=== PATIENT | female | born 1970 ===

== ENCOUNTER 2023-06-22 14:48 | Inpatient (IN) | payer MEDICAID, SELFPAY ==
[2023-06-22] VITALS (7 sets, daily range): BP systolic 143–178; BP diastolic 81–104; PULSE 77–110; RESP 12–25; TEMP 36.4–36.9; O2SAT 97–99; BMI 32.8; BMI 33.8
--- NOTE | ~2023-06-22 | FL_ITS ---
PROCEDURE: Retrograde Urography INDICATION: Stent placement FLUOROSCOPY: Fluoroscopy Time: 23 seconds Dose/air kerma: 2.81 mGy Images saved: 6 TECHNIQUE: Multiple intraoperative fluoroscopic images were submitted during reported left double-J nephroureteral stent placement. Correlation with operative report. Evaluation is limited secondary to fluoroscopic technique. FL/FL guidance in OR IMPRESSION: Fluoroscopy was provided by radiology for this procedure. Please refer to the operative report for further information.
--- NOTE | ~2023-06-22 | CT_ITS ---
EXAMINATION: CT ABDOMEN AND PELVIS WITHOUT CONTRAST CLINICAL INFORMATION: rectal bleeding. COMPARISON: No pertinent prior studies are available for comparison. TECHNIQUE: Multidetector volumetric imaging was performed from the superior aspect of the liver through the pubic symphysis without contrast per request. Sagittal and coronal reformatted images were obtained on the technologist workstation. This CT examination was performed using dose optimization techniques as appropriate, variously including the following: *Automated exposure control *Adjustment of mA and/or kV according to patient size (this includes techniques or standardized protocols for targeted exams where dose is matched to indication/reason for exam; i.e. extremities or head) *Use of iterative reconstruction technique DLP: 756 mGy-cm. FINDINGS: LUNG BASES: The visualized lung bases are unremarkable. LIVER, GALLBLADDER, BILIARY TREE: The non-contrast liver is normal in size, shape, and attenuation. No focal hepatic lesion or biliary ductal dilatation is present. The gallbladder is unremarkable with no evidence of radiopaque gallstones, gallbladder wall thickening, or obvious pericholecystic inflammatory changes. PANCREAS: Unremarkable. SPLEEN: Unremarkable. ADRENAL GLANDS: Unremarkable. KIDNEYS AND URETERS: There is left-sided hydronephrosis and hydroureter extending up to a soft tissue density within the mid right ureter difficult to define further on this noncontrast study. On these images the soft tissue density appears to be within the ureter although it could be secondary to mass effect from soft tissue attenuation from the adjacent retroperitoneal adenopathy mimicking this appearance. This difficult to define further on this noncontrast study. I do not appreciate any ureteric calculi. Tiny punctate intrarenal calculi in the posterior upper pole collecting system of the left kidney and posterior upper pole collecting system of the contralateral right kidney noted. BLADDER: Decompressed GASTROINTESTINAL TRACT: Prominent perirectal inflammatory change. Although decompressed the rectal wall is likely thickened. Underlying low rectal mass cannot be excluded from this noncontrast study. There is scattered diverticulosis. I do not appreciate any other pericolonic inflammatory change or obstruction. Normal-appearing appendix in the right lower quadrant. Visualized small bowel and stomach unremarkable ABDOMINAL WALL: No significant hernia is appreciated. LYMPHOVASCULAR STRUCTURES: There is perirectal inflammatory change seen with the prominent perirectal lymph nodes. Bilateral pelvic sidewall bilateral inguinal, and retroperitoneal adenopathy is noted. Etiology of this adenopathy is uncertain.. PELVIC VISCERA: Fullness in the left greater than right adnexal regions may be due to adenopathy. This difficult to define on this noncontrast study OSSEUS STRUCTURES: Degenerative changes in the spine more so at L4/L5. CT/CT abdomen pelvis wo IV con IMPRESSION: There is left-sided hydronephrosis and hydroureter extending up to a soft tissue density within the mid left ureter. This is difficult to define further on this noncontrast study. This abnormality may be intrinsic to the ureter however there is bulky adenopathy in this location which could also be causing this ureteric obstruction. There is additional bulky bilateral inguinal, pelvic sidewall, and retroperitoneal adenopathy present. Contrast enhanced study may be helpful for evaluating further. Malignancy would be favored over infectious etiology with this distribution There is perirectal inflammatory change with prominent perirectal lymph nodes. I cannot exclude a low rectal mass lesion on this noncontrast study either. Again clinical correlation, contrast-enhanced CT, or MRI may be helpful for evaluating this further. This critical result was discussed with Cortney Carter at 06/22/2023 8:14 PM and it was ascertained that the content and urgency of the report was understood at the time of direct communication.
--- NOTE | ~2023-06-22 | CT_ITS ---
EXAMINATION: CT CHEST, ABDOMEN, AND PELVIS WITH CONTRAST CLINICAL INFORMATION: Rectal carcinoma COMPARISON: 06/22/2023, CT scan of the abdomen TECHNIQUE: Multidetector volumetric CT imaging of the chest, abdomen, and pelvis was obtained after the administration of 85 mL of Omnipaque 350 intravenous contrast without immediate adverse reactions. Axial MIP volume rendering provided. Sagittal and coronal reformatted images were obtained. This CT examination was performed using dose optimization techniques as appropriate, variously including the following: *Automated exposure control *Adjustment of mA and/or kV according to patient size (this includes techniques or standardized protocols for targeted exams where dose is matched to indication/reason for exam; i.e. extremities or head) *Use of iterative reconstruction technique DLP: 795 mGy-cm FINDINGS: LUNGS: The lungs are clear with no evidence of inflammation or nodules. MEDIASTINUM: There is small nodule in the right thyroid lobe, measured 1.2 x 0.8 cm. CORONARY ARTERY CALCIFICATION: Not seen PLEURA: There is no pleural effusion. No pleural mass or thickening. AXILLA: No lymphadenopathy by size criteria. LIVER, GALLBLADDER, AND BILIARY TREE: The liver appears unremarkable in size, shape, and attenuation. No focal hepatic lesion or biliary ductal dilatation is appreciated. Unremarkable appearance of the gallbladder. PANCREAS: Unremarkable SPLEEN: Unremarkable ADRENAL GLANDS: Unremarkable KIDNEYS AND URETERS: There is left ureteral stent. Seen previously left hydroureteronephrosis has been resolved. There is delayed nephrogram on the left. BLADDER: Bladder is partially decompressed with air-fluid level and distal pigtail catheter in the urinary bladder. GASTROINTESTINAL TRACT: Patient is status post colostomy placement on the left there is sigmoid colon resection. ABDOMINAL WALL: There is left-sided stoma with parastomal fat herniation LYMPH NODES: Retroperitoneal lymphadenopathy present with the largest lymph nodes seen at the left renal artery , measured 2.2 cm, 1.3 cm VASCULAR: Unremarkable. PELVIC VISCERA: Unremarkable OSSEOUS STRUCTURES: Unremarkable. CT/CT abdomen pelvis w IV con IMPRESSION: 1. Status post colostomy placement with parastomal fat herniation. 2. Left ureteral stent with delayed nephrogram on the left. 3. Retroperitoneal lymphadenopathy. 4. Right thyroid lobe nodule.
--- NOTE | 2023-06-22 15:25 | PC.NURSE ---
Patient reports blood in stool x 1 month , collette has seen a MD this for this and they wanted to do an endoscopy that she has not had yet. Reports neck pain and abdominal pain reports has not had a BM in two weeks, only blood comes out
[2023-06-22 15:59] LABS: MANUAL DIFF FLAG NO
[2023-06-22 16:01] LABS: Eosinophils Percent Auto 0.4 % (0-4); Hematocrit 36.1 % (37.0-47.0); Hemoglobin 11.4 g/dl (12.0-16.0); Imm Gran Abs Auto 0.01 X10*3/uL (0.00-0.03); Imm Gran Pct Auto 0.2 % (0.0-0.4); Lymphocytes Absolute Auto 1.3 X10*3/uL (1.2-4.9); Lymphocytes Percent Auto 24.5 % (20-40); Mean Corpuscular HGB Conc 31.6 g/dl (31.0-35.0); Mean Corpuscular Hemoglobin 24.2 pg (27.0-33.0); Mean Corpuscular Volume 76.6 fL (80.0-98.0); Monocytes Absolute Auto 0.5 X10*3/uL (0.1-1.2); Monocytes Percent Auto 9.3 % (2-11); Neutrophils Absolute Auto 3.4 x10*3/uL (2.0-8.3); Neutrophils Percent Auto 65.6 % (45-73); Platelet Count 390 X10*3/uL (160-400); Red Blood Count 4.71 X10*6/uL (4.20-5.50); White Blood Count 5.2 X10*3/uL (4.8-10.8)
[2023-06-22 16:23] LABS: Alanine Aminotransferase 23 U/L (0-31); Albumin Level 3.9 g/dL (3.5-5.0); Alkaline Phosphatase 76 U/L (39-117); Anion Gap 11 (12-20); Aspartate Amino Transferase 29 U/L (5-31); Bilirubin Direct 0.1 mg/dL (0.0-0.5); Bilirubin Total 0.3 mg/dL (0.0-1.0); Blood Urea Nitrogen 12 mg/dL (9-16); Calcium 9.7 mg/dL (8.4-10.2); Carbon Dioxide 24 mmol/L (22-29); Chloride 103 mmol/L (96-108); Creatinine Clr Calc Pharmacy 70.2; Estimated Glomerular Filt Rate 57; Glucose Random 109 mg/dL (60-115); Lipase 9 U/L (8-78); Potassium 4.3 mmol/L (3.3-5.1); Sodium 134 mmol/L (135-145); Total Protein 8.9 g/dL (6.5-8.0)
--- NOTE | 2023-06-22 16:24 | ED_ITS ---
HPI - General Adult General Chief complaint: General Medical Stated complaint: ABD PAIN,BLOODY STOOLS, HIGH BP 186/104 PER EMS Time Seen by Provider: 06/22/23 15:58 Source: patient and RN notes reviewed Mode of arrival: ambulatory Limitations: no limitations History of Present Illness HPI narrative: This is a 53-year-old female with a history of pancreatitis and partially treated hepatitis-C, who presents emergency department complaints of generalized abdominal pain and rectal bleeding x 1 month. Patient endorsing subjective fevers and chill and chest pain. Denies any vomiting. She has been taking Tylenol for her symptoms which has provided her without any relief. Denies history of similar symptoms in the past. She states that her stool comes out clots and is bright red. Patient reports that over the last month she has had night sweats and decreased appetite. No known history of colon cancer or family history of colon cancer. She has not had a colonoscopy performed. She has not been seen by GI. She is alert and oriented x4 however does appear to be a poor historian regarding medical history. No other complaints or concerns at this time. MD complaint: Rectal Bleeding Onset (ago): week(s) Severity: moderate Quality: aching Relieving factors: none Exacerbating factors: none Associated symptoms: denies other symptoms Treatments prior to arrival: none Related Data Allergies Allergy/AdvReac Type Severity Reaction Status Date / Time No Known Allergies Allergy Verified 06/22/23 15:07 Review of Systems 2 Review of Systems: Yes all other systems are reviewed and are negative Constitutional: Constitutional: Reports as per [facility] Past Medical History Attestation statement: The following information was validated with the patient. Medical History (Updated 06/22/23 @ 23:33 by Dianne Seals) Shingles Migraines Hepatitis C Social History Social History Household Members: None Housing: Apartment Alcohol intake: never Patient Tobacco Use Status: Former Tobacco user Smoked in Last 30 Days: No Use of substances other than those prescribed or required for medical reasons: No Currently Displaying Signs/Symptoms of Drug Intoxication Withdrawal: No Have you been hit, kicked, punched, or otherwise hurt by someone within the past year? If so, by whom?: No Do you feel safe in your current relationship?: No Is there a partner from a previous relationship who is making you feel unsafe now?: No Are you made to feel afraid or neglected: No Advance Directives: No Advance Directives Information Provided: No Do you have thoughts of harming others: None Do you have a plan to hurt others: No Plan Recently lost weight without trying: No Eating poorly because of decreased appetite: No Nutrition Risks: No Nutritional Risk Patient : No : No Poor oral hygiene: No Physical Exam ED Vital Signs: Vital Signs - 24 hr 06/22/23 15:01 06/22/23 15:02 06/22/23 16:00 Temperature 98.2 F Pulse Rate 89 94 77 Respiratory Rate 18 25 H 18 Blood Pressure 147/85 H 147/85 H 143/85 H Pulse Oximetry 97 98 98 Oxygen Delivery Method Room Air Room Air Room Air 06/22/23 18:12 06/22/23 20:52 Temperature 98.1 F 98.5 F Pulse Rate 82 91 Respiratory Rate 17 12 Blood Pressure 163/89 H 171/90 H Pulse Oximetry 99 97 Oxygen Delivery Method Room Air Room Air BMI result Body Mass Index 32.8 Const General: cooperative, comfortable and no acute distress Orientation/consciousness: patient oriented x3 Limitations: no limitations HENMT Head: Yes normal to inspection, Yes normocephalic and Yes atraumatic Ears: hearing grossly normal bilaterally General nose exam: Normal external nose present Face and sinus: Yes normal facial exam Mouth: Normal oral and palatal mucosa present, oropharynx normal and moist mucous membranes Throat: Yes posterior oropharynx normal Eyes General: appearance normal, both eyes and all related structures Eyelids: Yes eyelids normal Conjunctivae: conjunctivae normal Sclerae: sclerae normal Pupils: Equal, round and reactive pupils present EOM: EOMs intact bilaterally Neck Neck: Yes normal visual inspection, Yes full ROM and Yes no lymphadenopathy Lymphatic: no lymphadenopathy noted Chest Chest palpation & inspection: normal inspection of the chest Resp Effort & Inspection: normal respiratory effort and able to speak in complete sentences Auscultation: clear to auscultation bilaterally, no crackles, no rales, no rhonchi and no wheezes Cardio Rate: regular rate Rhythm: regular rhythm Heart sounds: S1 normal heart sound present and S2 normal heart sound present GI Other: Rectal examination performed with MAGDY Reed present. Patient does have external hemorrhoids noted. Internal examination revealing multiple rectal masses versus internal hemorrhoids. Patient does have tenderness along these masses. Bright red blood per rectum noted. Abdomen is soft, nontender, nondistended, normoactive bowel sounds present 4 quadrants. Inspection: Yes normal to inspection Skin General skin exam: no rashes or lesions noted Trauma: no lacerations or abrasions Wounds: no wounds Neuro General: patient oriented x3 and moves all extremities Cranial nerves: Yes Equal, round and reactive pupils present Extrem General: Yes normal to inspection Right upper extremity: normal to inspection Left upper extremity: normal to inspection Right lower extremity: normal to inspection Left lower extremity: normal to inspection Course Reevaluation(s) Reevaluation #1: I received a phone call from [facility], spoke to radiologist. Report was read with left-sided hydronephrosis and hydroureter extending up to a soft tissue density within the mid left ureter. Abnormality may be intrinsic due to ureter however there is bulky adenopathy in this location which can be causing the ureteric obstruction. There is additional bulky bilateral inguinal, pelvic sidewall, and retroperitoneal adenopathy present. Malignancy is favored in this case. Was also perirectal inflammatory change with prominent perirectal lymph nodes, can not exclude a low rectal mass lesion on this noncontrast study, radiologist's requesting CT with IV contrast or MRI for further evaluation. I discussed with my attending physician, Dr. Solis, without given patient has poor management and follow-up and extensive masses she should be admitted for further management. I spoke to hospitalist, Dr. Weston, transfer of care initiated. Time: 21:01 Medications Administered Generic Name Dose Route Start Last Admin Trade Name Freq PRN Reason Stop Dose Admin Acetaminophen 650 mg 06/22/23 22:01 06/23/23 00:10 Acetaminophen 325 Mg Tablet PO 650 mg Q6H PRN Administration Pain, Mild (Pain Scale 1-3) Melatonin 6 mg 06/22/23 22:01 06/23/23 00:10 Melatonin 3 Mg Tablet PO 6 mg BEDTIME PRN Administration Insomnia Sodium Chloride 3 ml 06/23/23 00:00 06/23/23 00:12 0.9 % Sodium Chloride Flush 3 Ml Syringe IVFLUSH 3 ml QSHIFT BRETT Administration Medical Decision Making Medical Decision Making MDM Narrative: This is a 53-year-old female, with a history of hepatitis-C and pancreatitis, who presents emergency department with complaints of rectal bleeding for the last month. On arrival patient mildly hypertensive at 147/85, all other vital signs within normal limits. Abdomen is soft, nontender. Rectal exam with external and internal hemorrhoids noted. Bright red blood per rectum noted. Differential diagnoses include diverticulitis, diverticulosis, colitis, rectal mass, malignancy. CT abdomen and pelvis with IV contrast would be preferred however patient appears to be a poor historian, and states that she has an allergy to shellfish/IV contrast dye. Given this finding, will order dry CT for further analysis. Plan: Labs, UA, CT abdomen and pelvis Differential Diagnosis Differential Diagnoses: The differential diagnosis associated with the presentation includes See above Admission/Observation Consideration of admission/observation: Escalation of care including admission/observation considered Patient requiring hospitalization secondary to rectal mass and poor outpatient follow-up Lab Data MDM Lab Attestation statement: I reviewed the patient's lab results. No leukocytosis, H&H revealing normocytic anemia at 11.4/36. Chemistry nondiagnostic, urine does not appear to be infected. Patient tested positive for fentanyl. 06/22/23 15:54 06/22/23 15:54 Labs: Lab Results 06/22/23 06/22/23 06/22/23 Range/Units 15:54 16:47 17:46 WBC 5.2 (4.8-10.8) X10*3/uL RBC 4.71 (4.20-5.50) X10*6/uL Hgb 11.4 L (12.0-16.0) g/dl Hct 36.1 L (37.0-47.0) % MCV 76.6 L (80.0-98.0) fL MCH 24.2 L (27.0-33.0) pg MCHC 31.6 (31.0-35.0) g/dl RDW 16.0 (11.0-16.0) % Plt Count 390 (160-400) X10*3/uL MPV 9.0 L (9.4-12.3) fL Immature Gran % (Auto) 0.2 (0.0-0.4) % Neut % (Auto) 65.6 (45-73) % Lymph % (Auto) 24.5 (20-40) % [place] % (Auto) 9.3 (2-11) % Eos % (Auto) 0.4 (0-4) % Baso % (Auto) 0.0 (0-2) % Lymph # (Auto) 1.3 (1.2-4.9) X10*3/uL [place] # (Auto) 0.5 (0.1-1.2) X10*3/uL Eos # (Auto) 0.0 (0.0-0.4) X10*3/uL Baso # (Auto) 0.0 (0.0-0.2) X10*3/uL Abs Immat Gran (auto) 0.01 (0.00-0.03) X10*3/uL Absolute Neuts (auto) 3.4 (2.0-8.3) x10*3/uL Absolute Nucleated RBC 0.000 (0.0-0.012) X10*3/uL Nucleated RBC % (auto) 0.0 (0.0-0.2) /100WBC APTT 35.7 (26.0-36.8) SEC Sodium 134 L (135-145) mmol/L Potassium 4.3 (3.3-5.1) mmol/L Chloride 103 (96-108) mmol/L Carbon Dioxide 24 (22-29) mmol/L Anion Gap 11 L (12-20) BUN 12 (9-16) mg/dL Creatinine 1.01 (0.5-1.4) mg/dL Estim Creat Clear Calc 70.2 Estimated GFR 57 Random Glucose 109 (60-115) mg/dL Calcium 9.7 (8.4-10.2) mg/dL Total Bilirubin 0.3 (0.0-1.0) mg/dL Direct Bilirubin 0.1 (0.0-0.5) mg/dL AST 29 (5-31) U/L ALT 23 (0-31) U/L Alkaline Phosphatase 76 (39-117) U/L Ammonia 30 (13-55) umol/L Total Protein 8.9 H (6.5-8.0) g/dL Albumin 3.9 (3.5-5.0) g/dL Lipase 9 (8-78) U/L Urine Color Urine Appearance Urine pH (5.0-9.0) Ur Specific [place] (1.005-1.025) Urine Protein (Neg-Trace) mg/dL Urine Glucose (UA) (Negative) mg/dL Urine Ketones (Negative) mg/dL Urine Blood (Negative) Urine Nitrite (Negative) Ur Leukocyte Esterase (Negative) Stool Occult Blood POSITIVE (NEGATIVE) Urine Opiates Screen (Not Detect) Ur Buprenorphine Scrn (Not Detect) ng/mL Ur Oxycodone Screen (Not Detect) ng/mL Urine Methadone Screen (Not Detect) ng/mL Urine Fentanyl Screen (Not Detect) Ur Barbiturates Screen (Not Detect) Ur Phencyclidine Scrn (Not Detect) Ur Amphetamines Screen (Not Detect) U Benzodiazepines Scrn (Not Detect) Urine Cocaine Screen (Not Detect) U Marijuana (THC) Screen (Not Detect) Ethyl Alcohol < 10 mg/dL 06/22/23 06/22/23 Range/Units 18:21 18:26 WBC (4.8-10.8) X10*3/uL RBC (4.20-5.50) X10*6/uL Hgb (12.0-16.0) g/dl Hct (37.0-47.0) % MCV (80.0-98.0) fL MCH (27.0-33.0) pg MCHC (31.0-35.0) g/dl RDW (11.0-16.0) % Plt Count (160-400) X10*3/uL MPV (9.4-12.3) fL Immature Gran % (Auto) (0.0-0.4) % Neut % (Auto) (45-73) % Lymph % (Auto) (20-40) % [place] % (Auto) (2-11) % Eos % (Auto) (0-4) % Baso % (Auto) (0-2) % Lymph # (Auto) (1.2-4.9) X10*3/uL [place] # (Auto) (0.1-1.2) X10*3/uL Eos # (Auto) (0.0-0.4) X10*3/uL Baso # (Auto) (0.0-0.2) X10*3/uL Abs Immat Gran (auto) (0.00-0.03) X10*3/uL Absolute Neuts (auto) (2.0-8.3) x10*3/uL Absolute Nucleated RBC (0.0-0.012) X10*3/uL Nucleated RBC % (auto) (0.0-0.2) /100WBC APTT (26.0-36.8) SEC Sodium (135-145) mmol/L Potassium (3.3-5.1) mmol/L Chloride (96-108) mmol/L Carbon Dioxide (22-29) mmol/L Anion Gap (12-20) BUN (9-16) mg/dL Creatinine (0.5-1.4) mg/dL Estim Creat Clear Calc Estimated GFR Random Glucose (60-115) mg/dL Calcium (8.4-10.2) mg/dL Total Bilirubin (0.0-1.0) mg/dL Direct Bilirubin (0.0-0.5) mg/dL AST (5-31) U/L ALT (0-31) U/L Alkaline Phosphatase (39-117) U/L Ammonia (13-55) umol/L Total Protein (6.5-8.0) g/dL Albumin (3.5-5.0) g/dL Lipase (8-78) U/L Urine Color Yellow Urine Appearance Clear Urine pH 8.0 (5.0-9.0) Ur Specific [place] 1.020 (1.005-1.025) Urine Protein Trace (Neg-Trace) mg/dL Urine Glucose (UA) Negative (Negative) mg/dL Urine Ketones Negative (Negative) mg/dL Urine Blood Negative (Negative) Urine Nitrite Negative (Negative) Ur Leukocyte Esterase Negative (Negative) Stool Occult Blood (NEGATIVE) Urine Opiates Screen Not Detected (Not Detect) Ur Buprenorphine Scrn Not Detected (Not Detect) ng/mL Ur Oxycodone Screen Not Detected (Not Detect) ng/mL Urine Methadone Screen Not Detected (Not Detect) ng/mL Urine Fentanyl Screen POSITIVE H (Not Detect) Ur Barbiturates Screen Not Detected (Not Detect) Ur Phencyclidine Scrn Not Detected (Not Detect) Ur Amphetamines Screen Not Detected (Not Detect) U Benzodiazepines Scrn Not Detected (Not Detect) Urine Cocaine Screen Not Detected (Not Detect) U Marijuana (THC) Screen Not Detected (Not Detect) Ethyl Alcohol mg/dL Radiology Impression Discussion of test interpretation with radiology: I have reviewed the radiologist's reading. Radiologist Impression: FINDINGS: LUNG BASES: The visualized lung bases are unremarkable. LIVER, GALLBLADDER, BILIARY TREE: The non-contrast liver is normal in size, shape, and attenuation. No focal hepatic lesion or biliary ductal dilatation is present. The gallbladder is unremarkable with no evidence of radiopaque gallstones, gallbladder wall thickening, or obvious pericholecystic inflammatory changes. PANCREAS: Unremarkable. SPLEEN: Unremarkable. ADRENAL GLANDS: Unremarkable. KIDNEYS AND URETERS: There is left-sided hydronephrosis and hydroureter extending up to a soft tissue density within the mid right ureter difficult to define further on this noncontrast study. On these images the soft tissue density appears to be within the ureter although it could be secondary to mass effect from soft tissue attenuation from the adjacent retroperitoneal adenopathy mimicking this appearance. This difficult to define further on this noncontrast study. I do not appreciate any ureteric calculi. Tiny punctate intrarenal calculi in the posterior upper pole collecting system of the left kidney and posterior upper pole collecting system of the contralateral right kidney noted. BLADDER: Decompressed GASTROINTESTINAL TRACT: Prominent perirectal inflammatory change. Although decompressed the rectal wall is likely thickened. Underlying low rectal mass cannot be excluded from this noncontrast study. There is scattered diverticulosis. I do not appreciate any other pericolonic inflammatory change or obstruction. Normal-appearing appendix in the right lower quadrant. Visualized small bowel and stomach unremarkable ABDOMINAL WALL: No significant hernia is appreciated. LYMPHOVASCULAR STRUCTURES: There is perirectal inflammatory change seen with the prominent perirectal lymph nodes. Bilateral pelvic sidewall bilateral inguinal, and retroperitoneal adenopathy is noted. Etiology of this adenopathy is uncertain.. PELVIC VISCERA: Fullness in the left greater than right adnexal regions may be due to adenopathy. This difficult to define on this noncontrast study OSSEUS STRUCTURES: Degenerative changes in the spine more so at L4/L5. CT/CT abdomen pelvis wo IV con IMPRESSION: There is left-sided hydronephrosis and hydroureter extending up to a soft tissue density within the mid left ureter. This is difficult to define further on this noncontrast study. This abnormality may be intrinsic to the ureter however there is bulky adenopathy in this location which could also be causing this ureteric obstruction. There is additional bulky bilateral inguinal, pelvic sidewall, and retroperitoneal adenopathy present. Contrast enhanced study may be helpful for evaluating further. Malignancy would be favored over infectious etiology with this distribution There is perirectal inflammatory change with prominent perirectal lymph nodes. I cannot exclude a low rectal mass lesion on this noncontrast study either. Again clinical correlation, contrast-enhanced CT, or MRI may be helpful for evaluating this further. This critical result was discussed with Cortney Carter at 06/22/2023 8:14 PM and it was ascertained that the content and urgency of the report was understood at the time of direct communication. Dictated By: Keegan Dasilva MD External Record Review External record reviewed: Inpatient record, Office record, Outpatient record, Prior outpatient labs, Prior outpatient radiology, Primary care record and Outside ED record Critical Care Time Critical Care Time Critical Care Time: Yes Total Critical Care Time: 50 Attestation: I have personally provided critical care time exclusive of time spent on separately billable procedures. Time includes review of lab data, radiology results, discussion with consultants, and monitoring for potential decompensation. Intervention performed as documented. Discharge Plan Discharge Clinical Impression: Rectal Hemorrhage Patient Disposition: Admitted As Inpatient Interventions: Admission Worksheet (ED) Last Done: 06/22/23 22:51 Discharge Date/Time: 06/22/23 23:33
[2023-06-22 16:56] LABS: OBS Int Ctl Valid YES; OBS1 POSITIVE (NEGATIVE)
[2023-06-22 18:07] LABS: Partial Thromboplastin Time 35.7 SEC (26.0-36.8)
[2023-06-22 18:16] LABS: Ammonia 30 umol/L (13-55)
[2023-06-22 18:20] LABS: Ethanol < 10 mg/dL
[2023-06-22 18:27] LABS: Appearance Urine Clear; Color Urine Yellow; Glucose Urine UA Negative (Negative); Leukocyte Esterase Urine Negative (Negative); Nitrite Urine Negative (Negative); Urine Blood Negative (Negative); Urine Ketones Negative (Negative); Urine Protein Trace mg/dL (Neg-Trace)
[2023-06-22 18:42] LABS: Amphetamine Screen Urine Not Detected (Not Detect); Barbiturates, Urine Not Detected (Not Detect); Benzodiazepines Screen Urine Not Detected (Not Detect); Buprenorphine Scr Not Detected (Not Detect); Cannabinoid Screen Urine Not Detected (Not Detect); Cocaine Screen Urine Not Detected (Not Detect); Fentanyl, urine POSITIVE (Not Detect); Methadone Screen, Urine Not Detected (Not Detect); Opiate Screen Urine Not Detected (Not Detect); Oxycodone Screen Urine Not Detected (Not Detect); Phencyclidine Screen Urine Not Detected (Not Detect)
--- NOTE | 2023-06-22 18:46 | PC.NURSE ---
patient received dose of fentanyl from EMS
--- NOTE | 2023-06-22 21:00 | PM.IMHP ---
History of Present Illness Date of Service: 06/22/23 Attending physician on admission: Shanell Hinkle Chief Complaint: Bloody stool Pt is a 53-year-old Estonian-speaking female with a PMH significant for shingles, migraines, mood disorder, and hepatitis-C?at least partially treated in [place] in 1996 currently not on home meds who presents to the ED for evaluation of rectal bleeding and diffuse abdominal pain x1 month. Patient reports having bright red blood per rectum with bowel movements for the past month. Initially stool was thin and elongated but lately has been constipated and having to strain while defecating. Has only produced a small amount of stool the past two weeks. Reports intermittent epigastric and rectal pain during defecation. Also complains of diffuse pain in bones, joints, and neck x1 month. Has lost strength in left arm and not been able to fully close her left hand, which is new. Reports feeling weak and fatigued with 5 lb unintentional weight loss. Some nausea and vomiting, and subjective fever and chills. States it has been eating and drinking normally for most of this time. Denies dysuria, polyuria, or hematuria. Denies chest pain/pressure, palpitations. No shortness of breath. In the ED pt was tachypneic up to 20, hypertensive up to 171/90, and with elevated heart rate of 94. Labs were significant for stool being positive for occult blood, otherwise grossly unremarkable. No leukocytosis. Stable H&H of 11.4/36.1. Sodium 134, otherwise no electrolyte abnormalities. Renal and hepatic function WNL. CT of abdomen and pelvis found left sided hydronephrosis and hydroureter. Unclear if ureteric obstruction is intrinsic to the ureter itself or to bulky adenopathy. Also found bulky bilateral inguinal, pelvic sidewall, and retroperitoneal adenopathy, as well as perirectal inflammatory change with prominent perirectal lymph nodes. Low rectal mass lesion can not be excluded. Suspicion is for malignancy over infectious etiology. Of note, CT could not be ordered with contrast out of concern for allergy to IV contrast/shellfish. Pt will be admitted to the hospital patient will be admitted to the hospital for treatment further evaluation of rectal bleeding secondary to possible rectal mass and hydro nephrosis concerning ureteral obstruction. Review of Systems Review of Systems: Negative except for that stated in the [facility] Medical History (Updated 06/22/23 @ 22:49 by ERICK Hector) Shingles Migraines Hepatitis C Social History Alcohol intake: never Smoked in Last 30 Days: No Use of substances other than those prescribed or required for medical reasons: No Advance Directives: No Advance Directives Information Provided: No Meds Allergies Allergy/AdvReac Type Severity Reaction Status Date / Time No Known Allergies Allergy Verified 06/22/23 15:07 Physical Exam Vital Signs and Narrative: Vital Signs: Last Vital Signs Temp 98.5 F 06/22/23 20:52 Pulse 91 06/22/23 20:52 Resp 12 06/22/23 20:52 BP 171/90 H 06/22/23 20:52 Pulse Ox 97 06/22/23 20:52 O2 Del Method Room Air 06/22/23 20:52 BMI result Body Mass Index 32.8 Constitutional: Alert, in no acute distress. Mental Status: Oriented to person, place and time. Eyes: Pupils are equal, round, and reactive to light. Ear, Nose, and Throat: Oropharynx clear, mucous membranes moist. Ears and nose without deformities. Trachea midline. Respiratory: Clear to auscultation bilaterally. No wheezing, rales, or rhonchi. Cardiovascular: S1, S2 regular. No murmurs, rubs, or gallops. Gastrointestinal: Abdomen soft, non-distended, with suprapubic tenderness. Normal bowel sounds. Neurologic: Cranial nerves II-XII are grossly intact bilaterally. Moves all extremities spontaneously. Left upper extremity weakness with reduced ROM of hand and fingers. Skin: Warm, dry. Extremities: No edema. Psychiatric: Normal mood and affect. Results Labs 06/22/23 15:54 06/22/23 15:54 Labs: Laboratory Results - last 24 hr 06/22/23 06/22/23 06/22/23 15:54 16:47 17:46 MCV 76.6 L MCH 24.2 L MCHC 31.6 RDW 16.0 Plt Count 390 MPV 9.0 L Immature Gran % (Auto) 0.2 Neut % (Auto) 65.6 Lymph % (Auto) 24.5 Chambers % (Auto) 9.3 Eos % (Auto) 0.4 Baso % (Auto) 0.0 Lymph # (Auto) 1.3 Chambers # (Auto) 0.5 Eos # (Auto) 0.0 Baso # (Auto) 0.0 Abs Immat Gran (auto) 0.01 Absolute Neuts (auto) 3.4 Absolute Nucleated RBC 0.000 Nucleated RBC % (auto) 0.0 APTT 35.7 Anion Gap 11 L Estim Creat Clear Calc 70.2 Estimated GFR 57 Random Glucose 109 Calcium 9.7 Total Bilirubin 0.3 Direct Bilirubin 0.1 AST 29 ALT 23 Alkaline Phosphatase 76 Ammonia 30 Total Protein 8.9 H Albumin 3.9 Lipase 9 Urine Color Urine Appearance Urine pH Ur Specific Ferguson Urine Protein Urine Glucose (UA) Urine Ketones Urine Blood Urine Nitrite Ur Leukocyte Esterase Stool Occult Blood POSITIVE Urine Opiates Screen Ur Buprenorphine Scrn Ur Oxycodone Screen Urine Methadone Screen Urine Fentanyl Screen Ur Barbiturates Screen Ur Phencyclidine Scrn Ur Amphetamines Screen U Benzodiazepines Scrn Urine Cocaine Screen U Marijuana (THC) Screen Ethyl Alcohol < 10 06/22/23 06/22/23 18:21 18:26 MCV MCH MCHC RDW Plt Count MPV Immature Gran % (Auto) Neut % (Auto) Lymph % (Auto) Chambers % (Auto) Eos % (Auto) Baso % (Auto) Lymph # (Auto) Chambers # (Auto) Eos # (Auto) Baso # (Auto) Abs Immat Gran (auto) Absolute Neuts (auto) Absolute Nucleated RBC Nucleated RBC % (auto) APTT Anion Gap Estim Creat Clear Calc Estimated GFR Random Glucose Calcium Total Bilirubin Direct Bilirubin AST ALT Alkaline Phosphatase Ammonia Total Protein Albumin Lipase Urine Color Yellow Urine Appearance Clear Urine pH 8.0 Ur Specific Ferguson 1.020 Urine Protein Trace Urine Glucose (UA) Negative Urine Ketones Negative Urine Blood Negative Urine Nitrite Negative Ur Leukocyte Esterase Negative Stool Occult Blood Urine Opiates Screen Not Detected Ur Buprenorphine Scrn Not Detected Ur Oxycodone Screen Not Detected Urine Methadone Screen Not Detected Urine Fentanyl Screen POSITIVE H Ur Barbiturates Screen Not Detected Ur Phencyclidine Scrn Not Detected Ur Amphetamines Screen Not Detected U Benzodiazepines Scrn Not Detected Urine Cocaine Screen Not Detected U Marijuana (THC) Screen Not Detected Ethyl Alcohol Imaging Radiologist's Impressions: Impressions Abdomen/Pelvis CT 06/22/23 19:23 IMPRESSION: There is left-sided hydronephrosis and hydroureter extending up to a soft tissue density within the mid left ureter. This is difficult to define further on this noncontrast study. This abnormality may be intrinsic to the ureter however there is bulky adenopathy in this location which could also be causing this ureteric obstruction. There is additional bulky bilateral inguinal, pelvic sidewall, and retroperitoneal adenopathy present. Contrast enhanced study may be helpful for evaluating further. Malignancy would be favored over infectious etiology with this distribution There is perirectal inflammatory change with prominent perirectal lymph nodes. I cannot exclude a low rectal mass lesion on this noncontrast study either. Again clinical correlation, contrast-enhanced CT, or MRI may be helpful for evaluating this further. This critical result was discussed with Cortney Carter at 06/22/2023 8:14 PM and it was ascertained that the content and urgency of the report was understood at the time of direct communication. Assessment and Plan (1) Rectal bleeding: Status: Acute Plan Pt is a 53-year-old Estonian-speaking female with a PMH significant for shingles, migraines, mood disorder, and hepatitis-C?at least partially treated in [place] in 1996 currently not on home meds who presents to the ED for evaluation of rectal bleeding and diffuse abdominal pain x1 month. Pt will be admitted to the hospital patient will be admitted to the hospital for treatment further evaluation of rectal bleeding secondary to possible rectal mass and hydro nephrosis concerning ureteral obstruction. Hematochezia Patient with bright red blood per rectum, diffuse intermittent abdominal pain, F/C, N/V, fatigue, weight loss x1 month CT with perirectal inflammatory change with prominent perirectal lymph nodes, rectal mass can not be excluded Concerning for malignancy Consider MRI of abdomen and pelvis for better imaging evaluation Patient will be made NPO Analgesics for pain management GI consult Follow CBC Left hydronephrosis and hydroureter Concern for ureteric obstruction from bulky adenopathy Urology consult Left upper extremity weakness Patient reports not being able to fully close left hand x1 month Unclear etiology: ?possible metastasis Consider MRI of head/neck Hepatitis-C Patient underwent at least partial treatment while in [place] No indication for further treatment or workup at this time Mood disorder Patient not on any home meds/mood stabilizers Migraines Tylenol p.r.n. Full Code Attending:? DVT Prophylaxis: Lovenox Pt will require a hospitalization of at least two nights for treatment and further evaluation of left hydronephrosis concerning for ureteral obstruction and rectal bleeding in the setting of possible rectal mass concerning for malignancy. Patient will require hospitalization for close monitoring of labs and specialist consultation with Urology and Gastroenterology with likely additional imaging and workup. Quality Stroke Does the patient have a stroke diagnosis?: No VTE Prior VTE?: No VTE Risk Level:: Medical - moderate - high VTE Device Contraindication: N/A - Device Ordered VTE Drug Contraindication: Treatment Not Indicated
[2023-06-23] MEDS: Acetaminophen 325 MG TABLET 650 MG PO ×2 (00:10→23:55)
[2023-06-23] MEDS: Melatonin 3 MG TABLET 6 MG PO ×2 (00:10→23:54)
[2023-06-23] MEDS: 0.9 % Sodium Chloride Flush 3 ML SYRINGE IVFLUSH ×4 (00:12→23:58)
[2023-06-23 03:57] VITALS: BP 137/75; PULSE 94; RESP 18; TEMP 36.4; O2SAT 96
[2023-06-23 07:01] LABS: Hematocrit 33.5 % (37.0-47.0); Hemoglobin 10.5 g/dl (12.0-16.0); Mean Corpuscular HGB Conc 31.3 g/dl (31.0-35.0); Mean Corpuscular Hemoglobin 24.4 pg (27.0-33.0); Mean Corpuscular Volume 77.9 fL (80.0-98.0); Mean Platelet Volume 9.5 fL (9.4-12.3); Platelet Count 391 X10*3/uL (160-400); Red Cell Distribution Width 16.2 % (11.0-16.0); White Blood Count 4.8 X10*3/uL (4.8-10.8)
[2023-06-23 07:10] LABS: Anion Gap 14 (12-20); Blood Urea Nitrogen 13 mg/dL (9-16); Calcium 9.8 mg/dL (8.4-10.2); Carbon Dioxide 24 mmol/L (22-29); Chloride 100 mmol/L (96-108); Creatinine Clr Calc Pharmacy 70.6; Estimated Glomerular Filt Rate 56; Glucose Random 96 mg/dL (60-115); Sodium 134 mmol/L (135-145)
--- NOTE | 2023-06-23 07:27 | P.CNGI_ITS ---
History of Present Illness Data of Consult Service Date: 06/23/23 Requesting physician: Stephanie De La Cruz Primary Care Provider: Unknown Physician HPI 53 YF (Gibraltarian-speaking) with hx of shingles, migraines, mood disorder, and hepatitis-C?at least partially treated in [place] in 1996 currently not on home meds seen at [facility] ED on 06/22/23 1 month hx of rectal bleeding and diffuse abdominal pain. Patient reported having bright red blood per rectum with bowel movements for the past month. Initially stool was thin and elongated but lately has been constipated and having to strain while defecating. She reports only small BMs in the past two weeks with incomplete evacuation and intermittent epigastric and rectal pain during defecation. Pt notes diffuse pain in bones, joints, and neck x1 month with loss of strength in left arm and not been able to fully close her left hand, which is new. Reports feeling weak and fatigued with 5 lb unintentional weight loss. Some nausea and vomiting, and subjective fever and chills. States she has been eating and drinking normally for most of this time. Pt denied dysuria, polyuria, or hematuria, chest pain/pressure, palpitations or shortness of breath. In the ED pt was tachypneic up to 20, hypertensive up to 171/90, and with elevated heart rate of 94. Labs showed heme positive stool. Stable H&H of 11.4/36.1. Sodium 134, otherwise no electrolyte abnormalities. Renal and hepatic function WNL. 06/22/[address] SCAN SHOWED: There is left-sided hydronephrosis and hydroureter extending up to a soft tissue density within the mid left ureter. This is difficult to define further on this noncontrast study. This abnormality may be intrinsic to the ureter however there is bulky adenopathy in this location which could also be causing this ureteric obstruction. There is additional bulky bilateral inguinal, pelvic sidewall, and retroperitoneal adenopathy present. Contrast enhanced study may be helpful for evaluating further. Malignancy would be favored over infectious etiology with this distribution There is perirectal inflammatory change with prominent perirectal lymph nodes. I cannot exclude a low rectal mass lesion on this noncontrast study either. Again clinical correlation, contrast-enhanced CT, or MRI may be helpful for evaluating this further. CT could not be ordered with contrast out of concern for allergy to IV contrast/shellfish. Pt was admitted for further evaluation of rectal bleeding secondary to possible rectal mass and hydro nephrosis concerning ureteral obstruction. Review of Systems 2 Review of Systems: Negative except for that stated in the [facility] Past Medical History Medical History Shingles Migraines Hepatitis C Social History Social History Household Members: None Housing: Apartment Alcohol intake: never Patient Tobacco Use Status: Former Tobacco user Smoked in Last 30 Days: No Use of substances other than those prescribed or required for medical reasons: No Currently Displaying Signs/Symptoms of Drug Intoxication Withdrawal: No Have you been hit, kicked, punched, or otherwise hurt by someone within the past year? If so, by whom?: No Do you feel safe in your current relationship?: No Is there a partner from a previous relationship who is making you feel unsafe now?: No Are you made to feel afraid or neglected: No Are you DNR?: No Advance Directives: No Advance Directives Information Provided: No Do you have thoughts of harming others: None Do you have a plan to hurt others: No Plan Recently lost weight without trying: No Eating poorly because of decreased appetite: No Nutrition Risks: No Nutritional Risk Patient : No : No Poor oral hygiene: No service: No Meds Allergies Allergy/AdvReac Type Severity Reaction Status Date / Time No Known Allergies Allergy Verified 06/22/23 15:07 Active Medications: Current Medications Acetaminophen (Acetaminophen 325 Mg Tablet) 650 mg PO Q6H PRN PRN Reason: Pain, Mild (Pain Scale 1-3) Last Admin: 06/23/23 00:10 Dose: 650 mg Benzonatate (Benzonatate 100 Mg Capsule) 100 mg PO TID PRN PRN Reason: Cough Docusate Sodium (Docusate Sodium 100 Mg Capsule) 100 mg PO DAILY PRN PRN Reason: Constipation Melatonin (Melatonin 3 Mg Tablet) 6 mg PO BEDTIME PRN PRN Reason: Insomnia Last Admin: 06/23/23 00:10 Dose: 6 mg Morphine Sulfate (Morphine Sulfate 2 Mg/Ml Cartridge) 2 mg IVPUSH Q4H PRN; Protocol PRN Reason: Pain, Severe (Pain Scale 7-10) Ondansetron HCl (Ondansetron Hcl 4 Mg/2 Ml Vial) 4 mg IVPUSH Q8H PRN PRN Reason: Nausea and Vomiting Sodium Chloride (0.9 % Sodium Chloride Flush 3 Ml Syringe) 3 ml IVFLUSH QSHIFT BRETT Last Admin: 06/23/23 00:12 Dose: 3 ml Physical Exam 2 Vital Signs: Vital Signs: Last Vital Signs Temp 97.6 F 06/23/23 03:57 Pulse 94 06/23/23 03:57 Resp 18 06/23/23 03:57 BP 137/75 06/23/23 03:57 Pulse Ox 96 06/23/23 03:57 O2 Del Method Room Air 06/23/23 03:57 BMI result Body Mass Index 33.8 Const: General: no acute distress Nutritional Appearance: obese O rientation/consciousness: patient oriented x3 Limitations: language barrier HEENT: Head: Yes normal to inspection Ears: hearing grossly normal bilaterally Eyes: Sclerae: sclerae normal Pupils: Equal, round and reactive pupils present Neck: Neck: Yes normal visual inspection Chest: Chest palpation & inspection: normal inspection of the chest Resp: Effort & Inspection: normal respiratory effort Auscultation: clear to auscultation bilaterally Cardio: Palpation: normal PMI Rate: regular rate Rhythm: regular rhythm Heart sounds: S1 normal heart sound present, S2 normal heart sound present and no murmurs GI: Palpation (GI): Soft to palpation, nontender and No hepatosplenomegaly present Auscultation: normal bowel sounds Rectal Exam - Female: deferred Skin: General skin exam: no rashes or lesions noted Neuro: General: patient oriented x3, gait normal and moves all extremities Cranial nerves: Yes Equal, round and reactive pupils present Psych: Appearance: grossly normal Mental Status: mental status grossly normal Results Labs 06/24/23 05:46 06/23/23 05:34 Labs: Short CBC 06/22/23 06/23/23 Range/Units 15:54 05:34 WBC 5.2 4.8 (4.8-10.8) X10*3/uL Hgb 11.4 L 10.5 L (12.0-16.0) g/dl Hct 36.1 L 33.5 L (37.0-47.0) % Plt Count 390 391 (160-400) X10*3/uL BMP 06/22/23 06/23/23 15:54 05:34 Sodium 134 L 134 L Potassium 4.3 4.0 Chloride 103 100 Carbon Dioxide 24 24 BUN 12 13 Creatinine 1.01 1.02 Calcium 9.7 9.8 Liver Function 06/22/23 Range/Units 15:54 Total Bilirubin 0.3 (0.0-1.0) mg/dL Direct Bilirubin 0.1 (0.0-0.5) mg/dL AST 29 (5-31) U/L ALT 23 (0-31) U/L Alkaline Phosphatase 76 (39-117) U/L Albumin 3.9 (3.5-5.0) g/dL Urine 06/22/23 Range/Units 18:21 Urine Color Yellow Urine Appearance Clear Urine pH 8.0 (5.0-9.0) Ur Specific [place] 1.020 (1.005-1.025) Urine Protein Trace (Neg-Trace) mg/dL Urine Glucose (UA) Negative (Negative) mg/dL Assessment and Plan (1) Rectal bleeding: Status: Acute (2) Abnormal CT scan, gastrointestinal tract: Status: Acute Plan 53 YF (Gibraltarian-speaking) with hx of shingles, migraines, mood disorder, and hepatitis-C?at least partially treated in [place] in 1996 currently not on home meds admitted to [facility] with 1 month hx of rectal bleeding and diffuse abdominal pain. In the ED pt was tachypneic up to 20, hypertensive up to 171/90, and with elevated heart rate of 94. Labs showed heme positive stool. Stable H&H of 11.4/36.1. Sodium 134, otherwise no electrolyte abnormalities. Renal and hepatic function WNL. Abd CT scan showed left-sided hydronephrosis and hydroureter extending up to a soft tissue density within the mid left ureter. This abnormality may be intrinsic to the ureter however there is bulky adenopathy in this location which could also be causing this ureteric obstruction. There is additional bulky bilateral inguinal, pelvic sidewall, and retroperitoneal adenopathy present. There is perirectal inflammatory change with prominent perirectal lymph nodes. I cannot exclude a low rectal mass lesion on this non-contrast study either RECOMMENDATIONS: 1. Start on a clear liquid diet with G[place] prep today 2. Pt scheduled for a colonoscopy on 06/24/23 at 11 am. Procedures Date of Service Date of Service: 06/24/23
[2023-06-23 07:32] VITALS: BP 185/80; PULSE 82; RESP 16; TEMP 36.8; O2SAT 96
[2023-06-23] MEDS: Morphine Sulfate 2 MG/ML CARTRIDGE IVPUSH ×2 (07:54→12:26)
--- NOTE | 2023-06-23 10:19 | PHA.MEDREC ---
Pharmacy Consult ? Medication Reconciliation Pharmacy has completed the medication reconciliation, utilized transportation lead for [employer], patient stated she used to take psych meds in [place] but does not currently take anything now.
[2023-06-23 11:17] VITALS: BP 171/98; PULSE 103; RESP 18; TEMP 36.3; O2SAT 95
[2023-06-23] MEDS: Docusate Sodium 100 MG CAPSULE PO (11:17)
--- NOTE | 2023-06-23 12:49 | MHC.CM.PN ---
pcp list given to pt pt lives alone is independent may need assist with transport
--- NOTE | 2023-06-23 14:57 | P.CNUR_ITS ---
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 She has a history of pancreatitis and partially treated hepatitis-C, who presented to emergency department on 06/22/23 with complaints of generalized abdominal pain and rectal bleeding x 1 month. Patient endorsing subjective fevers and chill and chest pain. Denies any vomiting. The patient is being evaluated by GI and colonoscopy is planned. I have discussed with her the CT findings that note left hydronephrosis. I discussed that etiology is unclear. Consent obtained for cystoscopy left retrograde left ureteral stent. CTAP:06/22/23--KIDNEYS AND URETERS: There is left-sided hydronephrosis and hydroureter extending up to a soft tissue density within the mid right ureter difficult to define further on this noncontrast study. On these images the soft tissue density appears to be within the ureter although it could be secondary to mass effect from soft tissue attenuation from the adjacent retroperitoneal adenopathy mimicking this appearance. Tiny punctate intrarenal calculi in the posterior upper pole collecting system of the left kidney and posterior upper pole collecting system of the contralateral right kidney noted. Review of Systems 2 Review of Systems: Yes all other systems are reviewed and are negative Constitutional: Constitutional: Reports no additional constitutional complaints Eyes: Eyes: Reports no additional eye complaints ENT: Reports system reviewed and no additional complaints, except as documented Cardiovascular: Cardiovascular: Reports no additional cardiovascular complaints Respiratory: Respiratory: Reports no additional respiratory complaints Gastrointestinal: Gastrointestinal: Reports no additional gastrointestinal complaints Genitourinary: Genitourinary: Reports as per HPI Musculoskeletal: Musculoskeletal: Reports no additional musculoskeletal complaints Integumentary/Breasts: Skin/Breast: Reports system reviewed and no additional complaints, except as docu Neurologic: Reports system reviewed and no additional complaints, except as documented Psychiatric: Psychiatric: Reports no additional psychiatric complaints Endocrine: Endocrine: Reports no additional endocrine complaints Hematologic/Lymphatic: Hematologic/Lymphatic: Reports no additional hematologic/lymphatic complaints Allergic/Immunologic: Allergic/Immunologic: Reports no additional allergic/immunologic complaints PMFSH Past Medical History Medical History Shingles Migraines Hepatitis C Social History Social History Household Members: None Housing: Apartment Alcohol intake: never Patient Tobacco Use Status: Former Tobacco user Smoked in Last 30 Days: No Use of substances other than those prescribed or required for medical reasons: No Currently Displaying Signs/Symptoms of Drug Intoxication Withdrawal: No Have you been hit, kicked, punched, or otherwise hurt by someone within the past year? If so, by whom?: No Do you feel safe in your current relationship?: No Is there a partner from a previous relationship who is making you feel unsafe now?: No Are you made to feel afraid or neglected: No Advance Directives: No Advance Directives Information Provided: No Do you have thoughts of harming others: None Do you have a plan to hurt others: No Plan Recently lost weight without trying: No Eating poorly because of decreased appetite: No Nutrition Risks: No Nutritional Risk Patient : No : No Poor oral hygiene: No service: No Meds Allergies Allergy/AdvReac Type Severity Reaction Status Date / Time No Known Allergies Allergy Verified 06/22/23 15:07 Active Medications: Current Medications Acetaminophen (Acetaminophen 325 Mg Tablet) 650 mg PO Q6H PRN PRN Reason: Pain, Mild (Pain Scale 1-3) Last Admin: 06/23/23 00:10 Dose: 650 mg Benzonatate (Benzonatate 100 Mg Capsule) 100 mg PO TID PRN PRN Reason: Cough Bisacodyl (Bisacodyl 5 Mg Tablet.Dr) 10 mg PO ONCE ONE Stop: 06/24/23 13:01 Docusate Sodium (Docusate Sodium 100 Mg Capsule) 100 mg PO DAILY PRN PRN Reason: Constipation Last Admin: 06/23/23 11:17 Dose: 100 mg Melatonin (Melatonin 3 Mg Tablet) 6 mg PO BEDTIME PRN PRN Reason: Insomnia Last Admin: 06/23/23 00:10 Dose: 6 mg Morphine Sulfate (Morphine Sulfate 2 Mg/Ml Cartridge) 2 mg IVPUSH Q4H PRN; Protocol PRN Reason: Pain, Severe (Pain Scale 7-10) Last Admin: 06/23/23 12:26 Dose: 2 mg Ondansetron HCl (Ondansetron Hcl 4 Mg/2 Ml Vial) 4 mg IVPUSH Q8H PRN PRN Reason: Nausea and Vomiting Polyethylene Glycol/Electrolytes (Peg 3350/Na Sulf,Bicarb,Cl/Kcl 4,000 Ml Soln.Recon) 4,000 ml PO ONCE ONE Stop: 06/23/23 15:01 Sodium Chloride (0.9 % Sodium Chloride Flush 3 Ml Syringe) 3 ml IVFLUSH QSHIFT ON LICENSE OF [facility] Last Admin: 06/23/23 07:55 Dose: 3 ml Physical Exam 2 Vital Signs: Vital Signs: Last Vital Signs Temp 97.4 F 06/23/23 11:17 Pulse 103 H 06/23/23 11:17 Resp 18 06/23/23 11:17 BP 171/98 H 06/23/23 11:17 Pulse Ox 95 06/23/23 11:17 O2 Del Method Room Air 06/23/23 11:17 BMI result Body Mass Index 33.8 Results Labs 06/23/23 05:34 06/23/23 05:34 Labs: Abnormal lab results 06/22/23 06/22/23 06/23/23 Range/Units 15:54 18:26 05:34 Hgb 11.4 L 10.5 L (12.0-16.0) g/dl Hct 36.1 L 33.5 L (37.0-47.0) % MCV 76.6 L 77.9 L (80.0-98.0) fL MCH 24.2 L 24.4 L (27.0-33.0) pg RDW 16.2 H (11.0-16.0) % MPV 9.0 L (9.4-12.3) fL Sodium 134 L 134 L (135-145) mmol/L Anion Gap 11 L (12-20) Total Protein 8.9 H (6.5-8.0) g/dL Urine Fentanyl Screen POSITIVE H (Not Detect) Short CBC 06/22/23 06/23/23 Range/Units 15:54 05:34 WBC 5.2 4.8 (4.8-10.8) X10*3/uL Hgb 11.4 L 10.5 L (12.0-16.0) g/dl Hct 36.1 L 33.5 L (37.0-47.0) % Plt Count 390 391 (160-400) X10*3/uL BMP 06/22/23 06/23/23 15:54 05:34 Sodium 134 L 134 L Potassium 4.3 4.0 Chloride 103 100 Carbon Dioxide 24 24 BUN 12 13 Creatinine 1.01 1.02 Calcium 9.7 9.8 Liver Function 06/22/23 Range/Units 15:54 Total Bilirubin 0.3 (0.0-1.0) mg/dL Direct Bilirubin 0.1 (0.0-0.5) mg/dL AST 29 (5-31) U/L ALT 23 (0-31) U/L Alkaline Phosphatase 76 (39-117) U/L Albumin 3.9 (3.5-5.0) g/dL Urine 06/22/23 Range/Units 18:21 Urine Color Yellow Urine Appearance Clear Urine pH 8.0 (5.0-9.0) Ur Specific [place] 1.020 (1.005-1.025) Urine Protein Trace (Neg-Trace) mg/dL Urine Glucose (UA) Negative (Negative) mg/dL Imaging Abdomen CT scan report/results: report reviewed and image reviewed CT scan - pelvis: report reviewed and image reviewed Additional studies: Date of Service: 06/22/23 EXAMINATION: CT ABDOMEN AND PELVIS WITHOUT CONTRAST CLINICAL INFORMATION: rectal bleeding. COMPARISON: No pertinent prior studies are available for comparison. TECHNIQUE: Multidetector volumetric imaging was performed from the superior aspect of the liver through the pubic symphysis without contrast per request. Sagittal and coronal reformatted images were obtained on the technologist workstation. This CT examination was performed using dose optimization techniques as appropriate, variously including the following: *Automated exposure control *Adjustment of mA and/or kV according to patient size (this includes techniques or standardized protocols for targeted exams where dose is matched to indication/reason for exam; i.e. extremities or head) *Use of iterative reconstruction technique DLP: 756 mGy-cm. FINDINGS: LUNG BASES: The visualized lung bases are unremarkable. LIVER, GALLBLADDER, BILIARY TREE: The non-contrast liver is normal in size, shape, and attenuation. No focal hepatic lesion or biliary ductal dilatation is present. The gallbladder is unremarkable with no evidence of radiopaque gallstones, gallbladder wall thickening, or obvious pericholecystic inflammatory changes. PANCREAS: Unremarkable. SPLEEN: Unremarkable. ADRENAL GLANDS: Unremarkable. KIDNEYS AND URETERS: There is left-sided hydronephrosis and hydroureter extending up to a soft tissue density within the mid right ureter difficult to define further on this noncontrast study. On these images the soft tissue density appears to be within the ureter although it could be secondary to mass effect from soft tissue attenuation from the adjacent retroperitoneal adenopathy mimicking this appearance. This difficult to define further on this noncontrast study. I do not appreciate any ureteric calculi. Tiny punctate intrarenal calculi in the posterior upper pole collecting system of the left kidney and posterior upper pole collecting system of the contralateral right kidney noted. BLADDER: Decompressed GASTROINTESTINAL TRACT: Prominent perirectal inflammatory change. Although decompressed the rectal wall is likely thickened. Underlying low rectal mass cannot be excluded from this noncontrast study. There is scattered diverticulosis. I do not appreciate any other pericolonic inflammatory change or obstruction. Normal-appearing appendix in the right lower quadrant. Visualized small bowel and stomach unremarkable ABDOMINAL WALL: No significant hernia is appreciated. LYMPHOVASCULAR STRUCTURES: There is perirectal inflammatory change seen with the prominent perirectal lymph nodes. Bilateral pelvic sidewall bilateral inguinal, and retroperitoneal adenopathy is noted. Etiology of this adenopathy is uncertain.. PELVIC VISCERA: Fullness in the left greater than right adnexal regions may be due to adenopathy. This difficult to define on this noncontrast study OSSEUS STRUCTURES: Degenerative changes in the spine more so at L4/L5. IMPRESSION: There is left-sided hydronephrosis and hydroureter extending up to a soft tissue density within the mid left ureter. This is difficult to define further on this noncontrast study. This abnormality may be intrinsic to the ureter however there is bulky adenopathy in this location which could also be causing this ureteric obstruction. There is additional bulky bilateral inguinal, pelvic sidewall, and retroperitoneal adenopathy present. Contrast enhanced study may be helpful for evaluating further. Malignancy would be favored over infectious etiology with this distribution There is perirectal inflammatory change with prominent perirectal lymph nodes. I cannot exclude a low rectal mass lesion on this noncontrast study either. Again clinical correlation, contrast-enhanced CT, or MRI may be helpful for evaluating this further. Assessment and Plan (1) Abnormal CT scan, gastrointestinal tract: Status: Acute (2) Rectal bleeding: Status: Acute (3) Hydronephrosis, left: Status: Acute (4) Abdominal pain: Status: Acute Plan Cystoscopy left retrograde left ureteral stent. Consent obtained with insurance investigator. Procedures Date of Service Date of Service: 06/23/23
[2023-06-23 15:15] VITALS: BP 147/81; PULSE 87; RESP 18; TEMP 36.4; O2SAT 97
[2023-06-23] MEDS: PEG 3350/Na Sulf,Bicarb,Cl/KCL 4,000 ML SOLN.RECON 4000 ML PO (15:17)
--- NOTE | 2023-06-23 17:14 | HO.PM.IMPN ---
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 Review of Systems All other system reviewed and negative Physical Exam Vital Signs: Vital Signs: Last Vital Signs Temp 97.6 F 06/23/23 15:15 Pulse 87 06/23/23 15:15 Resp 18 06/23/23 15:15 BP 147/81 H 06/23/23 15:15 Pulse Ox 97 06/23/23 15:15 O2 Del Method Room Air 06/23/23 15:15 BMI result Body Mass Index 33.8 Const: Other: General awake alert x3, resting comfortably in no acute distress. Anicteric sclera Neck supple no JVD. CVS regular rate rhythm, Respiratory lungs clear to auscultation, no respiratory distress, no wheeze, no rhonchi. Gastrointestinal abdomen soft, non tender, bowel sounds audible, no guarding , no rigidity. Extremities no edema. Neuro moving all 4 extremity ,speech clear, bilateral equal strength upper and lower extremity/unable to make fist left hand/mild swelling dorsum of hands Skin no rash Psych appropriate affect Objective Data Active Medications Acetaminophen (Acetaminophen 325 Mg Tablet) 650 mg PO Q6H PRN PRN Reason: Pain, Mild (Pain Scale 1-3) Last Admin: 06/23/23 00:10 Dose: 650 mg Documented By: KORIN Benzonatate (Benzonatate 100 Mg Capsule) 100 mg PO TID PRN PRN Reason: Cough Bisacodyl (Bisacodyl 5 Mg Tablet.Dr) 10 mg PO ONCE ONE Stop: 06/24/23 13:01 Docusate Sodium (Docusate Sodium 100 Mg Capsule) 100 mg PO DAILY PRN PRN Reason: Constipation Last Admin: 06/23/23 11:17 Dose: 100 mg Documented By: PRICE Melatonin (Melatonin 3 Mg Tablet) 6 mg PO BEDTIME PRN PRN Reason: Insomnia Last Admin: 06/23/23 00:10 Dose: 6 mg Documented By: KORIN Morphine Sulfate (Morphine Sulfate 2 Mg/Ml Cartridge) 2 mg IVPUSH Q4H PRN; Protocol PRN Reason: Pain, Severe (Pain Scale 7-10) Last Admin: 06/23/23 12:26 Dose: 2 mg Documented By: PRICE Ondansetron HCl (Ondansetron Hcl 4 Mg/2 Ml Vial) 4 mg IVPUSH Q8H PRN PRN Reason: Nausea and Vomiting Sodium Chloride (0.9 % Sodium Chloride Flush 3 Ml Syringe) [facility] Last Admin: 06/23/23 15:18 Dose: 3 ml Documented By: NICK Labs 06/24/23 05:46 06/23/23 05:34 Labs: Laboratory Results - last 24 hr 06/22/23 06/22/23 06/22/23 17:46 18:21 18:26 MCV MCH MCHC RDW Plt Count MPV Absolute Nucleated RBC Nucleated RBC % (auto) APTT 35.7 Anion Gap Estim Creat Clear Calc Estimated GFR Random Glucose Calcium Ammonia 30 Carcinoembryonic Ag Urine Color Yellow Urine Appearance Clear Urine pH 8.0 Ur Specific [place] 1.020 Urine Protein Trace Urine Glucose (UA) Negative Urine Ketones Negative Urine Blood Negative Urine Nitrite Negative Ur Leukocyte Esterase Negative Urine Opiates Screen Not Detected Ur Buprenorphine Scrn Not Detected Ur Oxycodone Screen Not Detected Urine Methadone Screen Not Detected Urine Fentanyl Screen POSITIVE H Ur Barbiturates Screen Not Detected Ur Phencyclidine Scrn Not Detected Ur Amphetamines Screen Not Detected U Benzodiazepines Scrn Not Detected Urine Cocaine Screen Not Detected U Marijuana (THC) Screen Not Detected Ethyl Alcohol < 10 06/23/23 05:34 MCV 77.9 L MCH 24.4 L MCHC 31.3 RDW 16.2 H Plt Count 391 MPV 9.5 Absolute Nucleated RBC 0.000 Nucleated RBC % (auto) 0.0 APTT Anion Gap 14 Estim Creat Clear Calc 70.6 Estimated GFR 56 Random Glucose 96 Calcium 9.8 Ammonia Carcinoembryonic Ag 77.10 Urine Color Urine Appearance Urine pH Ur Specific [place] Urine Protein Urine Glucose (UA) Urine Ketones Urine Blood Urine Nitrite Ur Leukocyte Esterase Urine Opiates Screen Ur Buprenorphine Scrn Ur Oxycodone Screen Urine Methadone Screen Urine Fentanyl Screen Ur Barbiturates Screen Ur Phencyclidine Scrn Ur Amphetamines Screen U Benzodiazepines Scrn Urine Cocaine Screen U Marijuana (THC) Screen Ethyl Alcohol Assessment and Plan (1) Abdominal pain: Status: Acute (2) Hydronephrosis, left: Status: Acute (3) Abnormal CT scan, gastrointestinal tract: Status: Acute (4) Rectal bleeding: Status: Acute Plan 53-year-old [place]er-speaking female with a PMH significant for shingles, migraines, mood disorder, and hepatitis-C?at least partially treated in [place] in 1996 currently not on home meds who presents to the ED for evaluation of rectal bleeding and diffuse abdominal pain x1 month. Pt will be admitted to the hospital patient will be admitted to the hospital for treatment further evaluation of rectal bleeding secondary to possible rectal mass and hydro nephrosis concerning ureteral obstruction. Acute Abdominal pain/ Hematochezia Diffuse abdominal pain with defecation/ bright red blood per rectum, N/V, fatigue, generalized aches, weight loss x1 month CT with perirectal inflammatory change with prominent perirectal lymph nodes, rectal mass can not be excluded,Concerning for malignancy H&H is stable, heme-positive stools Continue clear liquid diet,, NPO after midnight. Analgesics for pain management/ Seen by Dr. Browning she recommend colonoscopy at a.m. Left hydronephrosis and hydroureter Concern for ureteric obstruction from bulky adenopathy Seen by Urology plan is for cystoscopy /left ureteral stent placement at a.m. Hepatitis-C Received partial treatment and [place], recommend outpatient GI follow-up Mood disorder not on any home meds/mood stabilizers Migraines Tylenol p.r.n. Full Code DVT Prophylaxis: Lovenox Pt will require continued inpatient hospitalization for left hydronephrosis requiring stent placement by Urology and also will undergo colonoscopy at a.m. for rectal mass. Quality Stroke Does the patient have a stroke diagnosis?: No VTE Prior VTE?: No VTE Risk Level:: Medical - moderate - high VTE Device Contraindication: N/A - Device Ordered VTE Drug Contraindication: Treatment Not Indicated
[2023-06-23 19:37] VITALS: BP 189/92; PULSE 97; RESP 16; TEMP 36.3; O2SAT 96
[2023-06-23 19:49] VITALS: BP 162/86
[2023-06-24] VITALS (14 sets, daily range): BP systolic 133–183; BP diastolic 70–102; PULSE 74–98; RESP 14–18; TEMP 36–36.6; O2SAT 94–99
[2023-06-24 06:09] LABS: Hematocrit 33.3 % (37.0-47.0); Hemoglobin 10.6 g/dl (12.0-16.0); Mean Corpuscular HGB Conc 31.8 g/dl (31.0-35.0); Mean Corpuscular Hemoglobin 24.4 pg (27.0-33.0); Mean Corpuscular Volume 76.7 fL (80.0-98.0); Mean Platelet Volume 9.5 fL (9.4-12.3); Platelet Count 396 X10*3/uL (160-400); Red Blood Count 4.34 X10*6/uL (4.20-5.50); White Blood Count 5.4 X10*3/uL (4.8-10.8)
[2023-06-24 06:32] LABS: Iron 29 mcg/dL (30-160); Percent Iron Saturation 10 % (15-50); Total Iron Binding Capacity 296 mcg/dL (228-428); Unsaturated Iron Binding 267 ug/dL
[2023-06-24 06:47] LABS: Ferritin 70 ng/mL (10-250)
[2023-06-24] MEDS: 0.9 % Sodium Chloride Flush 3 ML SYRINGE IVFLUSH ×2 (08:59→15:34)
--- NOTE | 2023-06-24 12:16 | MHC.SHP ---
Pre-Procedural Eval Section A - 24 Hr Update-Section A only Date of Service: 06/24/23 The patient is an INPATIENT: Yes The patient has been examined within 24 hours of the surgical procedure. The History & Physical has been completed within 30 days and I have reviewed it.: Yes Section B - Complete if H&P > 30 days Chief Complaint: Rectal bleeding, rectal mass, left hydronephrosis Allergies: Allergies Allergy/AdvReac Type Severity Reaction Status Date / Time No Known Allergies Allergy Verified 06/22/23 15:07 Plan Diagnosis/Plan: Unchanged I have reviewed the history and physical and performed a pertinent physical examination on my patient. No changes have occurred unless specified. Cystoscopy left retrograde left ureteral stent insertion. Time Spent With Patient Time: Total time managing care of this patient today ____ minutes.
--- NOTE | 2023-06-24 12:25 | MHC.SHP ---
Pre-Procedural Eval Section A - 24 Hr Update-Section A only Date of Service: 06/24/23 The patient is an INPATIENT: Yes Changes since office visit: Yes New Medical Problems, Yes Changes in Medication and Yes Patient answered all questions; No Cold of Flu in the past 2 weeks The patient has been examined within 24 hours of the surgical procedure. The History & Physical has been completed within 30 days and I have reviewed it.: Yes Section B - Complete if H&P > 30 days Chief Complaint: Rectal bleeding, rectal mass, left hydronephrosis Allergies: Allergies Allergy/AdvReac Type Severity Reaction Status Date / Time No Known Allergies Allergy Verified 06/22/23 15:07 Plan Diagnosis/Plan: Unchanged I have reviewed the history and physical and performed a pertinent physical examination on my patient. No changes have occurred unless specified. Time Spent With Patient Time: Total time managing care of this patient today ____ minutes.
--- NOTE | 2023-06-24 12:31 | HO.ANESPROP2 ---
HPI - Anesthesia Eval Consult details Narrative: for cysto and colon PMFSH Active Problems Active Problems: All Active Problems Abdominal pain (Acute) Hydronephrosis, left (Acute) Abnormal CT scan, gastrointestinal tract (Acute) Rectal bleeding (Acute) Past Medical History Medical History Shingles Migraines Hepatitis C Family History Family history of problems with anesthesia: No Surgical History History of Problems with Anesthesia: No Social History Social History Household Members: None Housing: Apartment Alcohol intake: never Patient Tobacco Use Status: Former Tobacco user Smoked in Last 30 Days: No Use of substances other than those prescribed or required for medical reasons: No Currently Displaying Signs/Symptoms of Drug Intoxication Withdrawal: No Have you been hit, kicked, punched, or otherwise hurt by someone within the past year? If so, by whom?: No Do you feel safe in your current relationship?: No Is there a partner from a previous relationship who is making you feel unsafe now?: No Are you made to feel afraid or neglected: No Are you DNR?: No Advance Directives: No Advance Directives Information Provided: No Do you have thoughts of harming others: None Do you have a plan to hurt others: No Plan Recently lost weight without trying: No Eating poorly because of decreased appetite: No Nutrition Risks: No Nutritional Risk Patient : No : No Poor oral hygiene: No service: No Meds Allergies Allergy/AdvReac Type Severity Reaction Status Date / Time No Known Allergies Allergy Verified 06/22/23 15:07 Active Medications: Current Medications Acetaminophen (Acetaminophen 325 Mg Tablet) 650 mg PO Q6H PRN PRN Reason: Pain, Mild (Pain Scale 1-3) Last Admin: 06/23/23 23:55 Dose: 650 mg Benzonatate (Benzonatate 100 Mg Capsule) 100 mg PO TID PRN PRN Reason: Cough Bisacodyl (Bisacodyl 5 Mg Tablet.Dr) 10 mg PO ONCE ONE Stop: 06/24/23 13:01 Last Admin: 06/24/23 11:28 Dose: Not Given Docusate Sodium (Docusate Sodium 100 Mg Capsule) 100 mg PO DAILY PRN PRN Reason: Constipation Last Admin: 06/23/23 11:17 Dose: 100 mg Cefazolin Sodium/Dextrose (Ancef) 2 gm in 50 mls @ 100 mls/hr IV PREOP ONE Stop: 06/24/23 12:53 Melatonin (Melatonin 3 Mg Tablet) 6 mg PO BEDTIME PRN PRN Reason: Insomnia Last Admin: 06/23/23 23:54 Dose: 6 mg Morphine Sulfate (Morphine Sulfate 2 Mg/Ml Cartridge) 2 mg IVPUSH Q4H PRN; Protocol PRN Reason: Pain, Severe (Pain Scale 7-10) Last Admin: 06/23/23 12:26 Dose: 2 mg Ondansetron HCl (Ondansetron Hcl 4 Mg/2 Ml Vial) 4 mg IVPUSH Q8H PRN PRN Reason: Nausea and Vomiting Sodium Chloride (0.9 % Sodium Chloride Flush 3 Ml Syringe) 3 ml IVFLUSH QSHIFT [facility] Last Admin: 06/24/23 08:59 Dose: 3 ml Exam Height,Weight and Vital Signs: Height 5 ft 5 in Weight 92.1 kg Last Vital Signs Temp 97.8 F 06/24/23 11:01 Pulse 82 06/24/23 11:01 Resp 16 06/24/23 11:01 BP 173/83 H 06/24/23 11:01 Pulse Ox 97 06/24/23 11:01 O2 Del Method Room Air 06/24/23 11:01 Pertinent Lab Results Pertinent Lab Results: Laboratory Tests 06/22/23 06/22/23 06/22/23 15:54 16:47 17:46 WBC 5.2 RBC 4.71 Hgb 11.4 L Hct 36.1 L MCV 76.6 L MCH 24.2 L MCHC 31.6 RDW 16.0 Plt Count 390 MPV 9.0 L Immature Gran % (Auto) 0.2 Neut % (Auto) 65.6 Lymph % (Auto) 24.5 [place] % (Auto) 9.3 Eos % (Auto) 0.4 Baso % (Auto) 0.0 Lymph # (Auto) 1.3 [place] # (Auto) 0.5 Eos # (Auto) 0.0 Baso # (Auto) 0.0 Abs Immat Gran (auto) 0.01 Absolute Neuts (auto) 3.4 Absolute Nucleated RBC 0.000 Nucleated RBC % (auto) 0.0 APTT 35.7 Sodium 134 L Potassium 4.3 Chloride 103 Carbon Dioxide 24 Anion Gap 11 L BUN 12 Creatinine 1.01 Estim Creat Clear Calc 70.2 Estimated GFR 57 Random Glucose 109 Calcium 9.7 Iron TIBC % Saturation Unsat Iron Binding Ferritin Total Bilirubin 0.3 Direct Bilirubin 0.1 AST 29 ALT 23 Alkaline Phosphatase 76 Ammonia 30 Total Protein 8.9 H Albumin 3.9 Lipase 9 Carcinoembryonic Ag Urine Color Urine Appearance Urine pH Ur Specific [place] Urine Protein Urine Glucose (UA) Urine Ketones Urine Blood Urine Nitrite Ur Leukocyte Esterase Stool Occult Blood POSITIVE Urine Opiates Screen Ur Buprenorphine Scrn Ur Oxycodone Screen Urine Methadone Screen Urine Fentanyl Screen Ur Barbiturates Screen Ur Phencyclidine Scrn Ur Amphetamines Screen U Benzodiazepines Scrn Urine Cocaine Screen U Marijuana (THC) Screen Ethyl Alcohol < 10 06/22/23 06/22/23 06/23/23 18:21 18:26 05:34 WBC 4.8 RBC 4.30 Hgb 10.5 L Hct 33.5 L MCV 77.9 L MCH 24.4 L MCHC 31.3 RDW 16.2 H Plt Count 391 MPV 9.5 Immature Gran % (Auto) Neut % (Auto) Lymph % (Auto) [place] % (Auto) Eos % (Auto) Baso % (Auto) Lymph # (Auto) [place] # (Auto) Eos # (Auto) Baso # (Auto) Abs Immat Gran (auto) Absolute Neuts (auto) Absolute Nucleated RBC 0.000 Nucleated RBC % (auto) 0.0 APTT Sodium 134 L Potassium 4.0 Chloride 100 Carbon Dioxide 24 Anion Gap 14 BUN 13 Creatinine 1.02 Estim Creat Clear Calc 70.6 Estimated GFR 56 Random Glucose 96 Calcium 9.8 Iron TIBC % Saturation Unsat Iron Binding Ferritin Total Bilirubin Direct Bilirubin AST ALT Alkaline Phosphatase Ammonia Total Protein Albumin Lipase Carcinoembryonic Ag 77.10 Urine Color Yellow Urine Appearance Clear Urine pH 8.0 Ur Specific [place] 1.020 Urine Protein Trace Urine Glucose (UA) Negative Urine Ketones Negative Urine Blood Negative Urine Nitrite Negative Ur Leukocyte Esterase Negative Stool Occult Blood Urine Opiates Screen Not Detected Ur Buprenorphine Scrn Not Detected Ur Oxycodone Screen Not Detected Urine Methadone Screen Not Detected Urine Fentanyl Screen POSITIVE H Ur Barbiturates Screen Not Detected Ur Phencyclidine Scrn Not Detected Ur Amphetamines Screen Not Detected U Benzodiazepines Scrn Not Detected Urine Cocaine Screen Not Detected U Marijuana (THC) Screen Not Detected Ethyl Alcohol 06/24/23 05:46 WBC 5.4 RBC 4.34 Hgb 10.6 L Hct 33.3 L MCV 76.7 L MCH 24.4 L MCHC 31.8 RDW 16.0 Plt Count 396 MPV 9.5 Immature Gran % (Auto) Neut % (Auto) Lymph % (Auto) [place] % (Auto) Eos % (Auto) Baso % (Auto) Lymph # (Auto) [place] # (Auto) Eos # (Auto) Baso # (Auto) Abs Immat Gran (auto) Absolute Neuts (auto) Absolute Nucleated RBC 0.000 Nucleated RBC % (auto) 0.0 APTT Sodium Potassium Chloride Carbon Dioxide Anion Gap BUN Creatinine Estim Creat Clear Calc Estimated GFR Random Glucose Calcium Iron 29 L TIBC 296 % Saturation 10 L Unsat Iron Binding 267 Ferritin 70 Total Bilirubin Direct Bilirubin AST ALT Alkaline Phosphatase Ammonia Total Protein Albumin Lipase Carcinoembryonic Ag Urine Color Urine Appearance Urine pH Ur Specific [place] Urine Protein Urine Glucose (UA) Urine Ketones Urine Blood Urine Nitrite Ur Leukocyte Esterase Stool Occult Blood Urine Opiates Screen Ur Buprenorphine Scrn Ur Oxycodone Screen Urine Methadone Screen Urine Fentanyl Screen Ur Barbiturates Screen Ur Phencyclidine Scrn Ur Amphetamines Screen U Benzodiazepines Scrn Urine Cocaine Screen U Marijuana (THC) Screen Ethyl Alcohol Airway Mallampati Class: II TM Dist: >3cm Neck ROM: Full Heart: rrr Lungs: cta Assessment and Plan Assessment Anesthesia Assessment: Anesthesia Plan Discussed and Chart Reviewed Final Anesthetic Review Family History of Problems with Anesthesia: No History of Problems with Anesthesia: No NPO: Yes ASA Class: II Final Preanesthetic Review: No Changes in Pt Med Stat, Meds/Allgs Chart Reviewed, Consent Obtained/Reviewed and Anes Risks/Benef Reviewed Patient Risk: Intermediate Procedure Risk: Intermediate Anesthetic Plan Anesthetic Plan: GA Disposition: Standard PACU
[2023-06-24 13:25] LABS: Urine Cytology See Pathology rpt
--- NOTE | 2023-06-24 13:30 | P.OP_ITS ---
Operative Note Operative Note Date of Service: 06/24/23 Narrative: PreOperative Diagnosis:?? Left hydronephrosis Post Operative Diagnosis:?? ?Left hydronephrosis Procedure: - cystoscopy, left retrograde stent insertion, size 7 by 26 Surgeon:?Dr Russell Burgess Anesthesia:? General Indications for procedure: Lori is a 53-year-old female presented with rectal bleeding and abdominal pain. CT imaging noted left hydronephrosis. Procedure: After informed consent was verified the patient was brought to the operating placed on the OR table in supine position.? General Anesthesia was administered per protocol.? The patient was placed in lithotomy position, prepped and draped in the usual sterile fashion.? Safety pause time-out and side of surgery confirmed.? Antibiotics confirmed. A 22 Bulgarian cystoscope was inserted transurethrally, The bladder was visualized.? Both ureteric orifices were in normal position. The? left ureteric orifice was cannulated? and a retrograde examination was performed, there was dilation of the proximal ureter. A hydrophilic guidewire was placed up to the level of the renal pelvis under fluoroscopy. A 7 fr by 26 cm ureteral stent was passed over the guide wire under fluoroscopic guidance. The guide wire was removed. The bladder was emptied.? The rigid cystoscope was removed. ? The patient tolerated the procedure well and was brought to the recovery room in stable condition. Complications: None Drains: Ureteral stent as dictated above
--- NOTE | 2023-06-24 13:54 | W.PM.OPN ---
Operative Note Operative Note Date of Service: 06/24/23 Narrative: FLEXIBLE SIGMOIDOCOPY TILL 50 CMS WITH BIOPSIES Pre-op diagnosis: Rectal and abdominal pain and rectal bleeding. Post-op diagnosis:? Rectal mass Endoscopist:? Emeli Browning MD Anesthesia:?MAC Consent: Indications for the procedure and potential complications of bleeding, perforation, reaction to medications and missed diagnosis were discussed with the patient and informed consent was obtained. Instrument: Olympus PCF H 190 L variable stiffness pediatric colonoscope Monitoring: Vital signs and clinical assessment, intermittent blood pressure monitoring, continuous EKG monitoring, Pulse oximetry and Carbon Dioxide monitoring were done throughout the procedure. Please see anesthesia flowsheet. Procedure: The patient was placed in the left lateral decubitis position and pre-procedure medications were administered. After a digital rectal examination of the ano-rectum, the video colonoscope was inserted into the rectum and advanced through the colon to the cecum. The colonoscope was slowly withdrawn in a retrograde panoramic fashion and the colon mucosa was carefully examined including a retroflexed view of the rectum. Findings and interventions are described below. Procedure Difficulty: without difficulty Findings: Sigmoid Colon: Partially evaluated due to solid stools scattered in the left colon Rectum: A 5 cms friable and ulcerated polypoidal mass at 10 cms - multiple biopsies were obtained. A friable and ulcerated mass with some bleeding extending from 0 to 5 cms from the anal verge into the distal rectum covering 60 to 70 % of the rectal circumference. Multiple biopsies were obtained Ano-rectum: Rectal exam revealed a hard mass in the posterior rectum Colon preparation: Fair to Poor due to solid stools scattered in the left colon therefore a flexible sigmoidoscopy was performed. Impression and Post Procedure Diagnosis: Flexible Sigmoidoscopy Findings: A 5 cms friable and ulcerated polypoidal mass at 10 cms - multiple biopsies were obtained. A friable and ulcerated mass with some bleeding extending 0 to 5 cms from the anal verge into the distal rectum covering 60 to 70 % of the rectal circumference - multiple biopsies were obtained Plan: Await pathology results. Oncology and surgery evaluation. Above findings were reviewed with the patient. BIOPSIES SHOWED: A. Rectal mass, biopsy: Detached fragments of poorly differentiated squamous cell carcinoma and fragments of benign colonic mucosa. B. Rectal mass, at 10 cm, biopsy: Invasive, poorly differentiated squamous cell carcinoma Pt underwent sigmoid loop ostomy due to obstructive symptoms
--- NOTE | 2023-06-24 14:45 | P.PNIM_ITS ---
Subjective Subjective Date of Service: 06/25/23 Interval History: History obtained via senior operations analyst Had multiple loose stool last night due to colon prep, denies abdominal pain no nausea, no vomiting, no fever, no chills No acute issues overnight. Review of Systems All other system reviewed and negative Physical Exam 2 Vital Signs: Vital Signs: Last Vital Signs Temp 98 F 06/24/23 14:06 Pulse 90 06/24/23 14:21 Resp 16 06/24/23 14:21 BP 168/93 H 06/24/23 14:21 Pulse Ox 98 06/24/23 14:21 O2 Del Method Room Air 06/24/23 14:21 O2 Flow Rate 6 06/24/23 14:21 BMI result Body Mass Index 33.8 Const: Other: General awake alert x3, resting comfortably in no acute distress. Anicteric sclera Neck supple no JVD. CVS regular rate rhythm, Respiratory lungs clear to auscultation, no respiratory distress, no wheeze, no rhonchi. Gastrointestinal abdomen soft, non tender, bowel sounds audible, no guarding , no rigidity. Extremities no edema. Neuro moving all 4 extremity ,speech clear, bilateral equal strength upper and lower extremity/unable to make fist left hand/swelling dorsum of hand resolved/no redness, no swelling Skin no rash Psych appropriate affect Objective Data Active Medications Acetaminophen (Acetaminophen 325 Mg Tablet) 650 mg PO Q6H PRN PRN Reason: Pain, Mild (Pain Scale 1-3) Last Admin: 06/23/23 23:55 Dose: 650 mg Documented By: HEIDI Benzonatate (Benzonatate 100 Mg Capsule) 100 mg PO TID PRN PRN Reason: Cough Docusate Sodium (Docusate Sodium 100 Mg Capsule) 100 mg PO DAILY PRN PRN Reason: Constipation Last Admin: 06/23/23 11:17 Dose: 100 mg Documented By: PRICE Fentanyl (Fentanyl Citrate/Pf 100 Mcg/2 Ml Vial) 25 mcg IVPUSH Q5M PRN; Protocol PRN Reason: Pain, Moderate(Pain Scale 4-6) Stop: 06/24/23 18:33 Melatonin (Melatonin 3 Mg Tablet) 6 mg PO BEDTIME PRN PRN Reason: Insomnia Last Admin: 06/23/23 23:54 Dose: 6 mg Documented By: HEIDI Morphine Sulfate (Morphine Sulfate 2 Mg/Ml Cartridge) 2 mg IVPUSH Q4H PRN; Protocol PRN Reason: Pain, Severe (Pain Scale 7-10) Last Admin: 06/23/23 12:26 Dose: 2 mg Documented By: PRICE Ondansetron HCl (Ondansetron Hcl 4 Mg/2 Ml Vial) 4 mg IVPUSH Q8H PRN PRN Reason: Nausea and Vomiting Ondansetron HCl (Ondansetron Hcl 4 Mg/2 Ml Vial) 4 mg IVPUSH ONCE PRN PRN Reason: Nausea and Vomiting Stop: 06/24/23 18:33 Sodium Chloride (0.9 % Sodium Chloride Flush 3 Ml Syringe) 3 ml IVFLUSH QSHIFT [facility] Last Admin: 06/24/23 08:59 Dose: 3 ml Documented By: VAISHALI Labs 06/24/23 05:46 06/23/23 05:34 Labs: Laboratory Results - last 24 hr 06/24/23 05:46 MCV 76.7 L MCH 24.4 L MCHC 31.8 RDW 16.0 Plt Count 396 MPV 9.5 Absolute Nucleated RBC 0.000 Nucleated RBC % (auto) 0.0 Iron 29 L TIBC 296 % Saturation 10 L Unsat Iron Binding 267 Ferritin 70 Assessment and Plan (1) Abdominal pain: Status: Acute (2) Hydronephrosis, left: Status: Acute (3) Abnormal CT scan, gastrointestinal tract: Status: Acute (4) Rectal bleeding: Status: Acute Plan 53-year-old Kinyarwanda-speaking female with a PMH significant for shingles, migraines, mood disorder, and hepatitis-C?at least partially treated in [place] in 1996 currently not on home meds who presents to the ED for evaluation of rectal bleeding and diffuse abdominal pain x1 month. Pt will be admitted to the hospital patient will be admitted to the hospital for treatment further evaluation of rectal bleeding secondary to possible rectal mass and hydro nephrosis concerning ureteral obstruction. Acute Abdominal pain/ Hematochezia Complaining of intermittent abdominal pain with bowel movement Admitted for Diffuse abdominal pain with defecation/ bright red blood per rectum, N/V, fatigue, generalized aches, weight loss x1 month CT with perirectal inflammatory change with prominent perirectal lymph nodes, rectal mass can not be excluded,Concerning for malignancy H&H is trending down, heme-positive stools, iron studies showed low iron saturation Underwent colonoscopy that showed 2 friable ulcerated masses in the rectum,, 1 mass with some bleeding and covering 60-70% of rectal circumference, biopsies taken GI recommend oncology and surgical consultation Left hydronephrosis and hydroureter Concern for ureteric obstruction from bulky adenopathy Seen by Urology underwent cystoscopy and left ureteral stent placement . Acute on chronic blood-loss anemia with iron deficiency Above transfusion threshold, follow CBC. Hepatitis-C Received partial treatment and [place], recommend outpatient GI follow-up Mood disorder not on any home meds/mood stabilizers Migraines Tylenol p.r.n. Full Code DVT Prophylaxis: Lovenox Pt will require continued inpatient hospitalization for rectal mass requiring expert consultation by General surgery and Oncology Quality Stroke Does the patient have a stroke diagnosis?: No VTE Prior VTE?: No VTE Risk Level:: Medical - moderate - high VTE Device Contraindication: N/A - Device Ordered VTE Drug Contraindication: Treatment Not Indicated
[2023-06-24] MEDS: amLODIPine Besylate 5 MG TABLET PO (15:33)
--- NOTE | 2023-06-24 19:53 | PC.NURSE ---
patient voided blood tinged urine without difficulty,not measured,bladder scanned for 360 ml,able to use hat in the bathroom shortly after voided additional 100 ml,denies any discomfort,will monitor
[2023-06-24] MEDS: Acetaminophen 325 MG TABLET 650 MG PO (23:27)
[2023-06-25] VITALS (7 sets, daily range): BP systolic 135–159; BP diastolic 67–94; PULSE 82–94; RESP 14–20; TEMP 35.9–36.6; O2SAT 94–98
[2023-06-25] MEDS: 0.9 % Sodium Chloride Flush 3 ML SYRINGE IVFLUSH ×4 (00:02→22:15)
[2023-06-25] MEDS: Melatonin 3 MG TABLET 6 MG PO (00:10)
--- NOTE | 2023-06-25 07:44 | P.CNHO_ITS ---
Subjective - Subjective Chief complaint: Rectal bleeding Patient: new to practice Consult date: 06/25/23 Primary Care Provider: Unknown Physician HPI - Consult Narrative Reason for consult: Probable rectal cancer Narrative: Lori Sparks is a 53 year old female a past medical history significant for hepatitis-C who presented to emergency department with complaints of rectal bleeding and abdominal pain for 1 month. She reports new onset constipation, change in stool caliber as well as bright red blood per rectum. She has never had a prior colonoscopy. She also reports diffuse body aches as well as pain in her left hand. She has lost about 5 lb, she was told of anemia. Workup in the emergency department with CT abdomen/pelvis revealed left hydroureteronephrosis, bulky bilateral inguinal and retroperitoneal adenopathy as well as rectal mass. She has just undergone colonoscopy, biopsy of rectal mass was performed, results awaited. She had a left ureteral stent placed for hydronephrosis. She reports some left flank pain and dark colored urine. She denies fever, chills, nausea or emesis. She moved from [place] last year to spend time with her mother. She currently lives alone. She has 2 grown-up Silvestre that live out of [facility]. She does not smoke or drink alcohol. Review of Systems - Neurologic Reports system reviewed and no additional complaints, except as documented PMFSH Medical History: Medical History (Last Reviewed 06/24/23 @ 12:31 by Vanesa Walton MD) Hepatitis C Migraines Shingles Social History: Social History (Last Reviewed 06/24/23 @ 12:31 by Vanesa Walton MD) Living Situation History: Household Members: None Housing: Apartment Alcohol History Details: 1. How often do you have a drink containing alcohol?: a. Never 3. How often do you have six or more drinks on one occasion?: a. Never AUDIT-C Alcohol total score: 0 Currently Displaying Signs/Symptoms of Alcohol Withdrawal: No Tobacco History: Patient Tobacco Use Status: Former Tobacco user Smoked in Last 30 Days: No Substance Use History: Use of substances other than those prescribed or required for medical reasons : No Currently Displaying Signs/Symptoms of Drug Intoxication Withdrawal: No Domestic Abuse History: Have you been hit, kicked, punched, or otherwise hurt by someone within the past year? If so, by whom?: No Do you feel safe in your current relationship?: No Is there a partner from a previous relationship who is making you feel unsafe now?: No Are you made to feel afraid or neglected: No Advance Directives: Advance Directives: No Advance Directives Information Provided: No Homicidal Assessment: Do you have thoughts of harming others: None Do you have a plan to hurt others: No Plan Nutrition Assessment: Recently lost weight without trying: No Eating poorly because of decreased appetite: No Nutrition Risks: No Nutritional Risk Patient : No : No Poor oral hygiene: No Occupation Assessmet: service: No Home Medications and Allergies Current Medications: Current Medications Acetaminophen (Acetaminophen 325 Mg Tablet) 650 mg PO Q6H PRN PRN Reason: Pain, Mild (Pain Scale 1-3) Last Admin: 06/24/23 23:27 Dose: 650 mg Amlodipine Besylate (Amlodipine Besylate 5 Mg Tablet) 5 mg PO DAILY [facility]; Protocol Last Admin: 06/24/23 15:33 Dose: 5 mg Benzonatate (Benzonatate 100 Mg Capsule) 100 mg PO TID PRN PRN Reason: Cough Docusate Sodium (Docusate Sodium 100 Mg Capsule) 100 mg PO DAILY PRN PRN Reason: Constipation Last Admin: 06/23/23 11:17 Dose: 100 mg Melatonin (Melatonin 3 Mg Tablet) 6 mg PO BEDTIME PRN PRN Reason: Insomnia Last Admin: 06/25/23 00:10 Dose: 6 mg Morphine Sulfate (Morphine Sulfate 2 Mg/Ml Cartridge) 2 mg IVPUSH Q4H PRN; Protocol PRN Reason: Pain, Severe (Pain Scale 7-10) Last Admin: 06/23/23 12:26 Dose: 2 mg Ondansetron HCl (Ondansetron Hcl 4 Mg/2 Ml Vial) 4 mg IVPUSH Q8H PRN PRN Reason: Nausea and Vomiting Sodium Chloride (0.9 % Sodium Chloride Flush 3 Ml Syringe) 3 ml IVFLUSH [facility] Last Admin: 06/25/23 00:02 Dose: 3 ml Allergies Allergy/AdvReac Type Severity Reaction Status Date / Time No Known Allergies Allergy Verified 06/22/23 15:07 Physical Exam Vital signs: Vital Signs Temp 96.8 F 06/25/23 07:32 Pulse 82 06/25/23 07:32 Resp 20 06/25/23 07:32 BP 151/74 H 06/25/23 07:32 Pulse Ox 97 06/25/23 07:32 O2 Del Method Room Air 06/25/23 07:32 O2 Flow Rate 6 06/24/23 14:06 Intake & Output 06/24/23 06/25/23 06/25/23 18:59 06:59 18:59 Intake Total 240 / 240 Output Total 100 / 700 600 / 700 400 / 400 Balance -100 / -460 -360 / -460 -400 / -400 Urine Output (Average ml/kg/hr) 0.09 0.54 0.36 Intake: Intake, Oral Amount 240 / 240 Output: Output, Urine Amount 100 / 700 600 / 700 400 / 400 Other: IV Intake, Intraoperative 700 Amount Meal Refused No NPO No Dinner % Eaten 100% Number of Unmeasured Voids 1 Number of Bowel Movements 2 Urine hat Bathroom Bathroom Urine Color Yellow Yellow Last Bowel Movement 06/24/23 Stool Bathroom Stool Amount Small Stool Color Blood Tinged Weight 92.1 kg - Constitutional Present: no acute distress, obese - Routine HEENT Exam Head: Present: normal inspection Eye: Present: EOMI, PERRL - Routine Neck Exam Present: supple. Absent: lymphadenopathy - Routine Cardiovascular Exam Cardiovascular: Present: S1, S2 - Routine Abdominal Exam Present: soft - Routine Skin Exam Present: intact - Routine Neurological Exam Present: alert, oriented X3 - Routine Psychiatric Exam Present: anxious Hem/Onc Consult Result - Labs CBC & Chem 7: 06/24/23 05:46 06/23/23 05:34 Assessment and Plan Patient Active problem list reviewed?: Yes (1) Rectal carcinoma Status: Acute Assessment and plan: This is a 53-year-old Kazakh-speaking woman with past medical history significant for hepatitis-C who has been diagnosed with rectal carcinoma. She underwent colonoscopy which revealed 5 cm friable ulcerated polypoid mass at 10 cm extending up to 5 cm from anal verge into distal rectum covering 60-70% of rectal circumference. Rectal exam as per GI report revealed a hard mass in the posterior rectum. Biopsy of this, preliminary report is-poorly differentiated carcinoma with squamous differentiation, immunostains and further studies are pending. CT abdomen/pelvis without contrast performed 06/22/23 revealed left-sided hydronephrosis and hydroureter extending up to soft tissue density within the mid left ureter, probably bulky adenopathy in this location. Additional bulky bilateral inguinal, pelvic sidewall and retroperitoneal adenopathy. There was perirectal inflammatory change with prominent perirectal lymph nodes. Could not exclude low rectal mass as it was noncontrast study. CEA is elevated at 77.1 NG/mL. She underwent cystoscopy with left ureteral stent placement to relieve left- sided hydronephrosis. She has locally advanced and possibly metastatic disease. She will need CT chest/PET-CT to complete staging workup. Agree with diverting loop sigmoid ostomy to alleviate rectal obstruction. She is a candidate for systemic therapy which can be planned once final pathology and molecular markers including PD-L1 becomes available. Submit hepatitis B/C profile and hepatitis-C viral load. 2. Iron deficiency anemia secondary to rectal bleeding. I recommend parenteral iron therapy to correct anemia. Thank you for the referral. - Time Spent With Patient Time Spent with Patient (in minutes): 30
[2023-06-25] MEDS: amLODIPine Besylate 5 MG TABLET PO (08:12)
[2023-06-25] MEDS: Morphine Sulfate 2 MG/ML CARTRIDGE IVPUSH ×3 (08:18→22:15)
--- NOTE | 2023-06-25 10:16 | MHC.CM.PN ---
Per MD rounds patient not medically cleared for dc at this time. CM will continue to follow.
--- NOTE | 2023-06-25 10:54 | P.CONGS_ITS ---
History of Present Illness Consult details Consult date: 06/25/23 Narrative: Patient is an unfortunate 53-year-old female who was recently diagnosed with partially obstructing rectal mass highly likely to be rectal carcinoma. She had endoscopy yesterday with biopsies pending. This demonstrated a proximally 70% obstruction of the rectal lumen. Patient had a CT scan which is very concerning for local regionally advanced disease with significant retroperitoneal adenopathy possible left ureteral obstruction from this. Chart was reviewed and patient evaluated. [facility] Past Medical History Medical History Shingles Migraines Hepatitis C Social History Social History Household Members: None Housing: Apartment Alcohol intake: never Patient Tobacco Use Status: Former Tobacco user Smoked in Last 30 Days: No Use of substances other than those prescribed or required for medical reasons: No Currently Displaying Signs/Symptoms of Drug Intoxication Withdrawal: No Have you been hit, kicked, punched, or otherwise hurt by someone within the past year? If so, by whom?: No Do you feel safe in your current relationship?: No Is there a partner from a previous relationship who is making you feel unsafe now?: No Are you made to feel afraid or neglected: No Are you DNR?: No Advance Directives: No Advance Directives Information Provided: No Do you have thoughts of harming others: None Do you have a plan to hurt others: No Plan Recently lost weight without trying: No Eating poorly because of decreased appetite: No Nutrition Risks: No Nutritional Risk Patient : No : No Poor oral hygiene: No service: No Meds Allergies Allergy/AdvReac Type Severity Reaction Status Date / Time No Known Allergies Allergy Verified 06/22/23 15:07 Active Medications: Current Medications Acetaminophen (Acetaminophen 325 Mg Tablet) 650 mg PO Q6H PRN PRN Reason: Pain, Mild (Pain Scale 1-3) Last Admin: 06/24/23 23:27 Dose: 650 mg Amlodipine Besylate (Amlodipine Besylate 5 Mg Tablet) 5 mg PO DAILY [facility]; Protocol Last Admin: 06/25/23 08:12 Dose: 5 mg Benzonatate (Benzonatate 100 Mg Capsule) 100 mg PO TID PRN PRN Reason: Cough Docusate Sodium (Docusate Sodium 100 Mg Capsule) 100 mg PO DAILY PRN PRN Reason: Constipation Last Admin: 06/23/23 11:17 Dose: 100 mg Melatonin (Melatonin 3 Mg Tablet) 6 mg PO BEDTIME PRN PRN Reason: Insomnia Last Admin: 06/25/23 00:10 Dose: 6 mg Morphine Sulfate (Morphine Sulfate 2 Mg/Ml Cartridge) 2 mg IVPUSH Q4H PRN; Protocol PRN Reason: Pain, Severe (Pain Scale 7-10) Last Admin: 06/25/23 08:18 Dose: 2 mg Ondansetron HCl (Ondansetron Hcl 4 Mg/2 Ml Vial) 4 mg IVPUSH Q8H PRN PRN Reason: Nausea and Vomiting Sodium Chloride (0.9 % Sodium Chloride Flush 3 Ml Syringe) 3 ml IVFLUSH QSHIFT [facility] Last Admin: 06/25/23 08:12 Dose: 3 ml Physical Exam 2 Vital Signs: Vital Signs: Last Vital Signs Temp 96.8 F 06/25/23 07:32 Pulse 82 06/25/23 07:32 Resp 20 06/25/23 07:32 BP 151/74 H 06/25/23 07:32 Pulse Ox 97 06/25/23 07:32 O2 Del Method Room Air 06/25/23 07:32 O2 Flow Rate 6 06/24/23 14:06 BMI result Body Mass Index 33.8 Chest: Other: Chest breath sounds bilaterally, HS 1 in 2 GI: Other: Corpulent abdomen, mildly distended, nontender Results Labs 06/24/23 05:46 06/23/23 05:34 Labs: Urine 06/22/23 Range/Units 18:21 Urine Color Yellow Urine Appearance Clear Urine pH 8.0 (5.0-9.0) Ur Specific Mead 1.020 (1.005-1.025) Urine Protein Trace (Neg-Trace) mg/dL Urine Glucose (UA) Negative (Negative) mg/dL All other labs normal. Assessment and Plan (1) Rectal mass: Status: Acute Plan Discussed with the patient that based on her current situation, she would benefit for from a loop sigmoid ostomy which would alleviate the rectal obstruction, partial obstruction symptoms and rectal bleeding issues. Patient is to be seen by Oncology but will most probably received chemotherapy and pelvic radiation as well and her symptoms from this therapy would also be minimized with the loop ostomy. Patient was in agreement for the procedure. Risks, benefits and alternatives reviewed which included but not limited to bleeding, infection, numbness, pain, scarring the patient wished to proceed. All questions answered. Arrangements were made for this for tomorrow. Procedures Date of Service Date of Service: 06/25/23
--- NOTE | 2023-06-25 12:09 | HO.POSTANES ---
Post Anesthesia Evaluation Post Anesthesia Evaluation Date of Service: 06/24/23 Vital Signs: Vital Signs Temp Pulse Resp BP Pulse Ox O2 Del Method 06/25/23 07:32 96.8 F 82 20 151/74 H 97 Room Air 06/25/23 03:38 96.7 F L 86 16 135/67 96 Room Air Anesthesia: General Mental Status: Awake Pain Control: Satisfactory Nausea/Vomiting: None Hydration: Adequate Anesthesia-Related Issues: No Anes. Related Issues
--- NOTE | 2023-06-25 13:43 | P.PNIM_ITS ---
Subjective Subjective Date of Service: 06/25/23 Interval History: Being followed for abdominal pain and rectal bleed,, complaining of left lower quadrant abdominal pain since after small blood-tinged bowel movement, denies fever, no chills, no nausea, no vomiting, tolerating diet, no acute events overnight. Review of Systems All other system reviewed and negative. Physical Exam 2 Vital Signs: Vital Signs: Last Vital Signs Temp 97.1 F 06/25/23 12:00 Pulse 90 06/25/23 12:00 Resp 18 06/25/23 12:00 BP 159/80 H 06/25/23 12:00 Pulse Ox 95 06/25/23 12:32 O2 Del Method Room Air 06/25/23 12:32 O2 Flow Rate 6 06/24/23 14:06 BMI result Body Mass Index 33.8 Const: Other: General awake alert x3, resting comfortably in no acute distress. Anicteric sclera Neck supple no JVD. CVS regular rate rhythm, Respiratory lungs clear to auscultation, no respiratory distress, no wheeze, no rhonchi. Gastrointestinal abdomen soft, bowel sounds audible, mild left lower quadrant tenderness to palpation, no guarding , no rigidity. Extremities no edema. Neuro moving all 4 extremity ,speech clear, bilateral equal strength upper and lower extremity/unable to make fist left hand/swelling dorsum of hand resolved/no redness, no swelling Skin no rash Psych appropriate affect Objective Data Active Medications Acetaminophen (Acetaminophen 325 Mg Tablet) 650 mg PO Q6H PRN PRN Reason: Pain, Mild (Pain Scale 1-3) Last Admin: 06/24/23 23:27 Dose: 650 mg Documented By: NILDA Amlodipine Besylate (Amlodipine Besylate 5 Mg Tablet) 5 mg PO DAILY [facility]; Protocol Last Admin: 06/25/23 08:12 Dose: 5 mg Documented By: PRICE Benzonatate (Benzonatate 100 Mg Capsule) 100 mg PO TID PRN PRN Reason: Cough Docusate Sodium (Docusate Sodium 100 Mg Capsule) 100 mg PO DAILY PRN PRN Reason: Constipation Last Admin: 06/23/23 11:17 Dose: 100 mg Documented By: PRICE Cefotetan Disodium 2 gm/ (Sodium Chloride) 50 mls @ 100 mls/hr IV PREOP ONE Stop: 06/26/23 12:54 Melatonin (Melatonin 3 Mg Tablet) 6 mg PO BEDTIME PRN PRN Reason: Insomnia Last Admin: 06/25/23 00:10 Dose: 6 mg Documented By: HENRY Morphine Sulfate (Morphine Sulfate 2 Mg/Ml Cartridge) 2 mg IVPUSH Q4H PRN; Protocol PRN Reason: Pain, Severe (Pain Scale 7-10) Last Admin: 06/25/23 08:18 Dose: 2 mg Documented By: PRICE Ondansetron HCl (Ondansetron Hcl 4 Mg/2 Ml Vial) 4 mg IVPUSH Q8H PRN PRN Reason: Nausea and Vomiting Sodium Chloride (0.9 % Sodium Chloride Flush 3 Ml Syringe) [facility] Last Admin: 06/25/23 08:12 Dose: 3 ml Documented By: PRICE Labs 06/24/23 05:46 06/23/23 05:34 Microbiology Microbiology Results: Microbiology 06/24/23 Unknown Urine Culture - Preliminary Urine Catheterized - Straight Catheter Strep agalactiae (Grp B) Assessment and Plan (1) Abdominal pain: Status: Acute (2) Hydronephrosis, left: Status: Acute (3) Abnormal CT scan, gastrointestinal tract: Status: Acute (4) Rectal bleeding: Status: Acute Plan 53-year-old Romansh-speaking female with a PMH significant for shingles, migraines, mood disorder, and hepatitis-C?at least partially treated in [place] in 1996 currently not on home meds who presents to the ED for evaluation of rectal bleeding and diffuse abdominal pain x1 month. Pt will be admitted to the hospital patient will be admitted to the hospital for treatment further evaluation of rectal bleeding secondary to possible rectal mass and hydro nephrosis concerning ureteral obstruction. Acute Abdominal pain/ Hematochezia Complaining of intermittent abdominal pain with bowel movement, continued to have bright blood per rectum Admitted for Diffuse abdominal pain with defecation/ bright red blood per rectum, N/V, fatigue, generalized aches, weight loss x1 month CT with perirectal inflammatory change with prominent perirectal lymph nodes, rectal mass can not be excluded,Concerning for malignancy H&H is trending down, heme-positive stools, iron studies showed low iron saturation Underwent colonoscopy that showed 2 friable ulcerated masses in the rectum,, 1 mass with some bleeding and covering 60-70% of rectal circumference, biopsies taken Seen by General surgery they recommend loop sigmoid ostomy to elevate the rectal obstruction, planned for tomorrow will keep her NPO Seen by Oncology she recommend further staging workup including PET-CT, she agreed with surgical intervention and feels patient has locally advanced and possibly metastatic disease patient is a candidate for systemic therapy that can be planned once final pathology and molecular markers are available, hepatitis-B C profile and viral load ordered Left hydronephrosis and hydroureter Concern for ureteric obstruction from bulky adenopathy Seen by Urology underwent cystoscopy and left ureteral stent placement . Acute on chronic blood-loss anemia with iron deficiency Will give IV iron infusion x 3 d, Above blood transfusion threshold, follow CBC. Hepatitis-C Received partial treatment and [place], recommend outpatient GI follow-up Mood disorder not on any home meds/mood stabilizers Migraines Tylenol p.r.n. Full Code DVT Prophylaxis: Compression boots Pt will require continued inpatient hospitalization for rectal mass requiring expert consultation by General surgery and Oncology Quality Stroke Does the patient have a stroke diagnosis?: No VTE Prior VTE?: No VTE Risk Level:: Medical - moderate - high VTE Device Contraindication: N/A - Device Ordered VTE Drug Contraindication: Treatment Not Indicated
[2023-06-25] MEDS: Sodium Ferric Gluconat/Sucrose 125 MG in 0.9 % Sodium Chloride 100 ML 100 MG IV (16:29)
[2023-06-26] VITALS (12 sets, daily range): BP systolic 125–175; BP diastolic 69–88; PULSE 71–86; RESP 16–18; TEMP 36–36.6; O2SAT 92–98
[2023-06-26] MEDS: Melatonin 3 MG TABLET 6 MG PO (02:23)
[2023-06-26] MEDS: Acetaminophen 325 MG TABLET 650 MG PO (02:23)
[2023-06-26 05:57] LABS: HBS Num1 6.29 mIU/mL (0-7.99); HBc Num1 0.28 S/CO (0.00-0.79); HBsAGNum1 0.88 S/CO (0.00-0.99); Hepatitis B Core Antibody Nonreactive (Nonreactive); Hepatitis B Surface Antigen Negative (Negative); ~Hepatitis B Surface Antibody NONREACTIVE (Nonreactive); ~Hepatitis C Antibody Reactive (Nonreactive)
[2023-06-26] MEDS: Morphine Sulfate 2 MG/ML CARTRIDGE IVPUSH (07:56)
[2023-06-26] MEDS: amLODIPine Besylate 5 MG TABLET PO (07:57)
[2023-06-26] MEDS: 0.9 % Sodium Chloride Flush 3 ML SYRINGE IVFLUSH ×3 (07:58→22:10)
--- NOTE | 2023-06-26 08:56 | P.CONAN_ITS ---
[facility] Active Problems Active Problems: All Active Problems Rectal carcinoma (Acute) Rectal mass (Acute) Abdominal pain (Acute) Hydronephrosis, left (Acute) Abnormal CT scan, gastrointestinal tract (Acute) Rectal bleeding (Acute) Past Medical History Medical History Shingles Migraines Hepatitis C Family History Family history of problems with anesthesia: No Surgical History History of Problems with Anesthesia: No Social History Social History Household Members: None Housing: Apartment Alcohol intake: never Patient Tobacco Use Status: Former Tobacco user Smoked in Last 30 Days: No Use of substances other than those prescribed or required for medical reasons: No Currently Displaying Signs/Symptoms of Drug Intoxication Withdrawal: No Have you been hit, kicked, punched, or otherwise hurt by someone within the past year? If so, by whom?: No Do you feel safe in your current relationship?: No Is there a partner from a previous relationship who is making you feel unsafe now?: No Are you made to feel afraid or neglected: No Are you DNR?: No Advance Directives: No Advance Directives Information Provided: No Do you have thoughts of harming others: None Do you have a plan to hurt others: No Plan Recently lost weight without trying: No Eating poorly because of decreased appetite: No Nutrition Risks: No Nutritional Risk Patient : No : No Poor oral hygiene: No service: No Meds Allergies Allergy/AdvReac Type Severity Reaction Status Date / Time No Known Allergies Allergy Verified 06/22/23 15:07 Active Medications: Current Medications Acetaminophen (Acetaminophen 325 Mg Tablet) 650 mg PO Q6H PRN PRN Reason: Pain, Mild (Pain Scale 1-3) Last Admin: 06/26/23 02:23 Dose: 650 mg Amlodipine Besylate (Amlodipine Besylate 5 Mg Tablet) 5 mg PO DAILY BRETT; Protocol Last Admin: 06/26/23 07:57 Dose: 5 mg Benzonatate (Benzonatate 100 Mg Capsule) 100 mg PO TID PRN PRN Reason: Cough Docusate Sodium (Docusate Sodium 100 Mg Capsule) 100 mg PO DAILY PRN PRN Reason: Constipation Last Admin: 06/23/23 11:17 Dose: 100 mg Cefotetan Disodium 2 gm/ (Sodium Chloride) 50 mls @ 100 mls/hr IV PREOP ONE Stop: 06/26/23 12:54 Ferric Sodium Gluconate Complex 125 mg/ Sodium Chloride 110 mls @ 100 mls/hr IV DAILY BRETT Stop: 06/27/23 10:05 Last Infusion: 06/25/23 17:40 Dose: Infused Melatonin (Melatonin 3 Mg Tablet) 6 mg PO BEDTIME PRN PRN Reason: Insomnia Last Admin: 06/26/23 02:23 Dose: 6 mg Morphine Sulfate (Morphine Sulfate 2 Mg/Ml Cartridge) 2 mg IVPUSH Q4H PRN; Protocol PRN Reason: Pain, Severe (Pain Scale 7-10) Last Admin: 06/26/23 07:56 Dose: 2 mg Ondansetron HCl (Ondansetron Hcl 4 Mg/2 Ml Vial) 4 mg IVPUSH Q8H PRN PRN Reason: Nausea and Vomiting Sodium Chloride (0.9 % Sodium Chloride Flush 3 Ml Syringe) 3 ml IVFLUSH QSHIFT [facility] Last Admin: 06/26/23 07:58 Dose: 3 ml Exam Height,Weight and Vital Signs: Height 5 ft 5 in Weight 92.1 kg Last Vital Signs Temp 97 F 06/26/23 08:47 Pulse 82 06/26/23 08:47 Resp 18 06/26/23 08:47 BP 175/84 H 06/26/23 08:47 Pulse Ox 96 06/26/23 08:47 O2 Del Method Room Air 06/26/23 08:47 O2 Flow Rate 6 06/24/23 14:06 Pertinent Lab Results Pertinent Lab Results: Laboratory Tests 06/22/23 06/22/23 06/22/23 15:54 16:47 17:46 WBC 5.2 RBC 4.71 Hgb 11.4 L Hct 36.1 L MCV 76.6 L MCH 24.2 L MCHC 31.6 RDW 16.0 Plt Count 390 MPV 9.0 L Immature Gran % (Auto) 0.2 Neut % (Auto) 65.6 Lymph % (Auto) 24.5 [place] % (Auto) 9.3 Eos % (Auto) 0.4 Baso % (Auto) 0.0 Lymph # (Auto) 1.3 [place] # (Auto) 0.5 Eos # (Auto) 0.0 Baso # (Auto) 0.0 Abs Immat Gran (auto) 0.01 Absolute Neuts (auto) 3.4 Absolute Nucleated RBC 0.000 Nucleated RBC % (auto) 0.0 APTT 35.7 Sodium 134 L Potassium 4.3 Chloride 103 Carbon Dioxide 24 Anion Gap 11 L BUN 12 Creatinine 1.01 Estim Creat Clear Calc 70.2 Estimated GFR 57 Random Glucose 109 Calcium 9.7 Iron TIBC % Saturation Unsat Iron Binding Ferritin Total Bilirubin 0.3 Direct Bilirubin 0.1 AST 29 ALT 23 Alkaline Phosphatase 76 Ammonia 30 Total Protein 8.9 H Albumin 3.9 Lipase 9 Carcinoembryonic Ag Urine Color Urine Appearance Urine pH Ur Specific Dorris Urine Protein Urine Glucose (UA) Urine Ketones Urine Blood Urine Nitrite Ur Leukocyte Esterase Stool Occult Blood POSITIVE Urine Opiates Screen Ur Buprenorphine Scrn Ur Oxycodone Screen Urine Methadone Screen Urine Fentanyl Screen Ur Barbiturates Screen Ur Phencyclidine Scrn Ur Amphetamines Screen U Benzodiazepines Scrn Urine Cocaine Screen U Marijuana (THC) Screen Ethyl Alcohol < 10 Hep Bs Antigen Hep Bs Antibody Hep B Core Total Ab Hepatitis C Ab (EIA) 06/22/23 06/22/23 06/23/23 18:21 18:26 05:34 WBC 4.8 RBC 4.30 Hgb 10.5 L Hct 33.5 L MCV 77.9 L MCH 24.4 L MCHC 31.3 RDW 16.2 H Plt Count 391 MPV 9.5 Immature Gran % (Auto) Neut % (Auto) Lymph % (Auto) [place] % (Auto) Eos % (Auto) Baso % (Auto) Lymph # (Auto) [place] # (Auto) Eos # (Auto) Baso # (Auto) Abs Immat Gran (auto) Absolute Neuts (auto) Absolute Nucleated RBC 0.000 Nucleated RBC % (auto) 0.0 APTT Sodium 134 L Potassium 4.0 Chloride 100 Carbon Dioxide 24 Anion Gap 14 BUN 13 Creatinine 1.02 Estim Creat Clear Calc 70.6 Estimated GFR 56 Random Glucose 96 Calcium 9.8 Iron TIBC % Saturation Unsat Iron Binding Ferritin Total Bilirubin Direct Bilirubin AST ALT Alkaline Phosphatase Ammonia Total Protein Albumin Lipase Carcinoembryonic Ag 77.10 Urine Color Yellow Urine Appearance Clear Urine pH 8.0 Ur Specific Dorris 1.020 Urine Protein Trace Urine Glucose (UA) Negative Urine Ketones Negative Urine Blood Negative Urine Nitrite Negative Ur Leukocyte Esterase Negative Stool Occult Blood Urine Opiates Screen Not Detected Ur Buprenorphine Scrn Not Detected Ur Oxycodone Screen Not Detected Urine Methadone Screen Not Detected Urine Fentanyl Screen POSITIVE H Ur Barbiturates Screen Not Detected Ur Phencyclidine Scrn Not Detected Ur Amphetamines Screen Not Detected U Benzodiazepines Scrn Not Detected Urine Cocaine Screen Not Detected U Marijuana (THC) Screen Not Detected Ethyl Alcohol Hep Bs Antigen Hep Bs Antibody Hep B Core Total Ab Hepatitis C Ab (EIA) 06/24/23 06/25/23 05:46 14:01 WBC 5.4 RBC 4.34 Hgb 10.6 L Hct 33.3 L MCV 76.7 L MCH 24.4 L MCHC 31.8 RDW 16.0 Plt Count 396 MPV 9.5 Immature Gran % (Auto) Neut % (Auto) Lymph % (Auto) [place] % (Auto) Eos % (Auto) Baso % (Auto) Lymph # (Auto) [place] # (Auto) Eos # (Auto) Baso # (Auto) Abs Immat Gran (auto) Absolute Neuts (auto) Absolute Nucleated RBC 0.000 Nucleated RBC % (auto) 0.0 APTT Sodium Potassium Chloride Carbon Dioxide Anion Gap BUN Creatinine Estim Creat Clear Calc Estimated GFR Random Glucose Calcium Iron 29 L TIBC 296 % Saturation 10 L Unsat Iron Binding 267 Ferritin 70 Total Bilirubin Direct Bilirubin AST ALT Alkaline Phosphatase Ammonia Total Protein Albumin Lipase Carcinoembryonic Ag Urine Color Urine Appearance Urine pH Ur Specific Dorris Urine Protein Urine Glucose (UA) Urine Ketones Urine Blood Urine Nitrite Ur Leukocyte Esterase Stool Occult Blood Urine Opiates Screen Ur Buprenorphine Scrn Ur Oxycodone Screen Urine Methadone Screen Urine Fentanyl Screen Ur Barbiturates Screen Ur Phencyclidine Scrn Ur Amphetamines Screen U Benzodiazepines Scrn Urine Cocaine Screen U Marijuana (THC) Screen Ethyl Alcohol Hep Bs Antigen Negative Hep Bs Antibody NONREACTIVE Hep B Core Total Ab Nonreactive Hepatitis C Ab (EIA) Reactive H Airway Mallampati Class: IV (limited mouth opening) TM Dist: <=3cm Neck ROM: Full Loose/Missing/Broken Teeth: No Heart: rrr Lungs: cta b/l Assessment and Plan Final Anesthetic Review Family History of Problems with Anesthesia: No History of Problems with Anesthesia: No NPO: Yes ASA Class: III Final Preanesthetic Review: No Changes in Pt Med Stat, Meds/Allgs Chart Reviewed, Consent Obtained/Reviewed and Anes Risks/Benef Reviewed Patient Risk: Intermediate Procedure Risk: Intermediate Anesthetic Plan Anesthetic Plan: GA Disposition: Standard PACU
--- NOTE | 2023-06-26 09:30 | P.PNIM_ITS ---
Subjective Subjective Date of Service: 06/26/23 Interval History: Being followed for rectal mass preliminary report showed poorly differentiated carcinoma with squamous features, patient complaining of left-sided abdominal pain, complaining of bilateral neck pain headache did not sleep well last night, is NPO fall loop sigmoid ostomy to alleviate rectal obstruction. No fevers no chills no shortness of breath no chest pain. Review of Systems All other system reviewed and negative Physical Exam 2 Vital Signs: Vital Signs: Last Vital Signs Temp 97 F 06/26/23 08:47 Pulse 82 06/26/23 08:47 Resp 18 06/26/23 08:47 BP 175/84 H 06/26/23 08:47 Pulse Ox 96 06/26/23 08:47 O2 Del Method Room Air 06/26/23 08:47 O2 Flow Rate 6 06/24/23 14:06 BMI result Body Mass Index 33.8 Const: Other: General awake alert x3, resting comfortably in no acute distress. Anicteric sclera Neck no spasm/supple CVS regular rate rhythm, Respiratory lungs clear to auscultation, no respiratory distress, no wheeze, no rhonchi. Gastrointestinal abdomen soft, bowel sounds audible, mild left lower quadrant tenderness to palpation, no guarding , no rigidity. Extremities no edema. Neuro moving all 4 extremity ,speech clear, bilateral equal strength upper and lower extremity/unable to make fist left hand/swelling dorsum of hand resolved/no redness, no swelling. Skin no rash Psych appropriate affect Objective Data Active Medications Acetaminophen (Acetaminophen 325 Mg Tablet) 650 mg PO Q6H PRN PRN Reason: Pain, Mild (Pain Scale 1-3) Last Admin: 06/26/23 02:23 Dose: 650 mg Documented By: DRE Amlodipine Besylate (Amlodipine Besylate 5 Mg Tablet) 5 mg PO DAILY [facility]; Protocol Last Admin: 06/26/23 07:57 Dose: 5 mg Documented By: SURJIT Benzonatate (Benzonatate 100 Mg Capsule) 100 mg PO TID PRN PRN Reason: Cough Docusate Sodium (Docusate Sodium 100 Mg Capsule) 100 mg PO DAILY PRN PRN Reason: Constipation Last Admin: 06/23/23 11:17 Dose: 100 mg Documented By: PRICE Cefotetan Disodium 2 gm/ (Sodium Chloride) 50 mls @ 100 mls/hr IV PREOP ONE Stop: 06/26/23 12:54 Ferric Sodium Gluconate Complex 125 mg/ Sodium Chloride 110 mls @ 100 mls/hr IV DAILY [facility] Stop: 06/27/23 10:05 Last Infusion: 06/25/23 17:40 Dose: Infused Documented By: PRICE Melatonin (Melatonin 3 Mg Tablet) 6 mg PO BEDTIME PRN PRN Reason: Insomnia Last Admin: 06/26/23 02:23 Dose: 6 mg Documented By: DRE Morphine Sulfate (Morphine Sulfate 2 Mg/Ml Cartridge) 2 mg IVPUSH Q4H PRN; Protocol PRN Reason: Pain, Severe (Pain Scale 7-10) Last Admin: 06/26/23 07:56 Dose: 2 mg Documented By: SURJIT Ondansetron HCl (Ondansetron Hcl 4 Mg/2 Ml Vial) 4 mg IVPUSH Q8H PRN PRN Reason: Nausea and Vomiting Sodium Chloride (0.9 % Sodium Chloride Flush 3 Ml Syringe) 3 ml IVFLUSH QSHIFT [facility] Last Admin: 06/26/23 07:58 Dose: 3 ml Documented By: SURJIT Labs 06/24/23 05:46 06/23/23 05:34 Labs: Laboratory Results - last 24 hr 06/25/23 14:01 Hep Bs Antigen Negative Hep Bs Antibody NONREACTIVE Hep B Core Total Ab Nonreactive Hepatitis C Ab (EIA) Reactive H Microbiology Microbiology Results: Microbiology 06/24/23 Unknown Urine Culture - Preliminary Urine Catheterized - Straight Catheter Strep agalactiae (Grp B) Assessment and Plan (1) Abdominal pain: Status: Acute (2) Hydronephrosis, left: Status: Acute (3) Abnormal CT scan, gastrointestinal tract: Status: Acute (4) Rectal bleeding: Status: Acute Plan 53-year-old Hong [place]er-speaking female with a PMH significant for shingles, migraines, mood disorder, and hepatitis-C?at least partially treated in [place] in 1996 currently not on home meds who presents to the ED for evaluation of rectal bleeding and diffuse abdominal pain x1 month. Pt will be admitted to the hospital patient will be admitted to the hospital for treatment further evaluation of rectal bleeding secondary to possible rectal mass and hydro nephrosis concerning ureteral obstruction. Acute Abdominal pain/ Hematochezia Complaining of intermittent abdominal pain with bowel movement,and bright blood per rectum Admitted for Diffuse abdominal pain with defecation/ bright red blood per rectum, N/V, fatigue, generalized aches, weight loss x1 month CT with perirectal inflammatory change with prominent perirectal lymph nodes, rectal mass can not be excluded,Concerning for malignancy H&H is trending down, heme-positive stools, iron studies showed low iron saturation Underwent colonoscopy that showed 2 friable ulcerated masses in the rectum,, 1 mass with some bleeding and covering 60-70% of rectal circumference, biopsies taken Seen by General surgery is scheduled for loop sigmoid ostomy to aleviate the rectal obstruction, today is npo Seen by Oncology she recommend further staging workup including PET-CT, she agreed with surgical intervention and feels patient has locally advanced and possibly metastatic disease patient is a candidate for systemic therapy that can be planned once final pathology and molecular markers are available, hepatitis-B C profile and viral load ordered Headache and neck pain likely musculoskeletal will use Tylenol and IV morphine Left hydronephrosis and hydroureter Concern for ureteric obstruction from bulky adenopathy Seen by Urology and underwent cystoscopy and left ureteral stent placement . Acute on chronic blood-loss anemia with iron deficiency on IV iron infusion D 2 /3 d, Above blood transfusion threshold, follow CBC. Hypertension noted to have started on Norvasc 5 mg daily follow BP closely Hepatitis-C Received partial treatment and [place], recommend outpatient GI follow-up Mood disorder not on any home meds/mood stabilizers Migraines Tylenol p.r.n. Full Code DVT Prophylaxis: Compression boots Pt will require continued inpatient hospitalization for rectal mass requiring surgery and close monitoring of CBC. Quality Stroke Does the patient have a stroke diagnosis?: No VTE Prior VTE?: No VTE Risk Level:: Medical - moderate - high VTE Device Contraindication: N/A - Device Ordered VTE Drug Contraindication: Treatment Not Indicated
--- NOTE | 2023-06-26 11:25 | P.OP_ITS ---
Operative Note Operative Note Date of Service: 06/26/23 Narrative: Preoperative diagnosis: [] Advanced/obstructing rectal cancer Postop diagnosis: [] The same Procedure [] sigmoid loop ostomy/mini exploratory laparotomy Surgeon: [] [employer] Model Maker: [] Alicia Type of Anesthesia: [] General Indication for surgery: [] Advanced/obstructing rectal cancer Findings: [] Patient brought to the operating room, placed on operative table in supine position, after an adequate level of general anesthesia was induced, the patient's abdomen ,which was moderately corpulent, was prepped and draped in usual sterile fashion. Using a transverse incision in left lower quadrant, this carried down through skin, subcutaneous tissue, Tommy's fascia. External oblique fibers were opened transversely and internal oblique and transverse abdominal muscles were split. Peritoneum opened and extended along the length of the incision. Sigmoid colon was identified and brought onto the field. Alexi drain was placed around the sigmoid colon. Fascia was partially closed with interrupted 0 Maxon on either side of the ostomy. Next a longitudinal colotomy was made in the anterior tineum and ostomy was circumferentially matured to the dermis using interrupted interrupted 3-0 Vicryl sutures after the ostomy bar was placed. At completion of the procedure, ostomy was pink and viable. Ostomy appliance placed. Wound was infiltrated 0.5% Marcaine at completion. Sponge, needle, and instrument counts reported correct. Patient tolerated the procedure well and emerged from anesthesia stable condition. EBL minimal
--- NOTE | 2023-06-26 12:49 | MHC.CM.PN ---
Addendum entered by Kendal Camarena RN 06/26/23 13:36: Patient POD 0 new ostomy. ? SNF placement, will need PT eval. Original Note: CM met with patient at bedside, monument letterer assisting. Patient completed HCP naming agents 1) brother Robbie Monet [phone], 2) sister in law Nandini Crouch [phone]. Patient requested assistance w/ new PCP appt. CM assistant manager airside operations attempted to schedule w/ [facility] adult med per patient request, not accepting new patients. Dr. Chowdhury's office can accept, but patient needs to change PCP with insurance first. Patient notified and given contact information for Dr. Chowdhury's office as well. Patient verbalized understanding. CM will continue to follow for dc needs.
[2023-06-26] MEDS: Acetaminophen 1,000 MG/100 ML PIGGYBACK 400 MG IV ×2 (13:37→17:27)
[2023-06-26] MEDS: Sodium Ferric Gluconat/Sucrose 125 MG in 0.9 % Sodium Chloride 100 ML 100 MG IV (14:16)
[2023-06-26] MEDS: Morphine Sulfate 4 MG/ML CARTRIDGE IVPUSH (22:09)
[2023-06-27] VITALS (9 sets, daily range): BP systolic 123–165; BP diastolic 69–80; PULSE 82–98; RESP 16–18; TEMP 36.1–36.6; O2SAT 94–97
[2023-06-27] MEDS: Acetaminophen 1,000 MG/100 ML PIGGYBACK 400 MG IV ×4 (00:18→20:36)
[2023-06-27] MEDS: Morphine Sulfate 4 MG/ML CARTRIDGE IVPUSH ×4 (03:23→22:53)
--- NOTE | 2023-06-27 06:07 | PC.NURSE ---
throughout the night pt have movement pain 6/10 at the ostomy site and headache, provided the meds by eMar. pt went to br a few times, still pink color urinated. s/p new ostomy bag bloody liquid emptied 80 mL. will cont monitor.
[2023-06-27 06:27] LABS: Hematocrit 31.4 % (37.0-47.0); Hemoglobin 9.7 g/dl (12.0-16.0); Mean Corpuscular HGB Conc 30.9 g/dl (31.0-35.0); Mean Corpuscular Hemoglobin 24.7 pg (27.0-33.0); Mean Corpuscular Volume 79.9 fL (80.0-98.0); Mean Platelet Volume 9.4 fL (9.4-12.3); Platelet Count 368 X10*3/uL (160-400); Red Blood Count 3.93 X10*6/uL (4.20-5.50); Red Cell Distribution Width 16.4 % (11.0-16.0); White Blood Count 4.9 X10*3/uL (4.8-10.8)
[2023-06-27 06:31] LABS: Anion Gap 12 (12-20); Blood Urea Nitrogen 13 mg/dL (9-16); Calcium 9.3 mg/dL (8.4-10.2); Carbon Dioxide 28 mmol/L (22-29); Chloride 103 mmol/L (96-108); Creatinine Clr Calc Pharmacy 94.9; Estimated Glomerular Filt Rate > 60; Glucose Random 91 mg/dL (60-115); Potassium 3.4 mmol/L (3.3-5.1); Sodium 140 mmol/L (135-145)
--- NOTE | 2023-06-27 07:37 | P.PNIM_ITS ---
Subjective Subjective Date of Service: 06/27/23 Interval History: Seen in follow up for rectal mass Interval history: Pt tired. Reports R sided headache radiating to r eye. No vision changes. Tolerating only small amounts of clears. Tea colored urine Review of Systems Review of Systems: Yes all other systems are reviewed and are negative Physical Exam 2 Vital Signs: Vital Signs: Last Vital Signs Temp 97.3 F 06/27/23 07:00 Pulse 87 06/27/23 07:00 Resp 16 06/27/23 07:00 BP 136/73 06/27/23 07:00 Pulse Ox 95 06/27/23 07:00 O2 Del Method Room Air 06/27/23 07:00 O2 Flow Rate 6 06/24/23 14:06 BMI result Body Mass Index 33.8 Constitutional - Awake and Alert, No apparent distress Eyes - PERRLA, EOMI Cardiovascular - S1S2, RRR, No edema Respiratory - Normal lung expansion, Normal respiratory effort, No respiratory distress, CTA bilaterally Gastrointestinal - mild diffuse ttp. ND; No rebound or guarding Extremities - no calf tenderness bilaterally, no swelling Skin - Warm/Dry Neurological - Alert & oriented x3, CN II-XII in tact Psychological - Appropriate affect Objective Data Active Medications Amlodipine Besylate (Amlodipine Besylate 5 Mg Tablet) 5 mg PO DAILY BRETT; Protocol Last Admin: 06/26/23 07:57 Dose: 5 mg Documented By: SURJIT Benzonatate (Benzonatate 100 Mg Capsule) 100 mg PO TID PRN PRN Reason: Cough Docusate Sodium (Docusate Sodium 100 Mg Capsule) 100 mg PO DAILY PRN PRN Reason: Constipation Last Admin: 06/23/23 11:17 Dose: 100 mg Documented By: PRICE Ferric Sodium Gluconate Complex 125 mg/ Sodium Chloride 110 mls @ 100 mls/hr IV DAILY BRETT Stop: 06/27/23 10:05 Last Infusion: 06/26/23 15:26 Dose: Infused Documented By: ZURI Acetaminophen (Ofirmev) 1,000 mg in 100 mls @ 400 mls/hr IV Q6H BRETT Last Infusion: 06/27/23 06:18 Dose: Infused Documented By: DRE Melatonin (Melatonin 3 Mg Tablet) 6 mg PO BEDTIME PRN PRN Reason: Insomnia Last Admin: 06/26/23 02:23 Dose: 6 mg Documented By: DRE Morphine Sulfate (Morphine Sulfate 4 Mg/Ml Cartridge) 4 mg IVPUSH Q4H PRN; Protocol PRN Reason: Pain, Severe (Pain Scale 7-10) Last Admin: 06/27/23 03:23 Dose: 4 mg Documented By: DRE Ondansetron HCl (Ondansetron Hcl 4 Mg/2 Ml Vial) 4 mg IVPUSH Q8H PRN PRN Reason: Nausea and Vomiting Oxycodone HCl (Oxycodone Hcl Immed Release 5 Mg Tablet) 5 mg PO Q4H PRN PRN Reason: Pain, Moderate(Pain Scale 4-6) Sodium Chloride (0.9 % Sodium Chloride Flush 3 Ml Syringe) 3 ml IVFLUSH QSHIFT [facility] Last Admin: 06/26/23 22:10 Dose: 3 ml Documented By: DRE Labs 06/27/23 05:35 06/27/23 05:35 Labs: Laboratory Results - last 24 hr 06/27/23 05:35 MCV 79.9 L MCH 24.7 L MCHC 30.9 L RDW 16.4 H Plt Count 368 MPV 9.4 Absolute Nucleated RBC 0.000 Nucleated RBC % (auto) 0.0 Anion Gap 12 Estim Creat Clear Calc 94.9 Estimated GFR > 60 Random Glucose 91 Calcium 9.3 Microbiology Microbiology Results: Microbiology 06/24/23 Unknown Urine Culture - Final Urine Catheterized - Straight Catheter Strep agalactiae (Grp B) Assessment and Plan (1) Hydronephrosis, left: Status: Acute (2) Rectal bleeding: Status: Acute (3) Rectal carcinoma: Status: Acute (4) Colostomy in place: Status: Acute Plan 53-year-old Kyrgyz-speaking female with a PMH significant for shingles, migraines, mood disorder, and hepatitis-C?at least partially treated in [place] in 1996 currently not on home meds who presents to the ED for evaluation of rectal bleeding and diffuse abdominal pain x1 month. Pt will be admitted to the hospital patient will be admitted to the hospital for treatment further evaluation of rectal bleeding secondary to possible rectal mass and hydro nephrosis concerning ureteral obstruction. Rectal carcinoma Admitted for Diffuse abdominal pain with defecation/ bright red blood per rectum, N/V, fatigue, generalized aches, weight loss x1 month CT with perirectal inflammatory change with prominent perirectal lymph nodes, rectal mass can not be excluded,Concerning for malignancy H&H is trending down, heme-positive stools, iron studies showed low iron saturation Underwent colonoscopy that showed 2 friable ulcerated masses in the rectum,, 1 mass with some bleeding and covering 60-70% of rectal circumference, biopsies taken Seen by General surgery- underwent loop sigmoid ostomy to aleviate the rectal obstruction. Diet advanced. Only tolerating small amounts clears. 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 Not improved with tylenol, trial imitrex Left hydronephrosis and hydroureter Concern for ureteric obstruction from bulky adenopathy Seen by Urology and underwent cystoscopy and left ureteral stent placement . Acute on chronic blood-loss anemia with iron deficiency on IV iron infusion D 2 /3 d, Above blood transfusion threshold, follow CBC. Hypertension noted to have started on Norvasc 5 mg daily follow BP closely. BP improved Hepatitis-C Received partial treatment and [place], recommend outpatient GI follow-up Mood disorder not on any home meds/mood stabilizers Migraines Tylenol p.r.n. Full Code DVT Prophylaxis: Compression boots Pt will require continued inpatient hospitalization for rectal mass requiring surgery and close monitoring of CBC and diet advancement post sigmoid ostomy Quality Stroke Does the patient have a stroke diagnosis?: No VTE Prior VTE?: No VTE Risk Level:: Medical - moderate - high VTE Device Contraindication: N/A - Device Ordered VTE Drug Contraindication: Treatment Not Indicated
[2023-06-27] MEDS: amLODIPine Besylate 5 MG TABLET PO (07:46)
[2023-06-27] MEDS: 0.9 % Sodium Chloride Flush 3 ML SYRINGE IVFLUSH ×3 (07:48→20:37)
--- NOTE | 2023-06-27 08:44 | PM.PNGS ---
Subjective Subjective Date of Service: 06/27/23 Interval history: Some pain at incision/ostomy site but comfortable. Has been getting OOB to bathroom and ambulated in room. Tolerating clear liquids. Physical Exam Vital Signs: Vital Signs: Last Vital Signs Temp 97.3 F 06/27/23 07:00 Pulse 87 06/27/23 07:00 Resp 16 06/27/23 07:00 BP 136/73 06/27/23 07:46 Pulse Ox 95 06/27/23 07:00 O2 Del Method Room Air 06/27/23 07:00 O2 Flow Rate 6 06/24/23 14:06 BMI result Body Mass Index 33.8 Const: General: comfortable, no acute distress and alert Orientation/consciousness: patient oriented x3 Resp: Effort & Inspection: normal respiratory effort GI: Other: ostomy edematous, beefy red, no output in appliance, bridge in place Inspection: No distended Palpation (GI): Soft to palpation, Tenderness to palpation present (GI) (mild ) and no guarding Skin: General skin exam: no rashes or lesions noted Neuro: General: patient oriented x3 and moves all extremities Objective Data Active Medications Amlodipine Besylate (Amlodipine Besylate 5 Mg Tablet) 5 mg PO DAILY [facility]; Protocol Last Admin: 06/27/23 07:46 Dose: 5 mg Documented By: ZURI Benzonatate (Benzonatate 100 Mg Capsule) 100 mg PO TID PRN PRN Reason: Cough Docusate Sodium (Docusate Sodium 100 Mg Capsule) 100 mg PO DAILY PRN PRN Reason: Constipation Last Admin: 06/23/23 11:17 Dose: 100 mg Documented By: PRICE Ferric Sodium Gluconate Complex 125 mg/ Sodium Chloride 110 mls @ 100 mls/hr IV DAILY [facility] Stop: 06/27/23 10:05 Last Infusion: 06/26/23 15:26 Dose: Infused Documented By: ZURI Acetaminophen (Ofirmev) 1,000 mg in 100 mls @ 400 mls/hr IV Q6H [facility] Last Infusion: 06/27/23 06:18 Dose: Infused Documented By: DRE Melatonin (Melatonin 3 Mg Tablet) 6 mg PO BEDTIME PRN PRN Reason: Insomnia Last Admin: 06/26/23 02:23 Dose: 6 mg Documented By: HO.CHOIP Morphine Sulfate (Morphine Sulfate 4 Mg/Ml Cartridge) 4 mg IVPUSH Q4H PRN; Protocol PRN Reason: Pain, Severe (Pain Scale 7-10) Last Admin: 06/27/23 07:46 Dose: 4 mg Documented By: ZURI Ondansetron HCl (Ondansetron Hcl 4 Mg/2 Ml Vial) 4 mg IVPUSH Q8H PRN PRN Reason: Nausea and Vomiting Oxycodone HCl (Oxycodone Hcl Immed Release 5 Mg Tablet) 5 mg PO Q4H PRN PRN Reason: Pain, Moderate(Pain Scale 4-6) Sodium Chloride (0.9 % Sodium Chloride Flush 3 Ml Syringe) 3 ml IVFLUSH QSHIFT [facility] Last Admin: 06/27/23 07:48 Dose: 3 ml Documented By: ZURI Labs 06/27/23 05:35 06/27/23 05:35 Labs: Laboratory Results - last 24 hr 06/27/23 05:35 MCV 79.9 L MCH 24.7 L MCHC 30.9 L RDW 16.4 H Plt Count 368 MPV 9.4 Absolute Nucleated RBC 0.000 Nucleated RBC % (auto) 0.0 Anion Gap 12 Estim Creat Clear Calc 94.9 Estimated GFR > 60 Random Glucose 91 Calcium 9.3 Microbiology Microbiology Results: Microbiology 06/24/23 Unknown Urine Culture - Final Urine Catheterized - Straight Catheter Strep agalactiae (Grp B) Procedures Date of Service Date of Service: 06/27/23 Progress Note: A&P Assessment and plan (1) Rectal carcinoma: Status: Acute (2) Colostomy in place: Status: Acute Plan POD #1 s/p sigmoid loop ostomy/mini exploratory laparotomy for nearly obstructing rectal mass. No output from ostomy yet. Abd benign with mild tenderness surrounding ostomy, ostomy edematous and beefy red. Continue clear liquids for now until some evidence of function. Encouraged OOB/ambulation. 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 Time Spent With Patient Time: Total time managing care of this patient today ____ minutes. Quality Stroke Does the patient have a stroke diagnosis?: No VTE Prior VTE?: No VTE Risk Level:: Medical - moderate - high VTE Device Contraindication: N/A - Device Ordered VTE Drug Contraindication: Treatment Not Indicated
[2023-06-27] MEDS: 0.9 % Sodium Chloride 500 ML IV (09:09)
[2023-06-27] MEDS: SUMAtriptan succinate 50 MG TABLET PO (09:24)
[2023-06-27] MEDS: Sodium Ferric Gluconat/Sucrose 125 MG in 0.9 % Sodium Chloride 100 ML 100 MG IV (09:41)
[2023-06-27 11:28] LABS: HCV Log PCR 7.33 Log IU/mL (NOT DETECTED); HepC Viral Load 21500000 IU/mL (NOT DETECTED)
[2023-06-27] MEDS: oxyCODONE HCl Immed Release 5 MG TABLET PO (12:20)
--- NOTE | 2023-06-27 12:27 | MHC.CM.PN ---
PER ROUNDS PT NOT READY FOR DC PLAN REMAINS HOME
--- NOTE | 2023-06-27 13:07 | HO.POSTANES ---
Post Anesthesia Evaluation Post Anesthesia Evaluation Date of Service: 06/26/23 Vital Signs: Vital Signs Temp Pulse Resp BP Pulse Ox O2 Del Method 06/27/23 12:00 97.8 F 90 16 143/75 H 96 Room Air 06/27/23 07:46 136/73 06/27/23 07:00 97.3 F 87 16 136/73 95 Room Air 06/27/23 03:23 18 06/27/23 03:17 97.9 F 95 18 165/80 H 97 Room Air Anesthesia: General Endotracheal-GETA Mental Status: Awake Pain Control: Satisfactory Hydration: Adequate Anesthesia-Related Issues: No Anes. Related Issues
--- NOTE | 2023-06-27 13:17 | HO.OSTOMY ---
Ostomy Consult : Initial 53yr old?Female admitted to [facility] on fpr rectal bleeding - See progress notes and H&P for detailed history.? Ostomy consult placed for Loop colostomy creation by Dr. Andrade on 06/26/23 POD 1.? 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 She was agreeable to my assessment of her stoma. The pouch was noted to be leaking. There was a small amount of gauze noted to the 9'oclock site absorbing drainage - direct care team notified to change immediately upon leaking. She was changed into a Coloplast [id number], 1 Piece cut to fit (oval, paste was used to create seal the stoma bridge in place was not allowing for a tight seal. MCJ intact, Stoma red / pink and miost, clear plastic bridge in place. ?She did not observed the pouch change. ?Will attempt teaching in the future with Joint Machine Operator present. Next teaching session goals: Watch [employer] Videos Demonstrate open and close Steps to a pouch change When to seek emergency treatment
[2023-06-27] MEDS: Melatonin 3 MG TABLET 6 MG PO (22:53)
[2023-06-28] MEDS: Acetaminophen 1,000 MG/100 ML PIGGYBACK 400 MG IV ×4 (03:18→21:00)
[2023-06-28 03:58] VITALS: BP 137/70; PULSE 95; RESP 20; TEMP 36.4; O2SAT 97
[2023-06-28 06:02] LABS: MANUAL DIFF FLAG NO
[2023-06-28 06:15] LABS: Anion Gap 11 (12-20); Blood Urea Nitrogen 7 mg/dL (9-16); Calcium 9.1 mg/dL (8.4-10.2); Carbon Dioxide 26 mmol/L (22-29); Chloride 103 mmol/L (96-108); Creatinine Clr Calc Pharmacy 98.8; Estimated Glomerular Filt Rate > 60; Glucose Random 93 mg/dL (60-115); Potassium 3.3 mmol/L (3.3-5.1); Sodium 137 mmol/L (135-145)
[2023-06-28 06:21] LABS: Basophils Percent Auto 0.2 % (0-2); Eosinophils Absolute Auto 0.1 X10*3/uL (0.0-0.4); Eosinophils Percent Auto 1.8 % (0-4); Hematocrit 29.2 % (37.0-47.0); Hemoglobin 9.3 g/dl (12.0-16.0); Imm Gran Abs Auto 0.02 X10*3/uL (0.00-0.03); Imm Gran Pct Auto 0.4 % (0.0-0.4); Lymphocytes Absolute Auto 1.3 X10*3/uL (1.2-4.9); Lymphocytes Percent Auto 28.2 % (20-40); Mean Corpuscular HGB Conc 31.8 g/dl (31.0-35.0); Mean Corpuscular Hemoglobin 24.8 pg (27.0-33.0); Mean Corpuscular Volume 77.9 fL (80.0-98.0); Monocytes Absolute Auto 0.4 X10*3/uL (0.1-1.2); Monocytes Percent Auto 9.6 % (2-11); Neutrophils Absolute Auto 2.7 x10*3/uL (2.0-8.3); Neutrophils Percent Auto 59.8 % (45-73); Platelet Count 330 X10*3/uL (160-400); Red Blood Count 3.75 X10*6/uL (4.20-5.50); Red Cell Distribution Width 16.5 % (11.0-16.0); White Blood Count 4.5 X10*3/uL (4.8-10.8)
[2023-06-28 06:47] VITALS: BP 138/75; PULSE 84; RESP 17; TEMP 36.1; O2SAT 95
[2023-06-28] MEDS: Morphine Sulfate 4 MG/ML CARTRIDGE IVPUSH ×2 (07:24→12:11)
[2023-06-28] MEDS: 0.9 % Sodium Chloride Flush 3 ML SYRINGE IVFLUSH ×3 (07:25→21:02)
[2023-06-28] MEDS: amLODIPine Besylate 5 MG TABLET PO (08:37)
--- NOTE | 2023-06-28 09:42 | P.PNGS_ITS ---
Subjective Subjective Date of Service: 06/28/23 Interval history: Overall patient feels improved; no stool noted from ostomy other than thin bloody fluid. Physical Exam 2 Vital Signs: Vital Signs: Last Vital Signs Temp 97 F 06/28/23 06:47 Pulse 84 06/28/23 06:47 Resp 17 06/28/23 06:47 BP 138/75 06/28/23 06:47 Pulse Ox 95 06/28/23 06:47 O2 Del Method Room Air 06/28/23 06:47 O2 Flow Rate 6 06/24/23 14:06 BMI result Body Mass Index 33.8 Const: General: no acute distress Nutritional Appearance: well nourished Orientation/consciousness: patient oriented x3 Resp: Effort & Inspection: normal respiratory effort, no audible wheezes, no cough and no respiratory distress GI: Other: Ostomy pink and patent, with thin bloody fluid. No stool or gas Palpation (GI): Soft to palpation, nontender, no guarding and not rigid Neuro: General: patient oriented x3 Objective Data Active Medications Amlodipine Besylate (Amlodipine Besylate 5 Mg Tablet) 5 mg PO DAILY [facility]; Protocol Last Admin: 06/28/23 08:37 Dose: 5 mg Documented By: PRICE Benzonatate (Benzonatate 100 Mg Capsule) 100 mg PO TID PRN PRN Reason: Cough Docusate Sodium (Docusate Sodium 100 Mg Capsule) 100 mg PO DAILY PRN PRN Reason: Constipation Last Admin: 06/23/23 11:17 Dose: 100 mg Documented By: PRICE Acetaminophen (Ofirmev) 1,000 mg in 100 mls @ 400 mls/hr IV Q6H [facility] Last Infusion: 06/28/23 08:56 Dose: Infused Documented By: PRICE Melatonin (Melatonin 3 Mg Tablet) 6 mg PO BEDTIME PRN PRN Reason: Insomnia Last Admin: 06/27/23 22:53 Dose: 6 mg Documented By: DRE Morphine Sulfate (Morphine Sulfate 4 Mg/Ml Cartridge) 4 mg IVPUSH Q4H PRN; Protocol PRN Reason: Pain, Severe (Pain Scale 7-10) Last Admin: 06/28/23 07:24 Dose: 4 mg Documented By: PRICE Ondansetron HCl (Ondansetron Hcl 4 Mg/2 Ml Vial) 4 mg IVPUSH Q8H PRN PRN Reason: Nausea and Vomiting Oxycodone HCl (Oxycodone Hcl Immed Release 5 Mg Tablet) 5 mg PO Q4H PRN PRN Reason: Pain, Moderate(Pain Scale 4-6) Last Admin: 06/27/23 12:20 Dose: 5 mg Documented By: ZURI Sodium Chloride (0.9 % Sodium Chloride Flush 3 Ml Syringe) 3 ml IVFLUSH QSHIFT [facility] Last Admin: 06/28/23 07:25 Dose: 3 ml Documented By: GRAZDEANN Sumatriptan Succinate (Sumatriptan Succinate 50 Mg Tablet) 50 mg PO DAILY MRX1 PRN PRN Reason: Headache Last Admin: 06/27/23 09:24 Dose: 50 mg Documented By: ZURI Labs 06/28/23 05:56 06/28/23 05:56 Labs: Laboratory Results - last 24 hr 06/25/23 06/28/23 14:01 05:56 MCV 77.9 L MCH 24.8 L MCHC 31.8 RDW 16.5 H Plt Count 330 MPV 9.0 L Immature Gran % (Auto) 0.4 Neut % (Auto) 59.8 Lymph % (Auto) 28.2 Summers % (Auto) 9.6 Eos % (Auto) 1.8 Baso % (Auto) 0.2 Lymph # (Auto) 1.3 Summers # (Auto) 0.4 Eos # (Auto) 0.1 Baso # (Auto) 0.0 Abs Immat Gran (auto) 0.02 Absolute Neuts (auto) 2.7 Absolute Nucleated RBC 0.000 Nucleated RBC % (auto) 0.0 Anion Gap 11 L Estim Creat Clear Calc 98.8 Estimated GFR > 60 Random Glucose 93 Calcium 9.1 Hep C Viral Load [id number] H Hep C Viral Load Log 7.33 H Procedures Date of Service Date of Service: 06/28/23 Progress Note: A&P Assessment and plan (1) Colostomy in place: Status: Acute (2) Rectal carcinoma: Status: Acute Plan Pod 2 following loop colostomy for obstructing rectal cancer. Further workup in progress. Ostomy is pink but with no stool as of yet. We will continue to monitor output. Patient comfortable with clear liquid diet. Time Spent With Patient Time: Total time managing care of this patient today ____ minutes. Quality Stroke Does the patient have a stroke diagnosis?: No VTE Prior VTE?: No VTE Risk Level:: Medical - moderate - high VTE Device Contraindication: N/A - Device Ordered VTE Drug Contraindication: Treatment Not Indicated
--- NOTE | 2023-06-28 11:28 | HO.PM.IMPN ---
Subjective Subjective Date of Service: 06/28/23 Interval History: seen and evaluated this morning pain under fair control no output from ostomy yet Review of Systems Review of Systems: Yes all other systems are reviewed and are negative Physical Exam Vital Signs: Vital Signs: Last Vital Signs Temp 97 F 06/28/23 06:47 Pulse 84 06/28/23 06:47 Resp 17 06/28/23 06:47 BP 138/75 06/28/23 06:47 Pulse Ox 95 06/28/23 06:47 O2 Del Method Room Air 06/28/23 06:47 O2 Flow Rate 6 06/24/23 14:06 BMI result Body Mass Index 33.8 Const: Other: Constitutional : Awake, interactive, not in distress Neck : Normal inspection, Supple Cardiovascular : RRR, no JVP, no lower extremity edema Respiratory : good bilateral air entry, no crackles, wheezes or rhonchi Gastrointestinal: soft, lax, Normal bowel sounds, mild generalized tenderness, ostomy in pink but no output yet Skin : Warm, Dry Neurological : Alert & oriented x3, No focal deficit Objective Data Active Medications Amlodipine Besylate (Amlodipine Besylate 5 Mg Tablet) 5 mg PO DAILY [facility]; Protocol Last Admin: 06/28/23 08:37 Dose: 5 mg Documented By: PRICE Benzonatate (Benzonatate 100 Mg Capsule) 100 mg PO TID PRN PRN Reason: Cough Docusate Sodium (Docusate Sodium 100 Mg Capsule) 100 mg PO DAILY PRN PRN Reason: Constipation Last Admin: 06/23/23 11:17 Dose: 100 mg Documented By: PRICE Acetaminophen (Ofirmev) 1,000 mg in 100 mls @ 400 mls/hr IV Q6H [facility] Last Infusion: 06/28/23 08:56 Dose: Infused Documented By: PRICE Melatonin (Melatonin 3 Mg Tablet) 6 mg PO BEDTIME PRN PRN Reason: Insomnia Last Admin: 06/27/23 22:53 Dose: 6 mg Documented By: DRE Morphine Sulfate (Morphine Sulfate 4 Mg/Ml Cartridge) 4 mg IVPUSH Q4H PRN; Protocol PRN Reason: Pain, Severe (Pain Scale 7-10) Last Admin: 06/28/23 07:24 Dose: 4 mg Documented By: PRICE Ondansetron HCl (Ondansetron Hcl 4 Mg/2 Ml Vial) 4 mg IVPUSH Q8H PRN PRN Reason: Nausea and Vomiting Oxycodone HCl (Oxycodone Hcl Immed Release 5 Mg Tablet) 5 mg PO Q4H PRN PRN Reason: Pain, Moderate(Pain Scale 4-6) Last Admin: 06/27/23 12:20 Dose: 5 mg Documented By: ZURI Sodium Chloride (0.9 % Sodium Chloride Flush 3 Ml Syringe) 3 ml IVFLUSH QSHIFT RBETT Last Admin: 06/28/23 07:25 Dose: 3 ml Documented By: GRAZDEANN Sumatriptan Succinate (Sumatriptan Succinate 50 Mg Tablet) 50 mg PO DAILY MRX1 PRN PRN Reason: Headache Last Admin: 06/27/23 09:24 Dose: 50 mg Documented By: ZURI Labs 06/28/23 05:56 06/28/23 05:56 Labs: Laboratory Results - last 24 hr 06/25/23 06/28/23 14:01 05:56 MCV 77.9 L MCH 24.8 L MCHC 31.8 RDW 16.5 H Plt Count 330 MPV 9.0 L Immature Gran % (Auto) 0.4 Neut % (Auto) 59.8 Lymph % (Auto) 28.2 Nolan % (Auto) 9.6 Eos % (Auto) 1.8 Baso % (Auto) 0.2 Lymph # (Auto) 1.3 Nolan # (Auto) 0.4 Eos # (Auto) 0.1 Baso # (Auto) 0.0 Abs Immat Gran (auto) 0.02 Absolute Neuts (auto) 2.7 Absolute Nucleated RBC 0.000 Nucleated RBC % (auto) 0.0 Anion Gap 11 L Estim Creat Clear Calc 98.8 Estimated GFR > 60 Random Glucose 93 Calcium 9.1 Hep C Viral Load [id number] H Hep C Viral Load Log 7.33 H Assessment and Plan (1) Colostomy in place: Status: Acute (2) Rectal carcinoma: Status: Acute (3) Hydronephrosis, left: Status: Acute Plan 53-year-old Kazakh-speaking female with a PMH significant for shingles, migraines, mood disorder, and hepatitis-C?at least partially treated in [place] in 1996 currently not on home meds who presents to the ED for evaluation of rectal bleeding and diffuse abdominal pain x1 month. Pt will be admitted to the hospital patient will be admitted to the hospital for treatment further evaluation of rectal bleeding secondary to possible rectal mass and hydro nephrosis concerning ureteral obstruction. BRBPR 2/[address] with perirectal inflammatory change with prominent perirectal lymph nodes, rectal mass Concerning for malignancy H&H is trending down, heme-positive stools, iron studies showed low iron saturation, Hb 9.3 today Colonoscopy that showed 2 friable ulcerated masses in the rectum,, 1 mass with some bleeding and covering 60-70% of rectal circumference, biopsies taken General surgery did loop sigmoid ostomy to aleviate the rectal obstruction. 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 Not improved with tylenol, trial imitrex Left hydronephrosis and hydroureter Concern for ureteric obstruction from bulky adenopathy Seen by Urology and underwent cystoscopy and left ureteral stent placement . Acute on chronic blood-loss anemia with iron deficiency on IV iron infusion D 3 /3 d, Above blood transfusion threshold, follow CBC. Hypertension noted to have started on Norvasc 5 mg daily follow BP closely. BP improved Hepatitis-C Received partial treatment and [place], recommend outpatient GI follow-up Mood disorder not on any home meds/mood stabilizers Migraines Tylenol p.r.n. Full Code DVT Prophylaxis: Compression boots Pt will require continued inpatient hospitalization for rectal mass requiring surgery and close monitoring of CBC and diet advancement post sigmoid ostomy Quality Stroke Does the patient have a stroke diagnosis?: No VTE Prior VTE?: No VTE Risk Level:: Medical - moderate - high VTE Device Contraindication: N/A - Device Ordered VTE Drug Contraindication: Treatment Not Indicated
[2023-06-28 12:00] VITALS: BP 132/70; PULSE 78; RESP 17; TEMP 36.6
[2023-06-28 15:18] VITALS: BP 130/66; PULSE 95; RESP 20; TEMP 36.4; O2SAT 97
[2023-06-28 19:11] VITALS: BP 145/66; PULSE 87; RESP 20; TEMP 36.7; O2SAT 96
[2023-06-28] MEDS: oxyCODONE HCl Immed Release 5 MG TABLET PO (19:57)
[2023-06-29] VITALS (7 sets, daily range): BP systolic 121–164; BP diastolic 60–77; PULSE 69–90; RESP 17–20; TEMP 36.1–36.7; O2SAT 96–98
[2023-06-29] MEDS: Acetaminophen 1,000 MG/100 ML PIGGYBACK 400 MG IV ×4 (02:54→20:52)
[2023-06-29 05:52] LABS: Hematocrit 30.6 % (37.0-47.0); Hemoglobin 9.5 g/dl (12.0-16.0); Mean Corpuscular Hemoglobin 24.7 pg (27.0-33.0); Mean Corpuscular Volume 79.5 fL (80.0-98.0); Mean Platelet Volume 9.4 fL (9.4-12.3); Platelet Count 346 X10*3/uL (160-400); Red Blood Count 3.85 X10*6/uL (4.20-5.50); Red Cell Distribution Width 16.2 % (11.0-16.0); White Blood Count 5.7 X10*3/uL (4.8-10.8)
[2023-06-29 06:17] LABS: Anion Gap 12 (12-20); Blood Urea Nitrogen 6 mg/dL (9-16); Calcium 9.1 mg/dL (8.4-10.2); Carbon Dioxide 25 mmol/L (22-29); Chloride 103 mmol/L (96-108); Creatinine Clr Calc Pharmacy 107.6; Estimated Glomerular Filt Rate > 60; Glucose Random 95 mg/dL (60-115); Potassium 3.1 mmol/L (3.3-5.1); Sodium 137 mmol/L (135-145)
[2023-06-29] MEDS: Morphine Sulfate 4 MG/ML CARTRIDGE IVPUSH ×2 (08:53→18:22)
[2023-06-29] MEDS: amLODIPine Besylate 5 MG TABLET PO (08:55)
[2023-06-29] MEDS: Potassium Chloride ER 20 MEQ TAB.ER.PRT 40 MEQ PO (08:55)
[2023-06-29] MEDS: 0.9 % Sodium Chloride Flush 3 ML SYRINGE IVFLUSH ×3 (08:56→20:53)
--- NOTE | 2023-06-29 10:03 | P.PNIM_ITS ---
Subjective Subjective Date of Service: 06/29/23 Interval History: seen and evaluated this morning pain under fair control reports being unable to sleep for few nights now having output from ostomy Review of Systems Review of Systems: Yes all other systems are reviewed and are negative Physical Exam 2 Vital Signs: Vital Signs: Last Vital Signs Temp 96.9 F 06/29/23 07:17 Pulse 90 06/29/23 07:17 Resp 17 06/29/23 07:17 BP 152/67 H 06/29/23 07:17 Pulse Ox 96 06/29/23 07:17 O2 Del Method Room Air 06/29/23 07:17 O2 Flow Rate 6 06/24/23 14:06 BMI result Body Mass Index 33.8 Const: Other: Constitutional : Awake, interactive, not in distress Neck : Normal inspection, Supple Cardiovascular : RRR, no JVP, no lower extremity edema Respiratory : good bilateral air entry, no crackles, wheezes or rhonchi Gastrointestinal: soft, lax, Normal bowel sounds, mild generalized tenderness, ostomy with liquid output Skin : Warm, Dry Neurological : Alert & oriented x3, No focal deficit Objective Data Active Medications Amlodipine Besylate (Amlodipine Besylate 5 Mg Tablet) 5 mg PO DAILY [facility]; Protocol Last Admin: 06/29/23 08:55 Dose: 5 mg Documented By: PRICE Benzonatate (Benzonatate 100 Mg Capsule) 100 mg PO TID PRN PRN Reason: Cough Clonazepam (Clonazepam 0.125 Mg Tab.Rapdis) 0.5 mg PO BID PRN PRN Reason: anxiety/restlessness Docusate Sodium (Docusate Sodium 100 Mg Capsule) 100 mg PO DAILY PRN PRN Reason: Constipation Last Admin: 06/23/23 11:17 Dose: 100 mg Documented By: PRICE Acetaminophen (Ofirmev) 1,000 mg in 100 mls @ 400 mls/hr IV Q6H [facility] Last Infusion: 06/29/23 09:11 Dose: Infused Documented By: PRICE Melatonin (Melatonin 3 Mg Tablet) 6 mg PO BEDTIME PRN PRN Reason: Insomnia Last Admin: 06/27/23 22:53 Dose: 6 mg Documented By: DRE Morphine Sulfate (Morphine Sulfate 4 Mg/Ml Cartridge) 4 mg IVPUSH Q4H PRN; Protocol PRN Reason: Pain, Severe (Pain Scale 7-10) Last Admin: 06/29/23 08:53 Dose: 4 mg Documented By: PRICE Ondansetron HCl (Ondansetron Hcl 4 Mg/2 Ml Vial) 4 mg IVPUSH Q8H PRN PRN Reason: Nausea and Vomiting Oxycodone HCl (Oxycodone Hcl Immed Release 5 Mg Tablet) 5 mg PO Q4H PRN PRN Reason: Pain, Moderate(Pain Scale 4-6) Last Admin: 06/28/23 19:57 Dose: 5 mg Documented By: DRE Sodium Chloride (0.9 % Sodium Chloride Flush 3 Ml Syringe) 3 ml IVFLUSH QSHIFT [facility] Last Admin: 06/29/23 08:56 Dose: 3 ml Documented By: PRICE Sumatriptan Succinate (Sumatriptan Succinate 50 Mg Tablet) 50 mg PO DAILY MRX1 PRN PRN Reason: Headache Last Admin: 06/27/23 09:24 Dose: 50 mg Documented By: ZURI Trazodone HCl (Trazodone Hcl 50 Mg Tablet) 50 mg PO BEDTIME [facility] Labs 06/29/23 05:08 06/29/23 05:08 Labs: Laboratory Results - last 24 hr 06/29/23 05:08 MCV 79.5 L MCH 24.7 L MCHC 31.0 RDW 16.2 H Plt Count 346 MPV 9.4 Absolute Nucleated RBC 0.000 Nucleated RBC % (auto) 0.0 Anion Gap 12 Estim Creat Clear Calc 107.6 Estimated GFR > 60 Random Glucose 95 Calcium 9.1 Assessment and Plan (1) Colostomy in place: Status: Acute (2) Rectal carcinoma: Status: Acute (3) Rectal mass: Status: Acute Plan 53-year-old Belarusian-speaking female with a PMH significant for shingles, migraines, mood disorder, and hepatitis-C?at least partially treated in [place] in 1996 currently not on home meds who presents to the ED for evaluation of rectal bleeding and diffuse abdominal pain x1 month. Pt will be admitted to the hospital patient will be admitted to the hospital for treatment further evaluation of rectal bleeding secondary to possible rectal mass and hydro nephrosis concerning ureteral obstruction. BRBPR 2/[address] with perirectal inflammatory change with prominent perirectal lymph nodes, rectal mass Concerning for malignancy H&H is trending down, heme-positive stools, iron studies showed low iron saturation, Hb 9.3 today Colonoscopy that showed 2 friable ulcerated masses in the rectum,, 1 mass with some bleeding and covering 60-70% of rectal circumference, biopsies taken General surgery did loop sigmoid ostomy to aleviate the rectal obstruction. 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 If not improved with tylenol, trial imitrex Sleeping problem reports being on sleep pills and Klonipin before moving to [place], has no access to these meds Start Trazodone bedtime PRN Klonopin Left hydronephrosis and hydroureter Concern for ureteric obstruction from bulky adenopathy Seen by Urology and underwent cystoscopy and left ureteral stent placement . Acute on chronic blood-loss anemia with iron deficiency on IV iron infusion D 3 /3 d, Above blood transfusion threshold, follow CBC. Hypertension noted to have started on Norvasc 5 mg daily follow BP closely. BP improved Hepatitis-C Received partial treatment and [place], recommend outpatient GI follow-up Mood disorder not on any home meds/mood stabilizers Migraines Tylenol p.r.n. Full Code DVT Prophylaxis: Compression boots Pt will require continued inpatient hospitalization for rectal mass requiring surgery and close monitoring of CBC and diet advancement post sigmoid ostomy Quality Stroke Does the patient have a stroke diagnosis?: No VTE Prior VTE?: No VTE Risk Level:: Medical - moderate - high VTE Device Contraindication: N/A - Device Ordered VTE Drug Contraindication: Treatment Not Indicated
[2023-06-29] MEDS: traZODone HCL 50 MG TABLET PO (20:53)
[2023-06-29] MEDS: Melatonin 3 MG TABLET 6 MG PO (23:38)
[2023-06-30] VITALS (8 sets, daily range): BP systolic 115–133; BP diastolic 59–79; PULSE 85–112; RESP 16–19; TEMP 36.1–37.3; O2SAT 95–100
[2023-06-30] MEDS: Acetaminophen 1,000 MG/100 ML PIGGYBACK 400 MG IV ×2 (03:11→08:09)
[2023-06-30 06:15] LABS: Hematocrit 30.9 % (37.0-47.0); Hemoglobin 9.8 g/dl (12.0-16.0); Mean Corpuscular HGB Conc 31.7 g/dl (31.0-35.0); Mean Corpuscular Hemoglobin 25.2 pg (27.0-33.0); Mean Corpuscular Volume 79.4 fL (80.0-98.0); Mean Platelet Volume 9.3 fL (9.4-12.3); Platelet Count 349 X10*3/uL (160-400); Red Blood Count 3.89 X10*6/uL (4.20-5.50); Red Cell Distribution Width 16.9 % (11.0-16.0)
[2023-06-30 06:23] LABS: Anion Gap 12 (12-20); Blood Urea Nitrogen 7 mg/dL (9-16); Calcium 9.5 mg/dL (8.4-10.2); Carbon Dioxide 26 mmol/L (22-29); Chloride 103 mmol/L (96-108); Creatinine Clr Calc Pharmacy 110.9; Estimated Glomerular Filt Rate > 60; Glucose Random 93 mg/dL (60-115); Potassium 3.6 mmol/L (3.3-5.1); Sodium 137 mmol/L (135-145)
[2023-06-30] MEDS: amLODIPine Besylate 5 MG TABLET PO (08:09)
[2023-06-30] MEDS: 0.9 % Sodium Chloride Flush 3 ML SYRINGE IVFLUSH ×2 (08:16→16:17)
[2023-06-30] MEDS: Morphine Sulfate 4 MG/ML CARTRIDGE IVPUSH (08:36)
--- NOTE | 2023-06-30 09:10 | PM.PNGS ---
Subjective Subjective Date of Service: 06/30/23 Interval history: Feels well. Minimal pain. Tolerating clears. Ostomy now with stool output. Physical Exam Vital Signs: Vital Signs: Last Vital Signs Temp 97.8 F 06/30/23 07:12 Pulse 93 06/30/23 07:12 Resp 16 06/30/23 07:12 BP 115/59 L 06/30/23 08:09 Pulse Ox 97 06/30/23 07:12 O2 Del Method Room Air 06/30/23 07:12 O2 Flow Rate 6 06/24/23 14:06 BMI result Body Mass Index 33.8 Const: General: comfortable, no acute distress and alert Orientation/consciousness: patient oriented x3 Resp: Effort & Inspection: normal respiratory effort GI: Other: ostomy viable appearing, stool in appliance Neuro: General: patient oriented x3 Objective Data Active Medications Amlodipine Besylate (Amlodipine Besylate 5 Mg Tablet) 5 mg PO DAILY PENDING SALE TO [facility]; Protocol Last Admin: 06/30/23 08:09 Dose: 5 mg Documented By: AMAYA Benzonatate (Benzonatate 100 Mg Capsule) 100 mg PO TID PRN PRN Reason: Cough Clonazepam (Clonazepam 0.125 Mg Tab.Rapdis) 0.5 mg PO BID PRN PRN Reason: anxiety/restlessness Last Admin: 06/29/23 23:38 Dose: 0.5 mg Documented By: PRICE Docusate Sodium (Docusate Sodium 100 Mg Capsule) 100 mg PO DAILY PRN PRN Reason: Constipation Last Admin: 06/23/23 11:17 Dose: 100 mg Documented By: PRICE Acetaminophen (irmev) 1,000 mg in 100 mls @ 400 mls/hr IV Q6H PENDING SALE TO [facility] Last Infusion: 06/30/23 08:25 Dose: Infused Documented By: AMAYA Melatonin (Melatonin 3 Mg Tablet) 6 mg PO BEDTIME PRN PRN Reason: Insomnia Last Admin: 06/29/23 23:38 Dose: 6 mg Documented By: PRICE Morphine Sulfate (Morphine Sulfate 4 Mg/Ml Cartridge) 4 mg IVPUSH Q4H PRN; Protocol PRN Reason: Pain, Severe (Pain Scale 7-10) Last Admin: 06/30/23 08:36 Dose: 4 mg Documented By: AMAYA Ondansetron HCl (Ondansetron Hcl 4 Mg/2 Ml Vial) 4 mg IVPUSH Q8H PRN PRN Reason: Nausea and Vomiting Oxycodone HCl (Oxycodone Hcl Immed Release 5 Mg Tablet) 5 mg PO Q4H PRN PRN Reason: Pain, Moderate(Pain Scale 4-6) Last Admin: 06/28/23 19:57 Dose: 5 mg Documented By: DRE Sodium Chloride (0.9 % Sodium Chloride Flush 3 Ml Syringe) 3 ml IVFLUSH QSHIFT PENDING SALE TO [facility] Last Admin: 06/30/23 08:16 Dose: 3 ml Documented By: AMAYA Sumatriptan Succinate (Sumatriptan Succinate 50 Mg Tablet) 50 mg PO DAILY MRX1 PRN PRN Reason: Headache Last Admin: 06/27/23 09:24 Dose: 50 mg Documented By: ZURI Trazodone HCl (Trazodone Hcl 50 Mg Tablet) 50 mg PO BEDTIME [facility] Last Admin: 06/29/23 20:53 Dose: 50 mg Documented By: SARAHIC Labs 06/30/23 05:41 06/30/23 05:41 Labs: Laboratory Results - last 24 hr 06/30/23 05:41 MCV 79.4 L MCH 25.2 L MCHC 31.7 RDW 16.9 H Plt Count 349 MPV 9.3 L Absolute Nucleated RBC 0.000 Nucleated RBC % (auto) 0.0 Anion Gap 12 Estim Creat Clear Calc 110.9 Estimated GFR > 60 Random Glucose 93 Calcium 9.5 Procedures Date of Service Date of Service: 06/30/23 Progress Note: A&P Assessment and plan (1) Colostomy in place: Status: Acute (2) Rectal carcinoma: Status: Acute Plan Doing well post op. Now with ostomy output. Will advance to solid diet. If tolerating, surgically stable for dc when medically cleared. Ostomy education and home with VNA services. Will remove bridge prior. Time Spent With Patient Time: Total time managing care of this patient today ____ minutes. Quality Stroke Does the patient have a stroke diagnosis?: No VTE Prior VTE?: No VTE Risk Level:: Medical - moderate - high VTE Device Contraindication: N/A - Device Ordered VTE Drug Contraindication: Treatment Not Indicated
[2023-06-30] MEDS: oxyCODONE HCl Immed Release 5 MG TABLET PO ×3 (12:21→22:14)
--- NOTE | 2023-06-30 13:05 | MHC.CM.PN ---
per rounds pt may need str physical therapy eval pending
--- NOTE | 2023-06-30 15:20 | PC.NURSE ---
Ostomy Consult : Follow up 53yr old?Female admitted to [facility] [place] on for rectal bleeding - See progress notes and H&P for detailed history.? Ostomy consult placed for Loop colostomy creation by Dr. Andrade on 06/26/23. ? Patient is [place] speaking ?- seat trimmer present throughout consultation.? Patient reports some participation over the weekend but reports she does not feel ready to d/c to independently care for her ostomy.? Of importance the patient has not yet had ostomy teaching and will benefit from today?s information.? We discussed her pain control being inadequate at the current moment and not ambulating in her room. We began by discussing general knowledge about the Colostomy and questions she had. ?We discussed opening and closing the ostomy pouch. She was able to independently provide a return demonstration on an empty pouch. ?She reports she has assisted with some emptying over the weekend. ?We discussed the importance of emptying pouch when 1/3 to 1/2 full, how to empty pouch, and lining water with toilet paper to prevent splash back. With an empty Coloplast pouch she performed a demonstration. ? She was also educated on when to contact oil agent/Dr Andrade's office/seek emergency medical treatment. Patient was given some ostomy pouches and paste for transition to home. Dr Andrade?s office will place order through [employer] for supplies. ?Reviewed written education with patient and left at bedside for further review. ? ? Permission was granted for pouch assessment and a leak was noted?at the 9 o'clock area - she observed this sign for future ?independent observation for s/s of leaking. ?She was agreeable to a pouch change. ? She was changed into a Coloplast [id number], 1 Piece cut to fit (oval, paste was used to create seal the stoma bridge in place was not allowing for a tight seal.? MCJ intact, Stoma red / pink and moist, clear plastic bridge not in place and was noted in the pouch. ?She observed but did not participate in the pouch change. ?TT to ERICK Eli with information of bridge no longer in place. She had some questions that led to further discussion but were often unrelated to what we were discussing.? She seemed to have flight of ideas. ?After the pouch was changed she was able to open close on the pouch attached to her abdomen without coaching. ?She reported having no questions at this time. ?Patient was made aware that I will return to bedside later in week for ongoing education - however to note patient seems to have some understanding of care and material at this time. ? All questions and concerns addressed at this time. Next teaching session goals: Demonstrate open and close independently Steps to a pouch change she is able to recall
--- NOTE | 2023-06-30 15:31 | P.PNIM_ITS ---
Subjective Subjective Date of Service: 06/30/23 Interval History: Being followed for rectal mass status post loop sigmoidostomy placement. Complaining of dizziness, lives alone at home, currently on clear liquid diet tolerating fine with no nausea, no vomiting, denies headache, no abdominal pain, no acute issues overnight. Review of Systems All other system reviewed and negative. Physical Exam 2 Vital Signs: Vital Signs: Last Vital Signs Temp 97.9 F 06/30/23 12:00 Pulse 100 06/30/23 13:40 Resp 17 06/30/23 12:00 BP 122/60 06/30/23 12:00 Pulse Ox 100 06/30/23 13:40 O2 Del Method Room Air 06/30/23 12:00 O2 Flow Rate 6 06/24/23 14:06 BMI result Body Mass Index 33.8 Const: Other: Constitutional : Awake alert x3, in no acute distress. Neck : Normal inspection, Supple Cardiovascular : RRR, Respiratory : Clear to auscultation bilaterally, no crackles, wheezes or rhonchi Gastrointestinal: soft, Normal bowel sounds, mild generalized tenderness, ostomy with brown pasty stools Skin : Warm, Dry Neurological : Alert & oriented x3, No focal deficit Objective Data Active Medications Amlodipine Besylate (Amlodipine Besylate 5 Mg Tablet) 5 mg PO DAILY [facility]; Protocol Last Admin: 06/30/23 08:09 Dose: 5 mg Documented By: AMAYA Benzonatate (Benzonatate 100 Mg Capsule) 100 mg PO TID PRN PRN Reason: Cough Clonazepam (Clonazepam 0.125 Mg Tab.Rapdis) 0.5 mg PO BID PRN PRN Reason: anxiety/restlessness Last Admin: 06/29/23 23:38 Dose: 0.5 mg Documented By: PRICE Docusate Sodium (Docusate Sodium 100 Mg Capsule) 100 mg PO DAILY PRN PRN Reason: Constipation Last Admin: 06/23/23 11:17 Dose: 100 mg Documented By: PRICE Melatonin (Melatonin 3 Mg Tablet) 6 mg PO BEDTIME PRN PRN Reason: Insomnia Last Admin: 06/29/23 23:38 Dose: 6 mg Documented By: PRICE Morphine Sulfate (Morphine Sulfate 4 Mg/Ml Cartridge) 4 mg IVPUSH Q4H PRN; Protocol PRN Reason: Pain, Severe (Pain Scale 7-10) Last Admin: 06/30/23 08:36 Dose: 4 mg Documented By: AMAYA Ondansetron HCl (Ondansetron Hcl 4 Mg/2 Ml Vial) 4 mg IVPUSH Q8H PRN PRN Reason: Nausea and Vomiting Oxycodone HCl (Oxycodone Hcl Immed Release 5 Mg Tablet) 5 mg PO Q4H PRN PRN Reason: Pain, Moderate(Pain Scale 4-6) Last Admin: 06/30/23 12:21 Dose: 5 mg Documented By: AMAYA Sodium Chloride (0.9 % Sodium Chloride Flush 3 Ml Syringe) 3 ml IVFLUSH QSHIFT [facility] Last Admin: 06/30/23 08:16 Dose: 3 ml Documented By: AMAYA Sumatriptan Succinate (Sumatriptan Succinate 50 Mg Tablet) 50 mg PO DAILY MRX1 PRN PRN Reason: Headache Last Admin: 06/27/23 09:24 Dose: 50 mg Documented By: ZURI Trazodone HCl (Trazodone Hcl 50 Mg Tablet) 50 mg PO BEDTIME [facility] Last Admin: 06/29/23 20:53 Dose: 50 mg Documented By: PRICE Labs 06/30/23 05:41 06/30/23 05:41 Labs: Laboratory Results - last 24 hr 06/30/23 05:41 MCV 79.4 L MCH 25.2 L MCHC 31.7 RDW 16.9 H Plt Count 349 MPV 9.3 L Absolute Nucleated RBC 0.000 Nucleated RBC % (auto) 0.0 Anion Gap 12 Estim Creat Clear Calc 110.9 Estimated GFR > 60 Random Glucose 93 Calcium 9.5 Assessment and Plan (1) Colostomy in place: Status: Acute (2) Rectal carcinoma: Status: Acute (3) Rectal mass: Status: Acute Plan 53-year-old Malay-speaking female with a PMH significant for shingles, migraines, mood disorder, and hepatitis-C?at least partially treated in [place] in 1996 currently not on home meds who presents to the ED for evaluation of rectal bleeding and diffuse abdominal pain x1 month. Pt will be admitted to the hospital patient will be admitted to the hospital for treatment further evaluation of rectal bleeding secondary to possible rectal mass and hydro nephrosis concerning ureteral obstruction. BRBPR 2/2 Rectal SC carcinoma: Tolerating clears minimal abdominal pain CT with perirectal inflammatory change with prominent perirectal lymph nodes, rectal mass Concerning for malignancy H&H is trending down, heme-positive stools, iron studies showed low iron saturation, Hb 9.3 today Colonoscopy that showed 2 friable ulcerated masses in the rectum,, 1 mass with some bleeding and covering 60-70% of rectal circumference, biopsies taken General surgery did loop sigmoid ostomy to aleviate the rectal obstruction. Diet advanced to solids as per surgery /now with ostomy output Seen by Oncology she recommend further staging workup including PET-CT, she agreed with surgical intervention and feels patient has locally advanced and possibly metastatic disease patient is a candidate for systemic therapy that can be planned once final pathology and molecular markers are available. 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 Ostomy teaching started patient is not yet ready for discharge due to concern for ability to stay focused to lisinopril understand Dizziness likely due to trazodone/Klonopin, will decrease dose of trazodone to 25 mg, Headache and neck pain resolved. Insomnia reports being on sleep pills and Klonipin before moving to , has no access to these meds Continue Trazodone reduce dose to 25 mg at bedtime due to dizziness PRN Klonopin Left hydronephrosis and hydroureter Concern for ureteric obstruction from bulky adenopathy Seen by Urology and underwent cystoscopy and left ureteral stent placement . Acute on chronic blood-loss anemia with iron deficiency s/p IV iron infusion x/3 d, Above blood transfusion threshold, follow CBC. Hypertension started on Norvasc 5 mg daily follow BP closely. BP improved Hepatitis-C Received partial treatment and [place], recommend outpatient GI follow-up Mood disorder not on any home meds/mood stabilizers, started on Klonopin as needed Migraines Tylenol p.r.n. Full Code DVT Prophylaxis: Compression boots Disposition seen by Physical therapy they recommend short-term rehab Pt will require continued inpatient hospitalization for monitoring of dizziness/teachings of colostomy and safe disposition to rehab . Quality Stroke Does the patient have a stroke diagnosis?: No VTE Prior VTE?: No VTE Risk Level:: Medical - moderate - high VTE Device Contraindication: N/A - Device Ordered VTE Drug Contraindication: Treatment Not Indicated
[2023-06-30] MEDS: traZODone HCL 25 MG HALFTAB PO (20:51)
[2023-06-30] MEDS: Melatonin 3 MG TABLET 6 MG PO (22:13)
[2023-07-01] MEDS: 0.9 % Sodium Chloride Flush 3 ML SYRINGE IVFLUSH ×3 (00:43→16:03)
[2023-07-01 03:18] VITALS: BP 127/72; PULSE 104; RESP 16; TEMP 36.7; O2SAT 95
[2023-07-01] MEDS: oxyCODONE HCl Immed Release 5 MG TABLET PO ×3 (04:23→22:51)
[2023-07-01 05:23] VITALS: RESP 18
[2023-07-01 07:35] VITALS: BP 110/69; PULSE 105; RESP 18; TEMP 36.9; O2SAT 95
--- NOTE | 2023-07-01 09:39 | P.PNGS_ITS ---
Subjective Subjective Date of Service: 07/01/23 Interval history: C/o pelvic pain and burning on urination. Tolerating solid diet. No significant ostomy output since yesterday. Physical Exam 2 Vital Signs: Vital Signs: Last Vital Signs Temp 98.5 F 07/01/23 07:35 Pulse 105 H 07/01/23 07:35 Resp 18 07/01/23 07:35 BP 110/69 07/01/23 07:35 Pulse Ox 95 07/01/23 07:35 O2 Del Method Room Air 07/01/23 07:35 O2 Flow Rate 6 06/24/23 14:06 BMI result Body Mass Index 33.8 Const: General: comfortable, no acute distress and alert Resp: Effort & Inspection: normal respiratory effort GI: Other: ostomy pink, slightly retracted, no gas or stool in appliance, bridge out very mild pelvic tenderness Inspection: No distended Palpation (GI): Soft to palpation, no guarding and not rigid Skin: General skin exam: no rashes or lesions noted Objective Data Active Medications Benzonatate (Benzonatate 100 Mg Capsule) 100 mg PO TID PRN PRN Reason: Cough Clonazepam (Clonazepam 0.125 Mg Tab.Rapdis) 0.5 mg PO DAILY PRN PRN Reason: anxiety/restlessness Docusate Sodium (Docusate Sodium 100 Mg Capsule) 100 mg PO DAILY PRN PRN Reason: Constipation Last Admin: 06/23/23 11:17 Dose: 100 mg Documented By: PRICE Melatonin (Melatonin 3 Mg Tablet) 6 mg PO BEDTIME PRN PRN Reason: Insomnia Last Admin: 06/30/23 22:13 Dose: 6 mg Documented By: NILDA Comments: patient requested melatonin for insomnia Ondansetron HCl (Ondansetron Hcl 4 Mg/2 Ml Vial) 4 mg IVPUSH Q8H PRN PRN Reason: Nausea and Vomiting Oxycodone HCl (Oxycodone Hcl Immed Release 5 Mg Tablet) 5 mg PO Q4H PRN PRN Reason: Pain, Moderate(Pain Scale 4-6) Last Admin: 07/01/23 04:23 Dose: 5 mg Documented By: CASEY Sodium Chloride (0.9 % Sodium Chloride Flush 3 Ml Syringe) 3 ml IVFLUSH [facility] Last Admin: 07/01/23 00:43 Dose: 3 ml Documented By: CASEY Sumatriptan Succinate (Sumatriptan Succinate 50 Mg Tablet) 50 mg PO DAILY MRX1 PRN PRN Reason: Headache Last Admin: 06/27/23 09:24 Dose: 50 mg Documented By: ZURI Trazodone HCl (Trazodone Hcl 25 Mg Halftab) 25 mg PO BEDTIME [facility] Last Admin: 06/30/23 20:51 Dose: 25 mg Documented By: BEIT Labs 06/30/23 05:41 06/30/23 05:41 Procedures Date of Service Date of Service: 07/01/23 Progress Note: A&P Assessment and plan (1) Colostomy in place: Status: Acute (2) Rectal carcinoma: Status: Acute Plan Tolerating solid diet. Abd benign, ostomy viable appearing, slightly retracted. Will add on bowel regimen given no signficant output. Continue ostomy education. Consider urinalysis for UTI given symptoms, recent procedure. Time Spent With Patient Time: Total time managing care of this patient today ____ minutes. Quality Stroke Does the patient have a stroke diagnosis?: No VTE Prior VTE?: No VTE Risk Level:: Medical - moderate - high VTE Device Contraindication: N/A - Device Ordered VTE Drug Contraindication: Treatment Not Indicated
--- NOTE | 2023-07-01 10:30 | P.PNHO-ONC_ITS ---
Medical Summary - Medical Summary Date of Service: 07/01/23 Chief complaint: Follow-up Primary Care Provider: Unknown Physician Interval History Interval history: Lori Sparks is a 53 year old female a past medical history significant for hepatitis-C who presented to emergency department with complaints of rectal bleeding and abdominal pain for 1 month. She reports new onset constipation, change in stool caliber as well as bright red blood per rectum. She has never had a prior colonoscopy. She also reports diffuse body aches as well as pain in her left hand. She has lost about 5 lb, she was told of anemia. Workup in the emergency department with CT abdomen/pelvis revealed left hydroureteronephrosis, bulky bilateral inguinal and retroperitoneal adenopathy as well as rectal mass. She has just undergone colonoscopy, biopsy of rectal mass was performed, results awaited. She had a left ureteral stent placed for hydronephrosis. She reports some left flank pain and dark colored urine. She denies fever, chills, nausea or emesis. She moved from [place] last year to spend time with her mother. She currently lives alone. She has 2 grown-up Silvestre that live out of state. She does not smoke or drink alcohol. She had diverting colostomy. She is being evaluated for rehabilitation Review of Systems - Neurologic Reports no additional neurologic complaints PMFSH Medical History: Medical History (Last Reviewed 06/30/23 @ 13:43 by Marline Espino PT) Hepatitis C Migraines Shingles Social History: Social History (Last Reviewed 06/24/23 @ 12:31 by Vanesa Walton MD) Living Situation History: Household Members: None Housing: Apartment Alcohol History Details: 1. How often do you have a drink containing alcohol?: a. Never 3. How often do you have six or more drinks on one occasion?: a. Never AUDIT-C Alcohol total score: 0 Currently Displaying Signs/Symptoms of Alcohol Withdrawal: No Tobacco History: Patient Tobacco Use Status: Former Tobacco user Smoked in Last 30 Days: No Substance Use History: Use of substances other than those prescribed or required for medical reasons : No Currently Displaying Signs/Symptoms of Drug Intoxication Withdrawal: No Domestic Abuse History: Have you been hit, kicked, punched, or otherwise hurt by someone within the past year? If so, by whom?: No Do you feel safe in your current relationship?: No Is there a partner from a previous relationship who is making you feel unsafe now?: No Are you made to feel afraid or neglected: No Advance Directives: Advance Directives: No Advance Directives Information Provided: No Homicidal Assessment: Do you have thoughts of harming others: None Do you have a plan to hurt others: No Plan Nutrition Assessment: Recently lost weight without trying: No Eating poorly because of decreased appetite: No Nutrition Risks: No Nutritional Risk Patient : No : No Poor oral hygiene: No Occupation Assessmet: service: No Home Medications and Allergies Current Medications: Current Medications Benzonatate (Benzonatate 100 Mg Capsule) 100 mg PO TID PRN PRN Reason: Cough Clonazepam (Clonazepam 0.125 Mg Tab.Rapdis) 0.5 mg PO DAILY PRN PRN Reason: anxiety/restlessness Docusate Sodium (Docusate Sodium 100 Mg Capsule) 100 mg PO BID BRETT Melatonin (Melatonin 3 Mg Tablet) 6 mg PO BEDTIME PRN PRN Reason: Insomnia Last Admin: 06/30/23 22:13 Dose: 6 mg Ondansetron HCl (Ondansetron Hcl 4 Mg/2 Ml Vial) 4 mg IVPUSH Q8H PRN PRN Reason: Nausea and Vomiting Oxycodone HCl (Oxycodone Hcl Immed Release 5 Mg Tablet) 5 mg PO Q4H PRN PRN Reason: Pain, Moderate(Pain Scale 4-6) Last Admin: 07/01/23 04:23 Dose: 5 mg Polyethylene Glycol (Polyethylene Glycol 3350 17 Gm Powd.Pack) 17 gm PO DAILY [facility] Sodium Chloride (0.9 % Sodium Chloride Flush 3 Ml Syringe) 3 ml IVFLUSH QSHIFT [facility] Last Admin: 07/01/23 00:43 Dose: 3 ml Sumatriptan Succinate (Sumatriptan Succinate 50 Mg Tablet) 50 mg PO DAILY MRX1 PRN PRN Reason: Headache Last Admin: 06/27/23 09:24 Dose: 50 mg Trazodone HCl (Trazodone Hcl 25 Mg Halftab) 25 mg PO BEDTIME [facility] Last Admin: 06/30/23 20:51 Dose: 25 mg Allergies Allergy/AdvReac Type Severity Reaction Status Date / Time No Known Allergies Allergy Verified 06/22/23 15:07 Exam Vital signs: Vital Signs Temp 98.5 F 07/01/23 07:35 Pulse 105 H 07/01/23 07:35 Resp 18 07/01/23 07:35 BP 110/69 07/01/23 07:35 Pulse Ox 95 07/01/23 07:35 O2 Del Method Room Air 07/01/23 07:35 O2 Flow Rate 6 06/24/23 14:06 Intake & Output 06/30/23 07/01/23 07/01/23 18:59 06:59 18:59 Intake Total 800 / 1040 240 / 1040 Balance 800 / 1040 240 / 1040 Intake: Intake, Oral Amount 700 / 940 240 / 940 Intake, IV Amount 100 / 100 Acetaminophen 1,000 mg In 100 100 / 100 ml @ 400 mls/hr IV Q6H [facility] Rx#: [id number] Other: Breakfast % Eaten 75% Lunch % Eaten 75% Dinner % Eaten 75% Number of Unmeasured Voids 1 3 Urine Bathroom Urine Color Yellow Last Bowel Movement 06/30/23 07/01/23 Stool Ostomy Stool Amount Scant Stool Color Brown Stool Consistency Liquid Weight 92.1 kg BMI result Body Mass Index 33.8 - Constitutional Present: no acute distress, obese - Routine HEENT Exam Head: Present: normal inspection - Routine Cardiovascular Exam Cardiovascular: Present: S1, S2 - Routine Abdominal Exam Present: soft - Routine Skin Exam Present: intact - Routine Neurological Exam Present: alert, oriented X3 Data - Labs CBC & Chem 7: 06/30/23 05:41 06/30/23 05:41 Labs: Laboratory Last Values WBC 5.0 X10*3/uL (4.8-10.8) 06/30/23 05:41 RBC 3.89 X10*6/uL (4.20-5.50) L 06/30/23 05:41 Hgb 9.8 g/dl (12.0-16.0) L 06/30/23 05:41 Hct 30.9 % (37.0-47.0) L 06/30/23 05:41 MCV 79.4 fL (80.0-98.0) L 06/30/23 05:41 MCH 25.2 pg (27.0-33.0) L 06/30/23 05:41 MCHC 31.7 g/dl (31.0-35.0) 06/30/23 05:41 RDW 16.9 % (11.0-16.0) H 06/30/23 05:41 Plt Count 349 X10*3/uL (160-400) 06/30/23 05:41 MPV 9.3 fL (9.4-12.3) L 06/30/23 05:41 Immature Gran % (Auto) 0.4 % (0.0-0.4) 06/28/23 05:56 Neut % (Auto) 59.8 % (45-73) 06/28/23 05:56 Lymph % (Auto) 28.2 % (20-40) 06/28/23 05:56 [place] % (Auto) 9.6 % (2-11) 06/28/23 05:56 Eos % (Auto) 1.8 % (0-4) 06/28/23 05:56 Baso % (Auto) 0.2 % (0-2) 06/28/23 05:56 Lymph # (Auto) 1.3 X10*3/uL (1.2-4.9) 06/28/23 05:56 [place] # (Auto) 0.4 X10*3/uL (0.1-1.2) 06/28/23 05:56 Eos # (Auto) 0.1 X10*3/uL (0.0-0.4) 06/28/23 05:56 Baso # (Auto) 0.0 X10*3/uL (0.0-0.2) 06/28/23 05:56 Abs Immat Gran (auto) 0.02 X10*3/uL (0.00-0.03) 06/28/23 05:56 Absolute Neuts (auto) 2.7 x10*3/uL (2.0-8.3) 06/28/23 05:56 Absolute Nucleated RBC 0.000 X10*3/uL (0.0-0.012) 06/30/23 05:41 Nucleated RBC % (auto) 0.0 /100WBC (0.0-0.2) 06/30/23 05:41 APTT 35.7 SEC (26.0-36.8) 06/22/23 17:46 Sodium 137 mmol/L (135-145) 06/30/23 05:41 Potassium 3.6 mmol/L (3.3-5.1) 06/30/23 05:41 Chloride 103 mmol/L (96-108) 06/30/23 05:41 Carbon Dioxide 26 mmol/L (22-29) 06/30/23 05:41 Anion Gap 12 (12-20) 06/30/23 05:41 BUN 7 mg/dL (9-16) L 06/30/23 05:41 Creatinine 0.65 mg/dL (0.5-1.4) 06/30/23 05:41 Estim Creat Clear Calc 110.9 06/30/23 05:41 Estimated GFR > 60 06/30/23 05:41 Random Glucose 93 mg/dL (60-115) 06/30/23 05:41 Calcium 9.5 mg/dL (8.4-10.2) 06/30/23 05:41 Iron 29 mcg/dL (30-160) L 06/24/23 05:46 TIBC 296 mcg/dL (228-428) 06/24/23 05:46 % Saturation 10 % (15-50) L 06/24/23 05:46 Unsat Iron Binding 267 ug/dL 06/24/23 05:46 Ferritin 70 ng/mL (10-250) 06/24/23 05:46 Total Bilirubin 0.3 mg/dL (0.0-1.0) 06/22/23 15:54 Direct Bilirubin 0.1 mg/dL (0.0-0.5) 06/22/23 15:54 AST 29 U/L (5-31) 06/22/23 15:54 ALT 23 U/L (0-31) 06/22/23 15:54 Alkaline Phosphatase 76 U/L (39-117) 06/22/23 15:54 Ammonia 30 umol/L (13-55) 06/22/23 17:46 Total Protein 8.9 g/dL (6.5-8.0) H 06/22/23 15:54 Albumin 3.9 g/dL (3.5-5.0) 06/22/23 15:54 Lipase 9 U/L (8-78) 06/22/23 15:54 Carcinoembryonic Ag 77.10 ng/mL 06/23/23 05:34 Urine Color Yellow 06/22/23 18:21 Urine Appearance Clear 06/22/23 18:21 Urine pH 8.0 (5.0-9.0) 06/22/23 18:21 Ur Specific [place] 1.020 (1.005-1.025) 06/22/23 18:21 Urine Protein Trace mg/dL (Neg-Trace) 06/22/23 18:21 Urine Glucose (UA) Negative mg/dL (Negative) 06/22/23 18:21 Urine Ketones Negative mg/dL (Negative) 06/22/23 18:21 Urine Blood Negative (Negative) 06/22/23 18:21 Urine Nitrite Negative (Negative) 06/22/23 18:21 Ur Leukocyte Esterase Negative (Negative) 06/22/23 18:21 Stool Occult Blood POSITIVE (NEGATIVE) 06/22/23 16:47 Urine Opiates Screen Not Detected (Not Detect) 06/22/23 18:26 Ur Buprenorphine Scrn Not Detected ng/mL (Not Detect) 06/22/23 18:26 Ur Oxycodone Screen Not Detected ng/mL (Not Detect) 06/22/23 18:26 Urine Methadone Screen Not Detected ng/mL (Not Detect) 06/22/23 18:26 Urine Fentanyl Screen POSITIVE (Not Detect) H 06/22/23 18:26 Ur Barbiturates Screen Not Detected (Not Detect) 06/22/23 18:26 Ur Phencyclidine Scrn Not Detected (Not Detect) 06/22/23 18:26 Ur Amphetamines Screen Not Detected (Not Detect) 06/22/23 18:26 U Benzodiazepines Scrn Not Detected (Not Detect) 06/22/23 18:26 Urine Cocaine Screen Not Detected (Not Detect) 06/22/23 18:26 U Marijuana (THC) Screen Not Detected (Not Detect) 06/22/23 18:26 Ethyl Alcohol < 10 mg/dL 06/22/23 17:46 Hep Bs Antigen Negative (Negative) 06/25/23 14:01 Hep Bs Antibody NONREACTIVE (Nonreactive) 06/25/23 14:01 Hep B Core Total Ab Nonreactive (Nonreactive) 06/25/23 14:01 Hepatitis C Ab (EIA) Reactive (Nonreactive) H 06/25/23 14:01 Hep C Viral Load [id number] IU/mL (NOT DETECTED) H 04/24/24 14:01 Hep C Viral Load Log 7.33 Log IU/mL (NOT DETECTED) H 06/25/23 14:01 - Imaging Radiologist's impression: ITS Impressions Abdomen/Pelvis CT 06/22/23 19:23 IMPRESSION: There is left-sided hydronephrosis and hydroureter extending up to a soft tissue density within the mid left ureter. This is difficult to define further on this noncontrast study. This abnormality may be intrinsic to the ureter however there is bulky adenopathy in this location which could also be causing this ureteric obstruction. There is additional bulky bilateral inguinal, pelvic sidewall, and retroperitoneal adenopathy present. Contrast enhanced study may be helpful for evaluating further. Malignancy would be favored over infectious etiology with this distribution There is perirectal inflammatory change with prominent perirectal lymph nodes. I cannot exclude a low rectal mass lesion on this noncontrast study either. Again clinical correlation, contrast-enhanced CT, or MRI may be helpful for evaluating this further. This critical result was discussed with Cortney Carter at 06/22/2023 8:14 PM and it was ascertained that the content and urgency of the report was understood at the time of direct communication. Guidance Fluoroscopy 06/24/23 13:34 IMPRESSION: Fluoroscopy was provided by radiology for this procedure. Please refer to the operative report for further information. Assessment and Plan Patient Active problem list reviewed?: Yes (1) Rectal carcinoma Status: Acute Assessment and plan: This is a 53-year-old Citizen Of [place]-speaking woman with past medical history significant for hepatitis-C who has been diagnosed with Anorectal carcinoma. She underwent colonoscopy which revealed 5 cm friable ulcerated polypoid mass at 10 cm extending up to 5 cm from anal verge into distal rectum covering 60-70% of rectal circumference. Rectal exam as per GI report revealed a hard mass in the posterior rectum. 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 Immunostains show strong positivity for P 40 and P 16, negative for GATA3. CT abdomen/pelvis without contrast performed 06/22/23 revealed left-sided hydronephrosis and hydroureter extending up to soft tissue density within the mid left ureter, probably bulky adenopathy in this location. Additional bulky bilateral inguinal, pelvic sidewall and retroperitoneal adenopathy. There was perirectal inflammatory change with prominent perirectal lymph nodes. Could not exclude low rectal mass as it was noncontrast study. CEA is elevated at 77.1 NG/mL. She underwent cystoscopy with left ureteral stent placement to relieve left- sided hydronephrosis. She has locally advanced and possibly metastatic disease. She will need CT chest/PET-CT to complete staging workup. She underwent diverting loop sigmoid ostomy to alleviate rectal obstruction on 06/26/23. Hep C viral load is quite high. HIV test to be submitted. Referral to GI for treatment of hepatitis-C. If she does not have metastatic disease, she will be referred to Radiation Oncology as well for their recommendations. All of the above was discussed with the patient in the presence of educational interpreter. I have her permission to speak to her brother Robbie who will be her main caregiver. Please make appointment with Oncology in the next 2 weeks. - Time Spent With Patient Time Spent with Patient (in minutes): 20
[2023-07-01] MEDS: polyethylene glycoL 3350 17 GM POWD.PACK PO (11:08)
--- NOTE | 2023-07-01 11:21 | HO.OSTOMY ---
Ostomy Consult : Follow up 53yr old?[place] [facility] [place] - See progress notes and H&P for detailed history.? Ostomy consult follow up for Loop colostomy creation by Dr. Andrade on 06/26/23. ? Patient is Syrian speaking ?- sample finisher present throughout consultation.? Patient reports the pouch as not needed to be emptied since yesterdays visit. Pouch assessed and bowel sweat noted - no observable stool note today. Patient reports she is eating and drinking denies nausea. She reports she is walking with some assist. She reports rectal pain well controlled with oral medication. She reports understanding she will be discharged to rehab and reports she is happy with this. She denies questions today - given limited time of field merchandiser we will defer continued teaching to tomorrow as if discharge approached SNF / Rehab will continue ostomy teaching there. Today she continued to present with flight of ideas she was able to recall my role in her care but she was not able to stay on task to what we were discussing - often interjecting with thoughts of other areas of care. She reports undertanding that teaching will continue tomorrow and she denies questions at this time. ?Patient was made aware that I will return to bedside later in week for ongoing education. ? All questions and concerns addressed at this time. Next teaching session goals: Demonstrate open and close independently Steps to a pouch change she is able to recall
[2023-07-01 11:52] VITALS: BP 113/73; PULSE 99; RESP 17; TEMP 36.6; O2SAT 97
[2023-07-01 12:22] LABS: HIV AB/AG Nonreactive (Nonreactive); HIV Num 1 0.08 S/CO (0.00-0.99)
--- NOTE | 2023-07-01 13:08 | P.PNIM_ITS ---
Subjective Subjective Date of Service: 07/01/23 Interval History: Being followed for rectal mass status post surgery. Patient is a vague historian , denies dizziness, no acute issues overnight, no fevers, no chills tolerating diet, complaining of urinary burning, abdominal pain is improving, history obtained via mop machine operator. Review of Systems All other system reviewed and negative. Physical Exam 2 Vital Signs: Vital Signs: Last Vital Signs Temp 97.9 F 07/01/23 11:52 Pulse 99 07/01/23 11:52 Resp 17 07/01/23 11:52 BP 113/73 07/01/23 11:52 Pulse Ox 97 07/01/23 11:52 O2 Del Method Room Air 07/01/23 11:52 O2 Flow Rate 6 06/24/23 14:06 BMI result Body Mass Index 33.8 Const: Other: Constitutional : Awake alert x3, in no acute distress. Neck : Normal inspection, Supple Cardiovascular : RRR, Respiratory : Clear to auscultation bilaterally, no crackles, wheezes or rhonchi Gastrointestinal: soft, Normal bowel sounds, mild generalized tenderness, ostomy with no stool or gas. Skin : Warm, Dry Neurological : Alert & oriented x3, No focal deficit Objective Data Active Medications Benzonatate (Benzonatate 100 Mg Capsule) 100 mg PO TID PRN PRN Reason: Cough Clonazepam (Clonazepam 0.125 Mg Tab.Rapdis) 0.5 mg PO DAILY PRN PRN Reason: anxiety/restlessness Docusate Sodium (Docusate Sodium 100 Mg Capsule) 100 mg PO BID BRETT Melatonin (Melatonin 3 Mg Tablet) 6 mg PO BEDTIME PRN PRN Reason: Insomnia Last Admin: 06/30/23 22:13 Dose: 6 mg Documented By: NILDA Comments: patient requested melatonin for insomnia Ondansetron HCl (Ondansetron Hcl 4 Mg/2 Ml Vial) 4 mg IVPUSH Q8H PRN PRN Reason: Nausea and Vomiting Oxycodone HCl (Oxycodone Hcl Immed Release 5 Mg Tablet) 5 mg PO Q4H PRN PRN Reason: Pain, Moderate(Pain Scale 4-6) Last Admin: 07/01/23 04:23 Dose: 5 mg Documented By: CASEY Polyethylene Glycol (Polyethylene Glycol 3350 17 Gm Powd.Pack) 17 gm PO DAILY [facility] Last Admin: 07/01/23 11:08 Dose: 17 gm Documented By: AMAYA Sodium Chloride (0.9 % Sodium Chloride Flush 3 Ml Syringe) 3 ml IVFLUSH QSHIFT [facility] Last Admin: 07/01/23 11:08 Dose: 3 ml Documented By: AMAYA Sumatriptan Succinate (Sumatriptan Succinate 50 Mg Tablet) 50 mg PO DAILY MRX1 PRN PRN Reason: Headache Last Admin: 06/27/23 09:24 Dose: 50 mg Documented By: ZURI Trazodone HCl (Trazodone Hcl 25 Mg Halftab) 25 mg PO BEDTIME [facility] Last Admin: 06/30/23 20:51 Dose: 25 mg Documented By: SHANITAIT Labs 06/30/23 05:41 06/30/23 05:41 Assessment and Plan (1) Colostomy in place: Status: Acute (2) Rectal carcinoma: Status: Acute (3) Rectal mass: Status: Acute Plan 53-year-old Malay-speaking female with a PMH significant for shingles, migraines, mood disorder, and hepatitis-C?at least partially treated in [place] in 1996 currently not on home meds who presents to the ED for evaluation of rectal bleeding and diffuse abdominal pain x1 month. Pt will be admitted to the hospital patient will be admitted to the hospital for treatment further evaluation of rectal bleeding secondary to possible rectal mass and hydro nephrosis concerning ureteral obstruction. BRBPR 2/2 Rectal SC carcinoma: Tolerating regular diet no nausea no vomiting, abdominal pain is improving, no ostomy output noted today CT with perirectal inflammatory change with prominent perirectal lymph nodes, rectal mass Concerning for malignancy H&H is stable, heme-positive stools, iron studies showed low iron saturation, Colonoscopy that showed 2 friable ulcerated masses in the rectum,, 1 mass with some bleeding and covering 60-70% of rectal circumference, biopsies taken General surgery did loop sigmoid ostomy to aleviate the rectal obstruction. Diet advanced to solids as per surgery Seen by Oncology she recommend further staging workup including PET-CT, she agreed with surgical intervention and feels patient has locally advanced and possibly metastatic disease patient is a candidate for systemic therapy that can be planned once final pathology and molecular markers are available. 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 Hepatitis-C positive, will need outpatient follow-up with GI, will check HIV Receiving Ostomy teaching that can be continued at rehab Dizziness resolved Insomnia reports being on sleep pills and Klonipin before moving to [place], has no access to these meds Continue Trazodone 25 mg at bedtime PRN Klonopin Left hydronephrosis and hydroureter Concern for ureteric obstruction from bulky adenopathy Seen by Urology and underwent cystoscopy and left ureteral stent placement . Acute on chronic blood-loss anemia with iron deficiency s/p IV iron infusion x/3 d, Above blood transfusion threshold, follow CBC. Hypertension was started on Norvasc but now noted to have soft blood pressures will DC Norvasc and follow BP Hepatitis-C Received partial treatment and [place], recommend outpatient GI follow-up Mood disorder not on any home meds/mood stabilizers, started on Klonopin as needed Migraines no headache reported, Tylenol p.r.n. Full Code DVT Prophylaxis: Compression boots Disposition seen by Physical therapy they recommend short-term rehab, leather case finisher arranging for safe disposition Pt will require continued inpatient hospitalization for monitoring of dizziness/teachings of colostomy and safe disposition to rehab . Quality Stroke Does the patient have a stroke diagnosis?: No VTE Prior VTE?: No VTE Risk Level:: Medical - moderate - high VTE Device Contraindication: N/A - Device Ordered VTE Drug Contraindication: Treatment Not Indicated
[2023-07-01 14:34] LABS: Appearance Urine Clear; Color Urine Yellow; Glucose Urine UA Negative (Negative); Leukocyte Esterase Urine Small (1+) (Negative); Nitrite Urine Negative (Negative); Specific Gravity - Urine 1.015 (1.005-1.025); UMIC TRIGGER UACC YES; Urine Blood Small (1+) (Negative); Urine Ketones Negative (Negative); Urine Protein 30 (1+) mg/dL (Neg-Trace)
[2023-07-01 14:36] LABS: Bacteria Urine None Seen (None Seen); Hyaline Casts Urine 0-2 /LPF (0-2); Squamous Epithelial Cell Urine 0-2 /HPF (0-2); UACC Culture Trigger YES
--- NOTE | 2023-07-01 14:49 | MHC.CM.PN ---
[facility] IS UNABLE TO OFFER A BED TO PT, [facility] IS CONTRACTED WITH PT INSURANCE AND IS WILLING TO OFFER A BED PENDING AUTH. AUTH PROCESS BEGUN AND CM WILL AWAIT INSURANCE APPROVAL FOR TRANSFER TO [facility] [[email or web address] CM AND WIRE BOUND BOX MACHINE OPERATOR MET WITH PT WHO IS AGREEABLE TO PLAN.
[2023-07-01 15:17] VITALS: BP 120/63; PULSE 104; RESP 18; TEMP 36.6; O2SAT 97
[2023-07-01 19:22] VITALS: BP 117/69; PULSE 106; RESP 18; TEMP 36.8; O2SAT 95
[2023-07-01] MEDS: traZODone HCL 25 MG HALFTAB PO (19:35)
[2023-07-01] MEDS: Docusate Sodium 100 MG CAPSULE PO (19:35)
[2023-07-01] MEDS: Melatonin 3 MG TABLET 6 MG PO (22:42)
[2023-07-02] VITALS (8 sets, daily range): BP systolic 104–125; BP diastolic 56–71; PULSE 100–110; RESP 16–18; TEMP 36.3–36.9; O2SAT 97–100
[2023-07-02] MEDS: 0.9 % Sodium Chloride Flush 3 ML SYRINGE IVFLUSH ×3 (00:05→15:42)
[2023-07-02] MEDS: oxyCODONE HCl Immed Release 5 MG TABLET PO ×5 (04:30→21:52)
[2023-07-02] MEDS: Docusate Sodium 100 MG CAPSULE PO ×2 (07:38→20:47)
[2023-07-02] MEDS: polyethylene glycoL 3350 17 GM POWD.PACK PO (07:38)
[2023-07-02] MEDS: SUMAtriptan succinate 50 MG TABLET PO (13:47)
--- NOTE | 2023-07-02 15:45 | HO.OSTOMY ---
Ostomy Consult : Follow up 53yr old?[place] [facility] [place] - See progress notes and H&P for detailed history.? Ostomy consult follow up for Loop colostomy creation by Dr. Andrade on 06/26/23. ? Patient is Algerian speaking ?- roasterman present throughout consultation.? Arrival to bedside patient appears unwell - her coloring is pale with red cheeks. She reports nausea, headache and feelings of fullness. Her abdomen was observed to be largely distended but is not firm at this time. She reports she is eating her regular diet. Patient reports the pouch as not needed to be emptied since yesterdays visit. Pouch assessed and bowel sweat noted with some feculent material noted - no observable stool note today. +gas in pouch and heard during consultation. She reports less walking today due to feeling ill. She reports rectal pain well controlled with oral medication. We agree to postpone teaching until future date and time when she is feeling better. The pouch was assessed for leaking observed at the 12 o'clock location this was explained to her and she was able to observe for future understanding. The pouch was changed into the Coloplast 79781 cut to fit oval - paste used under the pouch. The stoma is nearly fluch and will likely benefit from a convex pouch however at this time will continue with flat pouch due to lack of convex pouch availability. ?Patient was made aware that I will return to bedside later in week for ongoing education. ? All questions and concerns addressed at this time. Next teaching session goals: Demonstrate open and close independently - of note she was able to provide a return demonstration of open and close on an empty pouch. Steps to a pouch change she is able to recall
--- NOTE | 2023-07-02 15:51 | MHC.CM.PN ---
pt accepted at [facility] await auth
--- NOTE | 2023-07-02 16:03 | P.PNIM_ITS ---
Subjective Subjective Date of Service: 07/03/23 Interval History: Complaining of rectal pain , no rectal bleeding, abdominal pain has improved, no significant output in ostomy, denies fever, no chills, no other acute issues overnight tolerating diet. Review of Systems All other system reviewed and negative. Physical Exam 2 Vital Signs: Vital Signs: Last Vital Signs Temp 98.5 F 07/02/23 15:22 Pulse 101 H 07/02/23 15:22 Resp 18 07/02/23 15:22 BP 119/68 07/02/23 15:22 Pulse Ox 98 07/02/23 15:22 O2 Del Method Room Air 07/02/23 15:22 O2 Flow Rate 6 06/24/23 14:06 BMI result Body Mass Index 33.8 Const: Other: Constitutional : Awake alert x3, in no acute distress. Neck : Normal inspection, Supple Cardiovascular : RRR, Respiratory : Clear to auscultation bilaterally, no crackles, wheezes or rhonchi Gastrointestinal: soft, Normal bowel sounds, mild tenderness at site of ostomy, ostomy with no stool or gas. Skin : Warm, Dry Neurological : Alert & oriented x3, No focal deficit Objective Data Active Medications Benzonatate (Benzonatate 100 Mg Capsule) 100 mg PO TID PRN PRN Reason: Cough Clonazepam (Clonazepam 0.125 Mg Tab.Rapdis) 0.5 mg PO DAILY PRN PRN Reason: anxiety/restlessness Last Admin: 07/01/23 22:46 Dose: 0.5 mg Documented By: NILDA Comments: patient requested Klonopin for anxiety Docusate Sodium (Docusate Sodium 100 Mg Capsule) 100 mg PO BID [facility] Last Admin: 07/02/23 07:38 Dose: 100 mg Documented By: NICK Melatonin (Melatonin 3 Mg Tablet) 6 mg PO BEDTIME PRN PRN Reason: Insomnia Last Admin: 07/01/23 22:42 Dose: 6 mg Documented By: NILDA Comments: patient requested melatonin for insomnia Ondansetron HCl (Ondansetron Hcl 4 Mg/2 Ml Vial) 4 mg IVPUSH Q8H PRN PRN Reason: Nausea and Vomiting Oxycodone HCl (Oxycodone Hcl Immed Release 5 Mg Tablet) 5 mg PO Q4H PRN PRN Reason: Pain, Moderate(Pain Scale 4-6) Last Admin: 07/02/23 12:03 Dose: 5 mg Documented By: NICK Polyethylene Glycol (Polyethylene Glycol 3350 17 Gm Powd.Pack) 17 gm PO DAILY [facility] Last Admin: 07/02/23 07:38 Dose: 17 gm Documented By: NICK Sodium Chloride (0.9 % Sodium Chloride Flush 3 Ml Syringe) 3 ml IVFLUSH QSHIFT [facility] Last Admin: 07/02/23 15:42 Dose: 3 ml Documented By: NILDA Sumatriptan Succinate (Sumatriptan Succinate 50 Mg Tablet) 50 mg PO DAILY MRX1 PRN PRN Reason: Headache Last Admin: 07/02/23 13:47 Dose: 50 mg Documented By: NICK Trazodone HCl (Trazodone Hcl 25 Mg Halftab) 25 mg PO BEDTIME [facility] Last Admin: 07/01/23 19:35 Dose: 25 mg Documented By: NILDA Labs 06/30/23 05:41 06/30/23 05:41 Microbiology Microbiology Results: Microbiology 07/01/23 14:24 Urine Culture - Preliminary Urine clean catch - Urine ozuna top No growth to date. Assessment and Plan (1) Colostomy in place: Status: Acute (2) Rectal carcinoma: Status: Acute (3) Rectal mass: Status: Acute Plan 53-year-old [place]ese-speaking female with a PMH significant for shingles, migraines, mood disorder, and hepatitis-C?at least partially treated in [place] in 1996 currently not on home meds who presents to the ED for evaluation of rectal bleeding and diffuse abdominal pain x1 month. Pt will be admitted to the hospital patient will be admitted to the hospital for treatment further evaluation of rectal bleeding secondary to possible rectal mass and hydro nephrosis concerning ureteral obstruction. BRBPR 2/2 poorly differentiated squamous cell rectal carcinoma Tolerating regular diet, no nausea, no vomiting, abdominal pain is improving, no ostomy output noted Complaining of rectal pain likely due to rectal mass CT with perirectal inflammatory change with prominent perirectal lymph nodes, rectal mass Concerning for malignancy H&H is stable, heme-positive stools, iron studies showed low iron saturation, Colonoscopy showed 2 friable ulcerated masses in the rectum,, 1 mass with some bleeding and covering 60-70% of rectal circumference, biopsies taken [facility]. Case discussed with Dr. Padilla she recommend CT chest abdomen and pelvis for staging Treatment plan once final pathology and molecular markers are available. Receiving ostomy teachings Case discussed with Dr. Andrade in regard to rectal pain he recommend to continue analgesics/and further treatment of rectal cancer Hepatitis-C positive, will need outpatient follow-up with GI, HIV negative, received partial treatment in [place] Dizziness resolved Insomnia reports being on sleep pills and Klonipin before moving to [place], has no access to these meds Continue Trazodone 25 mg at bedtime and PRN Klonopin Left hydronephrosis and hydroureter Concern for ureteric obstruction from bulky adenopathy Seen by Urology and underwent cystoscopy and left ureteral stent placement . Acute on chronic blood-loss anemia with iron deficiency s/p IV iron infusion x/3 d, Above blood transfusion threshold, will place on iron supplements follow CBC. Hypertension was started on Norvasc but now noted to have soft blood pressures will DC Norvasc and follow BP Mood disorder not on any home meds/mood stabilizers, started on Klonopin as needed Migraines no headache reported, Imitrex/Tylenol p.r.n. Full Code DVT Prophylaxis: Compression boots Disposition seen by Physical therapy they recommend short-term rehab, case resource manager arranging for safe disposition Pt will require continued inpatient hospitalization for monitoring of dizziness/teachings of colostomy and safe disposition to rehab . Quality Stroke Does the patient have a stroke diagnosis?: No VTE Prior VTE?: No VTE Risk Level:: Medical - moderate - high VTE Device Contraindication: N/A - Device Ordered VTE Drug Contraindication: Treatment Not Indicated
[2023-07-02] MEDS: iohexoL 350 MG/ML 100 ML INFUS..BTL 85 ML IV (16:16)
[2023-07-02] MEDS: traZODone HCL 25 MG HALFTAB PO (20:47)
[2023-07-03] MEDS: 0.9 % Sodium Chloride Flush 3 ML SYRINGE IVFLUSH ×2 (00:41→10:36)
[2023-07-03 02:05] VITALS: BP 122/63; PULSE 108; RESP 16; TEMP 36.2; O2SAT 100
[2023-07-03] MEDS: ondansetron HCL 4 MG/2 ML VIAL IVPUSH (03:00)
[2023-07-03] MEDS: oxyCODONE HCl Immed Release 5 MG TABLET PO ×3 (03:02→14:40)
[2023-07-03 03:49] VITALS: PULSE 100; O2SAT 97
[2023-07-03 07:48] VITALS: BP 110/56; PULSE 103; RESP 16; TEMP 36.7; O2SAT 97
--- NOTE | 2023-07-03 07:59 | P.PNGS_ITS ---
Subjective Subjective Date of Service: 07/03/23 Interval history: Some nausea yesterday with solid food, was put on clears. Ostomy with increasing stool output. Physical Exam 2 Vital Signs: Vital Signs: Last Vital Signs Temp 98.0 F 07/03/23 07:48 Pulse 103 H 07/03/23 07:48 Resp 16 07/03/23 07:48 BP 110/56 L 07/03/23 07:48 Pulse Ox 97 07/03/23 07:48 O2 Del Method Room Air 07/03/23 07:48 O2 Flow Rate 6 06/24/23 14:06 BMI result Body Mass Index 33.8 Const: General: comfortable, no acute distress and alert Resp: Effort & Inspection: normal respiratory effort GI: Other: ostomy viable appearing, slightly retracted, soft stool in appliance Inspection: Yes distended (mild, upper abdomen ) Palpation (GI): Soft to palpation, nontender and no guarding Skin: General skin exam: no rashes or lesions noted Objective Data Active Medications Benzonatate (Benzonatate 100 Mg Capsule) 100 mg PO TID PRN PRN Reason: Cough Clonazepam (Clonazepam 0.125 Mg Tab.Rapdis) 0.5 mg PO DAILY PRN PRN Reason: anxiety/restlessness Last Admin: 07/02/23 20:48 Dose: 0.5 mg Documented By: NILDA Docusate Sodium (Docusate Sodium 100 Mg Capsule) 100 mg PO BID [facility] Last Admin: 07/02/23 20:47 Dose: 100 mg Documented By: NILDA Melatonin (Melatonin 3 Mg Tablet) 6 mg PO BEDTIME PRN PRN Reason: Insomnia Last Admin: 07/01/23 22:42 Dose: 6 mg Documented By: NILDA Comments: patient requested melatonin for insomnia Ondansetron HCl (Ondansetron Hcl 4 Mg/2 Ml Vial) 4 mg IVPUSH Q8H PRN PRN Reason: Nausea and Vomiting Last Admin: 07/03/23 03:00 Dose: 4 mg Documented By: DRE Oxycodone HCl (Oxycodone Hcl Immed Release 5 Mg Tablet) 5 mg PO Q4H PRN PRN Reason: Pain, Moderate(Pain Scale 4-6) Last Admin: 07/03/23 03:02 Dose: 5 mg Documented By: DRE Polyethylene Glycol (Polyethylene Glycol 3350 17 Gm Powd.Pack) 17 gm PO DAILY [facility] Last Admin: 07/02/23 07:38 Dose: 17 gm Documented By: NICK Sodium Chloride (0.9 % Sodium Chloride Flush 3 Ml Syringe) 3 ml IVFLUSH QSHIFT [facility] Last Admin: 07/03/23 00:41 Dose: 3 ml Documented By: DRE Sumatriptan Succinate (Sumatriptan Succinate 50 Mg Tablet) 50 mg PO DAILY MRX1 PRN PRN Reason: Headache Last Admin: 07/02/23 13:47 Dose: 50 mg Documented By: NICK Trazodone HCl (Trazodone Hcl 25 Mg Halftab) 25 mg PO BEDTIME [facility] Last Admin: 07/02/23 20:47 Dose: 25 mg Documented By: BEIT Labs 06/30/23 05:41 06/30/23 05:41 Microbiology Microbiology Results: Microbiology 07/01/23 14:24 Urine Culture - Preliminary Urine clean catch - Urine ozuna top No growth to date. Procedures Date of Service Date of Service: 07/03/23 Progress Note: A&P Assessment and plan (1) Colostomy in place: Status: Acute (2) Rectal carcinoma: Status: Acute Plan CT scan abd/pelvis yesterday ordered for nausea. Mild dilation of colon. Some nausea persists this morning but overall patient looks well. Abd with viable appearing ostomy, mild distention. Keep on clears for now. Patient has not been very active, on narcotics. Likely slowed GI function. Ostomy now functioning well. Encouraged increasing activity. Bowel regimen. Time Spent With Patient Time: Total time managing care of this patient today ____ minutes. Quality Stroke Does the patient have a stroke diagnosis?: No VTE Prior VTE?: No VTE Risk Level:: Medical - moderate - high VTE Device Contraindication: N/A - Device Ordered VTE Drug Contraindication: Treatment Not Indicated
[2023-07-03] MEDS: SUMAtriptan succinate 50 MG TABLET PO (09:35)
--- NOTE | 2023-07-03 09:50 | MHC.CM.PN ---
Patient is discharged today to [facility]. She will transfer to [facility] in [facility]. 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
[2023-07-03 10:15] VITALS: RESP 18
[2023-07-03] MEDS: polyethylene glycoL 3350 17 GM POWD.PACK PO (10:36)
[2023-07-03] MEDS: Docusate Sodium 100 MG CAPSULE PO (10:36)
--- NOTE | 2023-07-03 11:54 | PM.DS ---
DS: Providers Provider Date of Service: 07/03/23 Date of admission: 06/22/23 21:51 Primary care physician: Unknown Physician Consults: 06/22/23 22:07 Consult to Gastroenterology Routine Consulting Provider: Emeli Browning Reason for consultation: Rectal bleeding, ?rectal mass on CT Consult to Urology Routine Consulting Provider: Russell Burgess Reason for consultation: L hydronephrosis, ?uereteric obstruction 06/24/23 14:48 Consult to Hematology / Oncology Routine Consulting Provider: Anel Silva Reason for consultation: rectal mass 06/24/23 14:49 Consult to General Surgery Routine Consulting Provider: Victor M Mckeon Reason for consultation: rectal mass Has provider been notified: No 06/26/23 12:19 Consult to Ostomy Care Routine DS: Diagnosis Discharge Diagnosis (1) Colostomy in place: Status: Acute (2) Rectal carcinoma: Status: Acute (3) Rectal mass: Status: Acute DS: Summary Hospital Course Hospital Course: History of presenting illness: Date of Service: 06/22/23 Attending physician on admission: Shanell Hinkle Chief Complaint: Bloody stool Pt is a 53-year-old Faroese-speaking female with a PMH significant for shingles, migraines, mood disorder, and hepatitis-C?at least partially treated in [place] in 1996 currently not on home meds who presents to the ED for evaluation of rectal bleeding and diffuse abdominal pain x1 month. Patient reports having bright red blood per rectum with bowel movements for the past month. Initially stool was thin and elongated but lately has been constipated and having to strain while defecating. Has only produced a small amount of stool the past two weeks. Reports intermittent epigastric and rectal pain during defecation. Also complains of diffuse pain in bones, joints, and neck x1 month. Has lost strength in left arm and not been able to fully close her left hand, which is new. Reports feeling weak and fatigued with 5 lb unintentional weight loss. Some nausea and vomiting, and subjective fever and chills. States it has been eating and drinking normally for most of this time. Denies dysuria, polyuria, or hematuria. Denies chest pain/pressure, palpitations. No shortness of breath. In the ED pt was tachypneic up to 20, hypertensive up to 171/90, and with elevated heart rate of 94. Labs were significant for stool being positive for occult blood, otherwise grossly unremarkable. No leukocytosis. Stable H&H of 11.4/36.1. Sodium 134, otherwise no electrolyte abnormalities. Renal and hepatic function WNL. CT of abdomen and pelvis found left sided hydronephrosis and hydroureter. Unclear if ureteric obstruction is intrinsic to the ureter itself or to bulky adenopathy. Also found bulky bilateral inguinal, pelvic sidewall, and retroperitoneal adenopathy, as well as perirectal inflammatory change with prominent perirectal lymph nodes. Low rectal mass lesion can not be excluded. Suspicion is for malignancy over infectious etiology. Of note, CT could not be ordered with contrast out of concern for allergy to IV contrast/shellfish. Pt will be admitted to the hospital patient will be admitted to the hospital for treatment further evaluation of rectal bleeding secondary to possible rectal mass and hydro nephrosis concerning ureteral obstruction. Hospital course: 53-year-old Faroese-speaking female with a PMH significant for shingles, migraines, mood disorder, and hepatitis-C?at least partially treated in [place] in 1996 currently not on home meds who presents to the ED for evaluation of rectal bleeding and diffuse abdominal pain x1 month, CT abdomen and pelvis showed left-sided hydronephrosis and hydro ureter, bulky bilateral inguinal, pelvic and retroperitoneal adenopathy as well as perirectal inflammatory change with prominent perirectal lymph nodes and rectal mass concerning for malignancy, underwent colonoscopy that showed 2 friable ulcerated masses in the rectum, biopsy positive for poorly differentiated squamous cell rectal carcinoma, patient seen by General surgery and had loop sigmoid ostomy to aleviate the rectal obstruction, patient tolerated procedure well currently tolerating regular diet ,ostomy with pasty stools, patient being discharged to rehab facility on analgesics, she was evaluated by Dr. Padilla, CT chest abdomen and pelvis was obtain for staging that showed no other masses, patient seen by Urology and underwent left ureteric stent placement for left hydronephrosis and hydroureter likely due to ureteric obstruction from bulky adenopathy, patient is recommended outpatient follow-up with oncologist Dr. Padilla for further treatment options of a newly diagnosed poorly differentiated squamous cell rectal carcinoma, she also need outpatient follow-up with Urology for left hydronephrosis and hydroureter with left stent.. History of hepatitis-C patient has been partially treated in [place], her HIV is negative recommend outpatient GI follow-up In regard to history of Insomnia and mood disorder patient has been placed on Klonopin as needed and trazodone 25 mg at bedtime for sleep Acute on chronic blood-loss anemia with iron deficiency likely due to rectal bleed patient treated with iron infusion and is being discharged on iron supplements. History of Migraines recommend Tylenol and if not better consider Fioricet. Time Attestation Discharge Coordination Time (in mins): 40 Quality: Safe Use of Opioids Does Pt have an Active Cancer Diagnosis on the Problem List?: No Quality: Stroke Does the patient have a stroke diagnosis?: No Physical Exam Vital Signs: Vital Signs: Last Vital Signs Temp 98.0 F 07/03/23 07:48 Pulse 103 H 07/03/23 07:48 Resp 16 07/03/23 07:48 BP 110/56 L 07/03/23 07:48 Pulse Ox 97 07/03/23 07:48 O2 Del Method Room Air 07/03/23 07:48 O2 Flow Rate 6 06/24/23 14:06 BMI result Body Mass Index 33.8 Const: Other: General awake alert x3, in no acute distress. Anicteric sclera Neck supple CVS regular rate rhythm, Respiratory lungs clear to auscultation, no respiratory distress, no wheeze, no rhonchi. Gastrointestinal abdomen soft, bowel sounds audible, left colostomy with pasty stool Extremities no edema. Neuro moving all 4 extremity ,speech clear, nonfocal Psych appropriate affect DS: Data Data Completed and Pending Completed studies during hospitalization [Text1]: Pending at discharge 06/24/23 13:48 Surgical [PTH] Routine Discharge Plan Discharge Anticipated Discharge Date/Time: 07/03/23 07:57 Patient Disposition: Xfer SNF Discharge Diagnosis: Poorly differentiated squamous cell rectal cancer Acute on chronic blood-loss anemia Status post diverting loop sigmoid ostomy Referrals: Physician,Unknown J [Primary Care Provider] - 1 Week Discharge Medications: New polyethylene glycol 3350 17 gram Powder In Packet 17 g PO DAILY Qty: 30 0RF docusate sodium 100 mg Capsule 100 mg PO BID Qty: 60 0RF Rx Instructions: Hold for diarrhea oxycodone 5 mg Tablet 5 mg PO Q4H PRN (Reason: Pain, Moderate(Pain Scale 4-6)) Qty: 20 0RF Rx Instructions: Partial Fill upon patient request. clonazepam 0.125 mg Tablet,Disintegrating 0.5 mg PO DAILY PRN (Reason: Anxiety/Restlessness) Qty: 10 0RF trazodone 50 mg tablet 25 mg PO DAILY Qty: 14 0RF ferrous sulfate 324 mg (65 mg iron) tablet,delayed release (DR/EC) 324 mg PO BID Qty: 60 0RF Discharge Orders: Discharge Order (Routine); Ordered 07/03/23 Ordered By: Joy Kelley Diet: Advance to usual diet Activity on Discharge: As tolerated Stand Alone Forms: Patient Portal Discharge page Print Language: Faroese Care Plan Goals: s/p Left ureteral stent placement Colostomy in place Take pain medication as needed Continue Klonopin as needed for anxiety Continue stool softeners hold for diarrhea Health Concerns: Chronic headache Hepatitis-C Plan of Treatment: Outpatient follow-up with Dr. Padilla from Oncology call for appointment in 1-2 weeks Outpatient follow-up with Urology Dr. Gemma ny for follow-up on left ureteral stent Outpatient follow-up with primary care physician, call for appointment Assessment: As above
[2023-07-03 12:29] VITALS: BP 115/63; PULSE 105; RESP 17; TEMP 36.1; O2SAT 98
== END 2023-07-03 14:50 | disposition skilled nursing facility (03) | DRG 231 ==
LOC: HO.ED 16:46 → HO.EDOVER 22:17 → HO.S3 22:31
PROVIDERS: Internal Medicine; Internal Medicine Gastroenterology; Nurse Practitioner Family; Physician Assistant; Physician Assistant Medical; Student in an Organized Health Care Education/Training Program; Surgery; Urology; Admitting Provider Student in an Organized Health Care Education/Training Program; Emergency Provider Internal Medicine; Visit Provider Hospitalist
PROC: 0T778DZ Dilation of Left Ureter with Intraluminal Device, Via Natural or Artificial Opening Endoscopic (ICD-10-PCS; principal; 2023-06-24 11:20)
PROC: 0DJD8ZZ Inspection of Lower Intestinal Tract, Via Natural or Artificial Opening Endoscopic (ICD-10-PCS; CPT 45378; 2023-06-24 11:20)
PROC: 0D1N0Z4 Bypass Sigmoid Colon to Cutaneous, Open Approach (ICD-10-PCS; CPT 49320; principal; 2023-06-26 09:50)
DX: C20 Malignant neoplasm of rectum (principal); D62 Acute posthemorrhagic anemia; K62.5 Hemorrhage of anus and rectum; N13.30 Unspecified hydronephrosis; F39 Unspecified mood [affective] disorder; G43.909 Migraine, unspecified, not intractable, without status migrainosus; I10 Essential (primary) hypertension; B19.20 Unspecified viral hepatitis C without hepatic coma; Z87.891 Personal history of nicotine dependence; Z79.899 Other long term (current) drug therapy
CPT/HCPCS: 36415; 71260; 74176; 74177; 80048; 80076; 80307; 81001; 81003; 82140; 82272; 82378; 82728; 83540; 83690; 85025; 85027; 85730; 86704; 86706; 86803; 87086; 87147; 87340; 87389; 87522; 88112; 88305; 88341; 88342; 97116; 97162; 99285; C1769; C2617; J0131; J0690; J1100; J1885; J2250; J2270; J2405; J2704; J2795; J2916; J3010; Q9967

== ENCOUNTER → 2023-06-22 21:51 | Outpatient (BNV) | payer MEDICAID, SELFPAY | PROVIDERS: Admitting Provider Student in an Organized Health Care Education/Training Program; Emergency Provider Internal Medicine; Visit Provider Student in an Organized Health Care Education/Training Program | DX: Z93.3 Colostomy status (principal); C20 Malignant neoplasm of rectum; K62.89 Other specified diseases of anus and rectum | CPT/HCPCS: 99223; 99232; 99233; 99239 ==

== ENCOUNTER → 2023-06-22 21:51 | Outpatient (BNV) | payer MEDICAID, SELFPAY | PROVIDERS: Admitting Provider Student in an Organized Health Care Education/Training Program; Emergency Provider Internal Medicine; Visit Provider Surgery | DX: C20 Malignant neoplasm of rectum (principal) | CPT/HCPCS: 44320; 99024; 99222 ==

== ENCOUNTER → 2023-06-22 21:51 | Outpatient (BNV) | payer MEDICAID, SELFPAY | PROVIDERS: Admitting Provider Student in an Organized Health Care Education/Training Program; Emergency Provider Internal Medicine; Visit Provider Urology | DX: N13.30 Unspecified hydronephrosis (principal) | CPT/HCPCS: 52332; 74420; 99222 ==

== ENCOUNTER → 2023-06-22 21:51 | Outpatient (BNV) | payer MEDICAID, SELFPAY | PROVIDERS: Admitting Provider Student in an Organized Health Care Education/Training Program; Emergency Provider Internal Medicine; Visit Provider Internal Medicine | DX: C20 Malignant neoplasm of rectum (principal) | CPT/HCPCS: 99222; 99231 ==

== ENCOUNTER → 2023-06-22 21:51 | Outpatient (BNV) | payer MEDICAID, SELFPAY | PROVIDERS: Admitting Provider Student in an Organized Health Care Education/Training Program; Emergency Provider Internal Medicine; Visit Provider Internal Medicine Gastroenterology | DX: C20 Malignant neoplasm of rectum (principal) | CPT/HCPCS: 45331 ==

== ENCOUNTER 2023-07-21 08:51 | Outpatient (AMB) | payer MEDICAID, SELFPAY ==
--- NOTE | 2023-07-21 09:28 | MHC.OFFVIS ---
Intake Visit Reasons: sigmoid loop ostomy/mini exploratory laparotomy Allergies No Known Allergies Allergy (Verified 06/22/23 15:07) HPI Comments Details: Patient presents for follow-up status post diverting loop sigmoid moist ostomy secondary to local regionally advanced obstructing rectal cancer. Patient has had an extended care facility. Her ostomy is functioning. She is tolerating her diet. Patient has been seen by Oncology/Dr. Padilla. [facility] Medical History (Updated 07/11/23 @ 00:03 by Alexandrea Newman) Shingles Migraines Hepatitis C Surgical History (Updated 07/21/23 @ 09:30 by Baudilio Andrade MD) History of exploratory laparotomy (06/26/23) Social History Household Members: None Housing: Apartment Alcohol intake: never Patient Tobacco Use Status: Former Tobacco user service: No Physical Exam GI Other: Abdomen corpulent, soft. Ostomy functioning well with lots of stool in ostomy bag Assessment & Plan Assessment & Plan (1) Postop check: Code(s): Z09 - Encounter for follow-up examination after completed treatment for conditions other than malignant neoplasm Category: Surgical (2) Colostomy in place: Code(s): Z93.3 - Colostomy status Category: Surgical (3) Rectal carcinoma: Code(s): C20 - Malignant neoplasm of rectum Category: Surgical Plan Patient's facility as well as patient has been given local instructions. At present, no acute surgical issues. Patient may require Port-A-Cath placement for chemotherapy and if so we will place this for the patient. Coding Level of Care Code Global (54722) Diagnoses Postop check Z[address] Z93.3 Rectal carcinoma C20
== END 2023-07-21 09:48 | disposition home or self-care (01) ==
PROVIDERS: Visit Provider Surgery
DX: Z09 Encounter for follow-up examination after completed treatment for conditions other than malignant neoplasm (principal); Z93.3 Colostomy status; C20 Malignant neoplasm of rectum
CPT/HCPCS: 99024

== ENCOUNTER → 2023-07-21 08:51 | Outpatient (BNVA) | payer MEDICAID, SELFPAY | PROVIDERS: Visit Provider Surgery | DX: Z09 Encounter for follow-up examination after completed treatment for conditions other than malignant neoplasm (principal); C20 Malignant neoplasm of rectum; Z93.3 Colostomy status | CPT/HCPCS: 99212 ==

== ENCOUNTER → 2023-07-21 15:20 | Outpatient (BNV) | payer MEDICAID, SELFPAY | PROVIDERS: Visit Provider Internal Medicine | DX: C21.0 Malignant neoplasm of anus, unspecified (principal); N39.0 Urinary tract infection, site not specified | CPT/HCPCS: 99214; 99215; G2211 ==

== ENCOUNTER 2023-09-03 12:23 | Inpatient (IN) | payer MEDICAID, SELFPAY ==
[2023-09-03] VITALS (11 sets, daily range): BP systolic 119–152; BP diastolic 59–87; PULSE 91–113; RESP 16–21; TEMP 36.4–37.2; O2SAT 88–94; BMI 32.0
--- NOTE | ~2023-09-03 | XR_ITS ---
EXAMINATION: XR CHEST CLINICAL INFORMATION: Shortness of breath COMPARISON: CT chest 07/02/2023 TECHNIQUE: Frontal view of the chest was obtained. FINDINGS: No significant abnormality is noted involving the heart, lungs, mediastinum, bony thorax or soft tissues. XR/XR chest 1V IMPRESSION: Unremarkable examination.
--- NOTE | 2023-09-03 12:36 | ED_ITS ---
HPI - General Adult General Chief complaint: Recheck/Abnormal Lab/Rx Stated complaint: DIZZY,ABN LABS PER EMS Time Seen by Provider: 09/03/23 12:31 History of Present Illness ED Provider: Dr. Johnson HPI narrative: 53 y/o F patient; PMH mood disorder, hx hepatitis C, 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 Padilla, surgery Dr. Andrade); presents as transfer from rehab with report of anemia. Laboratory studies 6.8 today, 7.4 yesterday per EMS hand-off. The patient endorses recent fatigue, lightheadedness, and dyspnea on exertion. She notes a normal appetite. She states her urine turned red 2 - 3 weeks ago when she was started on Pyridium. The patient states she is due to start chemotherapy in 1 week. Patient last had CT Chest/Abdomen/Pelvis on 07/02/2023 with s/p colostomy placement with parastomal fat herniation, left ureteral stent with delayed nephrogram on the left, retroperitoneal lymphadenopathy . Spoke with Dr. Padilla - reviewed records at [facility]. Patient is in the middle of radiation treatment with Dr. Higgins, last on 08/12/2023. Related Data Previous Rx's ?Medication ?Instructions ?Recorded clonazepam 0.125 mg disintegrating 0.5 mg (4 x 0.125 mg) PO DAILY PRN 07/03/23 tablet Anxiety/Restlessness #10 tabs docusate sodium 100 mg capsule 100 mg PO BID #60 caps 07/03/23 ferrous sulfate 324 mg (65 mg 324 mg PO BID #60 tabs 07/03/23 iron) tablet,delayed release oxycodone 5 mg tablet 5 mg PO Q4H PRN Pain, 07/03/23 Moderate(Pain Scale 4-6) #20 tabs polyethylene glycol 3350 17 gram 17 g PO DAILY #30 ea 07/03/23 oral powder packet trazodone 50 mg tablet 25 mg (1/2 x 50 mg) PO DAILY #14 07/03/23 tabs Allergies Allergy/AdvReac Type Severity Reaction Status Date / Time No Known Allergies Allergy Verified 09/03/23 12:59 Review of Systems 2 Review of Systems: Yes all other systems are reviewed and are negative Neurologic: Denies Sensory deficit (Neuro) [facility] Past Medical History Attestation statement: The following information was validated with the patient. Source: old records reviewed Medical History Shingles Migraines Hepatitis C Surgical History History of exploratory laparotomy (06/26/23) Social History Social History Household Members: None Housing: Apartment Alcohol intake: never Patient Tobacco Use Status: Former Tobacco user Smoked in Last 30 Days: No Use of substances other than those prescribed or required for medical reasons: No Advance Directives: No Advance Directives Information Provided: No Do you have a plan to hurt others: No Plan Patient : No service: No Physical Exam ED Vital Signs: Vital Signs - 24 hr 09/03/23 12:55 09/03/23 14:28 09/03/23 15:31 Temperature 98.2 F 98.4 F 98.1 F Pulse Rate 99 95 91 Respiratory Rate 18 16 16 Blood Pressure 137/80 120/70 130/80 Pulse Oximetry 88 L 94 Oxygen Delivery Method Room Air Nasal Cannula Oxygen Flow Rate 2 BMI result Body Mass Index 32.0 Patient is afebrile, tachycardic, and mildly hypoxic at 88% on RA (placed on 2L NC). Const Other: Pale General: cooperative Orientation/consciousness: patient oriented x3 HENMT Head: Yes normal to inspection and Yes atraumatic Eyes General: appearance normal, both eyes and all related structures Pupils: Equal, round and reactive pupils present EOM: EOMs intact bilaterally Neck Neck: Yes normal visual inspection, Yes full ROM, Yes supple and No tender Chest Chest palpation & inspection: normal inspection of the chest and normal palpation of entire chest wall Resp Effort & Inspection: normal respiratory effort, able to speak in complete sentences, no cough and no respiratory distress Auscultation: clear to auscultation bilaterally Cardio Rate: tachycardic Rhythm: regular rhythm Peripheral pulses: Peripheral pulses 2+ throughout GI Other: Left lower quadrant colostomy bag with dark green stool noted Palpation (GI): Soft to palpation, not firm, nontender, no guarding and not rigid General: Yes no CVA tenderness Back/Spine/Pelvis Back: no CVA tenderness Neuro General: patient oriented x3 Cranial nerves: Yes Equal, round and reactive pupils present Motor exam (neuro): 5/5 motor strength present throughout Sensory Exam: No Sensory deficit (Neuro) Course Course Course Narrative: Patient is afebrile, tachycardic, and mildly hypoxic at 88% on RA (placed on 2L NC). Ordered EKG, CXR, and laboratory studies including type and screen. Unclear etiology of patient's hgb drop. Discussed with Dr. Padilla - patient is currently followed at [facility] by Dr. Higgins for current radiation treatment. UA positive - pending cx. Starting on Ceftriaxone 1g IV. UA also notable for hematuria. Hgb 7.2 - providing 2 units pRBC. Leukopenia. Moderate neutropenia. Spoke with Dr. Higgins. Patient is stage 4 with mesenteric lymphadenopathy. She is currently having only radiation, next treatment Friday09/08/2023. Patient was called in a prescription for Bactrim earlier this week by Dr. Higgins for empiric tx but unclear if patient started this prescription - patient states she did not start it. CXR unremarkable. Plan: Admit to hospitalist for cystitis, moderate neutropenia, and anemia requiring transfusion Condition: Stable Medical Decision Making Lab Data 09/03/23 13:26 09/03/23 13:26 Labs: Lab Results 09/03/23 Range/Units 13:26 WBC 1.5 L (4.8-10.8) X10*3/uL RBC 2.93 L D (4.20-5.50) X10*6/uL Hgb 7.2 L D (12.0-16.0) g/dl Hct 24.2 L D (37.0-47.0) % MCV 82.6 (80.0-98.0) fL MCH 24.6 L (27.0-33.0) pg MCHC 29.8 L (31.0-35.0) g/dl RDW 18.8 H (11.0-16.0) % Plt Count 318 (160-400) X10*3/uL MPV 8.1 L (9.4-12.3) fL Immature Gran % (Auto) 0.6 H (0.0-0.4) % Neut % (Auto) 63.1 (45-73) % Lymph % (Auto) 14.9 L (20-40) % [place] % (Auto) 20.8 H (2-11) % Eos % (Auto) 0.6 (0-4) % Baso % (Auto) 0.0 (0-2) % Lymph # (Auto) 0.2 L (1.2-4.9) X10*3/uL [place] # (Auto) 0.3 (0.1-1.2) X10*3/uL Eos # (Auto) 0.0 (0.0-0.4) X10*3/uL Baso # (Auto) 0.0 (0.0-0.2) X10*3/uL Abs Immat Gran (auto) 0.01 (0.00-0.03) X10*3/uL Absolute Neuts (auto) 1.0 L (2.0-8.3) x10*3/uL Absolute Nucleated RBC 0.000 (0.0-0.012) X10*3/uL Nucleated RBC % (auto) 0.0 (0.0-0.2) /100WBC Smear Tech's Comments VERIFIED Sodium 128 L (135-145) mmol/L Potassium 4.4 (3.3-5.1) mmol/L Chloride 96 (96-108) mmol/L Carbon Dioxide 24 (22-29) mmol/L Anion Gap 12 (12-20) BUN 12 (9-16) mg/dL Creatinine 0.74 (0.5-1.4) mg/dL Estim Creat Clear Calc 94.7 Estimated GFR > 60 Random Glucose 102 (60-115) mg/dL Calcium 8.7 D (8.4-10.2) mg/dL Total Bilirubin 0.5 (0.0-1.0) mg/dL Direct Bilirubin 0.3 (0.0-0.5) mg/dL AST 25 (5-31) U/L ALT 17 (0-31) U/L Alkaline Phosphatase 46 (39-117) U/L Troponin I High Sens < 2.7 (<3.5-17.0) ng/L Total Protein 7.9 (6.5-8.0) g/dL Albumin 3.0 L (3.5-5.0) g/dL Lipase 7 L (8-78) U/L Urine Color [place] Urine Appearance Cloudy Urine pH 6.5 (5.0-9.0) Ur Specific [place] 1.020 (1.005-1.025) Urine Protein 300 (3+) H (Neg-Trace) mg/dL Urine Glucose (UA) See Note (Negative) mg/dL Urine Ketones See Note (Negative) mg/dL Urine Blood Large (3+) H (Negative) Urine Nitrite Positive H (Negative) Ur Leukocyte Esterase Moderate (2+) H (Negative) Urine RBC >20 H (0-2) /HPF Urine WBC 6-10 (0-5) /HPF Ur Squamous Epith Cells 6-10 (0-2) /HPF Urine Bacteria 1+ (None Seen) Hyaline Casts 0-2 (0-2) /LPF Blood Type O Positive Antibody Screen NEGATIVE Crossmatch See Detail Independent Interpretation I performed an independent interpretation of an: EKG Interpretation: NSR 93BPM without ischemic changes Radiology Impression Discussion of test interpretation with radiology: I have reviewed the radiologist's reading. Radiologist Impression: EXAMINATION: XR CHEST CLINICAL INFORMATION: Shortness of breath COMPARISON: CT chest 07/02/2023 TECHNIQUE: Frontal view of the chest was obtained. FINDINGS: No significant abnormality is noted involving the heart, lungs, mediastinum, bony thorax or soft tissues. XR/XR chest 1V IMPRESSION: Unremarkable examination. Critical Care Time Critical Care Time Critical Care Time: Yes Total Critical Care Time: 35 Attestation: Hemodynamic management for hypoxia and tachycardia 2/2 to blood loss and oncological anemia. Discharge Plan Discharge Clinical Impression: Anemia, Cystitis, Neutropenia Patient Disposition: Admitted As Inpatient Prescriptions: No Action polyethylene glycol 3350 17 gram Powder In Packet 17 g PO DAILY Qty: 30 0RF docusate sodium 100 mg Capsule 100 mg PO BID Qty: 60 0RF Rx Instructions: Hold for diarrhea oxycodone 5 mg Tablet 5 mg PO Q4H PRN (Reason: Pain, Moderate(Pain Scale 4-6)) Qty: 20 0RF Rx Instructions: Partial Fill upon patient request. clonazepam 0.125 mg Tablet,Disintegrating 0.5 mg PO DAILY PRN (Reason: Anxiety/Restlessness) Qty: 10 0RF trazodone 50 mg tablet 25 mg PO DAILY Qty: 14 0RF ferrous sulfate 324 mg (65 mg iron) tablet,delayed release (DR/EC) 324 mg PO BID Qty: 60 0RF Referrals: Bucky Higgins MD [Physician] - Physician,Chepe J [Primary Care Provider] - 1 Week Print Language: Togolese
--- NOTE | 2023-09-03 12:45 | ECG_ITS ---
Test Reason : WEAKNESS Blood Pressure : / mmHG Vent. Rate : 093 BPM Atrial Rate : 093 BPM P-R Int : 140 ms QRS Dur : 082 ms QT Int : 354 ms P-R-T Axes : 051 051 021 degrees QTc Int : 440 ms Normal sinus rhythm Possible Left atrial enlargement Borderline ECG No previous ECGs available Referred By: Preethi Johnson Electronically Signed By:NANDINI DHALIWAL
[2023-09-03 13:37] LABS: Eosinophils Percent Auto 0.6 % (0-4); Hematocrit 24.2 % (37.0-47.0); Hemoglobin 7.2 g/dl (12.0-16.0); Imm Gran Abs Auto 0.01 X10*3/uL (0.00-0.03); Imm Gran Pct Auto 0.6 % (0.0-0.4); Lymphocytes Absolute Auto 0.2 X10*3/uL (1.2-4.9); Lymphocytes Percent Auto 14.9 % (20-40); MANUAL DIFF FLAG SCAN; Mean Corpuscular HGB Conc 29.8 g/dl (31.0-35.0); Mean Corpuscular Hemoglobin 24.6 pg (27.0-33.0); Mean Corpuscular Volume 82.6 fL (80.0-98.0); Mean Platelet Volume 8.1 fL (9.4-12.3); Monocytes Absolute Auto 0.3 X10*3/uL (0.1-1.2); Monocytes Percent Auto 20.8 % (2-11); Neutrophils Percent Auto 63.1 % (45-73); Platelet Count 318 X10*3/uL (160-400); Red Blood Count 2.93 X10*6/uL (4.20-5.50); Red Cell Distribution Width 18.8 % (11.0-16.0); SCAN SMEAR FLAG 1
[2023-09-03 13:38] LABS: White Blood Count 1.5 X10*3/uL (4.8-10.8)
[2023-09-03 13:42] LABS: Appearance Urine Cloudy; Color Urine Orange; Leukocyte Esterase Urine Moderate (2+) (Negative); Nitrite Urine Positive (Negative); PH 6.5 (5.0-9.0); UMIC TRIGGER UACC YES; Urine Blood Large (3+) (Negative); Urine Protein 300 (3+) mg/dL (Neg-Trace)
[2023-09-03 13:47] LABS: Lipase 7 U/L (8-78)
[2023-09-03 13:51] LABS: Alanine Aminotransferase 17 U/L (0-31); Alkaline Phosphatase 46 U/L (39-117); Anion Gap 12 (12-20); Aspartate Amino Transferase 25 U/L (5-31); Bilirubin Direct 0.3 mg/dL (0.0-0.5); Bilirubin Total 0.5 mg/dL (0.0-1.0); Blood Urea Nitrogen 12 mg/dL (9-16); Calcium 8.7 mg/dL (8.4-10.2); Carbon Dioxide 24 mmol/L (22-29); Chloride 96 mmol/L (96-108); Creatinine Clr Calc Pharmacy 94.7; Estimated Glomerular Filt Rate > 60; Glucose Random 102 mg/dL (60-115); Potassium 4.4 mmol/L (3.3-5.1); Sodium 128 mmol/L (135-145); Total Protein 7.9 g/dL (6.5-8.0)
[2023-09-03 13:53] LABS: Bacteria Urine 1+ (None Seen); Hyaline Casts Urine 0-2 /LPF (0-2); RBC Urine >20 /HPF (0-2); UACC Culture Trigger YES
[2023-09-03 14:02] LABS: Troponin-I High Sensitivity < 2.7 ng/L (<3.5-17.0)
[2023-09-03 14:10] LABS: SLIDE REVIEW VERIFIED
--- NOTE | 2023-09-03 15:30 | PC.NURSE ---
patient a&ox3, iv inserted-difficult stick, labs drawn, ekg performed, cardiac care unit nurse applied-nsr on monitor, vss.
--- NOTE | 2023-09-03 15:52 | PC.NURSE ---
blood started per order, vss, pt tolerating transfusion well. pt c/o being hungry also asking for pain medication for generalized pain but is unable to state what pain medications she takes even with the assist of the hospitality associate, will speak with the provider.
--- NOTE | 2023-09-03 16:45 | PHA.MEDREC ---
Pharmacy Consult ? Medication Reconciliation Pharmacy has completed the medication reconciliation. Confrimed medications with list provided by [facility] and called and confirmed if she was still taking her Pyridium 200mg tab TID and they stated she will probably be on it group home .
--- NOTE | 2023-09-03 17:10 | PM.IMHP ---
History of Present Illness Date of Service: 09/03/23 Attending physician on admission: Roger Marcelino Chief Complaint: anemia 53 y/o F patient; PMH mood disorder, hx hepatitis C, 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 Padilla, surgery Dr. Andrade); presents as transfer from rehab with report of anemia. Laboratory studies 6.8 today, 7.4 yesterday per EMS hand-off. The patient endorses recent fatigue, lightheadedness, and dyspnea on exertion. She notes a normal appetite. She states her urine turned red 2 - 3 weeks ago when she was started on Pyridium. Apparently was also diagnosed with UTI and prescribed bactrim but never started the prescription. She is currently undergoing radiation therapy at [facility], last dose 08/11, due 09/07. She is due to start chemotherapy next week. She was also noted to have dark output in her ostomy bag, but she states that this does not appear unchanged. Mildly tachycardic in the 90s, vital signs otherwise stable. She is neutropenic with WBC 1.5, ANC 1.0. She has a normocytic anemia with H/H 7.2/24.2%. Renal function baseline, electrolyte levels normal except for sodium 128. Troponin undetectable. Urinalysis significant for 2+ leukocytes, positive nitrites, 3+ blood, positive urinary sediment, 1+ bacteria. Chest x-ray unremarkable. EKG shows NSR, rate 93, no ST/T-wave abnormalities. Review of Systems Review of Systems: Yes all other systems are reviewed and are negative [facility], [facility] Medical History (Updated 09/03/23 @ 17:17 by ERICK Plascencia) Hydronephrosis, left Anal squamous cell carcinoma Shingles Migraines Hepatitis C Surgical History (Updated 09/03/23 @ 17:17 by ERICK Plascencia) Colostomy in place History of exploratory laparotomy (06/26/23) Social History Household Members: None Housing: Apartment Alcohol intake: never Patient Tobacco Use Status: Former Tobacco user Smoked in Last 30 Days: No Use of substances other than those prescribed or required for medical reasons: No Advance Directives: No Advance Directives Information Provided: No Do you have a plan to hurt others: No Plan Patient : No service: No Meds Allergies Allergy/AdvReac Type Severity Reaction Status Date / Time No Known Allergies Allergy Verified 09/03/23 12:59 Active Medications: Current Medications Acetaminophen (Acetaminophen 325 Mg Tablet) 650 mg PO Q6H PRN PRN Reason: Pain, Mild (Pain Scale 1-3), fever or headache Calcium Carbonate (Calcium Carbonate 750 Mg Tab.Chew) 750 mg PO Q4H PRN PRN Reason: Heartburn Piperacillin Sod/Tazobactam (Sod 3.375 gm/ Sodium Chloride) 50 mls @ 100 mls/hr IV Q6H BRETT Magnesium Hydroxide (Milk Of Magnesia 30 Ml Oral.Susp) 30 ml PO DAILY PRN PRN Reason: Constipation Melatonin (Melatonin 3 Mg Tablet) 6 mg PO BEDTIME PRN PRN Reason: Insomnia Sodium Chloride (0.9 % Sodium Chloride Flush 3 Ml Syringe) 3 ml IVFLUSH QSHIFT [facility] Home Medications ?Medication ?Instructions ?Recorded ?Confirmed ?Last Taken ?Type acetaminophen 500 mg tablet 1,000 mg PO Q6H PRN Pain 09/03/23 09/03/23 Unknown History clonazepam 0.5 mg tablet 0.5 mg PO BEDTIME 09/03/23 09/03/23 Unknown History diclofenac sodium 1 % topical gel 2 g topical BID PRN Pain 09/03/23 09/03/23 Unknown History duloxetine 20 mg capsule,delayed 40 mg PO DAILY 09/03/23 09/03/23 Unknown History release (Cymbalta) lidocaine 4 % topical gel 1 appl topical TID PRN Pain 09/03/23 09/03/23 Unknown History mineral oil-hydrophil petrolat 1 appl topical TID PRN Dry Skin 09/03/23 09/03/23 Unknown History topical ointment oxycodone 10 mg tablet,crush 10 mg PO BID 09/03/23 09/03/23 Unknown History resistant,extended release 12 hr (OxyContin) phenazopyridine 200 mg tablet 200 mg PO TID 09/03/23 09/03/23 Unknown History (Pyridium) sennosides 8.6 mg tablet (senna) 8.6 mg PO BEDTIME 09/03/23 09/03/23 Unknown History Physical Exam Vital Signs and Narrative: Vital Signs: Last Vital Signs Temp 98.3 F 09/03/23 16:00 Pulse 93 09/03/23 16:00 Resp 18 09/03/23 16:00 BP 119/77 09/03/23 16:00 Pulse Ox 94 09/03/23 16:00 O2 Del Method Room Air 09/03/23 16:00 O2 Flow Rate 2 09/03/23 14:28 BMI result Body Mass Index 32.0 Constitutional - Awake and Alert, No apparent distress Eyes - PERRLA, EOMI Cardiovascular - S1S2, RRR, No edema Respiratory - Normal lung expansion, Normal respiratory effort, No respiratory distress, CTA bilaterally Gastrointestinal - NT / ND; +BS; No rebound or guarding - No CVA tenderness Extremities - no calf tenderness bilaterally, no swelling Skin - Warm/Dry Neurological - Alert & oriented x3 Psychological - Appropriate affect Results Labs 09/03/23 13:26 09/03/23 13:26 Labs: Laboratory Results - last 24 hr 09/03/23 13:26 MCV 82.6 MCH 24.6 L MCHC 29.8 L RDW 18.8 H Plt Count 318 MPV 8.1 L Immature Gran % (Auto) 0.6 H Neut % (Auto) 63.1 Lymph % (Auto) 14.9 L [place] % (Auto) 20.8 H Eos % (Auto) 0.6 Baso % (Auto) 0.0 Lymph # (Auto) 0.2 L [place] # (Auto) 0.3 Eos # (Auto) 0.0 Baso # (Auto) 0.0 Abs Immat Gran (auto) 0.01 Absolute Neuts (auto) 1.0 L Absolute Nucleated RBC 0.000 Nucleated RBC % (auto) 0.0 Smear Tech's Comments VERIFIED Anion Gap 12 Estim Creat Clear Calc 94.7 Estimated GFR > 60 Random Glucose 102 Calcium 8.7 D Total Bilirubin 0.5 Direct Bilirubin 0.3 AST 25 ALT 17 Alkaline Phosphatase 46 Troponin I High Sens < 2.7 Total Protein 7.9 Albumin 3.0 L Lipase 7 L Urine Color [place] Urine Appearance Cloudy Urine pH 6.5 Ur Specific [place] 1.020 Urine Protein 300 (3+) H Urine Glucose (UA) See Note Urine Ketones See Note Urine Blood Large (3+) H Urine Nitrite Positive H Ur Leukocyte Esterase Moderate (2+) H Urine RBC >20 H Urine WBC 6-10 Ur Squamous Epith Cells 6-10 Urine Bacteria 1+ Hyaline Casts 0-2 Blood Type O Positive Antibody Screen NEGATIVE Crossmatch See Detail Imaging Radiologist's Impressions: Impressions Chest X-Ray 09/03/23 15:12 IMPRESSION: Unremarkable examination. Assessment and Plan (1) Neutropenia: Status: Acute (2) Cystitis: Status: Acute (3) Anemia: Status: Acute (4) Anal squamous cell carcinoma: Status: Acute Plan 53 y/o F patient; PMH mood disorder, hx hepatitis C, 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 Padilla, surgery Dr. Andrade) admitted for further management of anemia in the setting of radiation therapy for anal squamous cell carcinoma as well as UTI with neutropenia #Acute symptomatic normocytic anemia -likely 2/2 to radiation therapy. However, ostomoy output very dark, check stool occult blood -H/H 7.2/24.2% -check stool occult blood -transfuse 1unit PRBC -monitor on tele -follow h.h #UTI with neutropenia -mild tachycardia is chronic. WBC 1.5, ANC 0.1. Does not meet acute SIRS criteria, no sepsis -IV zosyn (initiated 09/02) -neutropenic precautions -if not improving consider hem/onc consult. NOt requiring neulasta at this time -follow cbc, cultures #Acute hyponatremia -likely r/t malignancy -fluid restrictions -follow sodium #Anorectal SCC s/p loop sigmoid ostomy -ostomy care -follow with [facility] onc. Radiation 08/11, due 09/07. Starts chemo next week -continue home dose pain managent with oxycontin and oxycodone DVT prophylaxis- SCPs, add ac if stool occult blood negative Full code Pt requires inpatient stay at least 2 midnights for management of UTI with neutropenia requiring IV antibiotics, neutropenic precautions and close monitoring of blood counts. She will also require blood transfusion for acute anemia in the setting of radiation therapy which will require ongoing cardiac monitoring and monitoring of hemodynamics Quality Stroke Does the patient have a stroke diagnosis?: No VTE Prior VTE?: No VTE Risk Level:: Medical - moderate - high VTE Device Contraindication: Treatment Not Indicated VTE Drug Contraindication: N/A - Med Ordered
--- NOTE | 2023-09-03 19:34 | PC.NURSE ---
micro computer data processor at bedside. this rn assumed care of pt, pt a&ox4, respirations even and unlabored. pt reporting 6/10 lower leg pain at this time. blood transfusion completed, vss. per Lisa SUAREZ draw blood cultures prior to antibiotic administration. pt hard stick, has one IV access at this time. pt normal sinus on tele 97-98bpm.
[2023-09-03] MEDS: oxyCODONE HCl Immed Release 5 MG TABLET PO ×2 (19:39→23:27)
--- NOTE | 2023-09-03 19:46 | PC.NURSE ---
pt medicated per mar, tolerated well with water. phlebotomy at bedside drawing pt.
--- NOTE | 2023-09-03 20:15 | MHC.EDTECH ---
pt vital signs checked, pt helped to use [employer], call gallagher within reach.
[2023-09-03] MEDS: Piperacillin Sodium/Tazobactam 3.375 GM in 0.9 % Sodium Chloride 50 ML IV ×2 (20:21→23:52)
[2023-09-03 20:22] LABS: Lactic Acid 1.7 mmol/L (0.5-2.0)
[2023-09-03] MEDS: oxyCODONE HCl ER 10 MG TAB.ER.12H PO (21:59)
[2023-09-03] MEDS: Ferrous Sulfate 324 MG TABLET.DR PO (22:00)
[2023-09-03] MEDS: clonazePAM 0.5 MG TABLET PO (22:00)
[2023-09-03] MEDS: Phenazopyridine HCL 200 MG TABLET PO (22:00)
[2023-09-03] MEDS: Sennosides 8.6 MG TABLET PO (22:00)
[2023-09-03] MEDS: Docusate Sodium 100 MG CAPSULE PO (22:00)
[2023-09-03] MEDS: 0.9 % Sodium Chloride Flush 3 ML SYRINGE IVFLUSH (22:00)
[2023-09-03 23:44] LABS: OBS Int Ctl Valid YES; OBS1 NEGATIVE (NEGATIVE)
[2023-09-04] VITALS (7 sets, daily range): BP systolic 120–138; BP diastolic 63–81; PULSE 86–102; RESP 17–20; TEMP 36.1–36.4; O2SAT 91–93
[2023-09-04] MEDS: oxyCODONE HCl Immed Release 5 MG TABLET PO ×3 (05:04→21:08)
[2023-09-04] MEDS: Piperacillin Sodium/Tazobactam 3.375 GM in 0.9 % Sodium Chloride 50 ML IV (05:04)
[2023-09-04 07:48] LABS: Glucose, Whole Blood 99 mg/dL (60-115)
[2023-09-04 09:05] LABS: Basophils Percent Auto 0.6 % (0-2); Eosinophils Percent Auto 1.2 % (0-4); Hematocrit 30.2 % (37.0-47.0); Hemoglobin 9.3 g/dl (12.0-16.0); Imm Gran Abs Auto 0.01 X10*3/uL (0.00-0.03); Imm Gran Pct Auto 0.6 % (0.0-0.4); Lymphocytes Absolute Auto 0.3 X10*3/uL (1.2-4.9); Lymphocytes Percent Auto 20.7 % (20-40); MANUAL DIFF FLAG SCAN; Mean Corpuscular HGB Conc 30.8 g/dl (31.0-35.0); Mean Corpuscular Hemoglobin 25.3 pg (27.0-33.0); Mean Corpuscular Volume 82.3 fL (80.0-98.0); Mean Platelet Volume 8.4 fL (9.4-12.3); Monocytes Absolute Auto 0.4 X10*3/uL (0.1-1.2); Monocytes Percent Auto 21.3 % (2-11); Neutrophils Absolute Auto 0.9 x10*3/uL (2.0-8.3); Neutrophils Percent Auto 55.6 % (45-73); Platelet Count 309 X10*3/uL (160-400); Red Blood Count 3.67 X10*6/uL (4.20-5.50); Red Cell Distribution Width 18.7 % (11.0-16.0); SCAN SMEAR FLAG 1
[2023-09-04 09:07] LABS: White Blood Count 1.6 X10*3/uL (4.8-10.8)
[2023-09-04 09:18] LABS: Anion Gap 11 (12-20); Blood Urea Nitrogen 14 mg/dL (9-16); Calcium 9.1 mg/dL (8.4-10.2); Carbon Dioxide 25 mmol/L (22-29); Chloride 99 mmol/L (96-108); Estimated Glomerular Filt Rate > 60; Glucose Random 101 mg/dL (60-115); Potassium 4.1 mmol/L (3.3-5.1); Sodium 131 mmol/L (135-145)
[2023-09-04] MEDS: Docusate Sodium 100 MG CAPSULE PO ×2 (09:31→21:08)
[2023-09-04] MEDS: DULoxetine HCl 20 MG CAPSULE.DR 40 MG PO (09:31)
[2023-09-04] MEDS: traZODone HCL 25 MG HALFTAB PO (09:31)
[2023-09-04] MEDS: oxyCODONE HCl ER 10 MG TAB.ER.12H PO ×2 (09:31→21:09)
[2023-09-04] MEDS: Phenazopyridine HCL 200 MG TABLET PO ×3 (09:32→21:10)
[2023-09-04] MEDS: Ferrous Sulfate 324 MG TABLET.DR PO ×2 (09:32→21:09)
[2023-09-04] MEDS: 0.9 % Sodium Chloride Flush 3 ML SYRINGE IVFLUSH ×3 (09:33→21:10)
[2023-09-04 09:46] LABS: SLIDE REVIEW VERIFIED
--- NOTE | 2023-09-04 11:03 | HO.PM.IMPN ---
Subjective Subjective Date of Service: 09/04/23 Interval History: diffuse pain Physical Exam Vital Signs: Vital Signs: Last Vital Signs Temp 97.5 F 09/04/23 08:00 Pulse 97 09/04/23 08:00 Resp 19 09/04/23 08:00 BP 133/77 09/04/23 08:00 Pulse Ox 93 09/04/23 08:00 O2 Del Method Room Air 09/04/23 08:00 O2 Flow Rate 2 09/03/23 14:28 BMI result Body Mass Index 32.0 General: AO X 3 Resp: CTA bilateral, no accessory muscles used CVS: S1,S2,RRR GI: soft, non tender, non distended Neuro: motor grossly intact, alert Objective Data Active Medications Acetaminophen (Acetaminophen 325 Mg Tablet) 650 mg PO Q6H PRN PRN Reason: Pain, Mild (Pain Scale 1-3), fever or headache Calcium Carbonate (Calcium Carbonate 750 Mg Tab.Chew) 750 mg PO Q4H PRN PRN Reason: Heartburn Clonazepam (Clonazepam 0.5 Mg Tablet) 0.5 mg PO BEDTIME [facility] Last Admin: 09/03/23 22:00 Dose: 0.5 mg Documented By: CONNER Docusate Sodium (Docusate Sodium 100 Mg Capsule) 100 mg PO BID [facility] Last Admin: 09/04/23 09:31 Dose: 100 mg Documented By: REJI Duloxetine HCl (Duloxetine Hcl 20 Mg Capsule.) 40 mg PO DAILY [facility] Last Admin: 09/04/23 09:31 Dose: 40 mg Documented By: REJI Ferrous Sulfate (Ferrous Sulfate 324 Mg Tablet.) 324 mg PO BID [facility] Last Admin: 09/04/23 09:32 Dose: 324 mg Documented By: REJI Piperacillin Sod/Tazobactam (Sod 3.375 gm/ Sodium Chloride) 50 mls @ 100 mls/hr IV Q6H [facility] Last Infusion: 09/04/23 05:37 Dose: Infused Documented By: CONNER Lidocaine HCl (Lidocaine 4 % Cream Kit) 1 appl TOPICAL TID PRN PRN Reason: Pain Magnesium Hydroxide (Milk Of Magnesia 30 Ml Oral.Susp) 30 ml PO DAILY PRN PRN Reason: Constipation Melatonin (Melatonin 3 Mg Tablet) 6 mg PO BEDTIME PRN PRN Reason: Insomnia Multi-Ingred Cream/Lotion/Oil/Oint (Mineral Oil/Petrolatum,White 106 Gm Tube) 1 appl TOPICAL TID PRN PRN Reason: Dry Skin Oxycodone HCl (Oxycodone Hcl Immed Release 5 Mg Tablet) 5 mg PO Q4H PRN PRN Reason: Pain, Moderate(Pain Scale 4-6) Last Admin: 09/04/23 05:04 Dose: 5 mg Documented By: CONNER Oxycodone HCl (Oxycodone Hcl Er 10 Mg Tab.Er.12h) 10 mg PO BID [facility] Last Admin: 09/04/23 09:31 Dose: 10 mg Documented By: REJI Phenazopyridine HCl (Phenazopyridine Hcl 200 Mg Tablet) 200 mg PO TID [facility] Last Admin: 09/04/23 09:32 Dose: 200 mg Documented By: REJI Polyethylene Glycol (Polyethylene Glycol 3350 17 Gm Powd.Pack) 17 gm PO DAILY [facility] Last Admin: 09/04/23 09:37 Dose: Not Given Documented By: REJI Non-Admin Reason: Patient Refused Senna (Sennosides 8.6 Mg Tablet) 8.6 mg PO BEDTIME [facility] Last Admin: 09/03/23 22:00 Dose: 8.6 mg Documented By: CONNER Sodium Chloride (0.9 % Sodium Chloride Flush 3 Ml Syringe) 3 ml IVFLUSH QSHIFT [facility] Last Admin: 09/04/23 09:33 Dose: 3 ml Documented By: REJI Trazodone HCl (Trazodone Hcl 25 Mg Halftab) 25 mg PO DAILY [facility] Last Admin: 09/04/23 09:31 Dose: 25 mg Documented By: REJI Labs 09/04/23 08:48 09/04/23 08:48 Labs: Laboratory Results - last 24 hr 09/03/23 09/03/23 09/03/23 13:26 19:57 23:10 MCV 82.6 MCH 24.6 L MCHC 29.8 L RDW 18.8 H Plt Count 318 MPV 8.1 L Immature Gran % (Auto) 0.6 H Neut % (Auto) 63.1 Lymph % (Auto) 14.9 L [place] % (Auto) 20.8 H Eos % (Auto) 0.6 Baso % (Auto) 0.0 Lymph # (Auto) 0.2 L [place] # (Auto) 0.3 Eos # (Auto) 0.0 Baso # (Auto) 0.0 Abs Immat Gran (auto) 0.01 Absolute Neuts (auto) 1.0 L Absolute Nucleated RBC 0.000 Nucleated RBC % (auto) 0.0 Smear Tech's Comments VERIFIED Anion Gap 12 Estim Creat Clear Calc 94.7 Estimated GFR > 60 POC Glucose Random Glucose 102 Lactic Acid 1.7 Calcium 8.7 D Total Bilirubin 0.5 Direct Bilirubin 0.3 AST 25 ALT 17 Alkaline Phosphatase 46 Troponin I High Sens < 2.7 Total Protein 7.9 Albumin 3.0 L Lipase 7 L Urine Color [place] Urine Appearance Cloudy Urine pH 6.5 Ur Specific [place] 1.020 Urine Protein 300 (3+) H Urine Glucose (UA) See Note Urine Ketones See Note Urine Blood Large (3+) H Urine Nitrite Positive H Ur Leukocyte Esterase Moderate (2+) H Urine RBC >20 H Urine WBC 6-10 Ur Squamous Epith Cells 6-10 Urine Bacteria 1+ Hyaline Casts 0-2 Stool Occult Blood NEGATIVE Blood Type O Positive Antibody Screen NEGATIVE Crossmatch See Detail 09/04/23 09/04/23 07:42 08:48 MCV 82.3 MCH 25.3 L MCHC 30.8 L RDW 18.7 H Plt Count 309 MPV 8.4 L Immature Gran % (Auto) 0.6 H Neut % (Auto) 55.6 Lymph % (Auto) 20.7 [place] % (Auto) 21.3 H Eos % (Auto) 1.2 Baso % (Auto) 0.6 Lymph # (Auto) 0.3 L [place] # (Auto) 0.4 Eos # (Auto) 0.0 Baso # (Auto) 0.0 Abs Immat Gran (auto) 0.01 Absolute Neuts (auto) 0.9 L Absolute Nucleated RBC 0.000 Nucleated RBC % (auto) 0.0 Smear Tech's Comments VERIFIED Anion Gap 11 L Estim Creat Clear Calc 91.0 Estimated GFR > 60 POC Glucose 99 Random Glucose 101 Lactic Acid Calcium 9.1 Total Bilirubin Direct Bilirubin AST ALT Alkaline Phosphatase Troponin I High Sens Total Protein Albumin Lipase Urine Color Urine Appearance Urine pH Ur Specific [place] Urine Protein Urine Glucose (UA) Urine Ketones Urine Blood Urine Nitrite Ur Leukocyte Esterase Urine RBC Urine WBC Ur Squamous Epith Cells Urine Bacteria Hyaline Casts Stool Occult Blood Blood Type Antibody Screen Crossmatch Microbiology Microbiology Results: Microbiology 09/03/23 Unknown Urine Culture - Final Urine Catheterized - Straight Catheter Strep agalactiae (Grp B) Assessment and Plan (1) Neutropenia: Status: Acute Plan 53F PMH mood disorder, hepatitis-C, squamous cell anal carcinoma complicated by left hydronephrosis/hydroureter with ureteric obstruction from bulky adenopathy status post left ureteral stent and status post loop sigmoid ostomy presented from rehab with anemia, also found to have positive UA and neutropenia Acute anemia Unclear etiology Hemoglobin improved appropriately if 1 unit Monitor Neutropenia with group B strep UTI Will change to ceftriaxone Metastatic anal cancer Hematology eval Acute hyponatremia Monitor DVT prophylaxis-mechanical due to anemia Full code reason for continued hospitalization: Monitor hemoglobin Quality Stroke Does the patient have a stroke diagnosis?: No VTE Prior VTE?: No VTE Risk Level:: Medical - moderate - high VTE Device Contraindication: Treatment Not Indicated VTE Drug Contraindication: N/A - Med Ordered
[2023-09-04 12:22] LABS: Glucose, Whole Blood 95 mg/dL (60-115)
--- NOTE | 2023-09-04 12:43 | PM.HEMONCCN ---
Subjective - Subjective Chief complaint: Consult for: 1. Neutropenia. 2. Anemia 3. Bladder cancer. Patient: known to practice within the last 3 years Consult date: 09/04/23 Requesting Physician: Leon. Primary Care Provider: Unknown Physician Medical Summary: DIAGNOSIS: 1. Neutropenia. 2. Anal cancer. On chemoradiation. HPI - Consult Narrative Reason for consult: Consult for: 1. Neutropenia. 2. Anemia. 3. Anal carcinoma. Narrative: Lori Sparks is a 53 year old lady, with squamous cell carcinoma of Anus, complicated by left hydronephrosis/hydroureter with ureteric obstruction from bulky adenopathy. S/p left ureteric stent and s/p loop sigmoid ostomy (followed by Oncology Dr. Padilla, surgery Dr. Andrade); presented from rehab with report of anemia. Laboratory studies from 09/02: Hgb 6.8, 7.4 on 09/01 per EMS hand-off. She C/O recent fatigue, lightheadedness, and dyspnea on exertion. Her appetite is good. Apparently was also diagnosed with UTI and prescribed bactrim but never started the prescription. She states her urine turned red 2 - 3 weeks ago when she was started on Pyridium. She is currently undergoing radiation therapy at [facility], last dose 08/11, due 09/07. She is due to start chemotherapy next week. She was also noted to have dark output in her ostomy bag, but she states that this does not appear unchanged. Mildly tachycardic in the 90s, vital signs otherwise stable. She is neutropenic with WBC 1.5, ANC 1.0. She has a normocytic anemia with H/H 7.2/24.2%. Renal function baseline, electrolyte levels normal except for sodium 128. Troponin undetectable. Urinalysis significant for 2+ leukocytes, positive nitrites, 3+ blood, positive urinary sediment, 1+ bacteria. Chest x-ray unremarkable. EKG shows NSR, rate 93, no ST/T-wave abnormalities. [facility] Medical History: PMH mood disorder, hx hepatitis C. Hydronephrosis, left Anal squamous cell carcinoma Shingles Migraines Hepatitis C Surgical History: Colostomy in place History of exploratory laparotomy (06/26/23) Social History: Household Members: None Housing: Apartment Alcohol intake: never Patient Tobacco Use Status: Former Tobacco user Smoked in Last 30 Days: No Use of substances other than those prescribed or required for medical reasons: No Review of Systems Review of Systems: Yes all other systems are reviewed and are negative Review of Systems - Constitutional Reports system reviewed and no additional complaints, except as documented, Reports fatigue, Reports lack of energy, Reports malaise, Reports weight loss, Denies poor appetite - Eyes Reports system reviewed and no additional complaints, except as documented - ENT Reports system reviewed and no additional complaints, except as documented - Cardiovascular Reports system reviewed and no additional complaints, except as documented - Respiratory Reports no additional respiratory complaints - Gastrointestinal Reports system reviewed and no additional complaints, except as documented - Genitourinary Reports no additional female genitourinary complaints - Musculoskeletal Reports system reviewed and no additional complaints, except as documented - Integumentary/Breasts Skin/Breast: Reports no additional skin complaints - Neurologic Denies sensory deficit - Psychiatric Reports system reviewed and no additional complaints, except as documented - Endocrine Reports no additional endocrine complaints - Hematologic/Lymphatic Reports system reviewed and no additional complaints, except as documented - Allergic/Immunologic Reports system reviewed and no additional complaints, except as documented Oncology Screenings - ECOG Performance Status ECOG Performance Status: 2 [facility] Medical History: Medical History (Last Reviewed 09/22/23 @ 16:59 by Ary Beltre MD) Anal squamous cell carcinoma Hepatitis C Hydronephrosis, left Migraines Shingles Functional capacity: wheelchair bound Patient : No Surgical History: Surgical History (Last Reviewed 09/04/23 @ 01:57 by Sarai Mandel RN) Colostomy in place History of exploratory laparotomy Onset Date: 06/26/23 Social History: Social History (Last Reviewed 09/03/23 @ 13:05 by Preethi Johnson MD) Living Situation History: Household Members: Other Housing: Other Do you presently have visiting nurse or other home services: No Do you presently have visiting nurse or other home services comment: Pt comes from rehab facility. Prior rehab lives in apartment Alcohol History Details: 1. How often do you have a drink containing alcohol?: a. Never Tobacco History: Patient Tobacco Use Status: Former Tobacco user Smoked in Last 30 Days: No Second Hand Smoke Exposure: No Substance Use History: Use of substances other than those prescribed or required for medical reasons: No Advance Directives: Advance Directives: No Advance Directives Information Provided: No Homicidal Assessment: Do you have a plan to hurt others: No Plan Nutrition Assessment: Patient : No Occupation Assessmet: service: No Home Medications and Allergies Current Medications: Current Medications Acetaminophen (Acetaminophen 325 Mg Tablet) 650 mg PO Q6H PRN PRN Reason: Pain, Mild (Pain Scale 1-3), fever or headache Calcium Carbonate (Calcium Carbonate 750 Mg Tab.Chew) 750 mg PO Q4H PRN PRN Reason: Heartburn Clonazepam (Clonazepam 0.5 Mg Tablet) 0.5 mg PO BEDTIME [facility] Last Admin: 09/03/23 22:00 Dose: 0.5 mg Docusate Sodium (Docusate Sodium 100 Mg Capsule) 100 mg PO BID [facility] Last Admin: 09/04/23 09:31 Dose: 100 mg Duloxetine HCl (Duloxetine Hcl 20 Mg Capsule.) 40 mg PO DAILY [facility] Last Admin: 09/04/23 09:31 Dose: 40 mg Ferrous Sulfate (Ferrous Sulfate 324 Mg Tablet.) 324 mg PO BID [facility] Last Admin: 09/04/23 09:32 Dose: 324 mg Ceftriaxone Sodium 1 gm/ (Sodium Chloride) 50 mls @ 100 mls/hr IV Q24H [facility] Lidocaine HCl (Lidocaine 4 % Cream Kit) 1 appl TOPICAL TID PRN PRN Reason: Pain Magnesium Hydroxide (Milk Of Magnesia 30 Ml Oral.Susp) 30 ml PO DAILY PRN PRN Reason: Constipation Melatonin (Melatonin 3 Mg Tablet) 6 mg PO BEDTIME PRN PRN Reason: Insomnia Multi-Ingred Cream/Lotion/Oil/Oint (Mineral Oil/Petrolatum,White 106 Gm Tube) 1 appl TOPICAL TID PRN PRN Reason: Dry Skin Oxycodone HCl (Oxycodone Hcl Immed Release 5 Mg Tablet) 5 mg PO Q4H PRN PRN Reason: Pain, Moderate(Pain Scale 4-6) Last Admin: 09/04/23 05:04 Dose: 5 mg Oxycodone HCl (Oxycodone Hcl Er 10 Mg Tab.Er.12h) 10 mg PO BID [facility] Last Admin: 09/04/23 09:31 Dose: 10 mg Phenazopyridine HCl (Phenazopyridine Hcl 200 Mg Tablet) 200 mg PO TID [facility] Last Admin: 09/04/23 09:32 Dose: 200 mg Polyethylene Glycol (Polyethylene Glycol 3350 17 Gm Powd.Pack) 17 gm PO DAILY [facility] Last Admin: 09/04/23 09:37 Dose: Not Given Senna (Sennosides 8.6 Mg Tablet) 8.6 mg PO BEDTIME [facility] Last Admin: 09/03/23 22:00 Dose: 8.6 mg Sodium Chloride (0.9 % Sodium Chloride Flush 3 Ml Syringe) 3 ml IVFLUSH QSHIFT [facility] Last Admin: 09/04/23 09:33 Dose: 3 ml Trazodone HCl (Trazodone Hcl 25 Mg Halftab) 25 mg PO DAILY [facility] Last Admin: 09/04/23 09:31 Dose: 25 mg Home Medications ?Medication ?Instructions ?Recorded ?Confirmed ?Type acetaminophen 500 mg tablet 1,000 mg PO Q6H PRN Pain 09/03/23 09/03/23 History clonazepam 0.5 mg tablet 0.5 mg PO BEDTIME 09/03/23 09/03/23 History diclofenac sodium 1 % topical gel 2 g topical BID PRN Pain 09/03/23 09/03/23 History duloxetine 20 mg capsule,delayed 40 mg PO DAILY 09/03/23 09/03/23 History release (Cymbalta) lidocaine 4 % topical gel 1 appl topical TID PRN Pain 09/03/23 09/03/23 History mineral oil-hydrophil petrolat 1 appl topical TID PRN Dry Skin 09/03/23 09/03/23 History topical ointment oxycodone 10 mg tablet,crush 10 mg PO BID 09/03/23 09/03/23 History resistant,extended release 12 hr (OxyContin) phenazopyridine 200 mg tablet 200 mg PO TID 09/03/23 09/03/23 History (Pyridium) sennosides 8.6 mg tablet (senna) 8.6 mg PO BEDTIME 09/03/23 09/03/23 History Allergies Allergy/AdvReac Type Severity Reaction Status Date / Time egg Allergy Swelling Verified 09/22/23 16:49 Iodinated Contrast Media Allergy Swelling Verified 09/04/23 04:47 [Contrast Dye] peanut Allergy Swelling Verified 09/22/23 16:49 shellfish derived Allergy Swelling Verified 09/22/23 16:49 tomato Allergy Swelling Verified 09/22/23 16:49 Physical Exam Vital signs: Vital Signs Temp 97.5 F 09/04/23 12:00 Pulse 102 H 09/04/23 12:00 Resp 17 09/04/23 12:00 BP 134/71 09/04/23 12:00 Pulse Ox 92 09/04/23 12:00 O2 Del Method Room Air 09/04/23 12:00 O2 Flow Rate 2 09/03/23 14:28 Intake & Output 09/03/23 09/04/23 09/04/23 18:59 06:59 18:59 Intake Total 100 / 950 850 / 950 Output Total 800 / 800 Balance 100 / 150 50 / 150 Urine Output (Average ml/kg/hr) 0.77 Intake: Intake (Blood Product) Amount 0 / 700 700 / 700 Red Blood Cells (E0336) Unit 350 / 350 [id number] Red Blood Cells (E0382) Unit 0 / 350 350 / 350 [id number] Intake, IV Amount 100 / 250 150 / 250 0.9 % Sodium Chloride 100 ml @ 100 / 100 100 mls/hr IV ONCE ONE Rx#: [id number] Piperacillin Sodium/Tazobactam 150 / 150 3.375 gm In 0.9 % Sodium Chloride 50 ml @ 100 mls/hr IV Q6H [facility] Rx#:[id number] Output: Output, Urine Amount 800 / 800 Other: Number of Unmeasured Voids 1 Urine Bathroom Last Bowel Movement 09/03/23 Weight 87.1 kg 87.1 kg [place] Weight in Grams 16475 Weight 87.1 kg - Constitutional Present: mild distress - Routine HEENT Exam Head: Present: normal inspection, normocephalic Eye: Present: normal appearance ENT: Present: mucous membranes moist - Routine Neck Exam Present: supple - Routine Respiratory Exam Present: CTAB - Routine Cardiovascular Exam Cardiovascular: Present: RRR, S1, S2 - Routine Abdominal Exam Present: soft, nontender - Routine Extremities Exam Present: nontender - Routine Skin Exam Present: intact, normal turgor - Routine Neurological Exam Present: alert, oriented X3 - Routine Psychiatric Exam Present: normal affect Hem/Onc Consult Result - Labs CBC & Chem 7: 09/05/23 08:30 09/05/23 10:06 Labs: Short CBC 09/03/23 09/04/23 Range/Units 13:26 08:48 WBC 1.5 L 1.6 L (4.8-10.8) X10*3/uL Hgb 7.2 L D 9.3 L D (12.0-16.0) g/dl Hct 24.2 L D 30.2 L D (37.0-47.0) % Plt Count 318 309 (160-400) X10*3/uL BMP 09/03/23 09/04/23 13:26 08:48 Sodium 128 L 131 L Potassium 4.4 4.1 Chloride 96 99 Carbon Dioxide 24 25 BUN 12 14 Creatinine 0.74 0.77 Calcium 8.7 D 9.1 Liver Function 09/03/23 Range/Units 13:26 Total Bilirubin 0.5 (0.0-1.0) mg/dL Direct Bilirubin 0.3 (0.0-0.5) mg/dL AST 25 (5-31) U/L ALT 17 (0-31) U/L Alkaline Phosphatase 46 (39-117) U/L Albumin 3.0 L (3.5-5.0) g/dL Urine 09/03/23 Range/Units 13:26 Urine Color [place] Urine Appearance Cloudy Urine pH 6.5 (5.0-9.0) Ur Specific [place] 1.020 (1.005-1.025) Urine Protein 300 (3+) H (Neg-Trace) mg/dL Urine Glucose (UA) See Note (Negative) mg/dL Assessment and Plan Patient Active problem list reviewed?: Yes (1) Neutropenia Status: Acute Assessment and plan: This is a 53-year-old Frisian-speaking woman with past medical history significant for hepatitis-C (Hep C viral load is quite high. HIV test was negative.) who has been diagnosed with Anorectal carcinoma. She underwent colonoscopy which revealed 5 cm friable ulcerated polypoid mass at 10 cm extending up to 5 cm from anal verge into distal rectum covering 60-70% of rectal circumference. Rectal exam as per GI report revealed a hard mass in the posterior rectum. 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 Immunostains show strong positivity for P 40 and P 16, negative for GATA3. CT abdomen/pelvis without contrast performed 06/22/23 revealed left-sided hydronephrosis and hydroureter extending up to soft tissue density within the mid left ureter, probably bulky adenopathy in this location. Additional bulky bilateral inguinal, pelvic sidewall and retroperitoneal adenopathy. There was perirectal inflammatory change with prominent perirectal lymph nodes. Could not exclude low rectal mass as it was noncontrast study. CT chest with IV contrast performed 07/02/2023 was negative for metastatic disease, small right thyroid lobe nodule measuring 1.2 x 0.8 cm. CEA is elevated at 77.1 NG/mL. She underwent cystoscopy with left ureteral stent placement to relieve left-sided hydronephrosis. She underwent diverting loop sigmoid ostomy to alleviate rectal obstruction on 06/26/23. PET scan, has been ordered. She has at least locally advanced disease, she has been receiving radiation therapy under the care of Dr. Higgins, radiation oncologist at [facility]. The role of chemotherapy has been discussed. She now presents with significant anemia, requiring blood transfusion. ANEMIA: Is likely multifactorial, she has Iron-deficiency anemia secondary to GI blood losses from malignancy. In addition anemia of chronic disease, from underlying cancer and hepatitis-C infection. PLAN: She has received 2 units of blood. Hemoglobin has improved to 9.3. Parenteral iron therapy can be administered. Will give her a couple of doses of G-CSF to help improve her white count. Will monitor blood count to decide about further dosing. Continue treatment for her UTI as you are doing. Thank you for this consult, Will follow along with you, CC: Leon. - Time Spent With Patient Time Spent with Patient (in minutes): 30
[2023-09-04] MEDS: cefTRIAXone sodium 1 GM in 0.9 % Sodium Chloride 50 ML IV (13:46)
--- NOTE | 2023-09-04 14:24 | MHC.CM.PN ---
Addendum entered by Ana Pastor RN 09/04/23 14:27: PT HAS BEEN AT [facility] SINCE DC FROM PREVIOUS ADMIT 07/03/23. Original Note: EMR REVIEWED, PT TRANSFERRED TO [facility] FROM [facility] AT [facility] D/T ANEMIA, CM MET W/PT WHO INITIALLY REPORTED TO HOSPITALIST SHE DID NOT WANT TO RETURN, CM ATTEMPTED TO DISCUSS VIA BILL OF LADING CLERK THAT SHE WILL NOT RECEIVE CA TX WHILE IN SNF D/T COST OF TX AND TYPICALLY PT'S GO HOME OR COMPLETE THEIR REHAB AND THEN RESTART TX, PT REPORTS SHE IS UNABLE TO GET UP THE STAIRS TO GET INTO HER APPT SO SHE WILL RETURN TO STR AT [facility]. CM DID SEND RETURN REFERRAL TO [facility] HOWEVER CM STILL WAITING TO FIND OUT IF THEY WILL TAKE PT BACK. PER HOSPITALIST PT WILL LIKELY BE CLEARED FOR DC TOMORROW 09/04. HCP ON FILE CORRECT, PT REPORTS SHE DOES NOT IF SHE HAS A HCP.
[2023-09-04] MEDS: Acetaminophen 325 MG TABLET 650 MG PO ×2 (14:39→21:09)
[2023-09-04 15:42] LABS: Glucose, Whole Blood 108 mg/dL (60-115)
[2023-09-04] MEDS: Tbo-Filgrastim 300 MCG/0.5 ML SYRINGE SUBCUT (16:49)
[2023-09-04] MEDS: Sennosides 8.6 MG TABLET PO (21:08)
[2023-09-04] MEDS: clonazePAM 0.5 MG TABLET PO (21:09)
[2023-09-05] VITALS: BP 110/61; PULSE 92; RESP 18; TEMP 36.3; O2SAT 97
[2023-09-05 03:58] VITALS: BP 143/66; PULSE 98; RESP 20; TEMP 36.3; O2SAT 92
[2023-09-05] MEDS: oxyCODONE HCl Immed Release 5 MG TABLET PO ×2 (05:19→16:01)
[2023-09-05 08:00] VITALS: BP 163/73; PULSE 105; RESP 20; TEMP 36.7; O2SAT 92
[2023-09-05 08:43] LABS: Hematocrit 30.1 % (37.0-47.0); Hemoglobin 9.2 g/dl (12.0-16.0); Mean Corpuscular HGB Conc 30.6 g/dl (31.0-35.0); Mean Corpuscular Volume 81.8 fL (80.0-98.0); Mean Platelet Volume 8.2 fL (9.4-12.3); Platelet Count 281 X10*3/uL (160-400); Red Blood Count 3.68 X10*6/uL (4.20-5.50); Red Cell Distribution Width 19.3 % (11.0-16.0)
[2023-09-05 08:47] LABS: White Blood Count 2.1 X10*3/uL (4.8-10.8)
[2023-09-05 10:33] LABS: Anion Gap 15 (12-20); Blood Urea Nitrogen 12 mg/dL (9-16); Carbon Dioxide 19 mmol/L (22-29); Chloride 100 mmol/L (96-108); Creatinine Clr Calc Pharmacy 89.8; Estimated Glomerular Filt Rate > 60; Glucose Fasting 131 mg/dL (60-99); Potassium 4.2 mmol/L (3.3-5.1); Sodium 130 mmol/L (135-145)
[2023-09-05] MEDS: Phenazopyridine HCL 200 MG TABLET PO ×2 (10:46→15:58)
[2023-09-05] MEDS: DULoxetine HCl 20 MG CAPSULE.DR 40 MG PO (10:46)
[2023-09-05] MEDS: Ferrous Sulfate 324 MG TABLET.DR PO (10:46)
[2023-09-05] MEDS: cefTRIAXone sodium 1 GM in 0.9 % Sodium Chloride 50 ML IV (10:46)
[2023-09-05] MEDS: polyethylene glycoL 3350 17 GM POWD.PACK PO (10:46)
[2023-09-05] MEDS: oxyCODONE HCl ER 10 MG TAB.ER.12H PO (10:47)
[2023-09-05] MEDS: 0.9 % Sodium Chloride Flush 3 ML SYRINGE IVFLUSH ×2 (10:47→16:01)
[2023-09-05] MEDS: Docusate Sodium 100 MG CAPSULE PO (10:47)
[2023-09-05] MEDS: traZODone HCL 25 MG HALFTAB PO (10:47)
[2023-09-05] MEDS: Acetaminophen 325 MG TABLET 650 MG PO (10:48)
--- NOTE | 2023-09-05 10:53 | P.PNIM_ITS ---
Subjective Subjective Date of Service: 09/05/23 Interval History: headache Physical Exam 2 Vital Signs: Vital Signs: Last Vital Signs Temp 98.0 F 09/05/23 08:00 Pulse 105 H 09/05/23 08:00 Resp 20 09/05/23 08:00 BP 163/73 H 09/05/23 08:00 Pulse Ox 92 09/05/23 08:00 O2 Del Method Room Air 09/05/23 08:00 O2 Flow Rate 2 09/03/23 14:28 BMI result Body Mass Index 32.0 General: AO X 3 Resp: CTA bilateral, no accessory muscles used CVS: S1,S2,RRR GI: soft, non tender, non distended Neuro: motor grossly intact, alert Objective Data Active Medications Acetaminophen (Acetaminophen 325 Mg Tablet) 650 mg PO Q6H PRN PRN Reason: Pain, Mild (Pain Scale 1-3), fever or headache Last Admin: 09/04/23 21:09 Dose: 650 mg Documented By: CONNER Calcium Carbonate (Calcium Carbonate 750 Mg Tab.Chew) 750 mg PO Q4H PRN PRN Reason: Heartburn Clonazepam (Clonazepam 0.5 Mg Tablet) 0.5 mg PO BEDTIME [facility] Last Admin: 09/04/23 21:09 Dose: 0.5 mg Documented By: CONNER Docusate Sodium (Docusate Sodium 100 Mg Capsule) 100 mg PO BID [facility] Last Admin: 09/04/23 21:08 Dose: 100 mg Documented By: CONNER Duloxetine HCl (Duloxetine Hcl 20 Mg Capsule.) 40 mg PO DAILY [facility] Last Admin: 09/04/23 09:31 Dose: 40 mg Documented By: REJI Ferrous Sulfate (Ferrous Sulfate 324 Mg Tablet.) 324 mg PO BID [facility] Last Admin: 09/04/23 21:09 Dose: 324 mg Documented By: CONNER Ceftriaxone Sodium 1 gm/ (Sodium Chloride) 50 mls @ 100 mls/hr IV Q24H [facility] Last Infusion: 09/04/23 17:02 Dose: Infused Documented By: REJI Lidocaine HCl (Lidocaine 4 % Cream Kit) 1 appl TOPICAL TID PRN PRN Reason: Pain Magnesium Hydroxide (Milk Of Magnesia 30 Ml Oral.Susp) 30 ml PO DAILY PRN PRN Reason: Constipation Melatonin (Melatonin 3 Mg Tablet) 6 mg PO BEDTIME PRN PRN Reason: Insomnia Multi-Ingred Cream/Lotion/Oil/Oint (Mineral Oil/Petrolatum,White 106 Gm Tube) 1 appl TOPICAL TID PRN PRN Reason: Dry Skin Oxycodone HCl (Oxycodone Hcl Immed Release 5 Mg Tablet) 5 mg PO Q4H PRN PRN Reason: Pain, Moderate(Pain Scale 4-6) Last Admin: 09/05/23 05:19 Dose: 5 mg Documented By: CONNER Oxycodone HCl (Oxycodone Hcl Er 10 Mg Tab.Er.12h) 10 mg PO BID [facility] Last Admin: 09/04/23 21:09 Dose: 10 mg Documented By: CONNER Phenazopyridine HCl (Phenazopyridine Hcl 200 Mg Tablet) 200 mg PO TID [facility] Last Admin: 09/04/23 21:10 Dose: 200 mg Documented By: CONNER Polyethylene Glycol (Polyethylene Glycol 3350 17 Gm Powd.Pack) 17 gm PO DAILY [facility] Last Admin: 09/04/23 09:37 Dose: Not Given Documented By: REJI Non-Admin Reason: Patient Refused Senna (Sennosides 8.6 Mg Tablet) 8.6 mg PO BEDTIME [facility] Last Admin: 09/04/23 21:08 Dose: 8.6 mg Documented By: CONNER Sodium Chloride (0.9 % Sodium Chloride Flush 3 Ml Syringe) 3 ml IVFLUSH QSHIFT [facility] Last Admin: 09/04/23 21:10 Dose: 3 ml Documented By: CONNER Trazodone HCl (Trazodone Hcl 25 Mg Halftab) 25 mg PO DAILY [facility] Last Admin: 09/04/23 09:31 Dose: 25 mg Documented By: REJI Labs 09/05/23 08:30 09/05/23 10:06 Labs: Laboratory Results - last 24 hr 09/03/23 09/04/23 09/04/23 13:26 12:05 15:27 MCV MCH MCHC RDW Plt Count MPV Absolute Nucleated RBC Nucleated RBC % (auto) Smear Path Review SEE NOTE Anion Gap Estim Creat Clear Calc Estimated GFR POC Glucose 95 108 Fasting Glucose Calcium Crossmatch See Detail 09/05/23 09/05/23 08:30 10:06 MCV 81.8 MCH 25.0 L MCHC 30.6 L RDW 19.3 H Plt Count 281 MPV 8.2 L Absolute Nucleated RBC 0.000 Nucleated RBC % (auto) 0.0 Smear Path Review Anion Gap 15 Estim Creat Clear Calc 89.8 Estimated GFR > 60 POC Glucose Fasting Glucose 131 H Calcium 9.0 Crossmatch Microbiology Microbiology Results: Microbiology 09/03/23 19:57 Blood Culture - Preliminary Blood - Venous No growth after 24 hours. 09/03/23 19:57 Blood Culture - Preliminary Blood - Venous No growth after 24 hours. 09/03/23 Unknown Urine Culture - Final Urine Catheterized - Straight Catheter Strep agalactiae (Grp B) Assessment and Plan (1) Neutropenia: Status: Acute Plan 53F PMH mood disorder, hepatitis-C, squamous cell anal carcinoma complicated by left hydronephrosis/hydroureter with ureteric obstruction from bulky adenopathy status post left ureteral stent and status post loop sigmoid ostomy presented from rehab with anemia, also found to have positive UA and neutropenia Acute anemia Unclear etiology Hemoglobin improved appropriately Neutropenia with group B strep UTI ceftriaxone Metastatic anal cancer Hematology appreciated, given neulesta Acute mild hyponatremia Monitor DVT prophylaxis-mechanical due to anemia Full code reason for continued hospitalization: awaiting placement Quality Stroke Does the patient have a stroke diagnosis?: No VTE Prior VTE?: No VTE Risk Level:: Medical - moderate - high VTE Device Contraindication: Treatment Not Indicated VTE Drug Contraindication: N/A - Med Ordered
--- NOTE | 2023-09-05 11:12 | MHC.CM.PN ---
PT MEDICALLY CLEARED FOR DC BACK TO [facility] HOWEVER CM STILL WAITING TO HEAR BACK FROM [facility] TO SEE IF SHE CAN RETURN, CM CONTINUING TO FOLLOW.
--- NOTE | 2023-09-05 11:14 | P.DS_ITS ---
DS: Providers Provider Date of Service: 09/05/23 Date of admission: 09/03/23 17:02 Primary care physician: Unknown Physician Consults: 09/04/23 11:03 Consult to Hematology / Oncology Routine Consulting Provider: [facility] [place] Oncology/Hematology Reason for consultation: bicytopenia, metastatic anal cancer DS: Diagnosis Discharge Diagnosis (1) Neutropenia: Status: Acute DS: Summary Hospital Course Hospital Course: from initial hpi: 53 y/o F patient; PMH mood disorder, hx hepatitis C, 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 Padilla, surgery Dr. Andrade); presents as transfer from rehab with report of anemia. Laboratory studies 6.8 today, 7.4 yesterday per EMS hand-off. The patient endorses recent fatigue, lightheadedness, and dyspnea on exertion. She notes a normal appetite. She states her urine turned red 2 - 3 weeks ago when she was started on Pyridium. Apparently was also diagnosed with UTI and prescribed bactrim but never started the prescription. She is currently undergoing radiation therapy at [facility], last dose 08/11, due 09/07. She is due to start chemotherapy next week. She was also noted to have dark output in her ostomy bag, but she states that this does not appear unchanged. Mildly tachycardic in the 90s, vital signs otherwise stable. She is neutropenic with WBC 1.5, ANC 1.0. She has a normocytic anemia with H/H 7.2/24.2%. Renal function baseline, electrolyte levels normal except for sodium 128. Troponin undetectable. Urinalysis significant for 2+ leukocytes, positive nitrites, 3+ blood, positive urinary sediment, 1+ bacteria. Chest x-ray unremarkable. EKG shows NSR, rate 93, no ST/T-wave abnormalities. hospital course: Patient was admitted for acute anemia, received transfusion and hemoglobin improved appropriately. For neutropenia with group B strep UTI was treated with ceftriaxone and will continue 5 more days of cefuroxime. Was seen by Hematology who prescribed Neulasta. For metastatic anal cancer will continue follow up outpatient. For acute mild hyponatremia she remained above 130. Patient will be discharged back to residential facility. Time Attestation Discharge Coordination Time (in mins): 34 Quality: Safe Use of Opioids Does Pt have an Active Cancer Diagnosis on the Problem List?: Yes Opioid Measure Date for [facility] Report: 08/06/23 Opioid Measure Time for [facility] Report: 14:39 Quality: Stroke Does the patient have a stroke diagnosis?: No Physical Exam Vital Signs: Vital Signs: Last Vital Signs Temp 98.0 F 09/05/23 08:00 Pulse 105 H 09/05/23 08:00 Resp 20 09/05/23 08:00 BP 163/73 H 09/05/23 08:00 Pulse Ox 92 09/05/23 08:00 O2 Del Method Room Air 09/05/23 08:00 O2 Flow Rate 2 09/03/23 14:28 BMI result Body Mass Index 32.0 General: AO X 3 Resp: CTA bilateral, no accessory muscles used CVS: S1,S2,RRR GI: soft, non tender, non distended Neuro: motor grossly intact, alert DS: Data Data Completed and Pending Completed studies during hospitalization [Text1]: Procedures Bypass Sigmoid Colon to Cutaneous, Open Approach (06/22/23) Dilation of Left Ureter with Intraluminal Device, Via Natural or Artificial Opening Endoscopic (06/22/23) Excision of Rectum, Via Natural or Artificial Opening Endoscopic, Diagnostic (06/22/23) Fluoroscopy of Left Kidney, Ureter and Bladder (06/22/23) Labs on day of discharge: Laboratory Results - last 24 hr 09/03/23 09/04/23 09/04/23 13:26 12:05 15:27 WBC RBC Hgb Hct MCV MCH MCHC RDW Plt Count MPV Absolute Nucleated RBC Nucleated RBC % (auto) Smear Path Review SEE NOTE Sodium Potassium Chloride Carbon Dioxide Anion Gap BUN Creatinine Estim Creat Clear Calc Estimated GFR POC Glucose 95 108 Fasting Glucose Calcium Crossmatch See Detail 09/05/23 09/05/23 08:30 10:06 WBC 2.1 L RBC 3.68 L Hgb 9.2 L Hct 30.1 L MCV 81.8 MCH 25.0 L MCHC 30.6 L RDW 19.3 H Plt Count 281 MPV 8.2 L Absolute Nucleated RBC 0.000 Nucleated RBC % (auto) 0.0 Smear Path Review Sodium 130 L Potassium 4.2 Chloride 100 Carbon Dioxide 19 L Anion Gap 15 BUN 12 Creatinine 0.78 Estim Creat Clear Calc 89.8 Estimated GFR > 60 POC Glucose Fasting Glucose 131 H Calcium 9.0 Crossmatch Preliminary micro results at discharge 09/03/23 19:57 Blood Culture - Preliminary Blood - Venous No growth after 24 hours. 09/03/23 19:57 Blood Culture - Preliminary Blood - Venous No growth after 24 hours. Discharge Plan Discharge Anticipated Discharge Date/Time: 09/05/23 10:54 Patient Disposition: Xfer SNF Discharge Diagnosis: anemia, uti Referrals: Bucky Higgins MD [Physician] - Physician,Unknown J [Primary Care Provider] - 1 Week Discharge Medications: New cefuroxime axetil 500 mg tablet 500 mg PO Q12H Qty: 10 0RF Continued clonazepam 0.5 mg Tablet 0.5 mg PO BEDTIME Rx Instructions: administer 30 minutes before bedtime acetaminophen 500 mg Tablet 1,000 mg PO Q6H PRN (Reason: Pain) duloxetine [Cymbalta] 20 mg Capsule,Delayed Release(Dr/Ec) 40 mg PO DAILY diclofenac sodium 1 % Gel 2 g TOPICAL BID PRN (Reason: Pain) Rx Instructions: apply to single elbow, wrist or hand; for hand includes palm/fingers/back of hand; max 36g in 24 hrs lidocaine 4 % Gel 1 appl TOPICAL TID PRN (Reason: Pain) Rx Instructions: Apply to rectum/groin. oxycodone [OxyContin] 10 mg Tablet,Oral Only,Ext.Rel.12 Hr 10 mg PO BID sennosides [senna] 8.6 mg Tablet 8.6 mg PO BEDTIME phenazopyridine [Pyridium] 200 mg Tablet 200 mg PO TID mineral oil-hydrophil petrolat Ointment 1 appl TOPICAL TID PRN (Reason: Dry Skin) polyethylene glycol 3350 17 gram Powder In Packet 17 g PO DAILY Qty: 30 0RF docusate sodium 100 mg Capsule 100 mg PO BID Qty: 60 0RF Rx Instructions: Hold for diarrhea oxycodone 5 mg Tablet 5 mg PO Q4H PRN (Reason: Pain, Moderate(Pain Scale 4-6)) Qty: 20 0RF Rx Instructions: Partial Fill upon patient request. trazodone 50 mg tablet 25 mg PO DAILY Qty: 14 0RF ferrous sulfate 324 mg (65 mg iron) tablet,delayed release (DR/EC) 324 mg PO BID Qty: 60 0RF Discharge Orders: Discharge Order (Routine); Ordered 09/05/23 Ordered By: Jewel Quintero Diet: Advance to usual diet Activity on Discharge: As tolerated Stand Alone Forms: Patient Portal Discharge page Print Language: Jamaican Care Plan Goals: recovery Health Concerns: cancer, uti Plan of Treatment: 5 days ceftin Assessment: see above
[2023-09-05 12:00] VITALS: BP 127/71; PULSE 100; RESP 20; TEMP 36.3; O2SAT 92
--- NOTE | 2023-09-05 12:06 | PM.HEMONCPN ---
Medical Summary - Medical Summary Date of Service: 09/05/23 Chief complaint: Weakness Primary Care Provider: Unknown Physician Medical Summary: DIAGNOSIS: 1. Neutropenia. 2. Anal cancer. On chemoradiation. Interval History Interval history: Lori Sparks is a 53 year old lady, with squamous cell carcinoma of Anus, complicated by left hydronephrosis/hydroureter with ureteric obstruction from bulky adenopathy. S/p left ureteric stent and s/p loop sigmoid ostomy (followed by Oncology Dr. Padilla, surgery Dr. Andrade); presented from rehab with report of anemia. Laboratory studies from 09/02: Hgb 6.8, 7.4 on 09/01 per EMS hand-off. She C/O recent fatigue, lightheadedness, and dyspnea on exertion. Her appetite is good. She is feeling better today but has some headache. Review of Systems: Yes all other systems are reviewed and are negative Review of Systems - Neurologic Denies sensory deficit PMFSH Medical History: Medical History (Last Reviewed 09/04/23 @ 01:57 by Sarai Mandel RN) Anal squamous cell carcinoma Hepatitis C Hydronephrosis, left Migraines Shingles Functional capacity: wheelchair bound Surgical History: Surgical History (Last Reviewed 09/04/23 @ 01:57 by Sarai Mandel RN) Colostomy in place History of exploratory laparotomy Onset Date: 06/26/23 Social History: Social History (Last Reviewed 09/03/23 @ 13:05 by Preethi Johnson MD) Living Situation History: Household Members: Other Housing: Other Do you presently have visiting nurse or other home services: No Do you presently have visiting nurse or other home services comment: Pt comes from rehab facility. Prior rehab lives in apartment Alcohol History Details: 1. How often do you have a drink containing alcohol?: a. Never 3. How often do you have six or more drinks on one occasion?: a. Never AUDIT-C Alcohol total score: 0 Currently Displaying Signs/Symptoms of Alcohol Withdrawal: No Tobacco History: Patient Tobacco Use Status: Former Tobacco user Smoked in Last 30 Days: No Patient Interested in Nicotine Replacement: No Patient Given Instructions on How to Stop Smoking: No Second Hand Smoke Exposure: No Substance Use History: Use of substances other than those prescribed or required for medical reasons: No Currently Displaying Signs/Symptoms of Drug Intoxication Withdrawal: No Any prior treatment program specific to substance use: No Domestic Abuse History: Have you been hit, kicked, punched, or otherwise hurt by someone within the past year? If so, by whom?: No Do you feel safe in your current relationship?: No Current Relationship Is there a partner from a previous relationship who is making you feel unsafe now?: No Healthcare Practices: Spiritual Healthcare Practices: L[employer] Advance Directives: Advance Directives: No Advance Directives Information Provided: No Homicidal Assessment: Do you have a plan to hurt others: No Plan Nutrition Assessment: Recently lost weight without trying: No Eating poorly because of decreased appetite: No Nutrition Risks: No Nutritional Risk Patient : No : No Poor oral hygiene: No Occupation Assessmet: service: No Home Medications and Allergies Current Medications: Current Medications Acetaminophen (Acetaminophen 325 Mg Tablet) 650 mg PO Q6H PRN PRN Reason: Pain, Mild (Pain Scale 1-3), fever or headache Last Admin: 09/05/23 10:48 Dose: 650 mg Calcium Carbonate (Calcium Carbonate 750 Mg Tab.Chew) 750 mg PO Q4H PRN PRN Reason: Heartburn Clonazepam (Clonazepam 0.5 Mg Tablet) 0.5 mg PO BEDTIME [facility] Last Admin: 09/04/23 21:09 Dose: 0.5 mg Docusate Sodium (Docusate Sodium 100 Mg Capsule) 100 mg PO BID [facility] Last Admin: 09/05/23 10:47 Dose: 100 mg Duloxetine HCl (Duloxetine Hcl 20 Mg Capsule.) 40 mg PO DAILY [facility] Last Admin: 09/05/23 10:46 Dose: 40 mg Ferrous Sulfate (Ferrous Sulfate 324 Mg Tablet.) 324 mg PO BID [facility] Last Admin: 09/05/23 10:46 Dose: 324 mg Ceftriaxone Sodium 1 gm/ (Sodium Chloride) 50 mls @ 100 mls/hr IV Q24H [facility] Last Admin: 09/05/23 10:46 Dose: 100 mls/hr Lidocaine HCl (Lidocaine 4 % Cream Kit) 1 appl TOPICAL TID PRN PRN Reason: Pain Magnesium Hydroxide (Milk Of Magnesia 30 Ml Oral.Susp) 30 ml PO DAILY PRN PRN Reason: Constipation Melatonin (Melatonin 3 Mg Tablet) 6 mg PO BEDTIME PRN PRN Reason: Insomnia Multi-Ingred Cream/Lotion/Oil/Oint (Mineral Oil/Petrolatum,White 106 Gm Tube) 1 appl TOPICAL TID PRN PRN Reason: Dry Skin Oxycodone HCl (Oxycodone Hcl Immed Release 5 Mg Tablet) 5 mg PO Q4H PRN PRN Reason: Pain, Moderate(Pain Scale 4-6) Last Admin: 09/05/23 05:19 Dose: 5 mg Oxycodone HCl (Oxycodone Hcl Er 10 Mg Tab.Er.12h) 10 mg PO BID [facility] Last Admin: 09/05/23 10:47 Dose: 10 mg Phenazopyridine HCl (Phenazopyridine Hcl 200 Mg Tablet) 200 mg PO TID [facility] Last Admin: 09/05/23 10:46 Dose: 200 mg Polyethylene Glycol (Polyethylene Glycol 3350 17 Gm Powd.Pack) 17 gm PO DAILY [facility] Last Admin: 09/05/23 10:46 Dose: 17 gm Senna (Sennosides 8.6 Mg Tablet) 8.6 mg PO BEDTIME [facility] Last Admin: 09/04/23 21:08 Dose: 8.6 mg Sodium Chloride (0.9 % Sodium Chloride Flush 3 Ml Syringe) 3 ml IVFLUSH QSHIFT [facility] Last Admin: 09/05/23 10:47 Dose: 3 ml Trazodone HCl (Trazodone Hcl 25 Mg Halftab) 25 mg PO DAILY [facility] Last Admin: 09/05/23 10:47 Dose: 25 mg Home Medications ?Medication ?Instructions ?Recorded ?Confirmed ?Type acetaminophen 500 mg tablet 1,000 mg PO Q6H PRN Pain 09/03/23 09/03/23 History clonazepam 0.5 mg tablet 0.5 mg PO BEDTIME 09/03/23 09/03/23 History diclofenac sodium 1 % topical gel 2 g topical BID PRN Pain 09/03/23 09/03/23 History duloxetine 20 mg capsule,delayed 40 mg PO DAILY 09/03/23 09/03/23 History release (Cymbalta) lidocaine 4 % topical gel 1 appl topical TID PRN Pain 09/03/23 09/03/23 History mineral oil-hydrophil petrolat 1 appl topical TID PRN Dry Skin 09/03/23 09/03/23 History topical ointment oxycodone 10 mg tablet,crush 10 mg PO BID 09/03/23 09/03/23 History resistant,extended release 12 hr (OxyContin) phenazopyridine 200 mg tablet 200 mg PO TID 09/03/23 09/03/23 History (Pyridium) sennosides 8.6 mg tablet (senna) 8.6 mg PO BEDTIME 09/03/23 09/03/23 History Allergies Allergy/AdvReac Type Severity Reaction Status Date / Time egg Allergy Swelling Verified 09/04/23 04:47 Iodinated Contrast Media Allergy Swelling Verified 09/04/23 04:47 [Contrast Dye] peanut Allergy Swelling Verified 09/04/23 04:47 shellfish derived Allergy Swelling Verified 09/04/23 04:47 tomato Allergy Swelling Verified 09/04/23 04:47 Exam Vital signs: Vital Signs Temp 98.0 F 09/05/23 08:00 Pulse 105 H 09/05/23 08:00 Resp 20 09/05/23 08:00 BP 163/73 H 09/05/23 08:00 Pulse Ox 92 09/05/23 08:00 O2 Del Method Room Air 09/05/23 08:00 O2 Flow Rate 2 09/03/23 14:28 Intake & Output 09/04/23 09/05/23 09/05/23 18:59 06:59 18:59 Intake Total 550 / 1030 480 / 1030 Output Total 1600 / 1600 Balance 550 / -570 -1120 / -570 Urine Output (Average ml/kg/hr) 1.53 Intake: Intake, Oral Amount 500 / 980 480 / 980 Intake, IV Amount 50 / 50 cefTRIAXone sodium 1 gm In 0.9 50 / 50 % Sodium Chloride 50 ml @ 100 mls/hr IV Q24H [facility] Rx#: [id number] Output: Output, Urine Amount 1600 / 1600 Other: Breakfast % Eaten 75% Lunch % Eaten 75% Number of Unmeasured Voids 2 4 Number of Bowel Movements 1 Urine Bedside Commode Bedside Commode Urine Color Yellow [place] Last Bowel Movement 09/04/23 Stool Ostomy Stool Amount Moderate Stool Color Brown Weight 87.1 kg BMI result Body Mass Index 32.0 - Constitutional Present: mild distress - Routine HEENT Exam Head: Present: normal inspection, normocephalic - Routine Respiratory Exam Present: CTAB - Routine Cardiovascular Exam Cardiovascular: Present: RRR, S1, S2 - Routine Abdominal Exam Present: soft, nontender - Routine Extremities Exam Present: nontender - Routine Skin Exam Present: intact, normal turgor - Routine Neurological Exam Present: alert, oriented X3 Data - Labs CBC & Chem 7: 09/05/23 08:30 09/05/23 10:06 Labs: Laboratory Last Values WBC 2.1 X10*3/uL (4.8-10.8) L 09/05/23 08:30 RBC 3.68 X10*6/uL (4.20-5.50) L 09/05/23 08:30 Hgb 9.2 g/dl (12.0-16.0) L 09/05/23 08:30 Hct 30.1 % (37.0-47.0) L 09/05/23 08:30 MCV 81.8 fL (80.0-98.0) 09/05/23 08:30 MCH 25.0 pg (27.0-33.0) L 09/05/23 08:30 MCHC 30.6 g/dl (31.0-35.0) L 09/05/23 08:30 RDW 19.3 % (11.0-16.0) H 09/05/23 08:30 Plt Count 281 X10*3/uL (160-400) 09/05/23 08:30 MPV 8.2 fL (9.4-12.3) L 09/05/23 08:30 Immature Gran % (Auto) 0.6 % (0.0-0.4) H 09/04/23 08:48 Neut % (Auto) 55.6 % (45-73) 09/04/23 08:48 Lymph % (Auto) 20.7 % (20-40) 09/04/23 08:48 [place] % (Auto) 21.3 % (2-11) H 09/04/23 08:48 Eos % (Auto) 1.2 % (0-4) 09/04/23 08:48 Baso % (Auto) 0.6 % (0-2) 09/04/23 08:48 Lymph # (Auto) 0.3 X10*3/uL (1.2-4.9) L 09/04/23 08:48 [place] # (Auto) 0.4 X10*3/uL (0.1-1.2) 09/04/23 08:48 Eos # (Auto) 0.0 X10*3/uL (0.0-0.4) 09/04/23 08:48 Baso # (Auto) 0.0 X10*3/uL (0.0-0.2) 09/04/23 08:48 Abs Immat Gran (auto) 0.01 X10*3/uL (0.00-0.03) 09/04/23 08:48 Absolute Neuts (auto) 0.9 x10*3/uL (2.0-8.3) L 09/04/23 08:48 Absolute Nucleated RBC 0.000 X10*3/uL (0.0-0.012) 09/05/23 08:30 Nucleated RBC % (auto) 0.0 /100WBC (0.0-0.2) 09/05/23 08:30 Smear Tech's Comments VERIFIED 09/04/23 08:48 Smear Path Review SEE NOTE 09/03/23 13:26 Sodium 130 mmol/L (135-145) L 09/05/23 10:06 Potassium 4.2 mmol/L (3.3-5.1) 09/05/23 10:06 Chloride 100 mmol/L (96-108) 09/05/23 10:06 Carbon Dioxide 19 mmol/L (22-29) L 09/05/23 10:06 Anion Gap 15 (12-20) 09/05/23 10:06 BUN 12 mg/dL (9-16) 09/05/23 10:06 Creatinine 0.78 mg/dL (0.5-1.4) 09/05/23 10:06 Estim Creat Clear Calc 89.8 09/05/23 10:06 Estimated GFR > 60 09/05/23 10:06 POC Glucose 108 mg/dL (60-115) 09/04/23 15:27 Random Glucose 101 mg/dL (60-115) 09/04/23 08:48 Fasting Glucose 131 mg/dL (60-99) H 09/05/23 10:06 Lactic Acid 1.7 mmol/L (0.5-2.0) 09/03/23 19:57 Calcium 9.0 mg/dL (8.4-10.2) 09/05/23 10:06 Total Bilirubin 0.5 mg/dL (0.0-1.0) 09/03/23 13:26 Direct Bilirubin 0.3 mg/dL (0.0-0.5) 09/03/23 13:26 AST 25 U/L (5-31) 09/03/23 13:26 ALT 17 U/L (0-31) 09/03/23 13:26 Alkaline Phosphatase 46 U/L (39-117) 09/03/23 13:26 Troponin I High Sens < 2.7 ng/L (<3.5-17.0) 09/03/23 13:26 Total Protein 7.9 g/dL (6.5-8.0) 09/03/23 13:26 Albumin 3.0 g/dL (3.5-5.0) L 09/03/23 13:26 Lipase 7 U/L (8-78) L 09/03/23 13:26 Urine Color [place] 09/03/23 13:26 Urine Appearance Cloudy 09/03/23 13:26 Urine pH 6.5 (5.0-9.0) 09/03/23 13:26 Ur Specific [place] 1.020 (1.005-1.025) 09/03/23 13:26 Urine Protein 300 (3+) mg/dL (Neg-Trace) H 09/03/23 13:26 Urine Glucose (UA) See Note mg/dL (Negative) 09/03/23 13:26 Urine Ketones See Note mg/dL (Negative) 09/03/23 13:26 Urine Blood Large (3+) (Negative) H 09/03/23 13:26 Urine Nitrite Positive (Negative) H 09/03/23 13:26 Ur Leukocyte Esterase Moderate (2+) (Negative) H 09/03/23 13:26 Urine RBC >20 /HPF (0-2) H 09/03/23 13:26 Urine WBC 6-10 /HPF (0-5) 09/03/23 13:26 Ur Squamous Epith Cells 6-10 /HPF (0-2) 09/03/23 13:26 Urine Bacteria 1+ (None Seen) 09/03/23 13:26 Hyaline Casts 0-2 /LPF (0-2) 09/03/23 13:26 Stool Occult Blood NEGATIVE (NEGATIVE) 09/03/23 23:10 Blood Type O Positive 09/03/23 13:26 Antibody Screen NEGATIVE 09/03/23 13:26 Crossmatch See Detail 09/03/23 13:26 - Imaging Radiologist's impression: ITS Impressions Chest X-Ray 09/03/23 15:12 IMPRESSION: Unremarkable examination. Assessment and Plan Patient Active problem list reviewed?: Yes (1) Anal squamous cell carcinoma Status: Acute Assessment and plan: 1. This is a 53-year-old Kyrgyz-speaking woman with Anorectal carcinoma. She underwent colonoscopy which revealed 5 cm friable ulcerated polypoid mass at 10 cm. 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 Immunostains show strong positivity for P 40 and P 16, negative for GATA3. CT abdomen/pelvis without contrast performed 06/22/23 revealed left-sided hydronephrosis and hydroureter extending up to soft tissue density within the mid left ureter, probably bulky adenopathy in this location. CT chest with IV contrast performed 07/02/2023 was negative for metastatic disease, small right thyroid lobe nodule measuring 1.2 x 0.8 cm. CEA is elevated at 77.1 NG/mL. She underwent cystoscopy with left ureteral stent placement to relieve left-sided hydronephrosis. She underwent diverting loop sigmoid ostomy to alleviate rectal obstruction on 06/26/23. She is a poor historian. She is supposed to be receiving palliative radiation therapy at [facility]. I will contact Radiation Oncology Department at [facility]. She got admitted because of anemia which could be related to her underlying malignancy and radiation therapy. I will have her follow-up in the office upon discharge. Thank you. - Time Spent With Patient Time Spent with Patient (in minutes): 15
--- NOTE | 2023-09-05 14:44 | MHC.CM.PN ---
PT MEDICALLY CLEARED FOR DC BACK TO [facility] WHERE PT IS A BED HOLD AND HAS RESIDED SINCE 07/03/23, TOSIN FOR TRANSPROT
[2023-09-05 16:00] VITALS: BP 123/60; PULSE 100; RESP 18; TEMP 36.4; O2SAT 93
== END 2023-09-05 17:42 | disposition skilled nursing facility (03) | DRG 240 ==
LOC: HO.ED 15:49 → HO.EDOVER 17:15 → HO.IMC 19:31
PROVIDERS: Admitting Provider Physician Assistant; Emergency Provider Emergency Medicine; PCP Hospitalist; Visit Provider Internal Medicine
DX: C21.8 Malignant neoplasm of overlapping sites of rectum, anus and anal canal (principal); D70.9 Neutropenia, unspecified; E87.1 Hypo-osmolality and hyponatremia; B95.1 Streptococcus, group B, as the cause of diseases classified elsewhere; N39.0 Urinary tract infection, site not specified; D63.0 Anemia in neoplastic disease; Z93.3 Colostomy status; Z91.041 Radiographic dye allergy status; Z79.899 Other long term (current) drug therapy
CPT/HCPCS: 36415; 71045; 80048; 80076; 81001; 82272; 82947; 83605; 83690; 84484; 85025; 85027; 86850; 86900; 86901; 86920; 87040; 87086; 87147; 93005; 99222; 99285; J0696; J1447; J2543; P9016

== ENCOUNTER → 2023-09-03 12:45 | Outpatient (BNV) | payer MEDICAID, SELFPAY | PROVIDERS: Admitting Provider Physician Assistant; Emergency Provider Emergency Medicine; Visit Provider Internal Medicine | DX: R53.1 Weakness (principal) | CPT/HCPCS: 93010 ==

== ENCOUNTER → 2023-09-03 17:02 | Outpatient (BNV) | payer MEDICAID, SELFPAY | PROVIDERS: Admitting Provider Physician Assistant; Emergency Provider Emergency Medicine; Visit Provider Internal Medicine | DX: C21.0 Malignant neoplasm of anus, unspecified (principal); D70.9 Neutropenia, unspecified; Z92.21 Personal history of antineoplastic chemotherapy | CPT/HCPCS: 99222; 99231 ==

== ENCOUNTER → 2023-09-03 17:02 | Outpatient (BNV) | payer MEDICAID, SELFPAY | PROVIDERS: Admitting Provider Physician Assistant; Emergency Provider Emergency Medicine; Visit Provider Physician Assistant | DX: D70.9 Neutropenia, unspecified (principal); N30.90 Cystitis, unspecified without hematuria; D64.9 Anemia, unspecified; C21.0 Malignant neoplasm of anus, unspecified | CPT/HCPCS: 99223; 99232; 99239 ==

== ENCOUNTER 2023-09-22 16:39 | Emergency (ER) | payer MEDICAID, SELFPAY ==
[2023-09-22] VITALS (8 sets, daily range): BP systolic 124–155; BP diastolic 68–89; PULSE 81–99; RESP 12–20; TEMP 36.4–36.9; O2SAT 95–96; BMI 28.4
--- NOTE | 2023-09-22 16:52 | ECG_ITS ---
Test Reason : WEAKNESS Blood Pressure : / mmHG Vent. Rate : 083 BPM Atrial Rate : 083 BPM P-R Int : 154 ms QRS Dur : 084 ms QT Int : 384 ms P-R-T Axes : 060 054 027 degrees QTc Int : 451 ms Normal sinus rhythm Normal ECG When compared with ECG of 03-SEP-2023 13:07, No significant change was found Referred By: Ary Beltre Electronically Signed By:NANDINI DHALIWAL
--- NOTE | 2023-09-22 16:58 | ED.GENADULT ---
HPI - General Adult General Chief complaint: Weakness Stated complaint: from SNF, low hemoglobin Source: patient and EMS Mode of arrival: EMS Limitations: no limitations History of Present Illness ED Provider: Dr. Ary Beltre HPI narrative: [facility]. According to the staff, patient has a low hemoglobin from 2 days labs and was sent to the emergency room for a blood transfusion. Patient is known to have anal squamous cell carcinoma. Patient states that she feels weak, denies chest pain or shortness of breath. Related Data Home Medications ?Medication ?Instructions ?Recorded ?Confirmed acetaminophen 500 mg tablet 1,000 mg PO Q6H PRN Pain 09/03/23 09/03/23 clonazepam 0.5 mg tablet 0.5 mg PO BEDTIME 09/03/23 09/03/23 diclofenac sodium 1 % topical gel 2 g topical BID PRN Pain 09/03/23 09/03/23 duloxetine 20 mg capsule,delayed 40 mg PO DAILY 09/03/23 09/03/23 release (Cymbalta) lidocaine 4 % topical gel 1 appl topical TID PRN Pain 09/03/23 09/03/23 mineral oil-hydrophil petrolat 1 appl topical TID PRN Dry Skin 09/03/23 09/03/23 topical ointment oxycodone 10 mg tablet,crush 10 mg PO BID 09/03/23 09/03/23 resistant,extended release 12 hr (OxyContin) phenazopyridine 200 mg tablet 200 mg PO TID 09/03/23 09/03/23 (Pyridium) sennosides 8.6 mg tablet (senna) 8.6 mg PO BEDTIME 09/03/23 09/03/23 Previous Rx's ?Medication ?Instructions ?Recorded docusate sodium 100 mg capsule 100 mg PO BID #60 caps 07/03/23 ferrous sulfate 324 mg (65 mg 324 mg PO BID #60 tabs 07/03/23 iron) tablet,delayed release oxycodone 5 mg tablet 5 mg PO Q4H PRN Pain, 07/03/23 Moderate(Pain Scale 4-6) #20 tabs polyethylene glycol 3350 17 gram 17 g PO DAILY #30 ea 07/03/23 oral powder packet trazodone 50 mg tablet 25 mg (1/2 x 50 mg) PO DAILY #14 07/03/23 tabs cefuroxime axetil 500 mg tablet 500 mg PO Q12H #10 tabs 09/05/23 Allergies Allergy/AdvReac Type Severity Reaction Status Date / Time egg Allergy Swelling Verified 09/22/23 16:49 Iodinated Contrast Media Allergy Swelling Verified 09/04/23 04:47 [Contrast Dye] peanut Allergy Swelling Verified 09/22/23 16:49 shellfish derived Allergy Swelling Verified 09/22/23 16:49 tomato Allergy Swelling Verified 09/22/23 16:49 Review of Systems Review of Systems: Constitutional : Complaining of generalized weakness ENT/Mouth : No Hearing loss, No Ear Pain, No Nasal Congestion, No Sinus Pain, No Hoarseness, No sore throat, No Rhinorrhea, No Swallowing Difficulty Eyes: No Eye Pain, No Swelling, No Redness, No Foreign Body, No Discharge, No Vision Changes Cardiovascular : No Chest Pain, No SOB, No Dyspnea on Exertion, No Orthopnea, No Edema, No Palpitations Respiratory : No Cough, No Sputum, No Wheezing, No Smoke Exposure, No Dyspnea Gastrointestinal : No Nausea, No Vomiting, No Diarrhea, No Constipation, No abdominal Pain, No Hematochezia, No Melena Genitourinary : no irregular bleeding, No Dysuria, No Urinary Frequency, No Hematuria, No Urinary Incontinence, No Urgency, No Flank Pain, No Urinary Flow Changes, No Hesitancy Musculoskeletal : No joint pain, No Myalgias, No Joint Swelling Skin : No Skin Lesions, No rash Neuro : No Weakness, No Numbness, No Paresthesias, No Loss of Consciousness, No Dizziness, No Headache Psych : No Anxiety/Panic, No Depression, No SI/HI/AH/VH, No Social Issues, Heme/Lymph: No Bruising, No Bleeding,No Lymphadenopathy Endocrine : No Polyuria, No Polydipsia, No Temperature Intolerance [facility] Past Medical History Medical History Hydronephrosis, left Anal squamous cell carcinoma Shingles Migraines Hepatitis C Surgical History (Updated 09/13/23 @ 00:03 by Alexandrea Newman) Colostomy in place History of exploratory laparotomy (06/26/23) Social History Social History Household Members: Other Housing: Other Do you presently have visiting nurse or other home services: No (Pt comes from rehab facility. Prior rehab lives in apartment) Alcohol intake: never Patient Tobacco Use Status: Former Tobacco user Smoked in Last 30 Days: No Second Hand Smoke Exposure: No Use of substances other than those prescribed or required for medical reasons: No Advance Directives: No Advance Directives Information Provided: No Do you have a plan to hurt others: No Plan Patient : No service: No Physical Exam ED Vital Signs: Vital Signs - 24 hr 09/22/23 16:46 09/22/23 16:52 09/22/23 19:17 Temperature 97.7 F 97.7 F 97.5 F Pulse Rate 93 93 89 Respiratory Rate 16 16 20 Blood Pressure 124/83 124/83 129/75 Pulse Oximetry 96 96 96 Oxygen Delivery Method Room Air Room Air Room Air 09/22/23 19:44 09/22/23 20:02 Temperature 98.2 F 98.2 F Pulse Rate 81 83 Respiratory Rate 19 16 Blood Pressure 128/70 132/68 Pulse Oximetry Oxygen Delivery Method BMI result Body Mass Index 28.4 Const Other: Appearance: Alert. Oriented X3. No acute distress. Eyes: Pupils equal, round and reactive to light. ENT: Pharynx normal. Neck: Normal inspection. Neck supple. No lymph nodes noted. No crepitus CVS: Normal heart rate and rhythm. Pulses normal. Normal S1 and S2 Respiratory: No respiratory distress. Breath sounds normal. No Wheezing. No rales Abdomen: Soft and nontender. No rigidity. No distention. Skin: Skin warm and dry. A bit pale skin color. Normal skin turgor. Extremities: No lower extremity edema. No Lacerations. No Rash Neuro: Oriented X 3. No motor deficit. No sensory deficit. Moving all extremities. No slurred speech. CN 2 through 12 grossly intact Psych: calm, cooperative, normal affect Course Course Course Narrative: -I discussed with the patient the risks versus benefits of a blood transfusion. patient states that she has had multiple blood transfusions in the past, patient is agreeable to a blood transfusion. Labs are pending Medications Administered Discontinued Medications Generic Name Dose Route Start Last Admin Trade Name Freq PRN Reason Stop Dose Admin Sodium Chloride 100 mls @ 100 mls/hr 09/22/23 18:54 09/22/23 19:49 Ns IV 09/22/23 19:53 100 mls/hr ONCE ONE Administration Medical Decision Making Medical Decision Making [facility] Narrative: -my interpretation of labs: Patient's hemoglobin is 7.4. Patient's baseline is around 9.4 approximately. I discussed with the patient that she will receive 2 units, patient agreeable, consent signed -patient receiving 2 units, patient is still on the 1st unit, tolerating well, asymptomatic -anticipating discharge back to her facility after the 2nd unit. -sign-out given to my colleague Dr. Cole Differential Diagnosis Differential Diagnoses: The differential diagnosis associated with the presentation includes (Iron deficiency anemia, chronic blood loss anemia) Lab Data 09/22/23 17:23 09/22/23 17:23 Labs: Lab Results 09/22/23 09/22/23 Range/Units 17:23 17:47 WBC 1.6 L (4.8-10.8) X10*3/uL RBC 2.66 L D (4.20-5.50) X10*6/uL Hgb 7.4 L (12.0-16.0) g/dl Hct 24.0 L D (37.0-47.0) % MCV 90.2 (80.0-98.0) fL MCH 27.8 (27.0-33.0) pg MCHC 30.8 L (31.0-35.0) g/dl RDW 25.2 H (11.0-16.0) % Plt Count 185 D (160-400) X10*3/uL MPV 8.8 L (9.4-12.3) fL Immature Gran % (Auto) 0.6 H (0.0-0.4) % Neut % (Auto) 56.7 (45-73) % Lymph % (Auto) 22.0 (20-40) % [place] % (Auto) 17.6 H (2-11) % Eos % (Auto) 2.5 (0-4) % Baso % (Auto) 0.6 (0-2) % Lymph # (Auto) 0.4 L (1.2-4.9) X10*3/uL [place] # (Auto) 0.3 (0.1-1.2) X10*3/uL Eos # (Auto) 0.0 (0.0-0.4) X10*3/uL Baso # (Auto) 0.0 (0.0-0.2) X10*3/uL Abs Immat Gran (auto) 0.01 (0.00-0.03) X10*3/uL Absolute Neuts (auto) 0.9 L (2.0-8.3) x10*3/uL Absolute Nucleated RBC 0.000 (0.0-0.012) X10*3/uL Nucleated RBC % (auto) 0.0 (0.0-0.2) /100WBC Smear Tech's Comments VERIFIED Sodium 133 L (135-145) mmol/L Potassium 4.3 (3.3-5.1) mmol/L Chloride 102 (96-108) mmol/L Carbon Dioxide 22 (22-29) mmol/L Anion Gap 13 (12-20) BUN 12 (9-16) mg/dL Creatinine 0.79 (0.5-1.4) mg/dL Estim Creat Clear Calc 92.7 Estimated GFR > 60 Random Glucose 94 (60-115) mg/dL Calcium 9.0 (8.4-10.2) mg/dL Total Bilirubin < 0.5 (0.0-1.0) mg/dL Direct Bilirubin 0.1 (0.0-0.5) mg/dL AST 30 (5-31) U/L ALT 17 (0-31) U/L Alkaline Phosphatase 56 (39-117) U/L Troponin I High Sens < 2.7 (<3.5-17.0) ng/L Total Protein 8.0 (6.5-8.0) g/dL Albumin 3.1 L (3.5-5.0) g/dL Blood Type O Positive Antibody Screen NEGATIVE Crossmatch See Detail Critical Care Time Critical Care Time Critical Care Time: Yes Total Critical Care Time: 60 Attestation: I have personally provided critical care time. Time includes review of lab data, radiology results, discussion with consultants, and monitoring for potential decompensation. Intervention performed as documented. Discharge Plan Discharge Clinical Impression: Anemia Patient Disposition: Home, Self-Care Instructions: Anemia (ED) Additional Instructions: Please follow-up with your primary care physician tomorrow. If you have any worsening or new symptoms, please return to the emergency room or call 911 Prescriptions: No Action clonazepam 0.5 mg Tablet 0.5 mg PO BEDTIME Rx Instructions: administer 30 minutes before bedtime acetaminophen 500 mg Tablet 1,000 mg PO Q6H PRN (Reason: Pain) duloxetine [Cymbalta] 20 mg Capsule,Delayed Release(Dr/Ec) 40 mg PO DAILY diclofenac sodium 1 % Gel 2 g TOPICAL BID PRN (Reason: Pain) Rx Instructions: apply to single elbow, wrist or hand; for hand includes palm/fingers/back of hand; max 36g in 24 hrs lidocaine 4 % Gel 1 appl TOPICAL TID PRN (Reason: Pain) Rx Instructions: Apply to rectum/groin. oxycodone [OxyContin] 10 mg Tablet,Oral Only,Ext.Rel.12 Hr 10 mg PO BID sennosides [senna] 8.6 mg Tablet 8.6 mg PO BEDTIME phenazopyridine [Pyridium] 200 mg Tablet 200 mg PO TID mineral oil-hydrophil petrolat Ointment 1 appl TOPICAL TID PRN (Reason: Dry Skin) cefuroxime axetil 500 mg tablet 500 mg PO Q12H Qty: 10 0RF polyethylene glycol 3350 17 gram Powder In Packet 17 g PO DAILY Qty: 30 0RF docusate sodium 100 mg Capsule 100 mg PO BID Qty: 60 0RF Rx Instructions: Hold for diarrhea oxycodone 5 mg Tablet 5 mg PO Q4H PRN (Reason: Pain, Moderate(Pain Scale 4-6)) Qty: 20 0RF Rx Instructions: Partial Fill upon patient request. trazodone 50 mg tablet 25 mg PO DAILY Qty: 14 0RF ferrous sulfate 324 mg (65 mg iron) tablet,delayed release (DR/EC) 324 mg PO BID Qty: 60 0RF Print Language: Tong[place]
[2023-09-22 17:30] LABS: Basophils Percent Auto 0.6 % (0-2); Eosinophils Percent Auto 2.5 % (0-4); Hemoglobin 7.4 g/dl (12.0-16.0); Imm Gran Abs Auto 0.01 X10*3/uL (0.00-0.03); Imm Gran Pct Auto 0.6 % (0.0-0.4); Lymphocytes Absolute Auto 0.4 X10*3/uL (1.2-4.9); MANUAL DIFF FLAG SCAN; Mean Corpuscular HGB Conc 30.8 g/dl (31.0-35.0); Mean Corpuscular Hemoglobin 27.8 pg (27.0-33.0); Mean Corpuscular Volume 90.2 fL (80.0-98.0); Mean Platelet Volume 8.8 fL (9.4-12.3); Monocytes Absolute Auto 0.3 X10*3/uL (0.1-1.2); Monocytes Percent Auto 17.6 % (2-11); Neutrophils Absolute Auto 0.9 x10*3/uL (2.0-8.3); Neutrophils Percent Auto 56.7 % (45-73); Platelet Count 185 X10*3/uL (160-400); Red Blood Count 2.66 X10*6/uL (4.20-5.50); Red Cell Distribution Width 25.2 % (11.0-16.0); SCAN SMEAR FLAG 1
[2023-09-22 17:37] LABS: White Blood Count 1.6 X10*3/uL (4.8-10.8)
[2023-09-22 17:51] LABS: Troponin-I High Sensitivity < 2.7 ng/L (<3.5-17.0)
[2023-09-22 17:52] LABS: Alanine Aminotransferase 17 U/L (0-31); Albumin Level 3.1 g/dL (3.5-5.0); Alkaline Phosphatase 56 U/L (39-117); Anion Gap 13 (12-20); Aspartate Amino Transferase 30 U/L (5-31); Bilirubin Direct 0.1 mg/dL (0.0-0.5); Bilirubin Total < 0.5 mg/dL (0.0-1.0); Blood Urea Nitrogen 12 mg/dL (9-16); Carbon Dioxide 22 mmol/L (22-29); Chloride 102 mmol/L (96-108); Creatinine Clr Calc Pharmacy 92.7; Estimated Glomerular Filt Rate > 60; Glucose Random 94 mg/dL (60-115); Potassium 4.3 mmol/L (3.3-5.1); Sodium 133 mmol/L (135-145)
[2023-09-22 17:54] LABS: SLIDE REVIEW VERIFIED
--- NOTE | 2023-09-22 18:21 | PC.NURSE ---
Colostomy noted to Left mid abd, stool dark/black, pt reports color normal for pt.
--- NOTE | 2023-09-22 19:18 | PC.NURSE ---
this rn assumed care of pt , pt a&ox4, respirations even and unlabored. no acute distress noted.
--- NOTE | 2023-09-22 19:49 | PC.NURSE ---
initial 15 minutes of blood transfusion begun, lung sounds clear bilaterally, no acute distress noted. pt denies pain and SOB.
--- NOTE | 2023-09-22 20:03 | PC.NURSE ---
initial 15 minutes complete, pt lung sounds clear, no acute distress noted. vss.
--- NOTE | 2023-09-22 22:52 | PC.NURSE ---
15 minutes begun on second unit of blood at this time, pt tolerating well. no acute distress noted. vss.
--- NOTE | 2023-09-22 23:06 | PC.NURSE ---
15 minutes completed, pt tolerating well. no acute distress noted.
[2023-09-22] MEDS: Acetaminophen 325 MG TABLET 975 MG PO (23:34)
--- NOTE | 2023-09-22 23:36 | PC.NURSE ---
pt medicated per mar, tolerated well with water.
[2023-09-23 01:50] VITALS: BP 142/91; PULSE 85; RESP 15; TEMP 36.9
--- NOTE | 2023-09-23 01:58 | PC.NURSE ---
report given to Nikole Rea at [facility].
[2023-09-23 02:00] VITALS: BP 142/91; PULSE 93; RESP 16; TEMP 36.8; O2SAT 96
--- NOTE | 2023-09-23 03:09 | PC.NURSE ---
ems at bedside for report and transport.
[2023-09-23 03:12] VITALS: BP 142/91; PULSE 93; RESP 16; TEMP 36.8; O2SAT 96
--- NOTE | 2023-09-23 15:56 | MHC.HEMONC ---
Telephone call from Nikkie Camarena from [facility] asking about antibiotic for pt. She states that pt was seen in ED, and they forgot to send her home with some important medication . They were questioning if it was Dr Padilla, but pt hasn't seen Dr Padilla, and has appointment next week. They will call her pcp.
== END 2023-09-23 03:12 | disposition skilled nursing facility (03) ==
PROVIDERS: Emergency Provider Emergency Medicine; PCP Hospitalist
DX: D64.9 Anemia, unspecified (principal); R11.2 Nausea with vomiting, unspecified; R53.1 Weakness; Z79.899 Other long term (current) drug therapy
CPT/HCPCS: 36415; 36430; 80048; 80076; 84484; 85025; 86850; 86900; 86901; 86923; 93005; 96360; 96361; 99285; P9016

== ENCOUNTER → 2023-09-22 16:52 | Outpatient (BNV) | payer MEDICAID, SELFPAY | PROVIDERS: Emergency Provider Emergency Medicine; PCP Hospitalist; Visit Provider Internal Medicine | DX: R53.1 Weakness (principal) | CPT/HCPCS: 93010 ==

== ENCOUNTER 2023-11-06 11:44 | Outpatient (AMB) | payer MEDICAID, SELFPAY ==
--- NOTE | 2023-11-06 11:47 | MHC.OFFVIS ---
Intake Visit Reasons: Stent Removal follow up Intake Note: Patient is present for STENT REMOVAL F/U Urology Medication:PYRIDIUM Antibiotic Allergy:NONE Blood Thinner:NONE Can Filling Room Sweeper Required: No Allergies egg Allergy (Verified 11/06/23 11:48) Swelling Iodinated Contrast Media [Contrast Dye] Allergy (Verified 11/06/23 11:48) Swelling peanut Allergy (Verified 11/06/23 11:48) Swelling shellfish derived Allergy (Verified 11/06/23 11:48) Swelling tomato Allergy (Verified 11/06/23 11:48) Swelling HPI Comments Details: 11/06/23-- pt following with oncology on chemotherapy. Certified conduit reamer operator utilized. Plan cystoscopy stent exchange. 06/23/23--53-year-old Yoruba-speaking female, certified conduit reamer operator present. She has a history of pancreatitis and partially treated hepatitis-C, who presented to emergency department on 06/22/23 with complaints of generalized abdominal pain and rectal bleeding x 1 month. Patient endorsing subjective fevers and chill and chest pain. Denies any vomiting. The patient is being evaluated by GI and colonoscopy is planned. I have discussed with her the CT findings that note left hydronephrosis. I discussed that etiology is unclear. Consent obtained for cystoscopy left retrograde left ureteral stent. CTAP:06/22/23--KIDNEYS AND URETERS: There is left-sided hydronephrosis and hydroureter extending up to a soft tissue density within the mid right ureter FOR[facility]LY [facility], [facility] Medical History Hydronephrosis, left Anal squamous cell carcinoma Shingles Migraines Hepatitis C Surgical History Colostomy in place History of exploratory laparotomy (06/26/23) Social History Household Members: Other Housing: Other Do you presently have visiting nurse or other home services: No (Pt comes from rehab facility. Prior rehab lives in apartment) Alcohol intake: never Patient Tobacco Use Status: Former Tobacco user Second Hand Smoke Exposure: No service: No Review of Systems Const All systems reviewed & are unremarkable except as noted in HPI and below Reports no additional complaints Eyes Reports no additional complaints ENT Reports no additional complaints Card Reports no additional complaints Resp Reports no additional complaints GI Reports no additional complaints Reports as per HPI Musc Reports no additional complaints Skin/Breast Reports system reviewed and no additional complaints, except as documented Neuro Reports no additional complaints Psych Reports no additional complaints Endo Reports no additional complaints Leodan/Lymph Reports no additional complaints Aller/Immun Reports no additional complaints Results AMB Urinalysis, Automated UA Leukoctes 15 Barney/uL Last Edit by JOSE Javier on 11/06/23 11:59 UA Nitrite Negative Last Edit by Stevo Benito [facility] on 11/06/23 11:59 UA Urobilinogen 0.2 mg/dL Last Edit by Stevo Benito [facility] on 11/06/23 11:59 UA Protein 100 mg/dL Last Edit by Stevo Benito [facility] on 11/06/23 11:59 UA pH 6.0 Last Edit by Stevo Benito [facility] on 11/06/23 11:59 UA Blood 200 Juan/uL Last Edit by Stevo Benito [facility] on 11/06/23 11:59 UA Specific Leona 1.015 Last Edit by Stevo Benito [facility] on 11/06/23 11:59 UA Ketone Negative Last Edit by Stevo Benito [facility] on 11/06/23 11:59 UA Bilirubin 0 mg/dL Last Edit by Stevo Benito [facility] on 11/06/23 11:59 UA Glucose 0 mg/dL Last Edit by Stevo Benito [facility] on 11/06/23 11:59 Results Reviewed Results Reviewed: Laboratory Last Values Urine pH (Auto) 6.0 11/06/23 11:58 Specific Leona (Auto) 1.015 11/06/23 11:58 Urine Protein (Auto) 100 mg/dL 11/06/23 11:58 Glucose (UA)(Auto) 0 mg/dL 11/06/23 11:58 Urine Ketones (Auto) Negative 11/06/23 11:58 Urine Blood (Auto) 200 Juan/uL 11/06/23 11:58 Urine Nitrite (Auto) Negative 11/06/23 11:58 Urine Bilirubin (Auto) 0 mg/dL 11/06/23 11:58 Urine Urobilinogen (Auto) 0.2 mg/dL 11/06/23 11:58 Leukocyte Esterase (Auto) 15 Barney/uL 11/06/23 11:58 Assessment & Plan Assessment & Plan (1) Rectal carcinoma: Code(s): C20 - Malignant neoplasm of rectum Category: Surgical (2) Rectal mass: Code(s): K62.89 - Other specified diseases of anus and rectum Category: Medical (3) Abdominal pain: Code(s): R10.9 - Unspecified abdominal pain Category: Medical Plan cystoscopy retrograde. Left stent exchange Coordinate with Yuko [phone] x [phone] Orders: Orders AMB Urinalysis Automated Today Z13.9 - Encounter for screening, unspecified Patient Instructions: The patient had an opportunity to ask questions regarding treatment plan. The patient expressed understanding and agreement with the above treatment plan. The patient is aware they should contact our office by phone for worsening of their current condition or the appearance of new symptoms. Compliance is encouraged with any medications and followup testing that is ordered. It is a privilege to be allowed the opportunity to participate in the urologic care of your patient. If you have any questions or concerns regarding treatment for the above conditions please do not hesitate to contact me. The office telephone contact is [phone]. This note is constructed in part using voice recognition software. While every effort has been made to ensure accuracy broadcast traffic coordinator errors may have been included. Yours sincerely, Russell Burgess MD Coding Level of Care Code Est Pt Level 4 (30750) Diagnoses Rectal carcinoma C20 Rectal mass K62.89 Abdominal pain R10.9
== END 2023-11-06 12:55 | disposition home or self-care (01) ==
LOC: HO.HUSH 11:44
PROVIDERS: PCP Internal Medicine; Visit Provider Urology
DX: C20 Malignant neoplasm of rectum (principal); K62.89 Other specified diseases of anus and rectum; R10.9 Unspecified abdominal pain; Z13.9 Encounter for screening, unspecified
CPT/HCPCS: 99214

== ENCOUNTER → 2023-11-06 11:44 | Outpatient (BNVA) | payer MEDICAID, SELFPAY | PROVIDERS: PCP Internal Medicine; Visit Provider Urology | DX: C20 Malignant neoplasm of rectum (principal); K62.89 Other specified diseases of anus and rectum; R10.9 Unspecified abdominal pain | CPT/HCPCS: 81003; 99212 ==

== ENCOUNTER 2023-11-25 11:22 | Day surgery (SDC) | payer MEDICAID, SELFPAY ==
--- NOTE | 2023-11-18 16:20 | MHC.HEMONCSW ---
This typewriter ribbon winder met with Lori along with nursery manager, at patient's request. Patient reported that she was [facility] Patient reported that the food is 'not nutritious and that she believes it is contributing to her low hemoglobin levels. Patient requested that this typewriter ribbon winder contact the facility and provide dietary guidelines for her to the facility. This typewriter ribbon winder informed patient that I would talk with our matcher operator and follow up with RD department at patient's facility.
--- NOTE | 2023-11-21 10:08 | HO.ANESPROP2 ---
Documented by User: Franci Rodriguez NP 11/24/23 14:04 HPI - Anesthesia Eval Consult details Narrative: 53yo F for Left Cystoscopy Retrograde with stent exchange [place] [facility] [place] for [place] Anorectal carcinoma (systemic therapy carboplatin and Taxol on 10/07/2023) Ostomy in situ Critical WBC/ANC 11/18/23. Per Dr Silva, pt to have repeat labs 11/24/23. Needs ANC > 1.[address] Burgess aware. Values increased, ok to proceed per Dr Silva. PMF Active Problems Active Problems: All Active Problems Neutropenia (Acute) Cystitis (Acute) Anemia (Acute) Anal squamous cell carcinoma (Acute) Postop check (Acute) Colostomy in place (Acute) Rectal mass (Acute) Abdominal pain (Acute) Hydronephrosis, left (Acute) Abnormal CT scan, gastrointestinal tract (Acute) Past Medical History Medical History History of sigmoidoscopy Anal squamous cell carcinoma Hydronephrosis, left Shingles Migraines Hepatitis C Family History Family history of problems with anesthesia: No Surgical History Surgical History H/O cystoscopy Tubal ligation status History of exploratory laparotomy (06/26/23) Colostomy in place History of Problems with Anesthesia: No Social History Social History Household Members: Other Housing: Other Are you a primary critical care unit manager to a significant other at home: No Do you presently have visiting nurse or other home services: No Alcohol intake: never Patient Tobacco Use Status: Former Tobacco user Tobacco use type: Cigarette Years Smoked: 5 Smoked in Last 30 Days: No Second Hand Smoke Exposure: No Use of substances other than those prescribed or required for medical reasons: No Have you been hit, kicked, punched, or otherwise hurt by someone within the past year? If so, by whom?: No Are you DNR?: No Advance Directives: No Advance Directives Information Provided: Yes Recently lost weight without trying: No How much weight loss: Not applicable Eating poorly because of decreased appetite: No Nutrition screen score: 0 Nutrition Risks: No Nutritional Risk Patient : No : No Poor oral hygiene: Yes (Loose teeth) service: No Meds Allergies Allergy/AdvReac Type Severity Reaction Status Date / Time egg Allergy Intermediate Swelling Verified 11/25/23 12:10 Iodinated Contrast Media Allergy Intermediate Swelling Verified 11/25/23 12:10 [Contrast Dye] onion Allergy Intermediate Swelling Verified 11/25/23 12:10 peanut Allergy Intermediate Swelling Verified 11/25/23 12:10 shellfish derived Allergy Intermediate Swelling Verified 11/25/23 12:10 tomato Allergy Intermediate Swelling Verified 11/25/23 12:10 Home Medications ?Medication ?Instructions ?Recorded ?Confirmed ?Last Taken ?Type acetaminophen 500 mg tablet 1,000 mg PO Q6H PRN Pain 09/03/23 11/25/23 Unknown History clonazepam 0.5 mg tablet 0.5 mg PO BEDTIME 09/03/23 11/25/23 Unknown History diclofenac sodium 1 % topical gel 2 g topical BID PRN Pain 09/03/23 11/25/23 Unknown History duloxetine 20 mg capsule,delayed 40 mg PO DAILY 09/03/23 11/25/23 Unknown History release (Cymbalta) lidocaine 4 % topical gel 1 appl topical TID PRN Pain 09/03/23 11/25/23 Unknown History oxycodone 10 mg tablet,crush 10 mg PO BID 09/03/23 11/25/23 Unknown History resistant,extended release 12 hr (OxyContin) sennosides 8.6 mg tablet (senna) 8.6 mg PO BEDTIME 09/03/23 11/25/23 Unknown History amlodipine 5 mg PO BEDTIME 11/25/23 11/25/23 Unknown History diphenhydramine HCl 25 mg PO Q6H PRN Allergic Reaction 11/25/23 11/25/23 Unknown History hydrochlorothiazide 12.5 mg PO DAILY 11/25/23 11/25/23 Unknown History meclizine 25 mg PO Q8H PRN Dizziness 11/25/23 11/25/23 Unknown History Exam Pertinent Lab Results Pertinent Lab Results: Laboratory Tests 11/18/23 08:58 Sodium 137 Potassium 4.3 D Chloride 102 Carbon Dioxide 28 BUN 12 Creatinine 0.72 Narrative Narrative: EKG 09/2023 Vent. Rate : 083 BPM Atrial Rate : 083 BPM P-R Int : 154 ms QRS Dur : 084 ms QT Int : 384 ms P-R-T Axes : 060 054 027 degrees QTc Int : 451 ms Normal sinus rhythm Normal ECG When compared with ECG of 03-SEP-2023 13:07, No significant change was found Assessment and Plan Assessment Anesthesia Assessment: Chart Reviewed Final Anesthetic Review Family History of Problems with Anesthesia: No History of Problems with Anesthesia: No Documented by User: Vanesa Walton MD 11/25/23 15:48 PMFSH Past Medical History Medical History History of sigmoidoscopy Anal squamous cell carcinoma Hydronephrosis, left Shingles Migraines Hepatitis C Surgical History Surgical History H/O cystoscopy Tubal ligation status History of exploratory laparotomy (06/26/23) Colostomy in place Social History Social History Household Members: Other Housing: Other Are you a primary critical care unit manager to a significant other at home: No Do you presently have visiting nurse or other home services: No Alcohol intake: never Patient Tobacco Use Status: Former Tobacco user Tobacco use type: Cigarette Years Smoked: 5 Smoked in Last 30 Days: No Second Hand Smoke Exposure: No Use of substances other than those prescribed or required for medical reasons: No Have you been hit, kicked, punched, or otherwise hurt by someone within the past year? If so, by whom?: No Are you DNR?: No Advance Directives: No Advance Directives Information Provided: Yes Recently lost weight without trying: No How much weight loss: Not applicable Eating poorly because of decreased appetite: No Nutrition screen score: 0 Nutrition Risks: No Nutritional Risk Patient : No : No Poor oral hygiene: Yes (Loose teeth) service: No Meds Allergies Allergy/AdvReac Type Severity Reaction Status Date / Time egg Allergy Intermediate Swelling Verified 11/25/23 12:10 Iodinated Contrast Media Allergy Intermediate Swelling Verified 11/25/23 12:10 [Contrast Dye] onion Allergy Intermediate Swelling Verified 11/25/23 12:10 peanut Allergy Intermediate Swelling Verified 11/25/23 12:10 shellfish derived Allergy Intermediate Swelling Verified 11/25/23 12:10 tomato Allergy Intermediate Swelling Verified 11/25/23 12:10 Home Medications ?Medication ?Instructions ?Recorded ?Confirmed ?Last Taken ?Type acetaminophen 500 mg tablet 1,000 mg PO Q6H PRN Pain 09/03/23 11/25/23 Unknown History clonazepam 0.5 mg tablet 0.5 mg PO BEDTIME 09/03/23 11/25/23 Unknown History diclofenac sodium 1 % topical gel 2 g topical BID PRN Pain 09/03/23 11/25/23 Unknown History duloxetine 20 mg capsule,delayed 40 mg PO DAILY 09/03/23 11/25/23 Unknown History release (Cymbalta) lidocaine 4 % topical gel 1 appl topical TID PRN Pain 09/03/23 11/25/23 Unknown History oxycodone 10 mg tablet,crush 10 mg PO BID 09/03/23 11/25/23 Unknown History resistant,extended release 12 hr (OxyContin) sennosides 8.6 mg tablet (senna) 8.6 mg PO BEDTIME 09/03/23 11/25/23 Unknown History amlodipine 5 mg PO BEDTIME 11/25/23 11/25/23 Unknown History diphenhydramine HCl 25 mg PO Q6H PRN Allergic Reaction 11/25/23 11/25/23 Unknown History hydrochlorothiazide 12.5 mg PO DAILY 11/25/23 11/25/23 Unknown History meclizine 25 mg PO Q8H PRN Dizziness 11/25/23 11/25/23 Unknown History Exam Airway Mallampati Class: III TM Dist: <=3cm Neck ROM: Limited Heart: rrr Lungs: cta Assessment and Plan Assessment Anesthesia Assessment: Anesthesia Plan Discussed Final Anesthetic Review NPO: Yes ASA Class: III Final Preanesthetic Review: No Changes in Pt Med Stat, Meds/Allgs Chart Reviewed, Consent Obtained/Reviewed and Anes Risks/Benef Reviewed Patient Risk: Intermediate Procedure Risk: Low Anesthetic Plan Anesthetic Plan: GA Disposition: Standard PACU
[2023-11-25 12:11] VITALS: BP 122/75; PULSE 93; RESP 16; TEMP 36.8; O2SAT 100; BMI 29.2
[2023-11-25] MEDS: Lactated Ringers 1,000 ML 100 ML IVCONT (13:14)
--- NOTE | 2023-11-25 15:32 | MHC.SHP ---
Pre-Procedural Eval Section A - 24 Hr Update-Section A only Date of Service: 11/25/23 The patient is an INPATIENT: No The patient has been examined within 24 hours of the surgical procedure. The History & Physical has been completed within 30 days and I have reviewed it.: Yes Section B - Complete if H&P > 30 days Chief Complaint: Unspecified hydronephrosis Allergies: Allergies Allergy/AdvReac Type Severity Reaction Status Date / Time egg Allergy Intermediate Swelling Verified 11/25/23 12:10 Iodinated Contrast Media Allergy Intermediate Swelling Verified 11/25/23 12:10 [Contrast Dye] onion Allergy Intermediate Swelling Verified 11/25/23 12:10 peanut Allergy Intermediate Swelling Verified 11/25/23 12:10 shellfish derived Allergy Intermediate Swelling Verified 11/25/23 12:10 tomato Allergy Intermediate Swelling Verified 11/25/23 12:10 Plan Diagnosis/Plan: Unchanged I have reviewed the history and physical and performed a pertinent physical examination on my patient. No changes have occurred unless specified. Cystoscopy left ureteral stent exchange versus removal. Time Spent With Patient Time: Total time managing care of this patient today ____ minutes.
--- NOTE | 2023-11-25 16:54 | P.OP_ITS ---
Operative Note Operative Note Date of Service: 11/25/23 Narrative: PreOperative Diagnosis:?? Left hdronephrosis, rectal cancer Post Operative Diagnosis:??Left hdronephrosis, rectal cancer Procedure: Cystoscopy, Left ureteral stent exchange, size 7 Somali by 24 cm Surgeon:?Dr Russell Burgess Anesthesia:? General Findings: Left ureteral narrowing mid/proximal ureter Procedure: After informed consent was verified the patient was brought to the operating [place] on the OR table in supine position.? General Anesthesia was administered per protocol.? The patient was placed in lithotomy position, prepped and draped in the usual sterile fashion.? Safety pause time-out and side of surgery confirmed.? Antibiotics confirmed. A 22 Somali cystoscope was inserted transurethrally, The bladder was visualized.? Both ureteric orifices were in normal position. The left ureteral stent was extended beyond the ureteral orifice curled in the bladder. (previous stent length 7fr x 26 cm) The distal end of the ureteral stent was grasped with the flexible grasping forceps. The stent was pulled retrograde through the urethra. The cystoscope was removed, a retrograde noted a stricture was noted in the mid ureter. The guide wire was passed beyond the stricture. A 7 Somali by 24 cm stent was placed into the ureter and renal pelvis under a combination of fluoroscopy and direct visualization. The bladder was emptied.? The rigid cystoscope was removed. ? The patient tolerated the procedure well and was brought to the recovery room in stable condition. Complications: None Drains: Ureteral stent as dictated above
[2023-11-25 16:58] VITALS: BP 131/55; PULSE 86; RESP 17; TEMP 36.6; O2SAT 99
[2023-11-25 17:03] VITALS: BP 131/72; PULSE 80; RESP 18; O2SAT 99
[2023-11-25 17:08] VITALS: BP 124/74; PULSE 81; RESP 18; O2SAT 99
[2023-11-25] MEDS: Phenazopyridine HCL 200 MG TABLET PO (17:09)
[2023-11-25 17:13] VITALS: BP 127/50; PULSE 81; RESP 18; O2SAT 99
[2023-11-25 17:28] VITALS: BP 122/61; PULSE 75; RESP 18; TEMP 36.3; O2SAT 100
== END 2023-11-25 17:37 | disposition home or self-care (01) ==
PROVIDERS: PCP Internal Medicine; Visit Provider Urology
PROC: 0TJB8ZZ Inspection of Bladder, Via Natural or Artificial Opening Endoscopic (ICD-10-PCS; CPT 52005; principal; 2023-11-25 13:50)
DX: N13.30 Unspecified hydronephrosis (principal); C20 Malignant neoplasm of rectum; K62.89 Other specified diseases of anus and rectum; R10.9 Unspecified abdominal pain; Z93.3 Colostomy status; B19.20 Unspecified viral hepatitis C without hepatic coma; Z91.041 Radiographic dye allergy status; Z91.012 Allergy to eggs; Z91.010 Allergy to peanuts; Z91.013 Allergy to seafood; Z87.891 Personal history of nicotine dependence; Z98.890 Other specified postprocedural states
CPT/HCPCS: 52332; 87086; J0690; J1100; J2371; J2405; J2704; J3010; Q9967

== ENCOUNTER → 2023-11-25 11:22 | Outpatient (BNV) | payer MEDICAID, SELFPAY | PROVIDERS: PCP Internal Medicine; Visit Provider Urology | DX: N13.30 Unspecified hydronephrosis (principal) | CPT/HCPCS: 52332 ==

== ENCOUNTER 2023-12-22 15:21 | Outpatient (AMB) | payer MEDICAID, SELFPAY ==
--- NOTE | 2023-12-22 15:24 | MHC.OFFVIS ---
Intake Visit Reasons: Cysto retrograde, stent- follow up Intake Note: Patient is present for CYSTO RETROGRADE, STENT F/U Urology Medication:PYRIDIUM Antibiotic Allergy:NONE Blood Thinner:NONE Network Relations Consultant Required: Yes Network Relations Consultant Name: Pura--[id number] Information Interpreted: non-clinical & clinical Allergies egg Allergy (Intermediate, Verified 01/16/24 14:53) Swelling Iodinated Contrast Media [Contrast Dye] Allergy (Intermediate, Verified 01/16/24 14:53) Swelling onion Allergy (Intermediate, Verified 01/16/24 14:53) Swelling peanut Allergy (Intermediate, Verified 01/16/24 14:53) Swelling shellfish derived Allergy (Intermediate, Verified 01/16/24 14:53) Swelling tomato Allergy (Intermediate, Verified 01/16/24 14:53) Swelling HPI Comments Details: 12/22/23--53-year-old Armenian-speaking female, 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 She has a history of pancreatitis and partially treated hepatitis-C, diagnosed with rectal cancer, followed by oncology. s/p left ureteral stent. will change stent in 4 months. Review of chart: 11/06/23-- pt following with oncology on chemotherapy. Certified computer programming manager utilized. Plan cystoscopy stent exchange. 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 She has a history of pancreatitis and partially treated hepatitis-C, who presented to emergency department on 06/22/23 with complaints of generalized abdominal pain and rectal bleeding x 1 month. Patient endorsing subjective fevers and chill and chest pain. Denies any vomiting. The patient is being evaluated by GI and colonoscopy is planned. I have discussed with her the CT findings that note left hydronephrosis. I discussed that etiology is unclear. Consent obtained for cystoscopy left retrograde left ureteral stent. CTAP:06/22/23--KIDNEYS AND URETERS: There is left-sided hydronephrosis and hydroureter extending up to a soft tissue density within the mid right ureter [facility] Medical History History of sigmoidoscopy Anal squamous cell carcinoma Hydronephrosis, left Shingles Migraines Hepatitis C Surgical History H/O cystoscopy Tubal ligation status History of exploratory laparotomy (06/26/23) Colostomy in place Social History Household Members: Other Housing: Other Are you a primary farm or ranch animal caretaker to a significant other at home: No Do you presently have visiting nurse or other home services: No Alcohol intake: never Patient Tobacco Use Status: Former Tobacco user Tobacco use type: Cigarette Years Smoked: 5 Smoked in Last 30 Days: No Second Hand Smoke Exposure: No Use of substances other than those prescribed or required for medical reasons: No Advance Directives: Yes Advance Directives on File: Yes Advance Directives Date on File: 07/04/23 Do you have a plan to hurt others: No Plan service: No Review of Systems Const All systems reviewed & are unremarkable except as noted in HPI and below Reports no additional complaints Eyes Reports no additional complaints ENT Reports no additional complaints Card Reports no additional complaints Resp Reports no additional complaints GI Reports no additional complaints Reports as per HPI Musc Reports no additional complaints Skin/Breast Reports system reviewed and no additional complaints, except as documented Neuro Reports no additional complaints Psych Reports no additional complaints Endo Reports no additional complaints Leodan/Lymph Reports no additional complaints Aller/Immun Reports no additional complaints Results AMB Urinalysis, Automated UA Leukoctes 70 Barney/uL Last Edit by JOSE Javier on 12/22/23 15:34 UA Nitrite Negative Last Edit by JOSE Javier on 12/22/23 15:34 UA Urobilinogen 0.2 mg/dL Last Edit by JOSE Javier on 12/22/23 15:34 UA Protein 30 mg/dL Last Edit by JOSE Javier on 12/22/23 15:34 UA pH 6.0 Last Edit by JOSE Javier on 12/22/23 15:34 UA Blood 10 Juan/uL Last Edit by JOSE Javier on 12/22/23 15:34 UA Specific [place] 1.015 Last Edit by JOSE Javier on 12/22/23 15:34 UA Ketone Negative Last Edit by JOSE Javier on 12/22/23 15:34 UA Bilirubin 0 mg/dL Last Edit by JOSE Javier on 12/22/23 15:34 UA Glucose 0 mg/dL Last Edit by JOSE Javier on 12/22/23 15:34 Results Reviewed Results Reviewed: Laboratory Last Values Urine pH (Auto) 6.0 12/22/23 15:33 Specific [place] (Auto) 1.015 12/22/23 15:33 Urine Protein (Auto) 30 mg/dL 12/22/23 15:33 Glucose (UA)(Auto) 0 mg/dL 12/22/23 15:33 Urine Ketones (Auto) Negative 12/22/23 15:33 Urine Blood (Auto) 10 Juan/uL 12/22/23 15:33 Urine Nitrite (Auto) Negative 12/22/23 15:33 Urine Bilirubin (Auto) 0 mg/dL 12/22/23 15:33 Urine Urobilinogen (Auto) 0.2 mg/dL 12/22/23 15:33 Leukocyte Esterase (Auto) 70 Barney/uL 12/22/23 15:33 Assessment & Plan Assessment & Plan (1) Rectal carcinoma: Code(s): C20 - Malignant neoplasm of rectum Category: Surgical (2) Rectal mass: Code(s): K62.89 - Other specified diseases of anus and rectum Category: Medical (3) Hydronephrosis, left: Code(s): N13.30 - Unspecified hydronephrosis Category: Medical Plan cystoscopy retrograde. Continue Left stent exchange. FU 4 months Coordinate with [place] [phone] Orders: Orders AMB Urinalysis Automated 12/22/23 Z13.9 - Encounter for screening, unspecified Patient Instructions: The patient had an opportunity to ask questions regarding treatment plan. The patient expressed understanding and agreement with the above treatment plan. The patient is aware they should contact our office by phone for worsening of their current condition or the appearance of new symptoms. Compliance is encouraged with any medications and followup testing that is ordered. It is a privilege to be allowed the opportunity to participate in the urologic care of your patient. If you have any questions or concerns regarding treatment for the above conditions please do not hesitate to contact me. The office telephone contact is [phone]. This note is constructed in part using voice recognition software. While every effort has been made to ensure accuracy quote clerk errors may have been included. Yours sincerely, Russell Burgess MD Coding Level of Care Code Est Pt Level 4 (34400) Diagnoses Rectal carcinoma C20 Rectal mass K62.89 Hydronephrosis, left N13.30
== END 2023-12-22 16:24 | disposition home or self-care (01) ==
PROVIDERS: PCP Internal Medicine; Visit Provider Urology
DX: C20 Malignant neoplasm of rectum (principal); K62.89 Other specified diseases of anus and rectum; N13.30 Unspecified hydronephrosis
CPT/HCPCS: 99214

== ENCOUNTER → 2023-12-22 15:21 | Outpatient (BNVA) | payer MEDICAID, SELFPAY | PROVIDERS: PCP Internal Medicine; Visit Provider Urology | DX: C21.0 Malignant neoplasm of anus, unspecified (principal); Z96.0 Presence of urogenital implants | CPT/HCPCS: 81003; 99212 ==

== ENCOUNTER 2023-12-24 12:07 | Day surgery (SDC) | payer MEDICAID, SELFPAY ==
--- NOTE | ~2023-12-24 | IR_ITS ---
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 The patient presents to interventional radiology for placement of a port for chemotherapy. PROCEDURES: 1. Real-time ultrasound-guided access into the right internal jugular vein after documentation of selected vessel patency, and permanent image storing in the patient records. 2. Placement of a 6.6 [place] single-lumen power port. CLINICIAN: Manjit Tolbert PA-C MEDICATIONS: -Versed 2 mg, Fentanyl 100 mcg, Lidocaine 1% 10 mL SQ -Antibiotics: Ancef 2g -For additional details, please see nursing flowsheet. Complications: None. Estimated blood loss: <5 ml Specimens: None. Contrast: None. Fluoroscopy time: 2.0 min MODERATE SEDATION TIME: 30 min PROCEDURE NOTE: The procedure, risks, benefits, and alternatives were carefully explained to the patient and written informed consent was obtained. The patient was placed supine on the fluoroscopy table. A timeout was performed. The right neck and chest was prepped and draped in usual sterile fashion. Maximum barrier technique was utilized. Local anesthesia was administered to the access site with 1% lidocaine. Under ultrasound guidance, the right internal jugular vein was accessed with a 5 fr micropuncture set. A 0.035 in wire was advanced into the IVC. A peel-away sheath was advanced over the wire and into the SVC, and the wire was removed. Next, subcutaneous lidocaine was administered to the chest. The port pocket was created after the skin incision, utilizing blunt dissection. Using blunt dissection, a subcutaneous tunnel was created that connects from the port pocket to the venotomy site. Through the peel-away sheath, the 6.6 [place] port catheter was placed. The catheter position was verified with fluoroscopy to be at the cavoatrial unction. The port was connected to the catheter and was placed in the pocket. The venotomy site was closed with a 3-0 Vicryl subcutaneous suture. The port incision site was closed with interrupted 3-0 Vicryl subcutaneous sutures and surgical glue. Prior to closing the skin, 1 g of Ancef solution was placed in the pocket. The port was tested, flushed, and packed with heparin per routine protocol. The patient tolerated the procedure well. The patient was stable after the procedure and was transferred to the PACU. The procedure was performed under moderate sedation and with a dedicated nurse with continuous monitoring of vital signs. A permanent image of the ultrasound the neck and fluoroscopic image of the chest was saved and sent to PACS. FINDINGS: 1. Patent right internal jugular vein 2. Placement of a 6.6 [place] single lumen power port. 3. Port flushes and aspirates very well with a 10 mL syringe. No pneumothorax. IR/IR cvc insert tunnel w prt/medical insurance coding specialist IMPRESSION: Placement of a 6.6 [place] single-lumen power port. PLAN: - The patient will be discharged home when stable by sedation protocol. - Port may be used immediately. This procedure was performed by Manjit Tolbert PA-C, and directly supervised by Dr. Cee Electronically signed by: Mario Cee MD 12/24/2023 04:06 PM EDT
[2023-12-24 13:00] VITALS: BMI 30.4
[2023-12-24 13:02] VITALS: BP 134/84; PULSE 76; RESP 18; TEMP 36.6; O2SAT 96
--- NOTE | 2023-12-24 13:07 | MHC.SHP ---
Pre-Procedural Eval Section A - 24 Hr Update-Section A only Date of Service: 12/24/23 Section B - Complete if H&P > 30 days Chief Complaint: neoplasm of anus service chemo date 12/23/23 Details of Present Illness: 53 y/o female with SCC of the asus and poor iv access Relevant Family History (Specify if Yes): No Relevant Social History: None Present Medications: see Short Stay Collaborative assessment Medical History: Significant History History of Previous Operations: Relevant previous surgery/procedure and date(s) Allergies: Allergies Allergy/AdvReac Type Severity Reaction Status Date / Time egg Allergy Intermediate Swelling Verified 12/22/23 15:25 Iodinated Contrast Media Allergy Intermediate Swelling Verified 12/22/23 15:25 [Contrast Dye] onion Allergy Intermediate Swelling Verified 12/22/23 15:25 peanut Allergy Intermediate Swelling Verified 12/22/23 15:25 shellfish derived Allergy Intermediate Swelling Verified 12/22/23 15:25 tomato Allergy Intermediate Swelling Verified 12/22/23 15:25 Review of Systems Sugical H&P ROS: Negative: Constitution, Respiratory and Integumentary and Yes, Specify: Cardiovascular (poor venous access) Exam Surgical H&P Exam: Normal: Heart, Normal: Lungs, Normal: Skin and Normal: Neurological Plan 53 y/o female with SCC of the anus and poor iv access -Port Time Spent With Patient Time: Total time managing care of this patient today ____ minutes.
[2023-12-24 13:59] LABS: Glucose, Whole Blood 86 mg/dL (60-115)
[2023-12-24 14:30] VITALS: BP 114/73; PULSE 91; RESP 16; TEMP 36.3; O2SAT 94
[2023-12-24 14:45] VITALS: BP 122/77; PULSE 87; RESP 16; TEMP 36.7; O2SAT 94
== END 2023-12-24 15:04 | disposition home or self-care (01) ==
PROVIDERS: Radiology Vascular & Interventional Radiology; PCP Internal Medicine; Visit Provider Internal Medicine
DX: Z45.2 Encounter for adjustment and management of vascular access device (principal); C21.0 Malignant neoplasm of anus, unspecified
CPT/HCPCS: 36561; 82947; 99152; 99153; C1769; C1788; J0131; J0690; J1642; J1644; J2003; J2250; J2310; J3010

== ENCOUNTER → 2023-12-24 13:16 | Outpatient (BNV) | payer MEDICAID, SELFPAY | PROVIDERS: PCP Internal Medicine; Visit Provider Radiology Diagnostic Radiology | DX: C21.0 Malignant neoplasm of anus, unspecified (principal) | CPT/HCPCS: 36561; 76937 ==

== ENCOUNTER 2024-01-16 14:22 | Emergency (ER) | payer MEDICAID, SELFPAY ==
[2024-01-16 14:30] VITALS: BP 160/99; PULSE 90; O2SAT 97
[2024-01-16 14:50] VITALS: BP 107/69; PULSE 94; RESP 20; TEMP 36.7; O2SAT 95; BMI 33.9
[2024-01-16 14:54] VITALS: BP 107/69; PULSE 94; RESP 20; TEMP 36.7; O2SAT 95
[2024-01-16 15:21] LABS: Hematocrit 25.9 % (37.0-47.0); Hemoglobin 8.4 g/dl (12.0-16.0); Mean Corpuscular HGB Conc 32.4 g/dl (31.0-35.0); Mean Corpuscular Hemoglobin 32.4 pg (27.0-33.0); Mean Platelet Volume 10.2 fL (9.4-12.3); PLT CLUMP 1; Red Blood Count 2.59 X10*6/uL (4.20-5.50); Red Cell Distribution Width 17.2 % (11.0-16.0)
[2024-01-16 15:44] LABS: Alanine Aminotransferase 34 U/L (0-31); Albumin Level 2.9 g/dL (3.5-5.0); Alkaline Phosphatase 78 U/L (39-117); Anion Gap 13 (12-20); Bilirubin Total 0.3 mg/dL (0.0-1.0); Blood Urea Nitrogen 12 mg/dL (9-16); Calcium 8.9 mg/dL (8.4-10.2); Carbon Dioxide 21 mmol/L (22-29); Chloride 107 mmol/L (96-108); Creatinine Clr Calc Pharmacy 102.4; Estimated Glomerular Filt Rate > 60; Glucose Random 113 mg/dL (60-115); Potassium 4.1 mmol/L (3.3-5.1); Sodium 137 mmol/L (135-145); Total Protein 6.1 g/dL (6.5-8.0)
--- NOTE | 2024-01-16 15:52 | ED.RECABL ---
HPI - Recheck/Abnormal Lab/Rx General Chief Complaint: Recheck/Abnormal Lab/Rx Stated Complaint: FROM SNF, LOW WBC PER EMS Time Seen by Provider: 01/16/24 15:49 Source: patient and RN notes reviewed Mode of arrival: EMS Limitations: no limitations History of Present Illness ED Provider: karishma BASS narrative: Patient is 53 years old with past medical history hepatitis-C diagnose with metastatic anorectal carcinoma completed palliative radiotherapy now on systemic therapy with carboplatin and Taxol interrupted interruptions in treatment because of neutropenia was seen on 01/12 by oncologist at that time WBC count was 700 today WBC count of 800 with neutrophil count of 500 no fever per record Related Data Home Medications ?Medication ?Instructions ?Recorded ?Confirmed acetaminophen 500 mg tablet 1,000 mg PO Q6H PRN Pain 09/03/23 11/25/23 clonazepam 0.5 mg tablet 0.5 mg PO BEDTIME 09/03/23 11/25/23 diclofenac sodium 1 % topical gel 2 g topical BID PRN Pain 09/03/23 11/25/23 duloxetine 20 mg capsule,delayed 40 mg PO DAILY 09/03/23 11/25/23 release (Cymbalta) lidocaine 4 % topical gel 1 appl topical TID PRN Pain 09/03/23 11/25/23 oxycodone 10 mg tablet,crush 10 mg PO BID 09/03/23 11/25/23 resistant,extended release 12 hr (OxyContin) sennosides 8.6 mg tablet (senna) 8.6 mg PO BEDTIME 09/03/23 11/25/23 amlodipine 5 mg PO BEDTIME 11/25/23 11/25/23 diphenhydramine HCl 25 mg PO Q6H PRN Allergic Reaction 11/25/23 11/25/23 hydrochlorothiazide 12.5 mg PO DAILY 11/25/23 11/25/23 meclizine 25 mg PO Q8H PRN Dizziness 11/25/23 11/25/23 Previous Rx's ?Medication ?Instructions ?Recorded docusate sodium 100 mg capsule 100 mg PO BID #60 caps 07/03/23 ferrous sulfate 324 mg (65 mg 324 mg PO BID #60 tabs 07/03/23 iron) tablet,delayed release oxycodone 5 mg tablet 5 mg PO Q4H PRN Pain, 05/02/24 Moderate(Pain Scale 4-6) #20 tabs polyethylene glycol 3350 17 gram 17 g PO DAILY #30 ea 07/03/23 oral powder packet trazodone 50 mg tablet 25 mg (1/2 x 50 mg) PO DAILY #14 07/03/23 tabs white petrolatum 41 % topical 1 appl topical 6XD #200 grams 09/29/23 ointment (Aquaphor Healing) loperamide 2 mg capsule (Imodium 2 mg PO Q4H PRN Diarrhea #30 caps 09/30/23 A-D) ondansetron 8 mg disintegrating 8 mg PO Q8H PRN Nausea And 09/30/23 tablet Vomiting #30 tabs phenazopyridine 200 mg tablet 200 mg PO BID #10 tabs 11/25/23 (Pyridium) Allergies Allergy/AdvReac Type Severity Reaction Status Date / Time egg Allergy Intermediate Swelling Verified 01/16/24 14:53 Iodinated Contrast Media Allergy Intermediate Swelling Verified 01/16/24 14:53 [Contrast Dye] onion Allergy Intermediate Swelling Verified 01/16/24 14:53 peanut Allergy Intermediate Swelling Verified 01/16/24 14:53 shellfish derived Allergy Intermediate Swelling Verified 01/16/24 14:53 tomato Allergy Intermediate Swelling Verified 01/16/24 14:53 Review of Systems Review of Systems: Yes all other systems are reviewed and are negative PMFSH Past Medical History Medical History History of sigmoidoscopy Anal squamous cell carcinoma Hydronephrosis, left Shingles Migraines Hepatitis C Surgical History H/O cystoscopy Tubal ligation status History of exploratory laparotomy (06/26/23) Colostomy in place Social History Social History Household Members: Other Housing: Other Are you a primary caregivers non medical to a significant other at home: No Do you presently have visiting nurse or other home services: No Alcohol intake: never Patient Tobacco Use Status: Former Tobacco user Tobacco use type: Cigarette Years Smoked: 5 Smoked in Last 30 Days: No Second Hand Smoke Exposure: No Use of substances other than those prescribed or required for medical reasons: No Advance Directives: Yes Advance Directives on File: Yes Advance Directives Date on File: 07/04/23 Do you have a plan to hurt others: No Plan service: No Physical Exam Vital Signs: Vital Signs: Last Vital Signs Temp 98.0 F 01/16/24 19:10 Pulse 85 01/16/24 19:10 Resp 16 01/16/24 19:10 BP 106/70 01/16/24 19:10 Pulse Ox 98 01/16/24 19:10 O2 Del Method Room Air 01/16/24 19:10 BMI result Body Mass Index 33.9 Appearance: Alert. Oriented X3. No acute distress. Eyes: No pallor ENT: Pharynx normal. Oral Mucosa moist Neck: Normal inspection. Neck supple. CVS: Normal heart rate and rhythm. Pulses normal. Respiratory: No respiratory distress. Equal air entry bilateral, no wheezing/rales/rhonchi Abdomen: Soft and nontender. Bowel sounds are present, no mass palpable, no CVA tenderness Skin: Skin warm and dry. Normal skin color. Normal skin turgor. Extremities: No lower extremity edema. No calf tenderness Neuro: Oriented X 3. No motor deficit. Medications Administered Discontinued Medications Generic Name Dose Route Start Last Admin Trade Name Freq PRN Reason Stop Dose Admin Tbo-Filgrastim 300 mcg 01/16/24 16:08 01/16/24 16:39 Tbo-Filgrastim 300 Mcg/0.5 Ml Syringe SUBCUT 01/16/24 16:09 300 mcg ONCE ONE Administration Medical Decision Making Medical Decision Making [facility] Narrative: Patient has chemotherapy-induced leukopenia no fever no signs of sepsis case discussed Dr. Padilla advised to give Neupogen and sent her back to [facility] neutropenic precautions Lab Data [facility] Lab Attestation statement: I reviewed the patient's lab results. 01/16/24 15:06 01/16/24 15:06 Labs: Lab Results 01/16/24 Range/Units 15:06 WBC 0.8 L* (4.8-10.8) X10*3/uL RBC 2.59 L (4.20-5.50) X10*6/uL Hgb 8.4 L (12.0-16.0) g/dl Hct 25.9 L (37.0-47.0) % MCV 100.0 H (80.0-98.0) fL MCH 32.4 (27.0-33.0) pg MCHC 32.4 (31.0-35.0) g/dl RDW 17.2 H (11.0-16.0) % Plt Count 136 L D (160-400) X10*3/uL MPV 10.2 (9.4-12.3) fL Immature Gran % (Auto) Cancelled Neut % (Auto) Cancelled Lymph % (Auto) Cancelled [place]ward % (Auto) Cancelled Eos % (Auto) Cancelled Baso % (Auto) Cancelled Lymph # (Auto) Cancelled [place] # (Auto) Cancelled Eos # (Auto) Cancelled Baso # (Auto) Cancelled Abs Immat Gran (auto) Cancelled Absolute Neuts (auto) Cancelled Absolute Nucleated RBC 0.020 H (0.0-0.012) X10*3/uL Nucleated RBC % (auto) 2.5 H (0.0-0.2) /100WBC Neutrophils % (Manual) 53 (45-73) % Band Neutrophils % 5 (3-5) % Lymphocytes % (Manual) 28 (20-40) % Monocytes % (Manual) 12 H (2-11) % Eosinophils % (Manual) 2 (0-4) % Abs Neuts (Manual) 0.5 L (2.0-8.3) X10*3/uL Lymphocytes # (Manual) 0.2 L (1.2-4.9) X10*3/uL Monocytes # (Manual) 0.1 (0.1-1.2) X10*3/uL Platelet Estimate SLIGHTLY DECREASED (NORMAL) Plt Morphology Comment NORMAL RBC Morphology NOTED Polychromasia 1+ (0-2) /OIF Ovalocytes 1+ (5-14) /OIF Sodium 137 (135-145) mmol/L Potassium 4.1 (3.3-5.1) mmol/L Chloride 107 (96-108) mmol/L Carbon Dioxide 21 L (22-29) mmol/L Anion Gap 13 (12-20) BUN 12 (9-16) mg/dL Creatinine 0.68 (0.5-1.4) mg/dL Estim Creat Clear Calc 102.4 Estimated GFR > 60 Random Glucose 113 (60-115) mg/dL Calcium 8.9 (8.4-10.2) mg/dL Total Bilirubin 0.3 (0.0-1.0) mg/dL AST 38 H (5-31) U/L ALT 34 H (0-31) U/L Alkaline Phosphatase 78 (39-117) U/L Total Protein 6.1 L (6.5-8.0) g/dL Albumin 2.9 L (3.5-5.0) g/dL Discharge Plan Discharge Clinical Impression: Neutropenia Patient Disposition: Xfer [facility] Transfer Details: Patient has neutropenia and Neupogen was given in ER. Neutropenic precautions as advised, report to the ER if fever Instructions: Neutropenia (ED) Additional Instructions: Care and cautions as adv Report to the ER if fever Prescriptions: No Action clonazepam 0.5 mg Tablet 0.5 mg PO BEDTIME Rx Instructions: administer 30 minutes before bedtime acetaminophen 500 mg Tablet 1,000 mg PO Q6H PRN (Reason: Pain) duloxetine [Cymbalta] 20 mg Capsule,Delayed Release(Dr/Ec) 40 mg PO DAILY diclofenac sodium 1 % Gel 2 g TOPICAL BID PRN (Reason: Pain) Rx Instructions: apply to single elbow, wrist or hand; for hand includes palm/fingers/back of hand; max 36g in 24 hrs lidocaine 4 % Gel 1 appl TOPICAL TID PRN (Reason: Pain) Rx Instructions: Apply to rectum/groin. oxycodone [OxyContin] 10 mg Tablet,Oral Only,Ext.Rel.12 Hr 10 mg PO BID sennosides [senna] 8.6 mg Tablet 8.6 mg PO BEDTIME amlodipine 2.5 mg 5 mg PO BEDTIME diphenhydramine HCl 25 mg 25 mg PO Q6H PRN (Reason: Allergic Reaction) hydrochlorothiazide 12.5 mg 12.5 mg PO DAILY meclizine 25 mg 25 mg PO Q8H PRN (Reason: Dizziness) phenazopyridine [Pyridium] 200 mg tablet 200 mg PO BID Qty: 10 0RF Rx Instructions: take with food polyethylene glycol 3350 17 gram Powder In Packet 17 g PO DAILY Qty: 30 0RF docusate sodium 100 mg Capsule 100 mg PO BID Qty: 60 0RF Rx Instructions: Hold for diarrhea oxycodone 5 mg Tablet 5 mg PO Q4H PRN (Reason: Pain, Moderate(Pain Scale 4-6)) Qty: 20 0RF Rx Instructions: Partial Fill upon patient request. trazodone 50 mg tablet 25 mg PO DAILY Qty: 14 0RF ferrous sulfate 324 mg (65 mg iron) tablet,delayed release (DR/EC) 324 mg PO BID Qty: 60 0RF Aquaphor Healing 41 % Ointment 1 appl TOPICAL 6XD Qty: 200 3RF loperamide [Imodium A-D] 2 mg Capsule 2 mg PO Q4H PRN (Reason: Diarrhea) Qty: 30 3RF Rx Instructions: administer after each loose stool until symptoms controlled; do not exceed 8 mg per 24 hrs ondansetron 8 mg Tablet,Disintegrating 8 mg PO Q8H PRN (Reason: Nausea And Vomiting) Qty: 30 3RF Interventions: ED Discharge Assessment Last Done: 01/16/24 19:10 Discharge Date/Time: 01/16/24 19:12 Print Language: Hebrew
[2024-01-16 15:55] LABS: NRBC Pct Auto 2.5 /100WBC (0.0-0.2)
[2024-01-16 15:59] LABS: White Blood Count 0.8 X10*3/uL (4.8-10.8)
[2024-01-16 16:02] LABS: Aspartate Amino Transferase 38 U/L (5-31)
[2024-01-16 16:10] VITALS: BP 104/69; PULSE 87; RESP 17; O2SAT 98
[2024-01-16] MEDS: Tbo-Filgrastim 300 MCG/0.5 ML SYRINGE SUBCUT (16:39)
[2024-01-16 17:15] LABS: Band Neutrophils Percent 5 % (3-5); Eosinophils Percent Manual 2 % (0-4); Lymphocytes Absolute Manual 0.2 X10*3/uL (1.2-4.9); Lymphocytes Percent Manual 28 % (20-40); Monocytes Absolute Manual 0.1 X10*3/uL (0.1-1.2); Monocytes Percent Manual 12 % (2-11); Neutrophils Absolute Manual 0.5 X10*3/uL (2.0-8.3); Neutrophils Percent Manual 53 % (45-73)
[2024-01-16 17:17] LABS: Ovalocytes 1+ (5-14) /OIF; Polychromasia 1+ (0-2) /OIF; RBC Morphology NOTED
[2024-01-16 17:19] LABS: Platelet Estimate SLIGHTLY DECREASED (NORMAL); Platelet Morphology Comment NORMAL
[2024-01-16 17:20] LABS: Platelet Count 136 X10*3/uL (160-400)
[2024-01-16 17:50] VITALS: BP 106/70; PULSE 85; RESP 16; O2SAT 98
[2024-01-16 19:10] VITALS: BP 106/70; PULSE 85; RESP 16; TEMP 36.7; O2SAT 98
== END 2024-01-16 19:12 | disposition skilled nursing facility (03) ==
PROVIDERS: Emergency Provider Internal Medicine; PCP Internal Medicine
DX: D70.9 Neutropenia, unspecified (principal); C21.0 Malignant neoplasm of anus, unspecified; K62.5 Hemorrhage of anus and rectum; R10.9 Unspecified abdominal pain; B19.20 Unspecified viral hepatitis C without hepatic coma; Z79.60 Long term (current) use of unspecified immunomodulators and immunosuppressants; Z79.899 Other long term (current) drug therapy
CPT/HCPCS: 36415; 80053; 85007; 85027; 96372; 99284; J1447

== ENCOUNTER 2024-01-27 10:05 | Outpatient (REF) | payer MEDICAID, SELFPAY ==
--- NOTE | ~2024-01-27 | US_ITS ---
EXAMINATION: US TRIPLEX LOWER EXTREMITY, RIGHT CLINICAL INFORMATION: Right leg swelling. COMPARISON: None available. TECHNIQUE: Color-flow triplex imaging with spectral analysis and compression Doppler were performed on the right lower extremity. FINDINGS: Respiratory variation, normal compression and augmented flow are noted throughout the right lower extremity. The visualized common femoral vein, superficial femoral vein, profunda femoral vein, popliteal vein and midcalf peroneal and posterior tibial venous segments show no evidence of deep venous thrombosis. There is no Matthews's cyst. 1.4 x 1.3 x 1.4 cm and 1.2 x 1.1 x 1.1 cm abnormal lymph nodes in the right inguinal region. US/US venous duplex LE RT IMPRESSION: 1. No evidence of deep venous thrombosis involving the right lower extremity. 2. 1.4 x 1.3 x 1.4 cm and 1.2 x 1.1 x 1.1 cm abnormal lymph nodes in the right inguinal region. This study was presented to me on January 27, 2024 for interpretation. PSA staff will provide results to referring provider at this time. Electronically signed by: Samia Campoverde MD 01/27/2024 12:01 PM [facility]
== END 2024-01-27 10:06 | disposition home or self-care (01) ==
LOC: HO.US 10:05
PROVIDERS: Visit Provider Internal Medicine
DX: R60.9 Edema, unspecified (principal)
CPT/HCPCS: 93971

== ENCOUNTER 2024-04-02 11:54 | Emergency (ER) | payer MEDICAID, SELFPAY ==
--- NOTE | ~2024-04-02 | XR_ITS ---
EXAMINATION: XR CHEST CLINICAL INFORMATION: cough COMPARISON: 09/03/2023. TECHNIQUE: Frontal view of the chest was obtained. FINDINGS: Right chest port in place, with tip extending into the distal SVC. The cardiac, hilar, and mediastinal contours are normal. The lungs are clear bilaterally. There is no pneumothorax or effusion. No acute soft tissue or bone abnormality. There are mild degenerative changes in the shoulder joints and spine. XR/XR chest 1V IMPRESSION: 1. Chest port in good position. 2. No active pulmonary disease. Electronically signed by: Mario Cee MD 04/02/2024 01:30 PM [facility]
[2024-04-02 12:01] VITALS: BP 124/90; PULSE 99; O2SAT 96
[2024-04-02 12:17] VITALS: BP 128/71; PULSE 91; RESP 18; TEMP 37.4; O2SAT 98; BMI 31.6
--- NOTE | 2024-04-02 12:22 | ED_ITS ---
HPI - Weakness General Chief complaint: General Medical Stated complaint: FEELING UNWELL,CHEMO PATIENT PER EMS Source: patient, EMS and old records reviewed Mode of arrival: EMS Limitations: other (poor historian) History of Present Illness ED Provider: AMADOR HPI Narrative: 53 yo female with PMH of anemia, neutropenia, Hep C, metastatic squamous cell anorectal carcinoma s/p colostomy and on palliative chemo here with c/o sinus congestion, chills, sore throat, cough, dysuria she also tells me she hates rehab and her room does not have heat (our case briefer is aware). She reports last chemo was 3 days ago and states she was sick the day before. She also notes in rehab everyone is sick. MD Complaint: generalized weakness Onset (ago): day(s) (few) Duration: constant Location: generalized Migration: none Severity: moderate Relieving factors: movement Exacerbating factors: none Context: recent illness Associated symptoms: fever/chills, loss of appetite, nausea/vomiting, myalgias and shortness of breath Related Data Home Medications ?Medication ?Instructions ?Recorded ?Confirmed acetaminophen 500 mg tablet 1,000 mg PO Q6H PRN Pain 09/03/23 03/01/24 clonazepam 0.5 mg tablet 0.5 mg PO BEDTIME 09/03/23 03/01/24 diclofenac sodium 1 % topical gel 2 g topical BID PRN Pain 09/03/23 03/01/24 duloxetine 20 mg capsule,delayed 40 mg PO DAILY 09/03/23 03/01/24 release (Cymbalta) lidocaine 4 % topical gel 1 appl topical TID PRN Pain 09/03/23 03/01/24 oxycodone 10 mg tablet,crush 10 mg PO BID 09/03/23 03/01/24 resistant,extended release 12 hr (OxyContin) sennosides 8.6 mg tablet (senna) 8.6 mg PO BEDTIME 09/03/23 03/01/24 amlodipine 2.5 mg PO BEDTIME 11/25/23 03/01/24 diphenhydramine HCl 25 mg PO Q6H PRN Allergic Reaction 11/25/23 03/01/24 hydrochlorothiazide 12.5 mg PO DAILY 11/25/23 03/01/24 meclizine 25 mg PO Q8H PRN Dizziness 11/25/23 03/01/24 Previous Rx's ?Medication ?Instructions ?Recorded docusate sodium 100 mg capsule 100 mg PO BID #60 caps 07/03/23 ferrous sulfate 324 mg (65 mg 324 mg PO BID #60 tabs 07/03/23 iron) tablet,delayed release oxycodone 5 mg tablet 5 mg PO Q4H PRN Pain, 07/03/23 Moderate(Pain Scale 4-6) #20 tabs polyethylene glycol 3350 17 gram 17 g PO DAILY #30 ea 07/03/23 oral powder packet trazodone 50 mg tablet 25 mg (1/2 x 50 mg) PO DAILY #14 07/03/23 tabs white petrolatum 41 % topical 1 appl topical 6XD #200 grams 09/29/23 ointment (Aquaphor Healing) loperamide 2 mg capsule (Imodium 2 mg PO Q4H PRN Diarrhea #30 caps 09/30/23 A-D) ondansetron 8 mg disintegrating 8 mg PO Q8H PRN Nausea And 09/30/23 tablet Vomiting #30 tabs cefuroxime axetil 500 mg tablet 500 mg PO BID 7 days #14 tabs 04/02/24 Allergies Allergy/AdvReac Type Severity Reaction Status Date / Time egg Allergy Intermediate Swelling Verified 04/02/24 12:20 Iodinated Contrast Media Allergy Intermediate Swelling Verified 04/02/24 12:20 [Contrast Dye] onion Allergy Intermediate Swelling Verified 04/02/24 12:20 peanut Allergy Intermediate Swelling Verified 04/02/24 12:20 shellfish derived Allergy Intermediate Swelling Verified 04/02/24 12:20 tomato Allergy Intermediate Swelling Verified 04/02/24 12:20 Review of Systems 2 Review of Systems: Constitutional : No Fever, pos Chills ENT/Mouth : No Hoarseness, pos sore throat, pos Rhinorrhea Eyes: No Redness, No Discharge, No Vision Changes Cardiovascular : No Chest Pain, no SOB Respiratory : positive Cough, No Sputum, positive Wheezing, Gastrointestinal : No Nausea, No Vomiting, No Diarrhea, No abdominal Pain Genitourinary : pos Dysuria, No Hematuria Musculoskeletal : No joint pain, No Myalgias Skin : No rash Neuro : pos Weakness, No Numbness, No Headache Psych : No anxiety, depression All other systems reviewed and are negative [facility] Past Medical History Attestation statement: The following information was validated with the patient. Source: old records reviewed Medical History History of sigmoidoscopy Anal squamous cell carcinoma Hydronephrosis, left Shingles Migraines Hepatitis C Surgical History H/O cystoscopy Tubal ligation status History of exploratory laparotomy (06/26/23) Colostomy in place Social History Social History Household Members: Other Housing: Other Are you a primary child care supervisor to a significant other at home: No Do you presently have visiting nurse or other home services: No Alcohol intake: never Patient Tobacco Use Status: Former Tobacco user Tobacco use type: Cigarette Years Smoked: 5 Second Hand Smoke Exposure: No Advance Directives Date on File: 07/04/23 Do you have a plan to hurt others: No Plan service: No Physical Exam 2 Vital Signs: Vital Signs: Last Vital Signs Temp 99.3 F 04/02/24 12:17 Pulse 91 04/02/24 12:17 Resp 18 04/02/24 12:17 BP 128/71 04/02/24 12:17 Pulse Ox 98 04/02/24 12:17 O2 Del Method Room Air 04/02/24 12:17 BMI result Body Mass Index 31.6 Appearance: Alert. Oriented X3. No acute distress. Eyes: Pupils equal, round and reactive to light. ENT: Pharynx normal. no swelling/exudates/no redness nasal congestion, discharge noted, mild bilateral max ttp Neck: Normal inspection. Neck supple. CVS: Normal heart rate and rhythm. Pulses normal. Respiratory: No respiratory distress. Breath sounds normal. Abdomen: Soft and nontender. ostomy p/p/p Skin: Skin warm and dry. Normal skin color. Extremities: No lower extremity edema. Neuro: Oriented X 3. No motor deficit. No sensory deficit. CN2-12 intact Medications Administered Discontinued Medications Generic Name Dose Route Start Last Admin Trade Name Freq PRN Reason Stop Dose Admin Acetaminophen 650 mg 04/02/24 12:16 04/02/24 13:21 Acetaminophen 325 Mg Tablet PO 04/02/24 12:17 650 mg ONCE ONE Administration Cefepime HCl 2 gm in 50 mls @ 100 mls/hr 04/02/24 12:44 04/02/24 13:53 Maxipime IV 04/02/24 13:13 100 mls/hr ONCE ONE Administration Medical Decision Making Medical Decision Making [facility] Narrative: 53 yo female with PMH of anemia, neutropenia, Hep C, metastatic squamous cell anorectal carcinoma s/p colostomy and on palliative chemo last session 3 days ago now here with cough, URI, dysuria and states she is at rehab and everyone there is sick. At this time given her symptoms will obtain labs, viral panel, UA, CXR. Could also be neutropenic empiric cefepime ordered. Differential Diagnosis Differential Diagnoses: The differential diagnosis associated with the presentation includes viral syndrome, neutropenia, UTI Admission/Observation Consideration of admission/observation: Escalation of care including admission/observation considered no sig abnormalities was given IV abx VS stable can DC home Lab Data [facility] Lab Attestation statement: I reviewed the patient's lab results. 04/02/24 13:00 04/02/24 13:00 Labs: Lab Results 04/02/24 04/02/24 Range/Units 13:00 13:01 WBC 4.8 (4.8-10.8) X10*3/uL RBC 3.23 L (4.20-5.50) X10*6/uL Hgb 10.6 L (12.0-16.0) g/dl Hct 32.1 L (37.0-47.0) % MCV 99.4 H (80.0-98.0) fL MCH 32.8 (27.0-33.0) pg MCHC 33.0 (31.0-35.0) g/dl RDW 15.5 (11.0-16.0) % Plt Count 173 D (160-400) X10*3/uL MPV 9.3 L (9.4-12.3) fL Immature Gran % (Auto) 0.4 (0.0-0.4) % Neut % (Auto) 89.9 H (45-73) % Lymph % (Auto) 7.6 L (20-40) % Starke % (Auto) 1.5 L (2-11) % Eos % (Auto) 0.2 (0-4) % Baso % (Auto) 0.4 (0-2) % Lymph # (Auto) 0.4 L (1.2-4.9) X10*3/uL Starke # (Auto) 0.1 (0.1-1.2) X10*3/uL Eos # (Auto) 0.0 (0.0-0.4) X10*3/uL Baso # (Auto) 0.0 (0.0-0.2) X10*3/uL Abs Immat Gran (auto) 0.02 (0.00-0.03) X10*3/uL Absolute Neuts (auto) 4.3 (2.0-8.3) x10*3/uL Absolute Nucleated RBC 0.000 (0.0-0.012) X10*3/uL Nucleated RBC % (auto) 0.0 (0.0-0.2) /100WBC Sodium 136 (135-145) mmol/L Potassium 4.1 (3.3-5.1) mmol/L Chloride 105 (96-108) mmol/L Carbon Dioxide 24 (22-29) mmol/L Anion Gap 11 L (12-20) BUN 16 (9-16) mg/dL Creatinine 0.62 (0.5-1.4) mg/dL Estim Creat Clear Calc 112.5 Estimated GFR > 60 Random Glucose 87 (60-115) mg/dL Lactic Acid 0.9 (0.5-2.0) mmol/L Calcium 8.8 D (8.4-10.2) mg/dL Magnesium 2.2 (1.6-2.6) mg/dL Total Bilirubin 0.3 (0.0-1.0) mg/dL Direct Bilirubin 0.1 (0.0-0.5) mg/dL AST 71 H (5-31) U/L ALT 41 H (0-31) U/L Alkaline Phosphatase 72 (39-117) U/L Troponin I High Sens < 2.7 (<3.5-17.0) ng/L C-Reactive Protein 3.15 H (< or = 0.50) mg/dL Total Protein 6.6 (6.5-8.0) g/dL Albumin 2.9 L (3.5-5.0) g/dL Lipase 8 (8-78) U/L Urine Color Yellow Urine Appearance Clear Urine pH 7.5 (5.0-9.0) Ur Specific [place] 1.020 (1.005-1.025) Urine Protein 30 (1+) H (Neg-Trace) mg/dL Urine Glucose (UA) Negative (Negative) mg/dL Urine Ketones Negative (Negative) mg/dL Urine Blood Small (1+) H (Negative) Urine Nitrite Negative (Negative) Ur Leukocyte Esterase Trace H (Negative) Urine RBC 6-10 H (0-2) /HPF Urine WBC 6-10 (0-5) /HPF Ur Squamous Epith Cells 3-5 (0-2) /HPF Urine Bacteria None Seen (None Seen) Hyaline Casts 0-2 (0-2) /LPF Influenza Type A (PCR) NEGATIVE (Negative) Influenza Type B (PCR) NEGATIVE (Negative) RSV RNA Qual (PCR) NEGATIVE (Negative) SARS-CoV-2 RNA (RT-PCR) NEGATIVE (Negative) Independent Interpretation I performed an independent interpretation of an: Plain X-Ray Radiology Impression Discussion of test interpretation with radiology: I have reviewed the radiologist's reading. Independent Historian Clinical information obtained from an independent historian. History obtained from or confirmed by: EMS External Record Review External record reviewed: Inpatient record and Outpatient record Prescription Management I considered prescription management with: Antibiotic Discharge Plan Discharge Clinical Impression: Sinusitis Qualifiers: Sinusitis location: maxillary Chronicity: acute Recurrence: non-recurrent Q ualified Code(s): J01.00 - Acute maxillary sinusitis, unspecified Patient Disposition: Home, Self-Care Instructions: Sinusitis (ED) Additional Instructions: return for any worsening symptoms or concerns chest xray normal WBC count 4.8, hemoglobin 10.6, hematocrit 32.1 negative for covid, flu, rsv urine negative would start on ceftin 500mg BID for 7 days - was given IV dose of antibiotics Prescriptions: New cefuroxime axetil 500 mg tablet 500 mg PO BID 7 Days Qty: 14 0RF No Action clonazepam 0.5 mg Tablet 0.5 mg PO BEDTIME Rx Instructions: administer 30 minutes before bedtime acetaminophen 500 mg Tablet 1,000 mg PO Q6H PRN (Reason: Pain) duloxetine [Cymbalta] 20 mg Capsule,Delayed Release(Dr/Ec) 40 mg PO DAILY diclofenac sodium 1 % Gel 2 g TOPICAL BID PRN (Reason: Pain) Rx Instructions: apply to single elbow, wrist or hand; for hand includes palm/fingers/back of hand; max 36g in 24 hrs lidocaine 4 % Gel 1 appl TOPICAL TID PRN (Reason: Pain) Rx Instructions: Apply to rectum/groin. oxycodone [OxyContin] 10 mg Tablet,Oral Only,Ext.Rel.12 Hr 10 mg PO BID sennosides [senna] 8.6 mg Tablet 8.6 mg PO BEDTIME amlodipine 2.5 mg 2.5 mg PO BEDTIME diphenhydramine HCl 25 mg 25 mg PO Q6H PRN (Reason: Allergic Reaction) hydrochlorothiazide 12.5 mg 12.5 mg PO DAILY meclizine 25 mg 25 mg PO Q8H PRN (Reason: Dizziness) polyethylene glycol 3350 17 gram Powder In Packet 17 g PO DAILY Qty: 30 0RF docusate sodium 100 mg Capsule 100 mg PO BID Qty: 60 0RF Rx Instructions: Hold for diarrhea oxycodone 5 mg Tablet 5 mg PO Q4H PRN (Reason: Pain, Moderate(Pain Scale 4-6)) Qty: 20 0RF Rx Instructions: Partial Fill upon patient request. trazodone 50 mg tablet 25 mg PO DAILY Qty: 14 0RF ferrous sulfate 324 mg (65 mg iron) tablet,delayed release (DR/EC) 324 mg PO BID Qty: 60 0RF Aquaphor Healing 41 % Ointment 1 appl TOPICAL 6XD Qty: 200 3RF loperamide [Imodium A-D] 2 mg Capsule 2 mg PO Q4H PRN (Reason: Diarrhea) Qty: 30 3RF Rx Instructions: administer after each loose stool until symptoms controlled; do not exceed 8 mg per 24 hrs ondansetron 8 mg Tablet,Disintegrating 8 mg PO Q8H PRN (Reason: Nausea And Vomiting) Qty: 30 3RF Print Language: Turkmen
--- NOTE | 2024-04-02 13:06 | PC.NURSE ---
per previous documentation, patient has power port. accessed at this time, labs obtained and sent. moved to ED 13 for potential neutropenic precautions.
[2024-04-02 13:12] LABS: MANUAL DIFF FLAG NO
[2024-04-02 13:14] LABS: Basophils Percent Auto 0.4 % (0-2); Eosinophils Percent Auto 0.2 % (0-4); Hematocrit 32.1 % (37.0-47.0); Hemoglobin 10.6 g/dl (12.0-16.0); Imm Gran Abs Auto 0.02 X10*3/uL (0.00-0.03); Imm Gran Pct Auto 0.4 % (0.0-0.4); Lymphocytes Absolute Auto 0.4 X10*3/uL (1.2-4.9); Lymphocytes Percent Auto 7.6 % (20-40); Mean Corpuscular Hemoglobin 32.8 pg (27.0-33.0); Mean Corpuscular Volume 99.4 fL (80.0-98.0); Mean Platelet Volume 9.3 fL (9.4-12.3); Monocytes Absolute Auto 0.1 X10*3/uL (0.1-1.2); Monocytes Percent Auto 1.5 % (2-11); Neutrophils Absolute Auto 4.3 x10*3/uL (2.0-8.3); Neutrophils Percent Auto 89.9 % (45-73); Platelet Count 173 X10*3/uL (160-400); Red Blood Count 3.23 X10*6/uL (4.20-5.50); Red Cell Distribution Width 15.5 % (11.0-16.0); White Blood Count 4.8 X10*3/uL (4.8-10.8)
[2024-04-02 13:15] LABS: Appearance Urine Clear; Color Urine Yellow; Glucose Urine UA Negative (Negative); Leukocyte Esterase Urine Trace (Negative); Nitrite Urine Negative (Negative); PH 7.5 (5.0-9.0); UMIC TRIGGER UACC YES; Urine Blood Small (1+) (Negative); Urine Ketones Negative (Negative); Urine Protein 30 (1+) mg/dL (Neg-Trace)
[2024-04-02] MEDS: Acetaminophen 325 MG TABLET 650 MG PO (13:21)
[2024-04-02 13:28] LABS: Alanine Aminotransferase 41 U/L (0-31); Albumin Level 2.9 g/dL (3.5-5.0); Alkaline Phosphatase 72 U/L (39-117); Anion Gap 11 (12-20); Aspartate Amino Transferase 71 U/L (5-31); Bilirubin Direct 0.1 mg/dL (0.0-0.5); Bilirubin Total 0.3 mg/dL (0.0-1.0); Blood Urea Nitrogen 16 mg/dL (9-16); C Reactive Protein 3.15 mg/dL (< or = 0.50); Calcium 8.8 mg/dL (8.4-10.2); Carbon Dioxide 24 mmol/L (22-29); Chloride 105 mmol/L (96-108); Creatinine Clr Calc Pharmacy 112.5; Estimated Glomerular Filt Rate > 60; Glucose Random 87 mg/dL (60-115); Lipase 8 U/L (8-78); Magnesium 2.2 mg/dL (1.6-2.6); Potassium 4.1 mmol/L (3.3-5.1); Sodium 136 mmol/L (135-145); Total Protein 6.6 g/dL (6.5-8.0)
[2024-04-02 13:29] LABS: Lactic Acid 0.9 mmol/L (0.5-2.0)
[2024-04-02 13:29] LABS: Bacteria Urine None Seen (None Seen); Hyaline Casts Urine 0-2 /LPF (0-2); UACC Culture Trigger YES
[2024-04-02 13:41] LABS: Troponin-I High Sensitivity < 2.7 ng/L (<3.5-17.0)
[2024-04-02 13:50] LABS: Influenza A PCR NEGATIVE (Negative); Influenza B PCR NEGATIVE (Negative); Resp Syncy Virus RNA Qual PCR NEGATIVE (Negative); SARS COV2 PCR INHOUSE NEGATIVE (Negative)
[2024-04-02] MEDS: cefEPime HCl/D5W 2 GM/50 ML PIGGYBACK IV (13:53)
--- OUTSIDE RECORDS SUMMARY | 2024-04-02 14:31 | XMS_ITS | Clinical Summary ---
Author Organization [facility] Address [address] [place] [address] Care Team Providers Care Key Cutter Name Role Phone Paula Cuenca MD Primary Care Provider [phone] Source Comments PLEASE NOTE, if this patient is a minor, it may be UNLAWFUL to discuss sensitive information that is contained in these records (such as FAMILY PLANNING, MENTAL HEALTH or SUBSTANCE ABUSE) with the minor patient's parent or other person without the patient's specific authorization.[facility] Medications polyethylene glycol, PEG, 3350 (GLYCOLAX) 17 gram/dose powderIndications :Constipation, unspecified constipation type Take 17 g by mouth once daily 507 g 4 Active hydrocortisone (PROCTOCORT) 1 % rectal creamIndications: External bleeding hemorrhoids Place rectally 2 (two) times daily 28 g 4 Active Active Problems Problem Noted Date Diagnosed Date 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 05/09/2023 Hepatitis C virus infection without hepatic coma 04/24/2023 Overview (04/24/2023): Sexual transmission through children's father Denied prior treatment or monitoring Anxiety and depression 04/24/2023 Paranoid schizophrenia ([facility]) 04/24/2023 Overview (04/24/2023): Seeing Psych On Seroquel 200mg PO QHS, Restoril 30mg PO QHS, Klonopin 0.5mg BID Immunizations Name Administration Dates Next Due Hep B,adult,adjuvanted (HEPLISAV) 05/08/2023 Family History Medical History Relation Name Comments Seizures Mother Stroke Mother Relation Name Status Comments Brother Mother Alive Social History Tobacco Use Types Packs/Day Years Used Date Smoking Tobacco: Former Cigarettes Smokeless Tobacco: Never Tobacco Cessation:Counseling Given: Not Answered Alcohol Use Standard Drinks/Week Comments Never 0 (1 standard drink = 0.6 oz pur e alcohol) Social Connections Answer Date Recorded Connectedness 0 11/16/2023 Financial Resource Strain Answer Date R ecorded Financial Resource Strain 0 2022 Stress Answer Date Recorded Stress 0 01/16/2023 Physical Activity Answer Date Recorded Physical Activity 0 01/16/2023 Food Insecurity Answer Date Recorded Food 0 11/27/2023 Transportation Needs Answer Date Record ed Transportation 0 01/16/2023 Housing Stability Answer Date Recorded Housing 0 01/16/2023 Safety and Environment Answer Date Herman rded Safety 0 01/16/2023 Utilities Answer Date Recorded Utilities 0 01/16/2023 Employment Answer Date Recorded Stress 0 11/16/2023 Comments No Sex and Gender Information Value Date Recorded Sex Assigned at Female 04/24/2023 11:35 AM PST Legal Sex Female 11:20 AM PDT Gender Identity Female 04/24/2023 11:35 AM PST Sexual Orientation Straight 04/24/2023 11 :35 AM PST Last Filed Vital Signs Vital Sign Reading Time Taken Comments Blood Pressure 144/92 05/22/2023 11:00 AM EDT Pulse 96 05/22/2023 11:00 AM EDT Temperature 36.3 ??C (97.3 ??F) 05/22/2023 11:00 AM E DT Respiratory Rate 18 05/22/2023 11:00 AM EDT Oxygen Saturation 97% 04/24/2023 2:09 PM EST Inhaled Oxygen Concentration - - Weight 91.6 kg (202 lb) 05/22/2023 11:00 AM EDT Height 161 cm (5' 3.39 ) 04/24/2023 2:09 PM EST Body Mass Index 35.35 04/24/2023 2:09 PM EST Plan of Treatment Health Maintenance Due Date Last Done Comments HPV Screening 1969 Pap + HPV 1969 Medicare Annual Wellness Visit 1987 Imm-DTaP/Tdap/Td (1 - Tdap) 1988 Cervical Cancer Screening 1990 Pap Smear 1990 Breast Cancer Screening (Mammogram) 2009 CT Colonography 2014 Colonoscopy 2014 Colorectal Cancer Screening 2014 FIT/gFOBT 2014 Fecal DNA 2014 Flexible Sigmoidoscopy 2014 Imm-Zoster, Recombinant (1 of 2) 2019 Imm-Hepatitis B (2 of 2 - Cp G 2-dose series) 06/05/2023 05/08/2023 Depression Monitoring 07/23/2023 04/24/2023 Nti-BFXEU-18 ( season) 2023 Imm-Influenza (#1) 2023 Alcohol and Drug Screen 03/03/2024 04/24/2023 Tobacco Screening 04/24/2024 04/24/2023 Hypertension Screening (#1) 05/21/2024 Diabetes Screening 04/24/2026 04/24/2023, 04/24/2023 Lipid Screening 04/24/2026 04/24/2023 HIV Screening Completed 04/24/2023 Cervical Ablation/Cold-Knife Conization Discontinued Cervical Cryotherapy Discontinued Colposcopy Discontinued Endometrial Biopsy Discontinued Excision/Leep Discontinued HPV Genotyping Discontinued Vaginal Pap Discontinued Vulvoscopy Discontinued Procedures Procedure Name Priority Date/Time Associated Diagnosis Comments HIV 1/2 AG & AB W/RFLX (4TH GEN) Routine 04/24/2023 2:42 PM EST Routine general medical examination at a health care facility COMPREHENSIVE METABOLIC PANEL Routine 04/24/2023 2:42 PM EST Routine general medical examination at a health care facility LIPID PANEL Routine 04/24/2023 2:42 PM EST Routine general medical examination at a health care facility from Last 3 Months or Most Recently Relevant to Health Maintenance Results * HIV 1/2 AG & AB W/RFLX (4TH GEN) (04/24/2023 2:42 PM EST) Pathologist [facility] HIV AG/AB, 4TH GEN NON-REAC TIVE NON-REAC TIVE [facility] Comment: HIV-1 antigen and HIV-1/HIV-2 antibodies were not detected. There is no laboratory evidence of HIV infection. PLEASE NOTE: This information has been disclosed to you from records whose confidentiality may be protected by state law. ??If your state requires such protection, then the state law prohibits you from making any further disclosure of the information without the specific written consent of the person to whom it pertains, or as otherwise permitted by law. A general authorization for the release of medical or other information is NOT sufficient for this purpose. ?? For additional information please refer to http://Sidelines.ParkAround/faq/LGD736 (This link is being provided for informational/ educational purposes only.) The performance of this assay has not been clinically validated in patients less than 2 years old. Blood Blood / Unknown 04/24/2023 2 :42 PM EST 04/24/2023 2:51 PM EST Narrative [facility] - 04/26/2023 2:33 PM EST FASTING:NO Paula Cuenca MD LAB - BLOOD DRAW Final Result [facility] [address] [place] [id number], [facility] [address] [address] * (ABNORMAL) LIPID PANEL (04/24/2023 2:42 PM EST) CHOLESTEROL, TOTAL 136 <200 mg/dL [facility] HDL CHOLESTEROL 39(L) > OR = 50 mg/dL [facility] TRIGLYCERIDES 184(H) <150 mg/dL [facility] LDL-CHOLESTEROL 71 99 mg/dL (calc) [facility] Comment: Reference range: <100 Desirable range <100 mg/dL for primary prevention; ?? <70 mg/dL for patients with CHD or diabetic patients with > or = 2 CHD risk factors. LDL-C is now calculated using the Harpreet calculation, which is a validated novel method providing better accuracy than the Friedewald equation in the estimation of LDL-C. Adonay BLACKWELL et al. RASHEEDA. 2013;310(19): 8185-9064 (http://education.IO Turbine.Bottle/faq/OOQ033) CHOL/HDLC RATIO 3.5 <5.0 (calc) [facility] NON-HDL CHOLESTEROL 97 <130 mg/dL (calc) [facility] Comment: For patients with diabetes plus 1 major ASCVD risk factor, treating to a non-HDL-C goal of <100 mg/dL (LDL-C of <70 mg/dL) is considered a therapeutic option. Blood Blood / Unknown 04/24/2023 2 :42 PM EST 04/24/2023 2:51 PM EST Narrative [facility] - 04/26/2023 2:33 PM EST FASTING:NO Paula Cuenca MD LAB - BLOOD DRAW Final Result [facility] [address] [address], [facility] [address] [address] * COMPREHENSIVE METABOLIC PANEL (04/24/2023 2:42 PM EST) GLUCOSE 104 65 - 139 mg/dL [facility] Comment: ?Non-fasting reference interval UREA NITROGEN (BUN) 13 7 - 25 mg/dL [facility] CREATININE (blood) 0.64 0.50 - 1.03 mg/dL [facility] EGFR 105 > OR = 60 mL/min/1. 73m2 [facility] BUN/CREATININE RATIO SEE NOTE: [facility] Comment: ?? Not Reported: BUN and Creatinine are within ?? reference range. ? SODIUM 137 135 - 146 mmol/L [facility] POTASSIUM 4.3 3.5 - 5.3 mmol/L [facility] CHLORIDE 105 98 - 110 mmol/L [facility] CARBON DIOXIDE 25 20 - 32 mmol/L [facility] CALCIUM 9.5 8.6 - 10.4 mg/dL [facility] PROTEIN, TOTAL 7.7 6.1 - 8.1 g/dL [facility] ALBUMIN 4.0 3.6 - 5.1 g/dL [facility] GLOBULIN 3.7 1.9 - 3.7 g/dL (calc) [facility] ALBUMIN/GLOBULI N RATIO 1.1 1.0 - 2.5 (calc) [facility] BILIRUBIN, TOTAL 0.3 0.2 - 1.2 mg/dL [facility] ALKALINE PHOSPHATASE 86 37 - 153 U/L [facility] AST 28 10 - 35 U/L [facility] ALT 22 6 - 29 U/L [facility] Blood Blood / Unknown 04/24/2023 2 :42 PM EST 04/24/2023 2:51 PM EST Narrative [facility] - 04/26/2023 2:33 PM EST FASTING:NO Paula Cuenca MD LAB - BLOOD DRAW Edited Result - Final [facility] [address] [address], [facility] [address] [place] [address] from Last 3 Months or Most Recently Relevant to Health Maintenance Insurance [facility] Member Subscriber Plan / Payer (Ef fective 2022-Present) Name:Chiki Mary Relation to Subscriber:Self Name:Lori Monet C Payer ID:[id number] Group ID:Not on file Type:Medicaid Address: [address] [facility] [place] [address] [employer] Member Subscriber Plan / Payer (Ef fective 2023-Present) Name:Lori Monet C Relation to Subscriber:Self Name:Lori Monet Payer ID:[id number] Group ID:Not on file Type:Medicare Address: [address] [address] [place] [address] Care Teams Key Cutter Relationship Specialty Start Date End Date Paula Cuenca MD [address] [place] [address] PCP - General Family Medicine, Physician 01/16/23
[2024-04-02 14:48] VITALS: BP 126/89; PULSE 88; RESP 18; TEMP 37.2; O2SAT 98
[2024-04-02 14:49] VITALS: BP 126/89; PULSE 88; RESP 18; TEMP 37.2; O2SAT 98
--- NOTE | 2024-04-02 16:24 | PC.NURSE ---
Pt's port accessed by another RN on arrival; i inch Villeda needle in place; this RN flushed port per protocol and de-accessed device; port flushed easily; pt tolerated well; bandaid in place; pt awaiting EMS to return to SNF; RN reached at SNF and report given
== END 2024-04-02 17:15 | disposition home or self-care (01) ==
PROVIDERS: Emergency Provider Emergency Medicine
DX: J01.00 Acute maxillary sinusitis, unspecified (principal); R50.9 Fever, unspecified; R11.2 Nausea with vomiting, unspecified; M79.10 Myalgia, unspecified site; R06.02 Shortness of breath; R05.9 Cough, unspecified; Z79.899 Other long term (current) drug therapy; Z87.891 Personal history of nicotine dependence; Z03.818 Encounter for observation for suspected exposure to other biological agents ruled out
CPT/HCPCS: 0241U; 36415; 71045; 80048; 80076; 81001; 83605; 83690; 83735; 84484; 85025; 86140; 87040; 87086; 96365; 99284; J0692

== ENCOUNTER → 2024-04-02 12:16 | Outpatient (BNV) | payer MEDICAID, SELFPAY | PROVIDERS: Emergency Provider Emergency Medicine; Visit Provider Radiology Diagnostic Radiology | DX: R05.9 Cough, unspecified (principal) | CPT/HCPCS: 71045 ==

== ENCOUNTER 2024-05-18 11:28 | Inpatient (IN) | payer MEDICAID, SELFPAY ==
--- NOTE | ~2024-05-18 | XR_ITS ---
EXAMINATION: XR CHEST 2 VIEWS HISTORY: diminished sounds on L COMPARISON: Comparison is made with the prior examination dated 04/02/2024. FINDINGS: AP and lateral views of the chest are submitted. A right-sided port is again noted. There is a small left pleural effusion. The lungs are clear. There is no pneumothorax or pulmonary vascular congestion. The heart is normal in size. The bones are intact. XR/XR chest 2V IMPRESSION: Small left pleural effusion. Electronically signed by: Hardy Wiseman MD 05/18/2024 01:02 PM EDT
--- NOTE | ~2024-05-18 | CT_ITS ---
CLINICAL HISTORY: bleeding from ostomy. Dark red blood CT angio abdomen and pelvis with 3D post-processing Comparison: CT/SR - CT ABDOMEN PELVIS W IV CON - 07/02/23 15:[address]/MI/SR - CT ABDOMEN PELVIS WO IV CON - 06/22/23 19:06 EDT Findings: Small left pleural effusion with adjacent atelectasis, new. Unremarkable gallbladder. There is a Austin catheter in the bladder which is decompressed. Left ureteral stent, unchanged. Mild fullness of the bilateral renal collecting systems, new. Lesion in the left adnexa measuring 5.2 x 4.5 cm, previously measuring 4.6 x 2.9 cm. Heterogeneous attenuation of the uterus with abnormal contour of the endometrium could be secondary to fibroids, however is more pronounced than on the prior study. Mild splenomegaly, measuring 13.7 cm in craniocaudal dimension, new. The other solid organs are unremarkable. There is a left lower quadrant colostomy which was also present on the prior study. There is a parastomal hernia containing fat and distal colon, greater than on the prior study. The hernia also contains ascites. No bowel dilation. Wall thickening versus underdistention of portions of the small bowel and colon. The appendix is not definitively visualized. There is intraluminal increased attenuation in distal colon at the ostomy site (see series 7 images 16 through 36). No aneurysm, dissection, significant stenosis or occlusion. Trace calcified atherosclerotic disease. Retroperitoneal lymphadenopathy measuring up to 1.7 cm in short axis, previously measuring 1.8 cm. Some of the lymph nodes are calcified, new. Small ascites, increased. There is infiltration of the subcutaneous fat which may indicate anasarca, new. No acute osseous abnormality. Impression: Intraluminal increased attenuation in the distal colon at the ostomy site may indicate hemorrhage, ingested material and/or mucosal hyperenhancement. Wall thickening versus underdistention of portions of the small bowel and colon; enterocolitis could be considered. Lesion in the left adnexa measuring 5.2 cm, previously measuring 4.6 cm. Evaluate further with nonemergent pelvic ultrasound. Attention to the uterus as well on pelvic ultrasound. Small left pleural effusion. Mild fullness of the bilateral renal collecting systems. Unchanged left ureteral stent. Austin catheter within a decompressed bladder. Small ascites. Anasarca. Persistent retroperitoneal lymphadenopathy uncertain etiology with mild decrease in size. This document has been electronically signed by: Lia Cole MD on 05/18/2024 17:28:09
--- NOTE | ~2024-05-18 | US_ITS ---
EXAMINATION: US ABDOMEN LIMITED HISTORY: assess for para stomal varices TECHNIQUE: Real-time grayscale ultrasound imaging of the right upper quadrant was performed and images were reviewed. COMPARISON: Correlation is made with a CT angiogram of the abdomen and pelvis dated 05/18/2024. FINDINGS: Sonographic examination of the left lower quadrant parastomal region was performed. Ascites is seen in the abdomen with additional fluid in the subcutaneous soft tissues. No varices are identified. US/US abdomen limited IMPRESSION: No varices are identified. Ascites is noted as described. Electronically signed by: Hardy Wiseman MD 05/19/2024 03:55 PM EDT
[2024-05-18 11:36] VITALS: BP 113/70; PULSE 96; RESP 16; TEMP 36.4; O2SAT 96
--- NOTE | 2024-05-18 11:37 | ED_ITS ---
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 Padilla, presenting to the ED from oncology office today complaining of left flank/LLQ abdominal pain, colostomy bag w/gross bloody output x2 weeks, & urinary retention with 655 mL on bladder scan in office [employer]. Also reports dysuria/urinary hesitancy. Admits was evaluated at [facility] yesterday & told everything was ok. Also reports acute on chronic bilateral LE edema. denies fever, chills, nausea /vomiting, CP/ SOB Related Data Home Medications ?Medication ?Instructions ?Recorded ?Confirmed acetaminophen 500 mg tablet 1,000 mg PO Q6H PRN Pain 09/03/23 03/01/24 clonazepam 0.5 mg tablet 0.5 mg PO BEDTIME 09/03/23 03/01/24 diclofenac sodium 1 % topical gel 2 g topical BID PRN Pain 09/03/23 03/01/24 duloxetine 20 mg capsule,delayed 40 mg PO DAILY 09/03/23 03/01/24 release (Cymbalta) lidocaine 4 % topical gel 1 appl topical TID PRN Pain 09/03/23 03/01/24 oxycodone 10 mg tablet,crush 10 mg PO BID 09/03/23 03/01/24 resistant,extended release 12 hr (OxyContin) sennosides 8.6 mg tablet (senna) 8.6 mg PO BEDTIME 09/03/23 03/01/24 amlodipine 2.5 mg PO BEDTIME 11/25/23 03/01/24 diphenhydramine HCl 25 mg PO Q6H PRN Allergic Reaction 11/25/23 03/01/24 hydrochlorothiazide 12.5 mg PO DAILY 11/25/23 03/01/24 meclizine 25 mg PO Q8H PRN Dizziness 11/25/23 03/01/24 Previous Rx's ?Medication ?Instructions ?Recorded docusate sodium 100 mg capsule 100 mg PO BID #60 caps 07/03/23 ferrous sulfate 324 mg (65 mg 324 mg PO BID #60 tabs 07/03/23 iron) tablet,delayed release oxycodone 5 mg tablet 5 mg PO Q4H PRN Pain, 07/03/23 Moderate(Pain Scale 4-6) #20 tabs polyethylene glycol 3350 17 gram 17 g PO DAILY #30 ea 07/03/23 oral powder packet trazodone 50 mg tablet 25 mg (1/2 x 50 mg) PO DAILY #14 07/03/23 tabs white petrolatum 41 % topical 1 appl topical 6XD #200 grams 09/29/23 ointment (Aquaphor Healing) loperamide 2 mg capsule (Imodium 2 mg PO Q4H PRN Diarrhea #30 caps 09/30/23 A-D) ondansetron 8 mg disintegrating 8 mg PO Q8H PRN Nausea And 09/30/23 tablet Vomiting #30 tabs cefuroxime axetil 500 mg tablet 500 mg PO BID 7 days #14 tabs 04/02/24 Allergies Allergy/AdvReac Type Severity Reaction Status Date / Time egg Allergy Intermediate Swelling Verified 05/18/24 11:41 Iodinated Contrast Media Allergy Intermediate Swelling Verified 05/18/24 11:41 [Contrast Dye] onion Allergy Intermediate Swelling Verified 05/18/24 11:41 peanut Allergy Intermediate Swelling Verified 05/18/24 11:41 shellfish derived Allergy Intermediate Swelling Verified 05/18/24 11:41 tomato Allergy Intermediate Swelling Verified 05/18/24 11:41 Review of Systems Review of Systems Yes all other systems are reviewed and are negative Constitutional: Reports as per [facility] Past Medical History Attestation statement: The following information was validated with the patient. Source: old records reviewed Medical History History of sigmoidoscopy Anal squamous cell carcinoma Hydronephrosis, left Shingles Migraines Hepatitis C Surgical History H/O cystoscopy Tubal ligation status History of exploratory laparotomy (06/26/23) Colostomy in place Social History Social History Household Members: Other Housing: Other Are you a primary care management associate to a significant other at home: No Do you presently have visiting nurse or other home services: No Alcohol intake: never Patient Tobacco Use Status: Former Tobacco user Tobacco use type: Cigarette Years Smoked: 5 Second Hand Smoke Exposure: No Use of substances other than those prescribed or required for medical reasons: No Do you feel safe in your current relationship?: No Current Relationship Advance Directives Date on File: 07/04/23 Do you have thoughts of harming others: None Do you have a plan to hurt others: No Plan Patient : No service: No Physical Exam ED Vital Signs: Vital Signs - 24 hr 05/18/24 11:36 Temperature 97.5 F Pulse Rate 96 Respiratory Rate 16 Blood Pressure 113/70 Pulse Oximetry 96 Oxygen Delivery Method Room Air BMI result Body Mass Index 31.0 Const General: cooperative, healthy appearing and no acute distress Orientation/consciousness: patient oriented x3 Limitations: no limitations HENMT Head: Yes normal to inspection and Yes atraumatic Ears: hearing grossly normal bilaterally General nose exam: Normal external nose present Face and sinus: Yes normal facial exam Eyes General: appearance normal, both eyes and all related structures EOM: EOMs intact bilaterally Neck Neck: Yes normal visual inspection and Yes no meningeal signs Resp Effort & Inspection: normal respiratory effort and no respiratory distress Auscultation: no wheezes and diminished lung sounds on the left in the lower lung avila Cardio Rate: regular rate Heart sounds: S1 normal heart sound present and S2 normal heart sound present GI Other: colostomy bag noted to LLQ with gross bloody output Inspection: Yes normal to inspection Palpation (GI): Soft to palpation, Tenderness to palpation present (GI) (diffusely), no guarding and not rigid General: Yes CVA tenderness on the left Back/Spine/Pelvis Back: CVA tenderness Skin Rashes: no rashes Wounds: no wounds Neuro General: patient oriented x3, gait normal, tone normal, moves all extremities, no meningeal signs, no focal motor deficits and CN's II-XI intact bilaterally Cranial nerves: Yes CN's II-XII intact bilaterally Gait exam (Neuro): Normal gait present Extrem Other: 3+ bilateral LE edema General: Yes normal to inspection Course Course Course Narrative: -1315-- records reviewed from [facility]. CT with multiple chronic findings but no acute process. Hemoglobin there was similar to previous. There is no evidence of active GI hemorrhage at that time, patient was discharged to follow up with outpatient surgery did not on other providers. H/H yesterday was 10.2/31.3 - chronic leukopenia. H&H with notable drop from yesterday from (10.2/31.3) to today 8.7/26. Labs are otherwise reassuring. -UA infected > will give empiric Rocephin XR chest 2V IMPRESSION: Small left pleural effusion. > will consult patient's oncologist Dr. Padilla. Plan will be admission. Will also consult GI, Dr. Moseley - Dr. Moseley reports bleed could be peristomal > will consult IR, Dr. Pascual -1405-- Dr. Moseley and Dr. Pascual at bedside evaluating patient. Recommend repeat CT angio abdomen/pelvis. 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 Padilla, presenting to the ED from oncology office today complaining of left flank/LLQ abdominal pain, colostomy bag w/gross bloody output x2 weeks, & urinary retention with 655 mL on bladder scan in office [employer]. On exam vital signs stable, NAD, appears uncomfortable, physical exam as noted above. Concern for acute on chronic symptoms secondary to known metastatic disease. Patient with CT angio abdomen/pelvis yesterday at [facility] which showed - No active bleeding, and otherwise no significant change from 05/02/2024: diffuse metastatic disease in the abdomen and pelvis, similar moderate left hydro and mild to moderate right hydro with unchanged wall thickening of the urinary bladder - Lower suspicion for acute GI bleed with negative CT yesterday. Concern for chronic hydro. Rule out UTI. Urinary retention likely secondary to known metastatic processes. Rule out metabolic and infectious etiologies including anemia. Plan: labs, UA, CXR, bladder scan, paulson placement, consult Oncology Please refer to course for remaining clinical decision making, interpretation of labs/imaging results, and discussions with consultants and/or family members. Differential Diagnosis Differential Diagnoses: The differential diagnosis associated with the presentation includes As above Admission/Observation Consideration of admission/observation: Escalation of care including admission/observation considered Consult Healthcare Provider Management of the patient was discussed with: [employer] Swaging Machine Adjuster ( Oncology, Gastroenterology, IR) Lab Data MDM Lab Attestation statement: I reviewed the patient's lab results. 05/18/24 12:08 05/18/24 12:08 Labs: Lab Results 05/18/24 05/18/24 Range/Units 12:08 12:22 WBC 2.8 L (4.8-10.8) X10*3/uL RBC 2.65 L (4.20-5.50) X10*6/uL Hgb 8.7 L (12.0-16.0) g/dl Hct 26.0 L (37.0-47.0) % MCV 98.1 H (80.0-98.0) fL MCH 32.8 (27.0-33.0) pg MCHC 33.5 (31.0-35.0) g/dl RDW 15.9 (11.0-16.0) % Plt Count 140 L (160-400) X10*3/uL MPV 8.5 L (9.4-12.3) fL Immature Gran % (Auto) 0.4 (0.0-0.4) % Neut % (Auto) 70.7 (45-73) % Lymph % (Auto) 10.8 L (20-40) % [place] % (Auto) 17.7 H (2-11) % Eos % (Auto) 0.4 (0-4) % Baso % (Auto) 0.0 (0-2) % Lymph # (Auto) 0.3 L (1.2-4.9) X10*3/uL [place] # (Auto) 0.5 (0.1-1.2) X10*3/uL Eos # (Auto) 0.0 (0.0-0.4) X10*3/uL Baso # (Auto) 0.0 (0.0-0.2) X10*3/uL Abs Immat Gran (auto) 0.01 (0.00-0.03) X10*3/uL Absolute Neuts (auto) 2.0 (2.0-8.3) x10*3/uL Absolute Nucleated RBC 0.000 (0.0-0.012) X10*3/uL Nucleated RBC % (auto) 0.0 (0.0-0.2) /100WBC PT 11.8 (10.9-12.4) SEC INR 1.0 (0.9-1.1) Sodium 136 (135-145) mmol/L Potassium 4.0 (3.3-5.1) mmol/L Chloride 107 (96-108) mmol/L Carbon Dioxide 23 (22-29) mmol/L Anion Gap 10 L (12-20) BUN 10 (9-16) mg/dL Creatinine 0.63 (0.5-1.4) mg/dL Estim Creat Clear Calc 108.3 Estimated GFR > 60 Random Glucose 100 (60-115) mg/dL Calcium 8.4 (8.4-10.2) mg/dL Magnesium 2.0 (1.6-2.6) mg/dL Total Bilirubin 0.2 (0.0-1.0) mg/dL Direct Bilirubin < 0.2 (0.0-0.5) mg/dL AST 38 H (5-31) U/L ALT 7 (0-31) U/L Alkaline Phosphatase 55 (39-117) U/L B-Natriuretic Peptide 20 (<100) pg/mL Total Protein 6.0 L (6.5-8.0) g/dL Albumin 2.4 L (3.5-5.0) g/dL Lipase 5 L (8-78) U/L Urine Color Dark Yellow Urine Appearance Cloudy Urine pH 6.5 (5.0-9.0) Ur Specific [place] 1.025 (1.005-1.025) Urine Protein 30 (1+) H (Neg-Trace) mg/dL Urine Glucose (UA) Negative (Negative) mg/dL Urine Ketones Negative (Negative) mg/dL Urine Blood Large (3+) H (Negative) Urine Nitrite Negative (Negative) Ur Leukocyte Esterase Moderate (2+) H (Negative) Urine RBC >20 H (0-2) /HPF Urine WBC >50 H (0-5) /HPF Ur Squamous Epith Cells 0-2 (0-2) /HPF Urine Bacteria None Seen (None Seen) Hyaline Casts 0-2 (0-2) /LPF Independent Interpretation I performed an independent interpretation of an: Plain X-Ray Radiology Impression Discussion of test interpretation with radiology: I have reviewed the radiologist's reading. External Record Review External record reviewed: Inpatient record, Office record, Outpatient record, Prior outpatient labs, Prior outpatient radiology, Primary care record and Outside ED record Tests considered The following testing was considered but not selected: As above Prescription Management I considered prescription management with: Pain Medication Chronic Conditions Patient?s care impacted by: Cancer Social Determinants Patient?s care significantly limited by Social Determinants of Health including: Problems related to primary support group and Other Social Determinant of Health Medications Administered Discontinued Medications Generic Name Dose Route Start Last Admin Trade Name Freq PRN Reason Stop Dose Admin Ceftriaxone Sodium 1 gm 05/18/24 13:18 05/18/24 13:45 Ceftriaxone Sodium 1 Gm Vial IVPUSH 05/18/24 13:19 1 gm ONCE ONE Administration Diphenhydramine HCl 50 mg 05/18/24 14:20 05/18/24 14:26 Diphenhydramine Hcl 50 Mg/Ml Vial IVPUSH 05/18/24 14:21 50 mg ONCE ONE Administration Morphine Sulfate 4 mg 05/18/24 11:54 05/18/24 12:20 Morphine Sulfate 4 Mg/Ml Cartridge IVPUSH 05/18/24 11:55 4 mg ONCE ONE Administration Protocol Morphine Sulfate 4 mg 05/18/24 13:48 05/18/24 13:58 Morphine Sulfate 4 Mg/Ml Cartridge IVPUSH 05/18/24 13:49 4 mg ONCE ONE Administration Protocol Critical Care Time Critical Care Time Critical Care Time: Yes Total Critical Care Time: 60 Attestation: I have personally provided critical care time exclusive of time spent on separately billable procedures. Time includes review of lab data, radiology results, discussion with consultants, and monitoring for potential decompensation. Intervention performed as documented. Discharge Plan Discharge Clinical Impression: GI bleed, Acute urinary retention, UTI (urinary tract infection), Metastatic cancer Patient Disposition: Admitted As Inpatient Print Language: Hungarian
[2024-05-18 11:38] VITALS: BMI 31.0
[2024-05-18 12:11] LABS: MANUAL DIFF FLAG NO
[2024-05-18 12:13] LABS: Eosinophils Percent Auto 0.4 % (0-4); Hemoglobin 8.7 g/dl (12.0-16.0); Imm Gran Abs Auto 0.01 X10*3/uL (0.00-0.03); Imm Gran Pct Auto 0.4 % (0.0-0.4); Lymphocytes Absolute Auto 0.3 X10*3/uL (1.2-4.9); Lymphocytes Percent Auto 10.8 % (20-40); Mean Corpuscular HGB Conc 33.5 g/dl (31.0-35.0); Mean Corpuscular Hemoglobin 32.8 pg (27.0-33.0); Mean Corpuscular Volume 98.1 fL (80.0-98.0); Mean Platelet Volume 8.5 fL (9.4-12.3); Monocytes Absolute Auto 0.5 X10*3/uL (0.1-1.2); Monocytes Percent Auto 17.7 % (2-11); Neutrophils Percent Auto 70.7 % (45-73); Platelet Count 140 X10*3/uL (160-400); Red Blood Count 2.65 X10*6/uL (4.20-5.50); Red Cell Distribution Width 15.9 % (11.0-16.0); White Blood Count 2.8 X10*3/uL (4.8-10.8)
[2024-05-18 12:19] LABS: Prothrombin Time 11.8 SEC (10.9-12.4)
[2024-05-18] MEDS: Morphine Sulfate 4 MG/ML CARTRIDGE IVPUSH ×3 (12:20→22:48)
[2024-05-18 12:28] LABS: Alanine Aminotransferase 7 U/L (0-31); Albumin Level 2.4 g/dL (3.5-5.0); Alkaline Phosphatase 55 U/L (39-117); Anion Gap 10 (12-20); Aspartate Amino Transferase 38 U/L (5-31); Bilirubin Direct < 0.2 mg/dL (0.0-0.5); Bilirubin Total 0.2 mg/dL (0.0-1.0); Blood Urea Nitrogen 10 mg/dL (9-16); Calcium 8.4 mg/dL (8.4-10.2); Carbon Dioxide 23 mmol/L (22-29); Chloride 107 mmol/L (96-108); Creatinine Clr Calc Pharmacy 108.3; Estimated Glomerular Filt Rate > 60; Glucose Random 100 mg/dL (60-115); Lipase 5 U/L (8-78); Sodium 136 mmol/L (135-145)
[2024-05-18 12:33] LABS: B Type Natriuretic Peptide 20 pg/mL (<100)
[2024-05-18 12:50] LABS: Appearance Urine Cloudy; Color Urine Dark Yellow; Glucose Urine UA Negative (Negative); Leukocyte Esterase Urine Moderate (2+) (Negative); Nitrite Urine Negative (Negative); PH 6.5 (5.0-9.0); Specific Gravity - Urine 1.025 (1.005-1.025); UMIC TRIGGER UACC YES; Urine Blood Large (3+) (Negative); Urine Ketones Negative (Negative); Urine Protein 30 (1+) mg/dL (Neg-Trace)
[2024-05-18 12:54] LABS: Bacteria Urine None Seen (None Seen); Hyaline Casts Urine 0-2 /LPF (0-2); RBC Urine >20 /HPF (0-2); Squamous Epithelial Cell Urine 0-2 /HPF (0-2); UACC Culture Trigger YES; WBC Urine >50 /HPF (0-5)
[2024-05-18] MEDS: cefTRIAXone sodium 1 GM VIAL IVPUSH (13:45)
--- NOTE | 2024-05-18 13:48 | PC.NURSE ---
patient a&ox3, paulson cath inserted per order- difficult to insert- obtained sample, rt chest port accessed in oncology- labs drawn from port, pt medicated through port per order, rr equal/non labored, BLE 3+ edema noted, colostomy had bloody red liquid output, call gallagher within reach, plan of care ongoing
--- NOTE | 2024-05-18 14:00 | MHC.EDTECH ---
paulson catheter emptied for 1000 cc
--- NOTE | 2024-05-18 14:00 | PC.NURSE ---
pt c/o 12/10 abd pain, provider notified, pt medicated with morphine per order
--- NOTE | 2024-05-18 14:17 | PM.GICN ---
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 She also mentioned urine hesitancy and dysuria. she denies fever, chills, nausea /vomiting, CP/ SOB. Denies nsaids, drugs or alcohol use. She was seen at [facility] the other day and had CT which showed narrowing of portal vein and peristomal hernia. No active bleeding was seen. HGB is slightly below her baseline at 9 g/dl. Review of Systems Review of Systems: Constitutional : No Weight loss, No Fever, No Chills ENT/Mouth : No sore throat, No Rhinorrhea Eyes: No Swelling, No Redness Cardiovascular : No Chest Pain, No SOB, No Edema Respiratory : No Cough, No Sputum, No Wheezing Gastrointestinal : see HPI Genitourinary : NO Dysuria, No Urinary Frequency, No Hematuria, No Urgency Musculoskeletal : + joint pain, No Myalgias, No Joint Swelling Skin : No Skin Lesions, No rash Neuro : No Weakness, No Numbness, No Dizziness, No Headache Psych : No Anxiety/Panic, No Depression Heme/Lymph: No Bruising, No Lymphadenopathy Endocrine : No Polyuria, No Polydipsia All other systems reviewed and are negative. [facility] Past Medical History Medical History History of sigmoidoscopy Anal squamous cell carcinoma Hydronephrosis, left Shingles Migraines Hepatitis C Family History Pertinent family history: no FH of peptic ulcers Surgical History Surgical History H/O cystoscopy Tubal ligation status History of exploratory laparotomy (06/26/23) Colostomy in place Social History Social History Household Members: Other Housing: Other Are you a primary acute care clinical nurse specialist to a significant other at home: No Do you presently have visiting nurse or other home services: No Alcohol intake: never Patient Tobacco Use Status: Former Tobacco user Tobacco use type: Cigarette Years Smoked: 5 Second Hand Smoke Exposure: No Use of substances other than those prescribed or required for medical reasons: No Do you feel safe in your current relationship?: No Current Relationship Advance Directives Date on File: 07/04/23 Do you have thoughts of harming others: None Do you have a plan to hurt others: No Plan Patient : No service: No Meds Allergies Allergy/AdvReac Type Severity Reaction Status Date / Time egg Allergy Intermediate Swelling Verified 05/18/24 11:41 Iodinated Contrast Media Allergy Intermediate Swelling Verified 05/18/24 11:41 [Contrast Dye] onion Allergy Intermediate Swelling Verified 05/18/24 11:41 peanut Allergy Intermediate Swelling Verified 05/18/24 11:41 shellfish derived Allergy Intermediate Swelling Verified 05/18/24 11:41 tomato Allergy Intermediate Swelling Verified 05/18/24 11:41 Home Medications ?Medication ?Instructions ?Recorded ?Confirmed ?Last Taken ?Type acetaminophen 500 mg tablet 1,000 mg PO Q6H PRN Pain 09/03/23 03/01/24 Unknown History clonazepam 0.5 mg tablet 0.5 mg PO BEDTIME 09/03/23 03/01/24 Unknown History diclofenac sodium 1 % topical gel 2 g topical BID PRN Pain 09/03/23 03/01/24 Unknown History duloxetine 20 mg capsule,delayed 40 mg PO DAILY 09/03/23 03/01/24 Unknown History release (Cymbalta) lidocaine 4 % topical gel 1 appl topical TID PRN Pain 09/03/23 03/01/24 Unknown History oxycodone 10 mg tablet,crush 10 mg PO BID 09/03/23 03/01/24 Unknown History resistant,extended release 12 hr (OxyContin) sennosides 8.6 mg tablet (senna) 8.6 mg PO BEDTIME 09/03/23 03/01/24 Unknown History amlodipine 2.5 mg PO BEDTIME 11/25/23 03/01/24 Unknown History diphenhydramine HCl 25 mg PO Q6H PRN Allergic Reaction 11/25/23 03/01/24 Unknown History hydrochlorothiazide 12.5 mg PO DAILY 11/25/23 03/01/24 Unknown History meclizine 25 mg PO Q8H PRN Dizziness 11/25/23 03/01/24 Unknown History Physical Exam Vital Signs: Vital Signs: Last Vital Signs Temp 97.5 F 05/18/24 11:36 Pulse 96 05/18/24 11:36 Resp 16 05/18/24 11:36 BP 113/70 05/18/24 11:36 Pulse Ox 96 05/18/24 11:36 O2 Del Method Room Air 05/18/24 11:36 BMI result Body Mass Index 31.0 EXAM: GENERAL: The patient is well developed and nontoxic. VITAL SIGNS:see workflow HEENT: Nonicteric sclerae, PERRLA, EOMI. Oropharynx clear. Moist mucous membranes. Conjunctivae appear well perfused. No thyroid mass. CHEST: Chest wall is nontender. HEART: Regular rate and rhythm without murmurs. LUNGS: Clear to auscultation bilaterally. ABDOMEN: Soft, positive bowel sounds, nontender, no organomegaly.no flank tenderness--stoma noted, no active bleeding noted, old blood, no superifical lesions. SKIN: No rash, no excessive bruising, petechiae, or purpura. NEUROLOGIC: Cranial nerves II-XII intact without motor/sensory deficit. Psych: normal affect Results Labs 05/18/24 12:08 05/18/24 12:08 Labs: Short CBC 05/18/24 Range/Units 12:08 WBC 2.8 L (4.8-10.8) X10*3/uL Hgb 8.7 L (12.0-16.0) g/dl Hct 26.0 L (37.0-47.0) % Plt Count 140 L (160-400) X10*3/uL BMP 05/18/24 12:08 Sodium 136 Potassium 4.0 Chloride 107 Carbon Dioxide 23 BUN 10 Creatinine 0.63 Calcium 8.4 Liver Function 05/18/24 Range/Units 12:08 Total Bilirubin 0.2 (0.0-1.0) mg/dL Direct Bilirubin < 0.2 (0.0-0.5) mg/dL AST 38 H (5-31) U/L ALT 7 (0-31) U/L Alkaline Phosphatase 55 (39-117) U/L Albumin 2.4 L (3.5-5.0) g/dL Urine 05/18/24 Range/Units 12:22 Urine Color Dark Yellow Urine Appearance Cloudy Urine pH 6.5 (5.0-9.0) Ur Specific [place] 1.025 (1.005-1.025) Urine Protein 30 (1+) H (Neg-Trace) mg/dL Urine Glucose (UA) Negative (Negative) mg/dL Assessment and Plan (1) GI bleed: Qualifiers: GI bleed type/associated pathology: unspecified gastrointestinal hemorrhage type Qualified Code(s): K92.2 - Gastrointestinal hemorrhage, unspecified Status: Acute Plan 1/ Subacute Gi bleed, suspect probably peristomal varix due to portal HTN with hx of untreated Hep C and portal vein narrowing DDX: PUS, colonic lesion, AVM, PLAN: 1/ repeat CTA, if varix seen then Ir for embolization, if neg then EGD and colo- 2/ meantime can put on PPI and octreotide 3/ colyte tonight Procedures Date of Service Date of Service: 05/18/24
[2024-05-18] MEDS: diphenhydrAMINE HCL 50 MG/ML VIAL IVPUSH (14:26)
[2024-05-18] MEDS: Pantoprazole Sodium 40 MG/10 ML VIAL 80 MG IVPUSH (16:01)
[2024-05-18] MEDS: Octreotide Acetate 100 MCG/ML AMPUL 50 MCG IVPUSH (16:01)
--- NOTE | 2024-05-18 16:13 | PC.NURSE ---
pts port was changed to CT compatible tubing, additionally, we attempted iv access multiple times as 2 IV medications are not compatible per pharmacy. provider was notified and he will look for access ultrasound guided.
[2024-05-18] MEDS: iohexoL 350 MG/ML 100 ML INFUS..BTL IV (16:15)
[2024-05-18 17:59] VITALS: BP 117/73; PULSE 84; RESP 18; TEMP 36.7; O2SAT 94
--- NOTE | 2024-05-18 18:24 | PM.IMHP ---
History of Present Illness Date of Service: 05/18/24 Chief Complaint: blood in ostomy bag 54 y/o F patient; PMH mood disorder, hx hepatitis C, 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 Padilla, surgery Dr. Andrade). She reportedly was sent from oncology clinic where she was supposed to get chemo which not done because she had blood in colostomy bag and was sent to the ED. She states that she has been having blood in the bag for more than 2 weeks. She was seen at [facility] on 05/17/24 and discharged from the ED as there was no significant shift in H/H and CT of athe abdomen and pelvis showed no acute finding. [place] [facility] [place] here today 9.2, and repeat 8.7, there is scant amount of blood in the bag Review of Systems Review of Systems: Gen: no fever Resp: no sob, no cough CV: no chest, no LUNA, no leg edema GI: No n/v, no abd pain, blood in colostomy bag Neuro: No confusion Yes all other systems are reviewed and are negative [facility] Medical History History of sigmoidoscopy Anal squamous cell carcinoma Hydronephrosis, left Shingles Migraines Hepatitis C Surgical History H/O cystoscopy Tubal ligation status History of exploratory laparotomy (06/26/23) Colostomy in place Social History Household Members: Other Housing: Other Are you a primary care professionals to a significant other at home: No Do you presently have visiting nurse or other home services: No Alcohol intake: never Patient Tobacco Use Status: Former Tobacco user Tobacco use type: Cigarette Years Smoked: 5 Second Hand Smoke Exposure: No Use of substances other than those prescribed or required for medical reasons: No Do you feel safe in your current relationship?: No Current Relationship Advance Directives Date on File: 07/04/23 Do you have thoughts of harming others: None Do you have a plan to hurt others: No Plan Patient : No service: No Meds Allergies Allergy/AdvReac Type Severity Reaction Status Date / Time egg Allergy Intermediate Swelling Verified 05/18/24 11:41 Iodinated Contrast Media Allergy Intermediate Swelling Verified 05/18/24 11:41 [Contrast Dye] onion Allergy Intermediate Swelling Verified 05/18/24 11:41 peanut Allergy Intermediate Swelling Verified 05/18/24 11:41 shellfish derived Allergy Intermediate Swelling Verified 05/18/24 11:41 tomato Allergy Intermediate Swelling Verified 05/18/24 11:41 Active Medications: Current Medications Octreotide Acetate 500 mcg/ (Sodium Chloride) 501 mls @ 50.1 mls/hr IVCONT .Q10H BRETT Pantoprazole Sodium 80 mg/ (Sodium Chloride) 100 mls @ 10 mls/hr IV .Q10H BRETT Polyethylene Glycol/Electrolytes (Peg 3350/Na Sulf,Bicarb,Cl/Kcl 4,000 Ml Soln.Recon) 4,000 ml PO ONCE ONE Stop: 05/18/24 19:31 Home Medications ?Medication ?Instructions ?Recorded ?Confirmed ?Last Taken ?Type acetaminophen 500 mg tablet 1,000 mg PO Q6H PRN Pain 09/03/23 03/01/24 Unknown History clonazepam 0.5 mg tablet 0.5 mg PO BEDTIME 09/03/23 03/01/24 Unknown History diclofenac sodium 1 % topical gel 2 g topical BID PRN Pain 09/03/23 03/01/24 Unknown History duloxetine 20 mg capsule,delayed 40 mg PO DAILY 09/03/23 03/01/24 Unknown History release (Cymbalta) lidocaine 4 % topical gel 1 appl topical TID PRN Pain 09/03/23 03/01/24 Unknown History oxycodone 10 mg tablet,crush 10 mg PO BID 09/03/23 03/01/24 Unknown History resistant,extended release 12 hr (OxyContin) sennosides 8.6 mg tablet (senna) 8.6 mg PO BEDTIME 09/03/23 03/01/24 Unknown History amlodipine 2.5 mg PO BEDTIME 11/25/23 03/01/24 Unknown History diphenhydramine HCl 25 mg PO Q6H PRN Allergic Reaction 11/25/23 03/01/24 Unknown History hydrochlorothiazide 12.5 mg PO DAILY 11/25/23 03/01/24 Unknown History meclizine 25 mg PO Q8H PRN Dizziness 11/25/23 03/01/24 Unknown History Physical Exam Vital Signs and Narrative: Vital Signs: Last Vital Signs Temp 98.1 F 05/18/24 17:59 Pulse 84 05/18/24 17:59 Resp 18 05/18/24 17:59 BP 117/73 05/18/24 17:59 Pulse Ox 94 05/18/24 17:59 O2 Del Method Room Air 05/18/24 17:59 BMI result Body Mass Index 31.0 Const: Other: Constitutional: Alert, in no distress, overweight. Mental Status: Oriented to person, place and time. Eyes: Pupils are equal, round and reactive to light. Ear, Nose and Throat: Oropharynx clear, mucous membranes moist. Ears and nose without deformities Respiratory: Clear to auscultation. No wheezing, rales or rhonchi. Cardiovascular: S1 S2 regular. No murmurs, rubs or gallops. Gastrointestinal: Abdomen soft, non-tender, non-distended. Normal bowel sounds.? Bloodnoted in the colostomy bag Neurologic: Cranial nerves II-XII grossly intact. No focal neurological deficits. Moves all extremities spontaneously.? Skin: No rashes or lesions.? Musculoskeletal: No cyanosis or clubbing. Psychiatric: Normal mood and affect? Results Labs 05/18/24 12:08 05/18/24 12:08 Labs: Laboratory Results - last 24 hr 05/18/24 05/18/24 12:08 12:22 MCV 98.1 H MCH 32.8 MCHC 33.5 RDW 15.9 Plt Count 140 L MPV 8.5 L Immature Gran % (Auto) 0.4 Neut % (Auto) 70.7 Lymph % (Auto) 10.8 L [place] % (Auto) 17.7 H Eos % (Auto) 0.4 Baso % (Auto) 0.0 Lymph # (Auto) 0.3 L [place] # (Auto) 0.5 Eos # (Auto) 0.0 Baso # (Auto) 0.0 Abs Immat Gran (auto) 0.01 Absolute Neuts (auto) 2.0 Absolute Nucleated RBC 0.000 Nucleated RBC % (auto) 0.0 PT 11.8 INR 1.0 Anion Gap 10 L Estim Creat Clear Calc 108.3 Estimated GFR > 60 Random Glucose 100 Calcium 8.4 Magnesium 2.0 Total Bilirubin 0.2 Direct Bilirubin < 0.2 AST 38 H ALT 7 Alkaline Phosphatase 55 B-Natriuretic Peptide 20 Total Protein 6.0 L Albumin 2.4 L Lipase 5 L Urine Color Dark Yellow Urine Appearance Cloudy Urine pH 6.5 Ur Specific [place] 1.025 Urine Protein 30 (1+) H Urine Glucose (UA) Negative Urine Ketones Negative Urine Blood Large (3+) H Urine Nitrite Negative Ur Leukocyte Esterase Moderate (2+) H Urine RBC >20 H Urine WBC >50 H Ur Squamous Epith Cells 0-2 Urine Bacteria None Seen Hyaline Casts 0-2 Imaging Radiologist's Impressions: Impressions Chest X-Ray 05/18/24 12:14 IMPRESSION: Small left pleural effusion. Electronically signed by: Hardy Wiseman MD 05/18/2024 01:02 PM EDT RP Assessment and Plan (1) Anemia: Status: Acute (2) GI bleed: Qualifiers: GI bleed type/associated pathology: unspecified gastrointestinal hemorrhage type Qualified Code(s): K92.2 - Gastrointestinal hemorrhage, unspecified Status: Acute (3) UTI (urinary tract infection): Status: Acute Plan 54 yo F patient; PMH mood disorder, hx hepatitis C, 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 Padilla, surgery Dr. Andrade) her with GIB with blood in colostomy bag, and acute on chronic anemia. GIB, Acute blood loss anemia Follow H/H, no indication for transfusion at this time IV PPI GI consult NPO after midnight UTI Ceftriaxone Anorectal SCC s/p loop sigmoid ostomy ostomy care Outpatient oncology followup DVT prophylaxis- compression device Full code Pt requires inpatient stay at least 2 midnights for management of UTI, acute blood loss anemia d/t GI bleeding Quality Stroke Does the patient have a stroke diagnosis?: No VTE Prior VTE?: No VTE Risk Level:: Medical - moderate - high VTE Device Contraindication: N/A - Device Ordered VTE Drug Contraindication: Treatment Not Tolerated
--- NOTE | 2024-05-18 18:28 | PC.NURSE ---
pharmacy just brought medications to be hung, this nurse will hang IV medications as ordered
[2024-05-18] MEDS: Pantoprazole Sodium 80 MG in 0.9 % Sodium Chloride 80 ML 10 MG IV (18:29)
[2024-05-18] MEDS: Octreotide Acetate 500 MCG in 0.9 % Sodium Chloride 500 ML 50.1 MCG IVCONT (18:29)
[2024-05-18 20:00] VITALS: BP 134/66; PULSE 99; RESP 18; TEMP 37.2; O2SAT 99
--- NOTE | 2024-05-18 20:09 | PHA.MEDREC ---
Addendum entered by Kalie Verdugo RPh 05/18/24 20:32: [facility] reviewed Original Note: Pharmacy Consult ? Medication Reconciliation Pharmacy has completed the medication reconciliation. Utilized list from [facility] to confirm med list.
--- NOTE | 2024-05-18 21:18 | PC.NURSE ---
Patient arrived from ED at 2100. Bowel prep ordered for 19;30 not started. Pharmacy just called to please deliver so patient can begin administration.
[2024-05-18] MEDS: PEG 3350/Na Sulf,Bicarb,Cl/KCL 4,000 ML SOLN.RECON 4000 ML PO (21:31)
[2024-05-19] VITALS (8 sets, daily range): BP systolic 104–137; BP diastolic 58–89; PULSE 90–98; RESP 16–18; TEMP 36.8–37.4; O2SAT 95–98
[2024-05-19] MEDS: Morphine Sulfate 4 MG/ML CARTRIDGE IVPUSH ×4 (02:45→22:20)
[2024-05-19] MEDS: Pantoprazole Sodium 80 MG in 0.9 % Sodium Chloride 80 ML 10 MG IV ×2 (03:07→12:03)
[2024-05-19] MEDS: Octreotide Acetate 500 MCG in 0.9 % Sodium Chloride 500 ML 50.1 MCG IVCONT ×3 (04:10→22:15)
--- NOTE | 2024-05-19 04:18 | PC.NURSE ---
Patient was able to tolerate half of the bowel prep. Colostomy drained 500 ml so far of brown liquid stool.
[2024-05-19] MEDS: Acetaminophen 325 MG TABLET 650 MG PO (06:00)
[2024-05-19 07:13] LABS: Alanine Aminotransferase 6 U/L (0-31); Albumin Level 2.6 g/dL (3.5-5.0); Alkaline Phosphatase 61 U/L (39-117); Anion Gap 10 (12-20); Aspartate Amino Transferase 40 U/L (5-31); Bilirubin Total 0.3 mg/dL (0.0-1.0); Blood Urea Nitrogen 6 mg/dL (9-16); Calcium 8.5 mg/dL (8.4-10.2); Carbon Dioxide 26 mmol/L (22-29); Chloride 103 mmol/L (96-108); Creatinine Clr Calc Pharmacy 101.8; Estimated Glomerular Filt Rate > 60; Glucose Random 114 mg/dL (60-115); Potassium 4.2 mmol/L (3.3-5.1); Sodium 135 mmol/L (135-145); Total Protein 6.5 g/dL (6.5-8.0)
--- NOTE | 2024-05-19 10:13 | P.PNIM_ITS ---
Subjective Subjective Date of Service: 05/19/24 Interval History: blood in ostomy bag Review of Systems has liquidy blackish stool in bag Physical Exam 2 Vital Signs: Vital Signs: Last Vital Signs Temp 99.4 F 05/19/24 07:45 Pulse 98 05/19/24 07:45 Resp 18 05/19/24 07:45 BP 110/60 05/19/24 07:45 Pulse Ox 95 05/19/24 07:45 O2 Del Method Room Air 05/19/24 07:45 BMI result Body Mass Index 31.0 Appearance: Alert.? Oriented X3.? cvs: rrr, [id number] . res: clear to auscultation ,no rales or wheezing. abd: no rebound or guarding ,colostomy bag( has blackish liquidy stool), bs present. ext pulses present , no cyanosis . neuro: axo3 , nonfocal. Objective Data Active Medications Acetaminophen (Acetaminophen 325 Mg Tablet) 650 mg PO Q6H PRN PRN Reason: Pain, Mild 1-3,fever,headache Last Admin: 05/19/24 06:00 Dose: 650 mg Documented By: TARA Calcium Carbonate (Calcium Carbonate 750 Mg Tab.Chew) 750 mg PO Q4H PRN PRN Reason: Heartburn Ceftriaxone Sodium (Ceftriaxone Sodium 1 Gm Vial) 1 gm IVPUSH Q24H [facility] Octreotide Acetate 500 mcg/ (Sodium Chloride) 501 mls @ 50.1 mls/hr IVCONT .Q10H [facility] Last Admin: 05/19/24 04:10 Dose: 50 mcg/hr, 50.1 mls/hr Documented By: TARA Pantoprazole Sodium 80 mg/ (Sodium Chloride) 100 mls @ 10 mls/hr IV .Q10H [facility] Last Admin: 05/19/24 03:07 Dose: 8 mg/hr, 10 mls/hr Documented By: TARA Magnesium Hydroxide (Milk Of Magnesia 30 Ml Oral.Susp) 30 ml PO DAILY PRN PRN Reason: Constipation Melatonin (Melatonin 3 Mg Tablet) 6 mg PO BEDTIME PRN PRN Reason: Insomnia Morphine Sulfate (Morphine Sulfate 4 Mg/Ml Cartridge) 4 mg IVPUSH Q4H PRN; Protocol PRN Reason: Pain, Severe (Pain Scale 7-10) Last Admin: 05/19/24 07:42 Dose: 4 mg Documented By: PRICE Ondansetron HCl (Ondansetron Hcl 4 Mg/2 Ml Vial) 4 mg IVPUSH Q8H PRN PRN Reason: Nausea and Vomiting Pantoprazole Sodium (Pantoprazole Sodium 40 Mg/10 Ml Vial) 40 mg IVPUSH DAILY@0630 [facility] Last Admin: 05/19/24 05:46 Dose: Not Given Documented By: TARA Non-Admin Reason: on protonix drip Polyethylene Glycol (Polyethylene Glycol 3350 17 Gm Powd.Pack) 17 gm PO DAILY PRN PRN Reason: Constipation Sodium Chloride (0.9 % Sodium Chloride Flush 3 Ml Syringe) 3 ml IVFLUSH QSHIFT [facility] Last Admin: 05/19/24 08:28 Dose: Not Given Documented By: PRICE Non-Admin Reason: IV Running Labs 05/18/24 12:08 05/19/24 05:47 Labs: Laboratory Results - last 24 hr 05/18/24 05/18/24 05/19/24 12:08 12:22 05:47 MCV 98.1 H MCH 32.8 MCHC 33.5 RDW 15.9 Plt Count 140 L MPV 8.5 L Immature Gran % (Auto) 0.4 Neut % (Auto) 70.7 Lymph % (Auto) 10.8 L [place] % (Auto) 17.7 H Eos % (Auto) 0.4 Baso % (Auto) 0.0 Lymph # (Auto) 0.3 L [place] # (Auto) 0.5 Eos # (Auto) 0.0 Baso # (Auto) 0.0 Abs Immat Gran (auto) 0.01 Absolute Neuts (auto) 2.0 Absolute Nucleated RBC 0.000 Nucleated RBC % (auto) 0.0 PT 11.8 INR 1.0 Anion Gap 10 L 10 L Estim Creat Clear Calc 108.3 101.8 Estimated GFR > 60 > 60 Random Glucose 100 114 Calcium 8.4 8.5 Magnesium 2.0 Total Bilirubin 0.2 0.3 Direct Bilirubin < 0.2 AST 38 H 40 H ALT 7 6 Alkaline Phosphatase 55 61 B-Natriuretic Peptide 20 Total Protein 6.0 L 6.5 Albumin 2.4 L 2.6 L Lipase 5 L Urine Color Dark Yellow Urine Appearance Cloudy Urine pH 6.5 Ur Specific [place] 1.025 Urine Protein 30 (1+) H Urine Glucose (UA) Negative Urine Ketones Negative Urine Blood Large (3+) H Urine Nitrite Negative Ur Leukocyte Esterase Moderate (2+) H Urine RBC >20 H Urine WBC >50 H Ur Squamous Epith Cells 0-2 Urine Bacteria None Seen Hyaline Casts 0-2 Assessment and Plan (1) GI bleed: Status: Acute Assessment and Plan: 54 yo F patient; PMH mood disorder, hx hepatitis C, 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 Padilla, surgery Dr. Andrade) her with GIB with blood in colostomy bag, and acute on chronic anemia. GIB, Acute blood loss anemia Follow H/H, no indication for transfusion at this time. cta-Intraluminal increased attenuation in the distal colon at the ostomy site may indicate hemorrhage, ingested material and/or mucosal hyperenhancement. Wall thickening versus underdistention of portions of the small bowel and colon. IV PPI,npo GI eval-possible colonscopy . UTI: continue Ceftriaxone. Anorectal SCC s/p loop sigmoid ostomy ostomy care Outpatient oncology followup DVT prophylaxis- compression device Full code ongoing need for management of UTI, acute blood loss anemia d/t GI bleeding Quality Stroke Does the patient have a stroke diagnosis?: No VTE Prior VTE?: No VTE Risk Level:: Medical - moderate - high VTE Device Contraindication: N/A - Device Ordered VTE Drug Contraindication: Treatment Not Indicated
[2024-05-19] MEDS: Sodium Phosphate,Mono-Dibasic 133 ML ENEMA PR (11:54)
--- NOTE | 2024-05-19 12:07 | P.CDIM_ITS ---
PROVIDER RESPONSE TEXT: To clarify, the appropriate diagnosis supported by the clinical indicators: Pancytopenia: chronic pancytopenia QUERY TEXT: PHYSICIAN'S DOCUMENTATION REQUEST Date of Query: 05/19/2024 11:29 AM EDT Patient Name: Lori Cedeno Admit Date: 05/18/2024 Dear Darrell Varela MD, A review of the medical record indicates additional documentation may be needed. Please review below and update the documentation accordingly. Clinical Indicators: LABS: WBC 2.8 RBC 2.65 PLT 140 L Metastatic cancer Anorectal. Based on the above, could you clarify which of the following is the most likely type of anemia you ar e evaluating, treating, and/or monitoring? Pancytopenia indicate if neoplastic disease, CKD, or other Chronic iron deficiency anemia due to blood loss, chemo therapy etc. Other specified Other (explain) Clinically unable to determine (explain) Thank you, Yaritza Emerson, CCS, CDIS Use of terms such as suspected, likely, concern for, or probable (associated with a specific diagnosi s that is being evaluated, monitored, or treated as if it exists) are acceptable and can be coded in the inpatient se tting, when documented at the time of discharge. Please use your independent medical judgment in providing your response. THIS QUERY IS PART OF THE PERMANENT MEDICAL RECORD
[2024-05-19 12:38] LABS: Iron 34 mcg/dL (30-160); Percent Iron Saturation 20 % (15-50); Total Iron Binding Capacity 168 mcg/dL (228-428); Unsaturated Iron Binding 134 ug/dL
[2024-05-19 12:52] LABS: Ferritin 1573 ng/mL (10-250)
--- NOTE | 2024-05-19 12:53 | P.PNGI_ITS ---
Subjective Subjective Date of Service: 05/19/24 Interval History: bleeding seems to have stopped she still has lower abdominal pain, and cramping no nausea or vomiting Critical Care Time (minutes): 0 Physical Exam 2 Vital Signs: Vital Signs: Last Vital Signs Temp 99.1 F 05/19/24 12:43 Pulse 97 05/19/24 12:43 Resp 16 05/19/24 12:43 BP 108/75 05/19/24 12:43 Pulse Ox 96 05/19/24 12:43 O2 Del Method Room Air 05/19/24 12:43 BMI result Body Mass Index 31.0 EXAM: GENERAL: The patient is well developed and nontoxic. VITAL SIGNS:see workflow HEENT: Nonicteric sclerae, PERRLA, EOMI. Oropharynx clear. Moist mucous membranes. Conjunctivae appear well perfused. No thyroid mass. CHEST: Chest wall is nontender. HEART: Regular rate and rhythm without murmurs. LUNGS: Clear to auscultation bilaterally. ABDOMEN: Soft, positive bowel sounds, nontender, no organomegaly.no flank tenderness--stoma noted, no blood in bag, hernia around stoma appreciated SKIN: No rash, no excessive bruising, petechiae, or purpura. NEUROLOGIC: Cranial nerves II-XII intact without motor/sensory deficit. Psych: normal affect Objective Data Labs 05/18/24 12:08 05/19/24 05:47 Labs: Laboratory Results - last 24 hr 05/18/24 05/19/24 12:22 05:47 Sodium 135 Potassium 4.2 Chloride 103 Carbon Dioxide 26 Anion Gap 10 L BUN 6 L Creatinine 0.67 Estim Creat Clear Calc 101.8 Estimated GFR > 60 Random Glucose 114 Calcium 8.5 Iron 34 TIBC 168 L % Saturation 20 Unsat Iron Binding 134 Ferritin 1573 H Total Bilirubin 0.3 AST 40 H ALT 6 Alkaline Phosphatase 61 Total Protein 6.5 Albumin 2.6 L Urine Color Dark Yellow Urine Appearance Cloudy Urine pH 6.5 Ur Specific [place] 1.025 Urine Protein 30 (1+) H Urine Glucose (UA) Negative Urine Ketones Negative Urine Blood Large (3+) H Urine Nitrite Negative Ur Leukocyte Esterase Moderate (2+) H Urine RBC >20 H Urine WBC >50 H Ur Squamous Epith Cells 0-2 Urine Bacteria None Seen Hyaline Casts 0-2 Procedures Date of Service Date of Service: 05/19/24 Progress Note: A&P Assessment and plan (1) GI bleed: Status: Acute Plan 1/ Gi bleed, 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 Quality Stroke Does the patient have a stroke diagnosis?: No VTE Prior VTE?: No VTE Risk Level:: Medical - moderate - high VTE Device Contraindication: N/A - Device Ordered VTE Drug Contraindication: Treatment Not Indicated
--- NOTE | 2024-05-19 12:56 | MHC.SHP ---
Pre-Procedural Eval Section A - 24 Hr Update-Section A only Date of Service: 05/19/24 The patient is an INPATIENT: Yes The patient has been examined within 24 hours of the surgical procedure. The History & Physical has been completed within 30 days and I have reviewed it.: Yes Section B - Complete if H&P > 30 days Chief Complaint: GI bleeding, acute blood loss anemia Allergies: Allergies Allergy/AdvReac Type Severity Reaction Status Date / Time egg Allergy Intermediate Swelling Verified 05/18/24 11:41 Iodinated Contrast Media Allergy Intermediate Swelling Verified 05/18/24 11:41 [Contrast Dye] onion Allergy Intermediate Swelling Verified 05/18/24 11:41 peanut Allergy Intermediate Swelling Verified 05/18/24 11:41 shellfish derived Allergy Intermediate Swelling Verified 05/18/24 11:41 tomato Allergy Intermediate Swelling Verified 05/18/24 11:41 Plan Diagnosis/Plan: Unchanged I have reviewed the history and physical and performed a pertinent physical examination on my patient. No changes have occurred unless specified. Time Spent With Patient Time: Total time managing care of this patient today ____ minutes.
--- NOTE | 2024-05-19 12:57 | P.CONAN_ITS ---
[facility] Active Problems Active Problems: All Active Problems Metastatic cancer (Acute) UTI (urinary tract infection) (Acute) Acute urinary retention (Acute) GI bleed (Acute) Neutropenia (Acute) Cystitis (Acute) Anemia (Acute) Postop check (Acute) Rectal mass (Acute) Abdominal pain (Acute) Abnormal CT scan, gastrointestinal tract (Acute) Anal squamous cell carcinoma (Chronic) Colostomy in place (Acute) Hydronephrosis, left (Acute) Past Medical History Medical History History of sigmoidoscopy Anal squamous cell carcinoma Hydronephrosis, left Shingles Migraines Hepatitis C Family History Family history of problems with anesthesia: No Surgical History Surgical History H/O cystoscopy Tubal ligation status History of exploratory laparotomy (06/26/23) Colostomy in place History of Problems with Anesthesia: No Social History Social History Household Members: None Housing: Apartment Are you a primary animal care technician to a significant other at home: No Do you presently have visiting nurse or other home services: No Alcohol intake: never Patient Tobacco Use Status: Former Tobacco user Tobacco use type: Cigarette Years Smoked: 5 Smoked in Last 30 Days: No Second Hand Smoke Exposure: No Use of substances other than those prescribed or required for medical reasons: No Currently Displaying Signs/Symptoms of Drug Intoxication Withdrawal: No Have you been hit, kicked, punched, or otherwise hurt by someone within the past year? If so, by whom?: No Do you feel safe in your current relationship?: No Current Relationship Is there a partner from a previous relationship who is making you feel unsafe now?: No Are you made to feel afraid or neglected: No Are you DNR?: No Advance Directives: Yes Advance Directives on File: Yes Advance Directives Date on File: 07/04/23 Do you have a plan to hurt others: No Plan Recently lost weight without trying: No Eating poorly because of decreased appetite: No Nutrition Risks: No Nutritional Risk Patient : No : No Poor oral hygiene: No service: No Meds Allergies Allergy/AdvReac Type Severity Reaction Status Date / Time egg Allergy Intermediate Swelling Verified 05/18/24 11:41 Iodinated Contrast Media Allergy Intermediate Swelling Verified 05/18/24 11:41 [Contrast Dye] onion Allergy Intermediate Swelling Verified 05/18/24 11:41 peanut Allergy Intermediate Swelling Verified 05/18/24 11:41 shellfish derived Allergy Intermediate Swelling Verified 05/18/24 11:41 tomato Allergy Intermediate Swelling Verified 05/18/24 11:41 Active Medications: Current Medications Acetaminophen (Acetaminophen 325 Mg Tablet) 650 mg PO Q6H PRN PRN Reason: Pain, Mild 1-3,fever,headache Last Admin: 05/19/24 06:00 Dose: 650 mg Calcium Carbonate (Calcium Carbonate 750 Mg Tab.Chew) 750 mg PO Q4H PRN PRN Reason: Heartburn Ceftriaxone Sodium (Ceftriaxone Sodium 1 Gm Vial) 1 gm IVPUSH Q24H [facility] Octreotide Acetate 500 mcg/ (Sodium Chloride) 501 mls @ 50.1 mls/hr IVCONT .Q10H [facility] Last Admin: 05/19/24 12:04 Dose: 50 mcg/hr, 50.1 mls/hr Pantoprazole Sodium 80 mg/ (Sodium Chloride) 100 mls @ 10 mls/hr IV .Q10H [facility] Last Admin: 05/19/24 12:03 Dose: 8 mg/hr, 10 mls/hr Magnesium Hydroxide (Milk Of Magnesia 30 Ml Oral.Susp) 30 ml PO DAILY PRN PRN Reason: Constipation Melatonin (Melatonin 3 Mg Tablet) 6 mg PO BEDTIME PRN PRN Reason: Insomnia Morphine Sulfate (Morphine Sulfate 4 Mg/Ml Cartridge) 4 mg IVPUSH Q4H PRN; Protocol PRN Reason: Pain, Severe (Pain Scale 7-10) Last Admin: 05/19/24 07:42 Dose: 4 mg Naloxone HCl (Naloxone Hcl 0.4 Mg/Ml Vial) 0.04 mg IVPUSH Q5M PRN PRN Reason: Excessive sedation or RR < 8 Ondansetron HCl (Ondansetron Hcl 4 Mg/2 Ml Vial) 4 mg IVPUSH Q8H PRN PRN Reason: Nausea and Vomiting Pantoprazole Sodium (Pantoprazole Sodium 40 Mg/10 Ml Vial) 40 mg IVPUSH DAILY@0630 [facility] Last Admin: 05/19/24 05:46 Dose: Not Given Polyethylene Glycol (Polyethylene Glycol 3350 17 Gm Powd.Pack) 17 gm PO DAILY PRN PRN Reason: Constipation Sodium Biphosphate/Sodium Phosphate (Sodium Phosphate,[place]-Dibasic 133 Ml Enema) 133 ml DC ONCE PRN PRN Reason: Consult order Last Admin: 05/19/24 11:54 Dose: 133 ml Sodium Chloride (0.9 % Sodium Chloride Flush 3 Ml Syringe) [facility] Last Admin: 05/19/24 08:28 Dose: Not Given Home Medications ?Medication ?Instructions ?Recorded ?Confirmed ?Last Taken ?Type clonazepam 0.5 mg tablet 0.5 mg PO BEDTIME 09/03/23 05/18/24 Unknown History diclofenac sodium 1 % topical gel 2 g topical BID Pain 09/03/23 05/18/24 Unknown History lidocaine 4 % topical gel 1 appl topical TID PRN Pain 09/03/23 05/18/24 Unknown History sennosides 8.6 mg tablet (senna) 8.6 mg PO BID 09/03/23 05/18/24 Unknown History acetaminophen 325 mg tablet 650 mg PO Q4H PRN Fever Or Pain 05/18/24 05/18/24 Unknown History aluminum-mag hydroxide-simethicone 30 ml PO Q4H PRN Indigestion 05/18/24 05/18/24 Unknown History 200 mg-200 mg-20 mg/5 mL oral susp (Shira-Lanta) amlodipine 2.5 mg tablet 2.5 mg PO DAILY 05/18/24 05/18/24 Unknown History bisacodyl 10 mg rectal suppository 10 mg DC DAILY PRN Constipation 05/18/24 05/18/24 Unknown History diphenhydramine HCl 25 mg tablet 25 mg PO Q6H PRN Allergic Reaction 05/18/24 05/18/24 Unknown History (Banophen) ferrous sulfate 325 mg (65 mg 325 mg PO BID 05/18/24 05/18/24 Unknown History iron) tablet magnesium hydroxide 400 mg/5 mL 30 ml PO DAILY PRN Constipation 05/18/24 05/18/24 Unknown History oral suspension (Milk of Magnesia) magnesium hydroxide 400 mg/5 mL 30 ml PO Q48H Constipation 05/18/24 05/18/24 Unknown History oral suspension (Milk of Magnesia) meclizine 25 mg tablet 25 mg PO Q8H PRN Dizziness Or 05/18/24 05/18/24 Unknown History Vertigo naloxone 4 mg/actuation nasal 4 mg intranasal Q3M PRN Opiate 05/18/24 05/18/24 Unknown History spray (Narcan) Reversal oxycodone 5 mg tablet 5 mg PO Q8H PRN Pain, 05/18/24 05/18/24 Unknown History Moderate(Pain Scale 4-6) sodium phosphates 19 gram-7 118 ml DC DAILY PRN Constipation 05/18/24 05/18/24 Unknown History gram/118 mL enema (Fleet Enema) Exam Height,Weight and Vital Signs: Height 5 ft 5 in Weight 84.5 kg Last Vital Signs Temp 99.1 F 05/19/24 12:43 Pulse 97 05/19/24 12:43 Resp 16 05/19/24 12:43 BP 108/75 05/19/24 12:43 Pulse Ox 96 05/19/24 12:43 O2 Del Method Room Air 05/19/24 12:43 Pertinent Lab Results Pertinent Lab Results: Laboratory Tests 05/18/24 05/18/24 05/19/24 12:08 12:22 05:47 WBC 2.8 L RBC 2.65 L Hgb 8.7 L Hct 26.0 L MCV 98.1 H MCH 32.8 MCHC 33.5 RDW 15.9 Plt Count 140 L MPV 8.5 L Immature Gran % (Auto) 0.4 Neut % (Auto) 70.7 Lymph % (Auto) 10.8 L [place] % (Auto) 17.7 H Eos % (Auto) 0.4 Baso % (Auto) 0.0 Lymph # (Auto) 0.3 L [place] # (Auto) 0.5 Eos # (Auto) 0.0 Baso # (Auto) 0.0 Abs Immat Gran (auto) 0.01 Absolute Neuts (auto) 2.0 Absolute Nucleated RBC 0.000 Nucleated RBC % (auto) 0.0 PT 11.8 INR 1.0 Sodium 136 135 Potassium 4.0 4.2 Chloride 107 103 Carbon Dioxide 23 26 Anion Gap 10 L 10 L BUN 10 6 L Creatinine 0.63 0.67 Estim Creat Clear Calc 108.3 101.8 Estimated GFR > 60 > 60 Random Glucose 100 114 Calcium 8.4 8.5 Magnesium 2.0 Iron 34 TIBC 168 L % Saturation 20 Unsat Iron Binding 134 Ferritin 1573 H Total Bilirubin 0.2 0.3 Direct Bilirubin < 0.2 AST 38 H 40 H ALT 7 6 Alkaline Phosphatase 55 61 B-Natriuretic Peptide 20 Total Protein 6.0 L 6.5 Albumin 2.4 L 2.6 L Lipase 5 L Urine Color Dark Yellow Urine Appearance Cloudy Urine pH 6.5 Ur Specific [place] 1.025 Urine Protein 30 (1+) H Urine Glucose (UA) Negative Urine Ketones Negative Urine Blood Large (3+) H Urine Nitrite Negative Ur Leukocyte Esterase Moderate (2+) H Urine RBC >20 H Urine WBC >50 H Ur Squamous Epith Cells 0-2 Urine Bacteria None Seen Hyaline Casts 0-2 Airway Mallampati Class: II TM Dist: >3cm Neck ROM: Full Heart: rrr Lungs: cta Assessment and Plan Assessment Anesthesia Assessment: Anesthesia Plan Discussed and Chart Reviewed Final Anesthetic Review Family History of Problems with Anesthesia: No History of Problems with Anesthesia: No NPO: Yes ASA Class: III Final Preanesthetic Review: No Changes in Pt Med Stat, Meds/Allgs Chart Reviewed and Consent Obtained/Reviewed Patient Risk: Intermediate Procedure Risk: Intermediate Anesthetic Plan Anesthetic Plan: MAC: Disposition: Standard PACU
--- NOTE | 2024-05-19 13:36 | HO.OPN-COLON ---
Colonoscopy Operative Note Operative Note Date of Service: 05/19/24 Narrative: Operative Information Procedure Description: EGD, Colonoscopy Indication: GI bleeding Anesthesia: MAC FLEXIBLE TRANSORAL UPPER GASTROINTESTINAL ENDOSCOPY AND COLONOSCOPY PROCEDURE NOTE UPPER ENDOSCOPY Consent: Indications for the procedure and potential complications of bleeding, perforation, reaction to medications and missed diagnosis were discussed with the patient and informed consent was obtained. Instrument: Olympus GIF H 190 J mid size upper endoscope Monitoring: Vital signs and clinical assessment, continuous EKG monitoring, Pulse oximetry, Carbon Dioxide monitoring and blood pressure monitoring were done throughout the procedure. Procedure: The patient was placed in the left lateral decubitis position and pre-procedure medications were administered and a bite block was placed. The endoscope was inserted into the mouth and advanced under direct vision to the third part of duodenum. A careful inspection was made as the upper endoscope was withdrawn including a retroflexed examination of the proximal stomach; Findings and interventions are described below. Findings: Larynx:normal Esophagus: GE junction at 40 cm, diaphragm hiatus at 40 cm, normal mucosa Stomach: Normal mucosa. Grade 2 flap valve on retroflexed examination of the cardia. Duodenum: Normal bulb and descending duodenum, Intervention: none COLONOSCOPY Instrument: as above the instrument was placed thru the stoma to the proximal limb and the cecum was reached. The mucosa was normal and no bleeding sites were seen I then intubated the distal limb and large clots were noted at the inlet. I reached the rectum and the tissue was friable and oozing, hemospray was applied here and to the inlet of the limb. 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 Above findings were reviewed with the patient and relevant handouts were provided if indicated.
[2024-05-19] MEDS: 0.9 % Sodium Chloride Flush 3 ML SYRINGE IVFLUSH (15:20)
[2024-05-19] MEDS: cefTRIAXone sodium 1 GM VIAL IVPUSH (15:20)
--- NOTE | 2024-05-19 15:46 | MHC.CM.PN ---
Met with pt s/p Colonoscopy in room 359. A lobbyist was utilized for the CM Assessment interview. Patient reports that she has come to [facility] from [facility]. She requires assist with ADLS. She uses a walker for short distances. She also uses a WC. She reports that she will transfer to an apartment in the near future. She never made it to the new PCP appointment scheduled with Dr Arrington. She reports that Dr Padilla is her PCP. HCP on file. DP return to [facility] via BLS.
[2024-05-19] MEDS: Calcium Carbonate 750 MG TAB.CHEW PO (20:23)
[2024-05-20] MEDS: Acetaminophen 325 MG TABLET 650 MG PO (01:31)
[2024-05-20 03:26] VITALS: BP 123/59; PULSE 98; RESP 18; TEMP 36.6; O2SAT 94
[2024-05-20] MEDS: Omeprazole 20 MG CAPSULE.DR PO (04:49)
[2024-05-20] MEDS: Morphine Sulfate 4 MG/ML CARTRIDGE IVPUSH ×4 (04:49→23:29)
[2024-05-20 06:56] LABS: Hematocrit 26.6 % (37.0-47.0); Hemoglobin 9.1 g/dl (12.0-16.0); Mean Corpuscular HGB Conc 34.2 g/dl (31.0-35.0); Mean Corpuscular Volume 96.4 fL (80.0-98.0); Mean Platelet Volume 9.2 fL (9.4-12.3); Platelet Count 166 X10*3/uL (160-400); Red Blood Count 2.76 X10*6/uL (4.20-5.50); Red Cell Distribution Width 15.5 % (11.0-16.0); White Blood Count 3.2 X10*3/uL (4.8-10.8)
[2024-05-20 06:57] LABS: Anion Gap 11 (12-20); Blood Urea Nitrogen 3 mg/dL (9-16); Calcium 8.1 mg/dL (8.4-10.2); Carbon Dioxide 25 mmol/L (22-29); Chloride 104 mmol/L (96-108); Creatinine Clr Calc Pharmacy 117.6; Estimated Glomerular Filt Rate > 60; Glucose Random 112 mg/dL (60-115); Potassium 3.5 mmol/L (3.3-5.1); Sodium 136 mmol/L (135-145)
[2024-05-20 07:33] LABS: Folate 15.8 ng/mL (> or = 4.0); Vitamin B12 753 pg/mL (200-900)
[2024-05-20 08:00] VITALS: BP 128/71; PULSE 90; RESP 16; TEMP 37.3; O2SAT 96
[2024-05-20] MEDS: Octreotide Acetate 500 MCG in 0.9 % Sodium Chloride 500 ML 50.1 MCG IVCONT ×2 (08:09→18:22)
--- NOTE | 2024-05-20 08:22 | HO.POSTANES ---
Post Anesthesia Evaluation Post Anesthesia Evaluation Date of Service: 05/20/24 Vital Signs: Vital Signs Temp Pulse Resp BP Pulse Ox O2 Del Method 05/20/24 08:00 99.1 F 90 16 128/71 96 Room Air 05/20/24 03:26 97.9 F 98 18 123/59 L 94 Room Air Anesthesia: Monitored Mental Status: Awake Pain Control: Satisfactory Nausea/Vomiting: None Hydration: Adequate Anesthesia-Related Issues: No Anes. Related Issues
[2024-05-20] MEDS: cefTRIAXone sodium 1 GM VIAL IVPUSH (12:17)
--- NOTE | 2024-05-20 12:49 | HO.PM.IMPN ---
Subjective Subjective Date of Service: 05/20/24 Interval History: friable rectal tissue/bleedin Review of Systems patient condition similar h/h similar Physical Exam Vital Signs: Vital Signs: Last Vital Signs Temp 99.1 F 05/20/24 08:00 Pulse 90 05/20/24 08:00 Resp 16 05/20/24 08:00 BP 128/71 05/20/24 08:00 Pulse Ox 96 05/20/24 08:00 O2 Del Method Room Air 05/20/24 08:00 BMI result Body Mass Index 31.0 Appearance: Alert.? Oriented X3.? cvs: rrr, [id number] . res: clear to auscultation ,no rales or wheezing. abd: no rebound or guarding ,colostomy bag( has blackish liquidy stool), bs present. ext pulses present , no cyanosis . neuro: axo3 , nonfocal. Objective Data Active Medications Acetaminophen (Acetaminophen 325 Mg Tablet) 650 mg PO Q6H PRN PRN Reason: Pain, Mild 1-3,fever,headache Last Admin: 05/20/24 01:31 Dose: 650 mg Documented By: JUDITH Calcium Carbonate (Calcium Carbonate 750 Mg Tab.Chew) 750 mg PO Q4H PRN PRN Reason: Heartburn Last Admin: 05/19/24 20:23 Dose: 750 mg Documented By: JUDITH Ceftriaxone Sodium (Ceftriaxone Sodium 1 Gm Vial) 1 gm IVPUSH Q24H [facility] Last Admin: 05/20/24 12:17 Dose: 1 gm Documented By: JENNY Octreotide Acetate 500 mcg/ (Sodium Chloride) 501 mls @ 50.1 mls/hr IVCONT .Q10H [facility] Last Admin: 05/20/24 08:09 Dose: 50 mcg/hr, 50.1 mls/hr Documented By: JENNY Magnesium Hydroxide (Milk Of Magnesia 30 Ml Oral.Susp) 30 ml PO DAILY PRN PRN Reason: Constipation Melatonin (Melatonin 3 Mg Tablet) 6 mg PO BEDTIME PRN PRN Reason: Insomnia Morphine Sulfate (Morphine Sulfate 4 Mg/Ml Cartridge) 4 mg IVPUSH Q4H PRN; Protocol PRN Reason: Pain, Severe (Pain Scale 7-10) Last Admin: 05/20/24 12:16 Dose: 4 mg Documented By: JENNY Naloxone HCl (Naloxone Hcl 0.4 Mg/Ml Vial) 0.04 mg IVPUSH Q5M PRN PRN Reason: Excessive sedation or RR < 8 Naloxone HCl (Naloxone Hcl 0.4 Mg/Ml Vial) 0.04 mg IVPUSH Q5M PRN PRN Reason: Excessive sedation or RR < 8 Omeprazole (Omeprazole 20 Mg Capsule.) 20 mg PO DAILY@0630 [facility] Last Admin: 05/20/24 04:49 Dose: 20 mg Documented By: JUDITH Ondansetron HCl (Ondansetron Hcl 4 Mg/2 Ml Vial) 4 mg IVPUSH Q8H PRN PRN Reason: Nausea and Vomiting Polyethylene Glycol (Polyethylene Glycol 3350 17 Gm Powd.Pack) 17 gm PO DAILY PRN PRN Reason: Constipation Sodium Biphosphate/Sodium Phosphate (Sodium Phosphate,[place]-Dibasic 133 Ml Enema) 133 ml RI ONCE PRN PRN Reason: Consult order Last Admin: 05/19/24 11:54 Dose: 133 ml Documented By: PRICE Sodium Chloride (0.9 % Sodium Chloride Flush 3 Ml Syringe) 3 ml IVFLUSH QSHIFT [facility] Last Admin: 05/20/24 07:51 Dose: Not Given Documented By: JENNY Non-Admin Reason: IV Running Labs 05/20/24 05:38 05/20/24 05:38 Labs: Laboratory Results - last 24 hr 05/19/24 05/20/24 05:47 05:38 MCV 96.4 MCH 33.0 MCHC 34.2 RDW 15.5 Plt Count 166 MPV 9.2 L Absolute Nucleated RBC 0.000 Nucleated RBC % (auto) 0.0 Anion Gap 11 L Estim Creat Clear Calc 117.6 Estimated GFR > 60 Random Glucose 112 Calcium 8.1 L Ferritin 1573 H Vitamin B12 753 Folate 15.8 Microbiology Microbiology Results: Microbiology 05/18/24 Unknown Urine Culture - Final Urine clean catch - Clean Catch Midstream Assessment and Plan (1) GI bleed: Status: Acute Assessment and Plan: 54 yo F patient; PMH mood disorder, hx hepatitis C, 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 Padilla, surgery Dr. Andrade) her with GIB with blood in colostomy bag, and acute on chronic anemia. GIB, Acute blood loss anemia Follow H/H, no indication for transfusion at this time. cta-Intraluminal increased attenuation in the distal colon at the ostomy site may indicate hemorrhage, ingested material and/or mucosal hyperenhancement. Wall thickening versus underdistention of portions of the small bowel and colon. 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 us abd for area:No varices are identified. continue octerotide x48hrs , moniter h/h and any new bleeding. patient has advanced cancer/bleedin -oncology eval added . UTI: urine culture mixed. continue Ceftriaxone. Anorectal SCC s/p loop sigmoid ostomy ostomy care Outpatient oncology followup DVT prophylaxis- compression device Full code ongoing need for management of UTI, acute blood loss anemia d/t GI bleeding,octereotide need x48hrs and oncology eval. Quality Stroke Does the patient have a stroke diagnosis?: No VTE Prior VTE?: No VTE Risk Level:: Medical - moderate - high VTE Device Contraindication: N/A - Device Ordered VTE Drug Contraindication: Treatment Not Indicated
--- NOTE | 2024-05-20 14:33 | MHC.CM.PN ---
Per MD bliss DC today. An Oncology consult has been ordered. A clinical update has been sent to [facility]. DP return to [facility] for LTC via BLS.
[2024-05-20 16:20] VITALS: BP 123/64; PULSE 91; RESP 16; TEMP 36.3; O2SAT 96
--- NOTE | 2024-05-20 16:31 | PC.NURSE ---
Austin catheter removed at 1625. Catheter intact, pt tolerated well. Due to void by 05/20/24 at 2225.
[2024-05-20 19:23] VITALS: BP 129/83; PULSE 86; RESP 16; TEMP 36.3; O2SAT 96
[2024-05-21] MEDS: Morphine Sulfate 4 MG/ML CARTRIDGE IVPUSH ×4 (03:31→23:55)
--- NOTE | 2024-05-21 03:37 | PC.NURSE ---
Austin cath removed 05/20 1645 DTV #1 at 2245 pt ambulated to bathroom several times unable to void.Bladder scanned at 2300 for [address]cath now.St.cathed for 1000 cc at 0030.DTV #1 at 0630.Ostomy leaking new appliance applied.Emptied for < 100 cc liquid green stool.
[2024-05-21] MEDS: Octreotide Acetate 500 MCG in 0.9 % Sodium Chloride 500 ML 50.1 MCG IVCONT ×3 (03:54→23:49)
[2024-05-21 03:58] VITALS: BP 120/64; PULSE 98; RESP 18; TEMP 37.7; O2SAT 97
[2024-05-21] MEDS: Omeprazole 20 MG CAPSULE.DR PO (05:47)
[2024-05-21 07:56] VITALS: BP 116/63; PULSE 94; RESP 16; TEMP 36.2; O2SAT 95
--- NOTE | 2024-05-21 08:13 | P.PNIM_ITS ---
Subjective Subjective Date of Service: 05/21/24 Interval History: bleedin urinary retention Review of Systems had some blood on wipe c/o of decreased urination Review of Systems: Yes all other systems are reviewed and are negative Physical Exam 2 Vital Signs: Vital Signs: Last Vital Signs Temp 97.2 F 05/21/24 07:56 Pulse 94 05/21/24 07:56 Resp 16 05/21/24 07:56 BP 116/63 05/21/24 07:56 Pulse Ox 95 05/21/24 07:56 O2 Del Method Room Air 05/21/24 07:56 BMI result Body Mass Index 31.0 Appearance: Alert.? Oriented X3.? cvs: rrr, [id number] . res: clear to auscultation ,no rales or wheezing. abd: no rebound or guarding ,colostomy bag( has blackish liquidy stool), bs present. ext pulses present , no cyanosis . neuro: axo3 , nonfocal. Objective Data Active Medications Acetaminophen (Acetaminophen 325 Mg Tablet) 650 mg PO Q6H PRN PRN Reason: Pain, Mild 1-3,fever,headache Last Admin: 05/20/24 01:31 Dose: 650 mg Documented By: JUDITH Calcium Carbonate (Calcium Carbonate 750 Mg Tab.Chew) 750 mg PO Q4H PRN PRN Reason: Heartburn Last Admin: 05/19/24 20:23 Dose: 750 mg Documented By: JUDITH Ceftriaxone Sodium (Ceftriaxone Sodium 1 Gm Vial) 1 gm IVPUSH Q24H [facility] Last Admin: 05/20/24 12:17 Dose: 1 gm Documented By: JENNY Octreotide Acetate 500 mcg/ (Sodium Chloride) 501 mls @ 50.1 mls/hr IVCONT .Q10H [facility] Last Admin: 05/21/24 03:54 Dose: 50 mcg/hr, 50.1 mls/hr Documented By: JUDITH Magnesium Hydroxide (Milk Of Magnesia 30 Ml Oral.Susp) 30 ml PO DAILY PRN PRN Reason: Constipation Melatonin (Melatonin 3 Mg Tablet) 6 mg PO BEDTIME PRN PRN Reason: Insomnia Morphine Sulfate (Morphine Sulfate 4 Mg/Ml Cartridge) 4 mg IVPUSH Q4H PRN; Protocol PRN Reason: Pain, Severe (Pain Scale 7-10) Last Admin: 05/21/24 03:31 Dose: 4 mg Documented By: JUDITH Naloxone HCl (Naloxone Hcl 0.4 Mg/Ml Vial) 0.04 mg IVPUSH Q5M PRN PRN Reason: Excessive sedation or RR < 8 Naloxone HCl (Naloxone Hcl 0.4 Mg/Ml Vial) 0.04 mg IVPUSH Q5M PRN PRN Reason: Excessive sedation or RR < 8 Omeprazole (Omeprazole 20 Mg Capsule.) 20 mg PO DAILY@0630 [facility] Last Admin: 05/21/24 05:47 Dose: 20 mg Documented By: JUDITH Ondansetron HCl (Ondansetron Hcl 4 Mg/2 Ml Vial) 4 mg IVPUSH Q8H PRN PRN Reason: Nausea and Vomiting Polyethylene Glycol (Polyethylene Glycol 3350 17 Gm Powd.Pack) 17 gm PO DAILY PRN PRN Reason: Constipation Sodium Biphosphate/Sodium Phosphate (Sodium Phosphate,[place]-Dibasic 133 Ml Enema) 133 ml MS ONCE PRN PRN Reason: Consult order Last Admin: 05/19/24 11:54 Dose: 133 ml Documented By: PRICE Sodium Chloride (0.9 % Sodium Chloride Flush 3 Ml Syringe) 3 ml IVFLUSH QSHIFT [facility] Last Admin: 05/21/24 07:11 Dose: Not Given Documented By: JENNY Non-Admin Reason: IV Running Labs 05/21/24 08:00 05/20/24 05:38 Microbiology Microbiology Results: Microbiology 05/18/24 Unknown Urine Culture - Final Urine clean catch - Clean Catch Midstream Assessment and Plan (1) GI bleed: Status: Acute Assessment and Plan: 54 yo F patient; PMH mood disorder, hx hepatitis C, 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 Padilla, surgery Dr. Andrade) her with GIB with blood in colostomy bag, and acute on chronic anemia. GIB, Acute blood loss anemia Follow H/H, no indication for transfusion at this time. cta-Intraluminal increased attenuation in the distal colon at the ostomy site may indicate hemorrhage, ingested material and/or mucosal hyperenhancement. Wall thickening versus underdistention of portions of the small bowel and colon. 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 us abd for area:No varices are identified. continue octerotide x48hrs , moniter h/h and any new bleeding. patient has advanced cancer/bleedin -oncology eval added . UTI: urine culture mixed. continue Ceftriaxone. urinary retention-paulson placed. Anorectal SCC s/p loop sigmoid ostomy ostomy care Outpatient oncology followup DVT prophylaxis- compression device Full code patient seen by oncology and plan d/w with patient -explained that she has progressive disease which is not responding to palliative chemotherapy. No further treatment can be offered. We discussed goals of care which is to keep her comfortable, inpatient hospice care has been recommended. Patient is agreeable to this. Quality Stroke Does the patient have a stroke diagnosis?: No VTE Prior VTE?: No VTE Risk Level:: Medical - moderate - high VTE Device Contraindication: N/A - Device Ordered VTE Drug Contraindication: Treatment Not Indicated
[2024-05-21 08:15] LABS: Hematocrit 31.2 % (37.0-47.0); Hemoglobin 10.3 g/dl (12.0-16.0)
--- NOTE | 2024-05-21 09:47 | P.CNHO_ITS ---
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 She presented to Oncology Clinic on 05/19/2023 for chemotherapy however, she complained of ongoing bleeding from the ostomy as well as pelvic pain. Postvoid residual was over 800 cc and therefore patient was referred to emergency department. Imaging revealed lesion in the left adnexa which had increased in size to 5.2 x 4.5 cm, left lower quadrant colostomy with parastomal hernia and retroperitoneal lymphadenopathy. CT angio abdomen ruled out acute bleeding. She underwent EGD and colonoscopy on 05/19/2024 which showed normal upper endoscopy, friable rectal tissue with neoplasm. Hemo spray was applied to oozing area in the rectum. At this time oncology consultation has been called to discuss goals of care. Review of Systems - Constitutional Reports fatigue, Reports lack of energy, Reports malaise - Gastrointestinal Reports black, tarry stools, Reports bright, red blood in stools, Reports change in stools PMFSH Medical History: Medical History (Last Reviewed 05/20/24 @ 13:36 by Marline Espino PT) Anal squamous cell carcinoma Hepatitis C History of sigmoidoscopy Hydronephrosis, left Migraines Shingles Surgical History: Surgical History (Last Reviewed 05/20/24 @ 13:36 by Marline Espino, PT) Colostomy in place H/O cystoscopy History of exploratory laparotomy Onset Date: 06/26/23 Tubal ligation status Social History: Social History (Last Reviewed 05/18/24 @ 12:14 by ERICK Theodore) Living Situation History: Household Members: None Housing: Apartment Are you a primary healthcare economics consultant to a significant other at home: No Do you presently have visiting nurse or other home services: No Alcohol History Details: 1. How often do you have a drink containing alcohol?: a. Never AUDIT-C Alcohol total score: 0 Currently Displaying Signs/Symptoms of Alcohol Withdrawal: No Tobacco History: Patient Tobacco Use Status: Former Tobacco user Tobacco use type: Cigarette Years Smoked: 5 Smoked in Last 30 Days: No Second Hand Smoke Exposure: No Substance Use History: Use of substances other than those prescribed or required for medical reasons : No Currently Displaying Signs/Symptoms of Drug Intoxication Withdrawal: No Domestic Abuse History: Have you been hit, kicked, punched, or otherwise hurt by someone within the past year? If so, by whom?: No Do you feel safe in your current relationship?: No Current Relationship Is there a partner from a previous relationship who is making you feel unsafe now?: No Are you made to feel afraid or neglected: No Advance Directives: Advance Directives: Yes Advance Directives on File: Yes Advance Directives Date on File: 07/04/23 Homicidal Assessment: Do you have a plan to hurt others: No Plan Nutrition Assessment: Recently lost weight without trying: No Eating poorly because of decreased appetite: No Nutrition Risks: No Nutritional Risk Patient : No : No Poor oral hygiene: No Occupation Assessmet: service: No Home Medications and Allergies Current Medications: Current Medications Acetaminophen (Acetaminophen 325 Mg Tablet) 650 mg PO Q6H PRN PRN Reason: Pain, Mild 1-3,fever,headache Last Admin: 05/20/24 01:31 Dose: 650 mg Calcium Carbonate (Calcium Carbonate 750 Mg Tab.Chew) 750 mg PO Q4H PRN PRN Reason: Heartburn Last Admin: 05/19/24 20:23 Dose: 750 mg Ceftriaxone Sodium (Ceftriaxone Sodium 1 Gm Vial) 1 gm IVPUSH Q24H [facility] Last Admin: 05/20/24 12:17 Dose: 1 gm Octreotide Acetate 500 mcg/ (Sodium Chloride) 501 mls @ 50.1 mls/hr IVCONT .Q10H [facility] Last Admin: 05/21/24 03:54 Dose: 50 mcg/hr, 50.1 mls/hr Magnesium Hydroxide (Milk Of Magnesia 30 Ml Oral.Susp) 30 ml PO DAILY PRN PRN Reason: Constipation Melatonin (Melatonin 3 Mg Tablet) 6 mg PO BEDTIME PRN PRN Reason: Insomnia Morphine Sulfate (Morphine Sulfate 4 Mg/Ml Cartridge) 4 mg IVPUSH Q4H PRN; Protocol PRN Reason: Pain, Severe (Pain Scale 7-10) Last Admin: 05/21/24 03:31 Dose: 4 mg Naloxone HCl (Naloxone Hcl 0.4 Mg/Ml Vial) 0.04 mg IVPUSH Q5M PRN PRN Reason: Excessive sedation or RR < 8 Naloxone HCl (Naloxone Hcl 0.4 Mg/Ml Vial) 0.04 mg IVPUSH Q5M PRN PRN Reason: Excessive sedation or RR < 8 Omeprazole (Omeprazole 20 Mg Capsule.Dr) 20 mg PO DAILY@0630 [facility] Last Admin: 05/21/24 05:47 Dose: 20 mg Ondansetron HCl (Ondansetron Hcl 4 Mg/2 Ml Vial) 4 mg IVPUSH Q8H PRN PRN Reason: Nausea and Vomiting Polyethylene Glycol (Polyethylene Glycol 3350 17 Gm Powd.Pack) 17 gm PO DAILY PRN PRN Reason: Constipation Sodium Biphosphate/Sodium Phosphate (Sodium Phosphate,Morrison-Dibasic 133 Ml Enema) 133 ml NM ONCE PRN PRN Reason: Consult order Last Admin: 05/19/24 11:54 Dose: 133 ml Sodium Chloride (0.9 % Sodium Chloride Flush 3 Ml Syringe) 3 ml IVFLUSH QSHIFT [facility] Last Admin: 05/21/24 07:11 Dose: Not Given Home Medications ?Medication ?Instructions ?Recorded ?Confirmed ?Type clonazepam 0.5 mg tablet 0.5 mg PO BEDTIME 09/03/23 05/18/24 History diclofenac sodium 1 % topical gel 2 g topical BID Pain 09/03/23 05/18/24 History lidocaine 4 % topical gel 1 appl topical TID PRN Pain 09/03/23 05/18/24 History sennosides 8.6 mg tablet (senna) 8.6 mg PO BID 09/03/23 05/18/24 History acetaminophen 325 mg tablet 650 mg PO Q4H PRN Fever Or Pain 05/18/24 05/18/24 History aluminum-mag hydroxide-simethicone 30 ml PO Q4H PRN Indigestion 05/18/24 05/18/24 History 200 mg-200 mg-20 mg/5 mL oral susp (Shira-Lanta) amlodipine 2.5 mg tablet 2.5 mg PO DAILY 05/18/24 05/18/24 History bisacodyl 10 mg rectal suppository 10 mg NM DAILY PRN Constipation 05/18/24 05/18/24 History diphenhydramine HCl 25 mg tablet 25 mg PO Q6H PRN Allergic Reaction 05/18/24 05/18/24 History (Banophen) ferrous sulfate 325 mg (65 mg 325 mg PO BID 05/18/24 05/18/24 History iron) tablet magnesium hydroxide 400 mg/5 mL 30 ml PO DAILY PRN Constipation 05/18/24 05/18/24 History oral suspension (Milk of Magnesia) magnesium hydroxide 400 mg/5 mL 30 ml PO Q48H Constipation 05/18/24 05/18/24 History oral suspension (Milk of Magnesia) meclizine 25 mg tablet 25 mg PO Q8H PRN Dizziness Or 05/18/24 05/18/24 History Vertigo naloxone 4 mg/actuation nasal 4 mg intranasal Q3M PRN Opiate 05/18/24 05/18/24 History spray (Narcan) Reversal oxycodone 5 mg tablet 5 mg PO Q8H PRN Pain, 05/18/24 05/18/24 History Moderate(Pain Scale 4-6) sodium phosphates 19 gram-7 118 ml NM DAILY PRN Constipation 05/18/24 05/18/24 History gram/118 mL enema (Fleet Enema) Allergies Allergy/AdvReac Type Severity Reaction Status Date / Time egg Allergy Intermediate Swelling Verified 05/18/24 11:41 Iodinated Contrast Media Allergy Intermediate Swelling Verified 05/18/24 11:41 [Contrast Dye] onion Allergy Intermediate Swelling Verified 05/18/24 11:41 peanut Allergy Intermediate Swelling Verified 05/18/24 11:41 shellfish derived Allergy Intermediate Swelling Verified 05/18/24 11:41 tomato Allergy Intermediate Swelling Verified 05/18/24 11:41 Physical Exam Vital signs: Vital Signs Temp 97.2 F 05/21/24 07:56 Pulse 94 05/21/24 07:56 Resp 16 05/21/24 07:56 BP 116/63 05/21/24 07:56 Pulse Ox 95 05/21/24 07:56 O2 Del Method Room Air 05/21/24 07:56 Intake & Output 05/20/24 05/21/24 05/21/24 18:59 06:59 18:59 Intake Total 1956.99 / 2534.61 577.62 / 2534.61 Output Total 900 / 900 0 / 900 Balance 1056.99 / 1634.61 577.62 / 1634.61 Urine Output (Average ml/kg/hr) 0.89 0.00 Intake: Intake, Oral Amount 960 / 1060 100 / 1060 Intake, IV Amount 996.99 / 1474.61 477.62 / 1474.61 Octreotide Acetate 500 mcg In 0 996.99 / 1474.61 477.62 / 1474.61 .9 % Sodium Chloride 500 ml @ 50 MCG/HR 50.1 mls/hr IVCONT . Q10H [facility] Rx#:[id number] Output: Output, Urine Amount 900 / 900 0 / 900 Other: Eating (Feeding) Ability Independent Number of Unmeasured Voids 0 Urine paulson Urine Color Yellow Weight 84.5 kg - Constitutional Present: mild distress, average body habitus, chronically ill appearing - Routine HEENT Exam Eye: Present: conjunctivae pale - Routine Neck Exam Present: supple - Routine Respiratory Exam Absent: stridor, wheezes - Routine Cardiovascular Exam Cardiovascular: Present: S1, S2 - Routine Abdominal Exam Present: distended, soft, tenderness - Routine Skin Exam Present: intact Hem/Onc Consult Result - Labs CBC & Chem 7: 05/21/24 08:00 05/20/24 05:38 Labs: Short CBC 05/21/24 Range/Units 08:00 Hgb 10.3 L (12.0-16.0) g/dl Hct 31.2 L (37.0-47.0) % Assessment and Plan Patient Active problem list reviewed?: Yes (1) Anal squamous cell carcinoma Status: Chronic Assessment and plan: This is a 54-year-old Swiss-speaking woman with past medical history significant for hepatitis-C who has been diagnosed with metastatic Anorectal carcinoma. Biopsy revealed poorly differentiated squamous cell carcinoma. She completed palliative radiotherapy to pelvic/inguinal lymphadenopathy. Received XRT to anorectum plus pelvic lymph nodes, starting 08/11, in 44 fractions, completed 09/25/2023. Under the care of Dr. Higgins at [facility]. She started systemic therapy carboplatin and Taxol on 10/07/2023. Because of clinical progression, she was switched to from Carbo Taxol to FOLFOX 6 regimen from 02/03/2024. PET scan in April 2023 showed new FDG avid right-sided paratracheal lymph nodes SUV max 4.8, prevascular and subcarinal lymph nodes. Nonenlarged anterior mediastinal lymph nodes. Right-sided axillary lymph nodes, decrease in size and FDG avidity. FDG avid anorectal mass. FDG avid abdominal and pelvic lymphadenopathy overall similar except for left iliac nodes that had decreased from prior. New FDG activity in the right lower quadrant and new FDG avid mediastinal lymphadenopathy. She developed bleeding from colostomy and acute urinary retention. She was in [facility] ER 05/17/2024. She underwent CT angiogram which showed no evidence of active GI hemorrhage. Diffuse metastatic disease in abdomen and pelvis including lymphadenopathy, left adnexal mass, rectal mass right upper quadrant implant and additional peritoneal disease. Moderate left hydronephrosis and right hydronephrosis. Unchanged wall thickening of posterior urinary bladder and small left pleural effusion. She has oozing from the cancer which has now extended to rectal region. She underwent colonoscopy on 05/20/2019 and hemo spray has been applied to the oozing areas. She has urinary retention for which she needs permanent Paulson catheter placement. Today patient was explained that she has progressive disease which is not responding to palliative chemotherapy. No further treatment can be offered. We discussed goals of care which is to keep her comfortable, inpatient hospice care has been recommended. Patient is agreeable to this. Her family and next of kin brother Robbie and [id number] were also informed of above plan of care. I thank you for the consultation. - Time Spent With Patient Time Spent with Patient (in minutes): 30
--- NOTE | 2024-05-21 13:04 | MHC.CM.PN ---
Addendum entered by Betsy Galindo 05/21/24 15:49: DR. SMITH IN TO SEE PT, PT IS AGREEABLE TO HOSPICE SERVICES AT [facility]. [facility] IS UNABLE TO ACCOMMODATE, REFERRAL SENT TO [facility] AND [facility] UPDATED. Original Note: EMR REVIEWED AND PER MD ROUNDS, PT IS NOT MEDICALLY CLEARED. PT WILL BE SEEN BY ONCOLOGY TEAM TO DISCUSS POSSIBLE HOSPICE SERVICES. [facility] UPDATED WITH CLINICAL UPDATES, PT IS A BEDHOLD. CM WILL CONTINUE TO FOLLOW FOR ANY CHANGE TO DC PLAN.
[2024-05-21] MEDS: cefTRIAXone sodium 1 GM VIAL IVPUSH (13:54)
[2024-05-21 14:59] VITALS: BP 130/78; PULSE 96; RESP 18; TEMP 36.4; O2SAT 97
[2024-05-21 19:16] VITALS: BP 131/75; PULSE 94; RESP 18; TEMP 36.6; O2SAT 99
[2024-05-21] MEDS: Tamsulosin HCL 0.4 MG CAPSULE PO (20:15)
[2024-05-21] MEDS: 0.9 % Sodium Chloride Flush 3 ML SYRINGE IVFLUSH (23:55)
[2024-05-22 03:12] VITALS: BP 111/66; PULSE 98; RESP 16; TEMP 36.2; O2SAT 97
[2024-05-22] MEDS: Morphine Sulfate 4 MG/ML CARTRIDGE IVPUSH ×3 (03:50→15:17)
--- NOTE | 2024-05-22 04:02 | PC.NURSE ---
Addendum entered by Priscilla Mae RN 05/22/24 06:22: still no output from colostomy, patient accepted MOM just now. Original Note: No stool from stoma, patient states had lots of liquid output the other day and she has not been eating. Is on clear liquid diet. Offered MOM but patient refused at this time.
[2024-05-22] MEDS: Milk of Magnesia 30 ML ORAL.SUSP PO (06:21)
[2024-05-22 07:26] VITALS: BP 100/57; PULSE 98; RESP 16; TEMP 36.8; O2SAT 93
[2024-05-22] MEDS: 0.9 % Sodium Chloride Flush 3 ML SYRINGE IVFLUSH ×2 (09:26→15:17)
--- NOTE | 2024-05-22 12:40 | MHC.CM.PN ---
[facility] NOTIFIED OF DC
--- NOTE | 2024-05-22 12:53 | MHC.CM.PN ---
left message for pts loree [facility] [phone] re dc
--- NOTE | 2024-05-22 13:00 | PM.DS ---
DS: Providers Provider Date of Service: 05/22/24 Date of admission: 05/18/24 18:43 Date of discharge: 05/22/24 Primary care physician: Unknown Physician Consults: 05/18/24 18:48 Consult to Gastroenterology Routine Consulting Provider: Paulina Moseley Reason for consultation: gi bleedin Has provider been notified: Yes 05/20/24 12:14 Consult to Hematology / Oncology Routine Consulting Provider: [facility] [place]cology/Hematology Reason for consultation: squamous cell rectal carcinoma Has provider been notified: No Attending physician on discharge: Darrell Varela Discharging clinician: Darrell Varela DS: Diagnosis Discharge Diagnosis (1) GI bleed: Status: Acute DS: Summary Hospital Course Hospital Course: HPI:54 y/o F patient; PMH mood disorder, hx hepatitis C, 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 Padilla, surgery Dr. Andrade). She reportedly was sent from oncology clinic where she was supposed to get chemo which not done because she had blood in colostomy bag and was sent to the ED. She states that she has been having blood in the bag for more than 2 weeks. She was seen at [facility] on 05/17/24 and discharged from the ED as there was no significant shift in H/H and CT of athe abdomen and pelvis showed no acute finding. Hemoglobin at [facility] was 10 yesterday and here today 9.2, and repeat 8.7, there is scant amount of blood in the bag. Hospital course: 54 yo F patient; PMH mood disorder, hx hepatitis C, 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 Padilla, surgery Dr. Andrade) her with GIB with blood in colostomy bag, and acute on chronic anemia: GIB, Acute blood loss anemia: Patient was started on IV ppi, octreotide seen by GI and CTA done which showed Intraluminal increased attenuation in the distal colon at the ostomy site may indicate hemorrhage, ingested material and/or mucosal hyperenhancement. Wall thickening versus underdistention of portions of the small bowel and colon. 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 Furthermore patient seen by Oncology Dr. Padilla patient seen and her cta reviewed : Diffuse metastatic disease in abdomen and pelvis including lymphadenopathy, left adnexal mass, rectal mass right upper quadrant implant and additional peritoneal disease. Moderate left hydronephrosis and right hydronephrosis. Unchanged wall thickening of posterior urinary bladder and small left pleural effusion. She has oozing from the cancer which has now extended to rectal region. She underwent colonoscopy on 05/20/2019 and hemo spray has been applied to the oozing areas.Does not have bleeding today. Tolerating diet. pain management with prn morphine . She has urinary retention for which she needs permanent Austin catheter placement. patient was explained that she has progressive disease which is not responding to palliative chemotherapy. No further treatment can be offered. We discussed goals of care which is to keep her comfortable, inpatient hospice care has been recommended. Patient is agreeable to this. UTI: Given p.o. Ceftin 250 b.i.d. for 4 days. plan: Patient will be going to rehab , hospice placement. Above management discussed with the patient with the help of food safety field specialist, also discussed in detail yesterday with her by oncology team. Total time spent 40 minute Time Attestation Total time managing care of this patient today: 40 mintues. Discharge Coordination Time (in mins): 40 min Quality: Safe Use of Opioids Does Pt have an Active Cancer Diagnosis on the Problem List?: No Quality: Stroke Does the patient have a stroke diagnosis?: No Physical Exam Vital Signs: Vital Signs: Last Vital Signs Temp 98.3 F 05/22/24 07:26 Pulse 98 05/22/24 07:26 Resp 16 05/22/24 07:26 BP 100/57 L 05/22/24 07:26 Pulse Ox 93 05/22/24 07:26 O2 Del Method Room Air 05/22/24 07:26 BMI result Body Mass Index 31.0 Appearance: Alert.? Oriented X3.? cvs: rrr, [id number] . res: clear to auscultation ,no rales or wheezing. abd: no rebound or guarding ,colostomy bag, bs present. ext pulses present , no cyanosis . neuro: axo3 , nonfocal. DS: Data Data Completed and Pending Completed studies during hospitalization [Text1]: Procedures Bypass Sigmoid Colon to Cutaneous, Open Approach (06/22/23) Dilation of Left Ureter with Intraluminal Device, Via Natural or Artificial Opening Endoscopic (06/22/23) Excision of Rectum, Via Natural or Artificial Opening Endoscopic, Diagnostic (06/22/23) Fluoroscopy of Left Kidney, Ureter and Bladder (06/22/23) Transfusion of Nonautologous Red Blood Cells into Peripheral Vein, Percutaneous Approach (09/03/23) Imaging CT scan - abdomen: Radiologist's impression: ITS Impressions Chest X-Ray 05/18/24 12:14 IMPRESSION: Small left pleural effusion. Electronically signed by: Hardy Wiseman MD 05/18/2024 01:02 PM EDT RP Abdomen Ultrasound 05/19/24 15:22 IMPRESSION: No varices are identified. Ascites is noted as described. Electronically signed by: Hardy Wiseman MD 05/19/2024 03:55 PM EDT RP CTA: Impression: Intraluminal increased attenuation in the distal colon at the ostomy site may indicate hemorrhage, ingested material and/or mucosal hyperenhancement. Wall thickening versus underdistention of portions of the small bowel and colon; enterocolitis could be considered. Lesion in the left adnexa measuring 5.2 cm, previously measuring 4.6 cm. Evaluate further with nonemergent pelvic ultrasound. Attention to the uterus as well on pelvic ultrasound.Small left pleural effusion.Mild fullness of the bilateral renal collecting systems. Unchanged left ureteral stent. Austin catheter within a decompressed bladder.Small ascites. Anasarca. Persistent retroperitoneal lymphadenopathy uncertain etiology with mild decrease in size. Discharge Plan Discharge Anticipated Discharge Date/Time: 05/22/24 12:43 Patient Disposition: [facility] Discharge Diagnosis: GI bleeding and urinary retention Referrals: [facility] [Other] - 1 Week [facility] [Other] - 1 Week Physician,Unknown J [Primary Care Provider] - 1 Week Discharge Medications: New cefuroxime axetil 250 mg Tablet 250 mg PO Q12H Qty: 8 0RF tamsulosin 0.4 mg Capsule 0.4 mg PO BEDTIME Qty: 1 0RF morphine concentrate 100 mg/5 mL (20 mg/mL) solution 10 mg PO Q4H PRN (Reason: pain) Qty: 1 0RF Rx Instructions: Partial Fill upon patient request. Continued clonazepam 0.5 mg Tablet 0.5 mg PO BEDTIME Rx Instructions: administer 30 minutes before bedtime diclofenac sodium 1 % Gel 2 g TOPICAL BID Rx Instructions: apply to right ankle/plantar max 36g in 24 hrs lidocaine 4 % Gel 1 appl TOPICAL TID PRN (Reason: Pain) Rx Instructions: Apply to rectum/groin. sennosides [senna] 8.6 mg Tablet 8.6 mg PO BID Rx Instructions: Hold for loose stools acetaminophen 325 mg Tablet 650 mg PO Q4H MDD 3 gm /24 h PRN (Reason: Fever Or Pain) amlodipine 2.5 mg Tablet 2.5 mg PO DAILY magnesium hydroxide [Milk of Magnesia] 400 mg/5 mL Suspension 30 ml PO Q48H Rx Instructions: If no BM magnesium hydroxide [Milk of Magnesia] 400 mg/5 mL Suspension 30 ml PO DAILY PRN (Reason: Constipation) Rx Instructions: If no BM for 3 day meclizine 25 mg Tablet 25 mg PO Q8H PRN (Reason: Dizziness Or Vertigo) bisacodyl 10 mg Suppository 10 mg LA DAILY PRN (Reason: Constipation) Rx Instructions: If no BM for 8 hours after M.O.M diphenhydramine HCl [Banophen] 25 mg Tablet 25 mg PO Q6H PRN (Reason: Allergic Reaction) Fleet Enema 19-7 gram/118 mL Enema 118 ml LA DAILY PRN (Reason: Constipation) Rx Instructions: If no BM for 8 hours after Bisacodyl supp. alum-mag hydroxide-simeth [Shira-Lanta] 200-200-20 mg/5 mL Suspension 30 ml PO Q4H PRN (Reason: Indigestion) Rx Instructions: administer between meals and at bedtime naloxone [Narcan] 4 mg/actuation [place],Non-Aerosol 4 mg INTRANASAL Q3M PRN (Reason: Opiate Reversal) Rx Instructions: spray 1 dose into ONE nostril; alternate nostrils w each dose until help arrives oxycodone 5 mg tablet 5 mg PO Q8H PRN (Reason: Pain, Moderate(Pain Scale 4-6)) Rx Instructions: Partial Fill upon patient request. ferrous sulfate 325 mg (65 mg iron) Tablet 325 mg PO BID loperamide [Imodium A-D] 2 mg Capsule 2 mg PO Q4H PRN (Reason: Diarrhea) Qty: 30 3RF Rx Instructions: administer after each loose stool until symptoms controlled; do not exceed 8 mg per 24 hrs ondansetron 8 mg Tablet,Disintegrating 8 mg PO Q8H PRN (Reason: Nausea And Vomiting) Qty: 30 3RF Discharge Orders: Discharge Order (Routine); Ordered 05/22/24 Ordered By: Darrell Varela Diet: Advance to usual diet Activity on Discharge: As tolerated Stand Alone Forms: Patient Portal Discharge page Print Language: Turkish Care Plan Goals: 54 yo F patient; PMH mood disorder, hx hepatitis C, 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 Padilla, surgery Dr. Andrade) her with GIB with blood in colostomy bag, and acute on chronic anemia: GIB, Acute blood loss anemia: Patient was started on IV ppi, octreotide seen by GI and CTA done which showed Intraluminal increased attenuation in the distal colon at the ostomy site may indicate hemorrhage, ingested material and/or mucosal hyperenhancement. Wall thickening versus underdistention of portions of the small bowel and colon. 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 Furthermore patient seen by Oncology Dr. Padilla patient seen and her cta reviewed : Diffuse metastatic disease in abdomen and pelvis including lymphadenopathy, left adnexal mass, rectal mass right upper quadrant implant and additional peritoneal disease. Moderate left hydronephrosis and right hydronephrosis. Unchanged wall thickening of posterior urinary bladder and small left pleural effusion. She has oozing from the cancer which has now extended to rectal region. She underwent colonoscopy on 05/20/2019 and hemo spray has been applied to the oozing areas. She has urinary retention for which she needs permanent Austin catheter placement. patient was explained that she has progressive disease which is not responding to palliative chemotherapy. No further treatment can be offered. We discussed goals of care which is to keep her comfortable, inpatient hospice care has been recommended. Patient is agreeable to this. Does not have bleeding today. Tolerating diet. UTI: Given p.o. Ceftin 250 b.i.d. for 4 days. Health Concerns: Patient will be going to rehab with hospice care. Plan of Treatment: Patient will be going to rehab with hospice care. Assessment: Patient will be going to rehab with hospice care.
[2024-05-22] MEDS: cefuroxime axetiL 250 MG TABLET PO (14:21)
--- NOTE | 2024-05-22 14:28 | PM.HEMONCPN ---
Medical Summary - Medical Summary Date of Service: 05/22/24 Primary Care Provider: Unknown Physician Statistics Teacher Utilized?: No - Turkish Speaking Statistics Teacher:: Home Care Nurse/Telephone Interval History Interval history: Lori Sparks is a 54 year old female with metastatic anal cancer admitted for bleeding from colostomy as well as urinary retention. She presented to Oncology Clinic on 05/19/2023 for chemotherapy however, she complained of ongoing bleeding from the ostomy as well as pelvic pain. Postvoid residual was over 800 cc and therefore patient was referred to emergency department. Imaging revealed lesion in the left adnexa which had increased in size to 5.2 x 4.5 cm, left lower quadrant colostomy with parastomal hernia and retroperitoneal lymphadenopathy. CT angio abdomen ruled out acute bleeding. She underwent EGD and colonoscopy on 05/19/2024 which showed normal upper endoscopy, friable rectal tissue with neoplasm. Hemo spray was applied to oozing area in the rectum. At this time oncology consultation has been called to discuss goals of care. Review of Systems - Constitutional Reports weakness - Eyes Reports other - ENT Reports system reviewed and no additional complaints, except as documented - Cardiovascular Reports lightheadedness - Respiratory Reports other - Gastrointestinal Reports bright, red blood in stools, Reports change in stools - Genitourinary Reports other - Musculoskeletal Reports decreased muscle mass PMFSH Medical History: Medical History (Last Reviewed 05/20/24 @ 13:36 by Marline Espino, PT) Anal squamous cell carcinoma Hepatitis C History of sigmoidoscopy Hydronephrosis, left Migraines Shingles Surgical History: Surgical History (Last Reviewed 05/20/24 @ 13:36 by Marline Espino PT) Colostomy in place H/O cystoscopy History of exploratory laparotomy Onset Date: 06/26/23 Tubal ligation status Social History: Social History (Last Reviewed 05/18/24 @ 12:14 by ERICK Theodore) Living Situation History: Household Members: None Housing: Apartment Are you a primary plant care worker to a significant other at home: No Do you presently have visiting nurse or other home services: No Alcohol History Details: 1. How often do you have a drink containing alcohol?: a. Never AUDIT-C Alcohol total score: 0 Currently Displaying Signs/Symptoms of Alcohol Withdrawal: No Tobacco History: Patient Tobacco Use Status: Former Tobacco user Tobacco use type: Cigarette Years Smoked: 5 Smoked in Last 30 Days: No Second Hand Smoke Exposure: No Substance Use History: Use of substances other than those prescribed or required for medical reasons: No Currently Displaying Signs/Symptoms of Drug Intoxication Withdrawal: No Domestic Abuse History: Have you been hit, kicked, punched, or otherwise hurt by someone within the past year? If so, by whom?: No Do you feel safe in your current relationship?: No Current Relationship Is there a partner from a previous relationship who is making you feel unsafe now?: No Are you made to feel afraid or neglected: No Advance Directives: Advance Directives: Yes Advance Directives on File: Yes Advance Directives Date on File: 07/04/23 Homicidal Assessment: Do you have a plan to hurt others: No Plan Nutrition Assessment: Recently lost weight without trying: No Eating poorly because of decreased appetite: No Nutrition Risks: No Nutritional Risk Patient : No : No Poor oral hygiene: No Occupation Assessmet: service: No Home Medications and Allergies Current Medications: Current Medications Acetaminophen (Acetaminophen 325 Mg Tablet) 650 mg PO Q6H PRN PRN Reason: Pain, Mild 1-3,fever,headache Last Admin: 05/20/24 01:31 Dose: 650 mg Calcium Carbonate (Calcium Carbonate 750 Mg Tab.Chew) 750 mg PO Q4H PRN PRN Reason: Heartburn Last Admin: 05/19/24 20:23 Dose: 750 mg Cefuroxime Axetil (Cefuroxime Axetil 250 Mg Tablet) 250 mg PO Q12H [facility] Last Admin: 05/22/24 14:21 Dose: 250 mg Magnesium Hydroxide (Milk Of Magnesia 30 Ml Oral.Susp) 30 ml PO DAILY PRN PRN Reason: Constipation Last Admin: 05/22/24 06:21 Dose: 30 ml Melatonin (Melatonin 3 Mg Tablet) 6 mg PO BEDTIME PRN PRN Reason: Insomnia Naloxone HCl (Naloxone Hcl 0.4 Mg/Ml Vial) 0.04 mg IVPUSH Q5M PRN PRN Reason: Excessive sedation or RR < 8 Naloxone HCl (Naloxone Hcl 0.4 Mg/Ml Vial) 0.04 mg IVPUSH Q5M PRN PRN Reason: Excessive sedation or RR < 8 Omeprazole (Omeprazole 20 Mg Capsule.Dr) 20 mg PO DAILY@0630 [facility] Last Admin: 05/22/24 06:08 Dose: Not Given Ondansetron HCl (Ondansetron Hcl 4 Mg/2 Ml Vial) 4 mg IVPUSH Q8H PRN PRN Reason: Nausea and Vomiting Polyethylene Glycol (Polyethylene Glycol 3350 17 Gm Powd.Pack) 17 gm PO DAILY PRN PRN Reason: Constipation Sodium Biphosphate/Sodium Phosphate (Sodium Phosphate,[place]-Dibasic 133 Ml Enema) 133 ml NC ONCE PRN PRN Reason: Consult order Last Admin: 05/19/24 11:54 Dose: 133 ml Sodium Chloride (0.9 % Sodium Chloride Flush 3 Ml Syringe) 3 ml IVFLUSH QSHIFT [facility] Last Admin: 05/22/24 09:26 Dose: 3 ml Tamsulosin HCl (Tamsulosin Hcl 0.4 Mg Capsule) 0.4 mg PO BEDTIME [facility] Last Admin: 05/21/24 20:15 Dose: 0.4 mg Home Medications ?Medication ?Instructions ?Recorded ?Confirmed ?Type clonazepam 0.5 mg tablet 0.5 mg PO BEDTIME 09/03/23 05/18/24 History diclofenac sodium 1 % topical gel 2 g topical BID Pain 09/03/23 05/18/24 History lidocaine 4 % topical gel 1 appl topical TID PRN Pain 09/03/23 05/18/24 History sennosides 8.6 mg tablet (senna) 8.6 mg PO BID 09/03/23 05/18/24 History acetaminophen 325 mg tablet 650 mg PO Q4H PRN Fever Or Pain 05/18/24 05/18/24 History aluminum-mag hydroxide-simethicone 30 ml PO Q4H PRN Indigestion 05/18/24 05/18/24 History 200 mg-200 mg-20 mg/5 mL oral susp (Shira-Lanta) amlodipine 2.5 mg tablet 2.5 mg PO DAILY 05/18/24 05/18/24 History bisacodyl 10 mg rectal suppository 10 mg NC DAILY PRN Constipation 05/18/24 05/18/24 History diphenhydramine HCl 25 mg tablet 25 mg PO Q6H PRN Allergic Reaction 05/18/24 05/18/24 History (Banophen) ferrous sulfate 325 mg (65 mg 325 mg PO BID 05/18/24 05/18/24 History iron) tablet magnesium hydroxide 400 mg/5 mL 30 ml PO DAILY PRN Constipation 05/18/24 05/18/24 History oral suspension (Milk of Magnesia) magnesium hydroxide 400 mg/5 mL 30 ml PO Q48H Constipation 05/18/24 05/18/24 History oral suspension (Milk of Magnesia) meclizine 25 mg tablet 25 mg PO Q8H PRN Dizziness Or 05/18/24 05/18/24 History Vertigo naloxone 4 mg/actuation nasal 4 mg intranasal Q3M PRN Opiate 05/18/24 05/18/24 History spray (Narcan) Reversal oxycodone 5 mg tablet 5 mg PO Q8H PRN Pain, 05/18/24 05/18/24 History Moderate(Pain Scale 4-6) sodium phosphates 19 gram-7 118 ml NC DAILY PRN Constipation 05/18/24 05/18/24 History gram/118 mL enema (Fleet Enema) Allergies Allergy/AdvReac Type Severity Reaction Status Date / Time egg Allergy Intermediate Swelling Verified 05/18/24 11:41 Iodinated Contrast Media Allergy Intermediate Swelling Verified 05/18/24 11:41 [Contrast Dye] onion Allergy Intermediate Swelling Verified 05/18/24 11:41 peanut Allergy Intermediate Swelling Verified 05/18/24 11:41 shellfish derived Allergy Intermediate Swelling Verified 05/18/24 11:41 tomato Allergy Intermediate Swelling Verified 05/18/24 11:41 Exam Vital signs: Vital Signs Temp 98.3 F 05/22/24 07:26 Pulse 98 05/22/24 07:26 Resp 16 05/22/24 07:26 BP 100/57 L 05/22/24 07:26 Pulse Ox 93 05/22/24 07:26 O2 Del Method Room Air 05/22/24 07:26 Intake & Output 05/21/24 05/22/24 05/22/24 18:59 06:59 18:59 Intake Total 501 / 2397.825 1896.825 / 2397.825 841 / 841 Output Total 750 / 2550 1800 / 2550 300 / 300 Balance -249 / -152.175 96.825 / -152.175 541 / 541 Urine Output (Average ml/kg/hr) 0.74 1.78 0.30 Intake: Intake, Oral Amount 1400 / 1400 340 / 340 Intake, IV Amount 501 / 997.825 496.825 / 997.825 501 / 501 Octreotide Acetate 500 mcg In 0 501 / 997.825 496.825 / 997.825 501 / 501 .9 % Sodium Chloride 500 ml @ 50 MCG/HR 50.1 mls/hr IVCONT . Q10H [facility] Rx#:[id number] Output: Output, Urine Amount 1000 / 1000 Output, Urine Amount (Catheter) 750 / 1550 800 / 1550 300 / 300 Urethral 750 / 1550 800 / 1550 300 / 300 Other: Breakfast % Eaten 25% 100% Lunch % Eaten 75% 75% Dinner % Eaten 100% Eating (Feeding) Ability Independent Independent Number of Bowel Movements 9 Urine paulson Urine Color Yellow Yellow Weight 84.5 kg BMI result Body Mass Index 31.0 - Constitutional Present: no acute distress, mild distress, average body habitus, chronically ill appearing - Routine HEENT Exam Head: Present: atraumatic - Routine Neck Exam Present: full ROM - Routine Respiratory Exam Present: decreased breath sounds. Absent: stridor, wheezes - Routine Cardiovascular Exam Cardiovascular: Present: S1, S2, bradycardia - Routine Abdominal Exam Present: diminished bowel sounds, distended, soft, tenderness - Routine Skin Exam Present: intact Data - Labs CBC & Chem 7: 05/21/24 08:00 05/20/24 05:38 Labs: Laboratory Last Values WBC 3.2 X10*3/uL (4.8-10.8) L 05/20/24 05:38 RBC 2.76 X10*6/uL (4.20-5.50) L 05/20/24 05:38 Hgb 10.3 g/dl (12.0-16.0) L 05/21/24 08:00 Hct 31.2 % (37.0-47.0) L 05/21/24 08:00 MCV 96.4 fL (80.0-98.0) 05/20/24 05:38 MCH 33.0 pg (27.0-33.0) 05/20/24 05:38 MCHC 34.2 g/dl (31.0-35.0) 05/20/24 05:38 RDW 15.5 % (11.0-16.0) 05/20/24 05:38 Plt Count 166 X10*3/uL (160-400) 05/20/24 05:38 MPV 9.2 fL (9.4-12.3) L 05/20/24 05:38 Immature Gran % (Auto) 0.4 % (0.0-0.4) 05/18/24 12:08 Neut % (Auto) 70.7 % (45-73) 05/18/24 12:08 Lymph % (Auto) 10.8 % (20-40) L 05/18/24 12:08 [place] % (Auto) 17.7 % (2-11) H 05/18/24 12:08 Eos % (Auto) 0.4 % (0-4) 05/18/24 12:08 Baso % (Auto) 0.0 % (0-2) 05/18/24 12:08 Lymph # (Auto) 0.3 X10*3/uL (1.2-4.9) L 05/18/24 12:08 [place] # (Auto) 0.5 X10*3/uL (0.1-1.2) 05/18/24 12:08 Eos # (Auto) 0.0 X10*3/uL (0.0-0.4) 05/18/24 12:08 Baso # (Auto) 0.0 X10*3/uL (0.0-0.2) 05/18/24 12:08 Abs Immat Gran (auto) 0.01 X10*3/uL (0.00-0.03) 05/18/24 12:08 Absolute Neuts (auto) 2.0 x10*3/uL (2.0-8.3) 05/18/24 12:08 Absolute Nucleated RBC 0.000 X10*3/uL (0.0-0.012) 05/20/24 05:38 Nucleated RBC % (auto) 0.0 /100WBC (0.0-0.2) 05/20/24 05:38 PT 11.8 SEC (10.9-12.4) 05/18/24 12:08 INR 1.0 (0.9-1.1) 05/18/24 12:08 Sodium 136 mmol/L (135-145) 05/20/24 05:38 Potassium 3.5 mmol/L (3.3-5.1) 05/20/24 05:38 Chloride 104 mmol/L (96-108) 05/20/24 05:38 Carbon Dioxide 25 mmol/L (22-29) 05/20/24 05:38 Anion Gap 11 (12-20) L 05/20/24 05:38 BUN 3 mg/dL (9-16) L 05/20/24 05:38 Creatinine 0.58 mg/dL (0.5-1.4) 05/20/24 05:38 Estim Creat Clear Calc 117.6 05/20/24 05:38 Estimated GFR > 60 05/20/24 05:38 Random Glucose 112 mg/dL (60-115) 05/20/24 05:38 Calcium 8.1 mg/dL (8.4-10.2) L 05/20/24 05:38 Magnesium 2.0 mg/dL (1.6-2.6) 05/18/24 12:08 Iron 34 mcg/dL (30-160) 05/19/24 05:47 TIBC 168 mcg/dL (228-428) L 05/19/24 05:47 % Saturation 20 % (15-50) 05/19/24 05:47 Unsat Iron Binding 134 ug/dL 05/19/24 05:47 Ferritin 1573 ng/mL (10-250) H 05/19/24 05:47 Total Bilirubin 0.3 mg/dL (0.0-1.0) 05/19/24 05:47 Direct Bilirubin < 0.2 mg/dL (0.0-0.5) 05/18/24 12:08 AST 40 U/L (5-31) H 05/19/24 05:47 ALT 6 U/L (0-31) 05/19/24 05:47 Alkaline Phosphatase 61 U/L (39-117) 05/19/24 05:47 B-Natriuretic Peptide 20 pg/mL (<100) 05/18/24 12:08 Total Protein 6.5 g/dL (6.5-8.0) 05/19/24 05:47 Albumin 2.6 g/dL (3.5-5.0) L 05/19/24 05:47 Lipase 5 U/L (8-78) L 05/18/24 12:08 Vitamin B12 753 pg/mL (200-900) 05/20/24 05:38 Folate 15.8 ng/mL (> or = 4.0) 05/20/24 05:38 Urine Color Dark Yellow 05/18/24 12:22 Urine Appearance Cloudy 05/18/24 12:22 Urine pH 6.5 (5.0-9.0) 05/18/24 12:22 Ur Specific [place] 1.025 (1.005-1.025) 05/18/24 12:22 Urine Protein 30 (1+) mg/dL (Neg-Trace) H 05/18/24 12:22 Urine Glucose (UA) Negative mg/dL (Negative) 05/18/24 12:22 Urine Ketones Negative mg/dL (Negative) 05/18/24 12:22 Urine Blood Large (3+) (Negative) H 05/18/24 12:22 Urine Nitrite Negative (Negative) 05/18/24 12:22 Ur Leukocyte Esterase Moderate (2+) (Negative) H 05/18/24 12:22 Urine RBC >20 /HPF (0-2) H 05/18/24 12:22 Urine WBC >50 /HPF (0-5) H 05/18/24 12:22 Ur Squamous Epith Cells 0-2 /HPF (0-2) 05/18/24 12:22 Urine Bacteria None Seen (None Seen) 05/18/24 12:22 Hyaline Casts 0-2 /LPF (0-2) 05/18/24 12:22 - Imaging Radiologist's impression: ITS Impressions Chest X-Ray 05/18/24 12:14 IMPRESSION: Small left pleural effusion. Electronically signed by: Hardy Wiseman MD 05/18/2024 01:02 PM EDT RP Abdomen Ultrasound 05/19/24 15:22 IMPRESSION: No varices are identified. Ascites is noted as described. Electronically signed by: Hardy Wiseman MD 05/19/2024 03:55 PM EDT RP Assessment and Plan Patient Active problem list reviewed?: Yes (1) Metastatic cancer Status: Acute Assessment and plan: She seems free of pain but was very lethargic today. She moved her head but did not speak to me or open her eyes. The last medical oncology note mentions a lack of response to recent regimens and the need for palliative care. Will follow over the weekend. No ingtervengion needed today. - Time Spent With Patient Time Spent with Patient (in minutes): 15
[2024-05-22 15:16] VITALS: BP 127/61; PULSE 93; RESP 16; TEMP 36.4; O2SAT 98
== END 2024-05-22 16:27 | disposition skilled nursing facility (03) | DRG 252 ==
LOC: HO.ED 13:33 → HO.EDOVER 19:33 → HO.S3 19:42
PROVIDERS: Internal Medicine Gastroenterology; Physician Assistant; Admitting Provider Internal Medicine; Emergency Provider Emergency Medicine Emergency Medical Services; PCP Internal Medicine; Visit Provider Internal Medicine
PROC: 0DJ08ZZ Inspection of Upper Intestinal Tract, Via Natural or Artificial Opening Endoscopic (ICD-10-PCS; principal; 2024-05-19 14:50)
DX: K94.01 Colostomy hemorrhage (principal); D61.818 Other pancytopenia; C21.8 Malignant neoplasm of overlapping sites of rectum, anus and anal canal; D62 Acute posthemorrhagic anemia; N13.6 Pyonephrosis; C78.6 Secondary malignant neoplasm of retroperitoneum and peritoneum; R33.9 Retention of urine, unspecified; I86.8 Varicose veins of other specified sites; Z87.891 Personal history of nicotine dependence; Z86.19 Personal history of other infectious and parasitic diseases; Z79.899 Other long term (current) drug therapy
CPT/HCPCS: 36415; 71046; 74174; 76705; 80048; 80053; 80076; 81001; 82607; 82728; 82746; 83540; 83690; 83735; 83880; 85014; 85018; 85025; 85027; 85610; 87086; 97162; 99285; J0696; J1200; J1642; J2003; J2270; J2354; J2470; J2704; Q9967

== ENCOUNTER → 2024-05-18 12:14 | Outpatient (BNV) | payer MEDICAID, SELFPAY | PROVIDERS: Emergency Provider Emergency Medicine Emergency Medical Services; Visit Provider Radiology Diagnostic Radiology | DX: N83.8 Other noninflammatory disorders of ovary, fallopian tube and broad ligament (principal); J90 Pleural effusion, not elsewhere classified; R18.8 Other ascites | CPT/HCPCS: 71046; 74174 ==

== ENCOUNTER → 2024-05-18 12:14 | Outpatient (BNV) | payer MEDICAID, SELFPAY | PROVIDERS: Emergency Provider Emergency Medicine Emergency Medical Services; Visit Provider Internal Medicine Gastroenterology | DX: K92.2 Gastrointestinal hemorrhage, unspecified (principal) | CPT/HCPCS: 99223 ==

== ENCOUNTER 2024-05-18 18:43 | Outpatient (BNV) | payer MEDICAID, SELFPAY | END 2024-05-19 15:22 | PROVIDERS: Admitting Provider Internal Medicine; Emergency Provider Emergency Medicine Emergency Medical Services; Visit Provider Radiology Diagnostic Radiology | DX: R18.8 Other ascites (principal) | CPT/HCPCS: 76705 ==

== ENCOUNTER → 2024-05-18 18:43 | Outpatient (BNV) | payer MEDICAID, SELFPAY | PROVIDERS: Admitting Provider Internal Medicine; Emergency Provider Emergency Medicine Emergency Medical Services; Visit Provider Internal Medicine | DX: K92.2 Gastrointestinal hemorrhage, unspecified (principal) | CPT/HCPCS: 99231; 99239 ==

== ENCOUNTER → 2024-05-18 18:43 | Outpatient (BNV) | payer MEDICAID, SELFPAY | PROVIDERS: Admitting Provider Internal Medicine; Emergency Provider Emergency Medicine Emergency Medical Services; Visit Provider Internal Medicine | DX: C21.8 Malignant neoplasm of overlapping sites of rectum, anus and anal canal (principal); Z51.5 Encounter for palliative care | CPT/HCPCS: 99223 ==